=== PATIENT | female | born 1975 | race Caucasian/White ===

== ENCOUNTER 2025-01-06 18:41 | Emergency (ER) | payer BC, SELFPAY ==
--- OUTSIDE RECORDS SUMMARY | 2024-12-13 08:00 | XMS_ITS ---
Author Organization [facility] Address [address] [place] [address] Care Team Providers Care Bolt Threader Name Role Phone Raphael Mann Primary Care Provider [phone] Tushar MORENO, PhD, Heladio Unavailable Ludwig Damian Unavailable [phone] Allergies Allergen (clinical drug ingredient) Drug/Non Drug Allergy documented on EMR Reaction Allergy Type Onset Date Status Opioids (uncoded) rash/hives-can take w/benadryl Allergy Active hydromorphone Dilaudid rash Drug Allergy Act dulce codeine Codeine rash/hives Drug Allergy Active morphine Morphine rash Drug Allergy Active REASON FOR VISIT Neck Pain, Left Upper Extremity Pain, Low Back Pain Medications Medication SIG (Take, Route, Frequency, Duration) Notes Start Date End Date Status hydrOXYzine HCl 25 MG Tablet 1 tablet as needed for itchiness Orally Three times a day; Duration: 4 days Active oxyCODONE HCl 5 MG Tablet 1 tablet as needed Orally once to twice a day; Duration: 30 days Not-Taking/OK N HYDROcodone-Acetaminoph en 5-325 MG Tablet 1 tablet as needed Orally Twice a day; Duration: 5 days For post-op pain 10/05/2024 Active Medrol 4 MG Tablet Therapy Pack as directed on Medrol package Orally 1 pack; Duration: 6 days post-procedu re pain 09/27/2024 Active tiZANidine HCl 4 MG Tablet TAKE ONE TABLET BY MOUTH EVERY 8 HOURS IF NEEDED FOR MUSCLE SPASMS Oral; Duration: 30 Days Active Budesonide-Formoterol Fumarate 80-4.5 MCG/ACT Aerosol INHALE 2 PUFFS BY MOUTH TWICE DAILY AND 1-2 PUFFS EVERY 4 HOURS NEEDED FOR ASTHMA EXACERBATIONS. MAX 12 PUFFS A DAY Inhalation; Duration: 10 Days Active Pantoprazole Sodium 40 MG Tablet Delayed Release TAKE ONE TABLET BY MOUTH EVERY DAY BEFORE A MEAL Oral; Duration: 90 Days Active Eliquis 5 MG Tablet TAKE ONE TABLET BY MOUTH TWICE A DAY Oral; Duration: 30 Days Active Acetaminophen 325 MG Tablet 1 tablet as needed Orally every 6 hrs Active Ondansetron HCl 4 MG Tablet 1 tablet Orally Once a day Active DULoxetine HCl 60 MG Capsule Delayed Release Particles 1 capsule Orally Once a day Active busPIRone HCl 5 MG Tablet 1 tablet Orally Twice a day Active Cyclobenzaprine HCl 10 MG Tablet 1 tablet at bedtime as needed Orally Once a day Active Social History Tobacco Use: Social History Observation Description Date Details (start date - stop date) Never Smoker NA - NA Social History Tobacco Use: Social Info Question Answer Notes Tobacco Control (Standard) Tobacco use: Nonsmoker Encounters Encounter Location Date Provider Diagnosis [address] [facility] [address] [facility] [address] [place] [address] 12/13/2024 Ludwig Dorsey Assessments Encounter Date Diagnosis (ICD Code) Assessment Notes Treatment Notes Treatment Clinical Notes Section Notes 12/13/2024 Other Arpit Stephens , am serving as a scribe to document services personally performed by Ludwig Dorsey CNP, based upon my observations and the provider's statements to me. All documentation has been reviewed by the aforementioned BIOMED TECH as well as Raphael Mann MD, prior to being entered into the official medical record. Raphael Stephens MD attest that the above named individual is acting in scribe capacity, has observed Ludwig Dorsey's performance of the services and has documented them in accordance with her direction. The documentation recorded by the scribe accurately reflects the service Ludwig Dorsey CNP and Raphael Mann MD personally performed and the decisions made by them. Plan Of Treatment Treatment Notes Assessment Notes Other Arpit Stephens, am serving as a scribe to document services personally performed by Ludwig Dorsey CNP, based upon my observations and the provider's statements to me. All documentation has been reviewed by the aforementioned CATHY as well as Raphael Mann MD, prior to being entered into the official medical record. Raphael Stephens MD attest that the above named individual is acting in scribe capacity, has observed Ludwig Dorsey's performance of the services and has documented them in accordance with her direction. The documentation recorded by the scribe accurately reflects the service Ludwig Dorsey CNP and Raphael Mann MD personally performed and the decisions made by them. History and Physical Notes * HPI (History of Present Illness) Category Sub-Category Detail Notes Category Not es Clinic visit Lanie is 49-year-old femalew who is returning for a follow-up evaluation regarding her chronic low back and bilateral lower extremity pain. She is accompanied by her industrial sociologist in clinic today. Interval History: Lanie reports her pain has remained persistent and bothersome. Following a discussion with Dr. Mann in the interim, he has recommended cervical MBB/RFA workup instead of a cervical SCS to address her current symptoms. She returns to the clinic requesting further discussion regarding the aforementioned procedure. Surgical or interventional pain procedures performed to date have included: - 10/18/2024 Left C3-5 RFA - 09/27/2024 Right C3-5 RFA - 06/02/2024 Nevro lumbar SCS implant - 09/2023 Unspecified injection: no relief - 03/06/2020 C7-T1 ADITHYA ([facility]): no relief - 12/19/2019 C7 MARCIN ([facility]): no relief - (Unspecified date) RFA - (Unspecified dates) Unspecified injections at [facility]: no relief Previous Therapy: [facility] was [facility] at [place] [facility] the past Current Pain Medications: Tizanidine PRN, oxycodone 5MG PRN Previous Pain Medications: Alburgh (no relief), Ketamine (helpful), MSIR, Gabapentin (no relief), Lyrica (no relief) ___ returns to clinic today for a follow up evaluation regarding her chronic pain. We discussed her current symptoms and medications. Regarding medications, I have reviewed the [facility] database and did not find any inconsistencies. This treatment plan was reviewed with ___, and she was agreeable. I will continue to monitor her progress and she will follow up in one month or sooner if needed. Plan: 1. Discharge instructions reviewed verbally. Discussed the risks/benefits of prescribed medication. The patient is aware that medication may be discontinued at any time due to poor compliance with visits, and recommended treatment and/or if patient doesn't adhere to the signed pain contract. The patient was instructed to return to the office as scheduled and call with any questions, problems or concerns. PQRS MEASURE 154,155 Fall Risk Have you had t wo or more falls in the past year?: No Have you had any falls with injury in th e past year?: No Plan of Care:: Documented Examination Category Sub-Category Detail Notes Category Not es Cervical Spine/Neck 03/04/2024 CERVICAL MRI ([facility]) IMPRESSION: 1. Multilevel degenerative changes as detailed above. No abnormal enhancement. No cord signal abnormality. Musculoskeletal Constitutional: well groomed, in no ac mel distress Musculoskeletal: Sits comfortablyCerv ical Spine: positive facet loading bilaterally, pain with flexion and extension, lateral rotation; limited AROM Skin: No rashes, scars, or lesions on visible skin Neurological normal coordination upper extremities, normal coordination lower extremities, alert and oriented x3, normal mood and affect Progress Notes * Lanie BARRAZA JDOB:[birth year] (49 yo F)Acc No.[id number]:12/13/2024 Patient: Lanie Cardona Provider: Emelina Dorsey NP :1975 A ge:49 Y S ex:Female Date:12/13/2024 Address:[address] [place], [place] [id number] Pcp:Raphael Mann Subjective: * Chief Complaints: * N yadira PainLeft Upper Extremity PainLow Back Pain * HPI: C linic visit: Lanie is 49-year-old femalew who is returning for a follow-up evaluation regarding her chronic low back and bilateral lower extremity pain. She is accompanied by her industrial sociologist in clinic today. Interval History: Lanie reports her pain has remained persistent and bothersome. Following a discussion with Dr. Mann in the interim, he has recommended cervical MBB/RFA workup instead of a cervical SCS to address her current symptoms. She returns to the clinic requesting further discussion regarding the aforementioned procedure. Surgical or interventional pain procedures performed to date have included: - 10/18/2024 Left C3-5 RFA - 09/27/2024 Right C3-5 RFA - 06/02/2024 Nevro lumbar SCS implant - 09/2023 Unspecified injection: no relief - 03/06/2020 C7-T1 ADITHYA ([facility]): no relief - 12/19/2019 C7 MARCIN ([facility]): no relief - (Unspecified date) RFA - (Unspecified dates) Unspecified injections at [facility]: no relief Previous Therapy: PT was completed at [facility] in the past Current Pain Medications: Tizanidine PRN, oxycodone 5MG PRN Previous Pain Medications: Alburgh (no relief), Ketamine (helpful), MSIR, Gabapentin (no relief), Lyrica (no relief) ___ returns to clinic today for a follow up evaluation regarding her chronic pain. We discussed her current symptoms and medications. Regarding medications, I have reviewed the [facility] database and did not find any inconsistencies. This treatment plan was reviewed with ___, and she was agreeable. I will continue to monitor her progress and she will follow up in one month or sooner if needed. Plan: 1. Discharge instructions reviewed verbally. Discussed the risks/benefits of prescribed medication. The patient is aware that medication may be discontinued at any time due to poor compliance with visits, and recommended treatment and/or if patient doesn't adhere to the signed pain contract. The patient was instructed to return to the office as scheduled and call with any questions, problems or concerns. P QRS MEASURE: 154,[address] you had two or more falls in the past year? N o, H ave you had any falls with injury in the past year? N o, P rhoda of Care: D ocumented. * Medical History: Anxiety Acid reflux Sleep Apnea Pulmonary embolism Hearing Loss Vision Loss Fatty liver Disease - non-alcoholic Factor V Leiden mutation Fibroids GERD Hiatal hernia Pre diabetes Choledocholithiasis Chest pain Elevated C-reactive protein Diverticular disease Acute cholecystitis High cholesterol Intradural mass Medical History Verified * Surgical History: appendectomy section 2013 Cystoscopy gallbladder surgery 2013 tonsillectomy 1979 Lumbar radiofrequency ablation total abdominal hysterectomy cystoscopy Nevro SCS trial 03/23/2024 Nevro SCS implant 05/2024 Surgical History verified. * Hospitalization/Major Diagno stic Procedure: Surgical reasons Hospitalization Verified. * Family History: N o Family History documented.. F amily History Verified.. * Social History: T obacco Use: T obacco Control (Standard) T obacco use: N onsmoker. Social History Verified. * Medications: T akingbusPIRone HCl 5 MG Tablet 1 tablet Orally Twice a day DULoxetine HCl 60 MG Capsule Delayed Release Particles 1 capsule Orally Once a day Cyclobenzaprine HCl 10 MG Tablet 1 tablet at bedtime as needed Orally Once a day Ondansetron HCl 4 MG Tablet 1 tablet Orally Once a day Acetaminophen 325 MG Tablet 1 tablet as needed Orally every 6 hrs Eliquis 5 MG Tablet TAKE ONE TABLET BY MOUTH TWICE A DAY Oral Pantoprazole Sodium 40 MG Tablet Delayed Release TAKE ONE TABLET BY MOUTH EVERY DAY BEFORE A MEAL Oral Budesonide-Formoterol Fumarate 80-4.5 MCG/ACT Aerosol INHALE 2 PUFFS BY MOUTH TWICE DAILY AND 1-2 PUFFS EVERY 4 HOURS NEEDED FOR ASTHMA EXACERBATIONS. MAX 12 PUFFS A DAY Inhalation hydrOXYzine HCl 25 MG Tablet 1 tablet as needed for itchiness Orally Three times a day tiZANidine HCl 4 MG Tablet TAKE ONE TABLET BY MOUTH EVERY 8 HOURS IF NEEDED FOR MUSCLE SPASMS Oral Medrol 4 MG Tablet Therapy Pack as directed on Medrol package Orally 1 pack , Notes to Pharmacist: post-procedure painHYDROcodone-Acetaminophen 5-325 MG Tablet 1 tablet as needed Orally Twice a day , Notes to Pharmacist: For post-op painTaking busPIRone HCl 5 MG Tablet 1 tablet Orally Twice a day Taking DULoxetine HCl 60 MG Capsule Delayed Release Particles 1 capsule Orally Once a day Taking Cyclobenzaprine HCl 10 MG Tablet 1 tablet at bedtime as needed Orally Once a day Taking Ondansetron HCl 4 MG Tablet 1 tablet Orally Once a day Taking Acetaminophen 325 MG Tablet 1 tablet as needed Orally every 6 hrs Taking Eliquis 5 MG Tablet TAKE ONE TABLET BY MOUTH TWICE A DAY Oral Taking Pantoprazole Sodium 40 MG Tablet Delayed Release TAKE ONE TABLET BY MOUTH EVERY DAY BEFORE A MEAL Oral Taking Budesonide-Formoterol Fumarate 80-4.5 MCG/ACT Aerosol INHALE 2 PUFFS BY MOUTH TWICE DAILY AND 1-2 PUFFS EVERY 4 HOURS NEEDED FOR ASTHMA EXACERBATIONS. MAX 12 PUFFS A DAY Inhalation Taking hydrOXYzine HCl 25 MG Tablet 1 tablet as needed for itchiness Orally Three times a day Taking tiZANidine HCl 4 MG Tablet TAKE ONE TABLET BY MOUTH EVERY 8 HOURS IF NEEDED FOR MUSCLE SPASMS Oral Taking Medrol 4 MG Tablet Therapy Pack as directed on Medrol package Orally 1 pack , Notes to Pharmacist: post-procedure painTaking HYDROcodone-Acetaminophen 5-325 MG Tablet 1 tablet as needed Orally Twice a day , Notes to Pharmacist: For post- op painNot-Taking/PRNoxyCODONE HCl 5 MG Tablet 1 tablet as needed Orally once to twice a day Medication List reviewed and reconciled with the patientNot-Taking/PRN oxyCODONE HCl 5 MG Tablet 1 tablet as needed Orally once to twice a day Medication List reviewed and reconciled with the patient * Allergies: M orphine: rashDilaudid: rashCodeine: rash/hivesOpioids: rash/hives-can take w/benadrylyesAllergies Verified. Objective: * Examination: M usculoskeletal: Constitutional: w ell groomed, in no acute distress. Musculoskeletal: S its comfortably Cervical Spine: p ositive facet loading bilaterally, pain with flexion and extension, lateral rotation; limited AROM. Skin: N o rashes, scars, or lesions on visible skin. Neurological n ormal coordination upper extremities, normal coordination lower extremities, alert and oriented x3, normal mood and affect. ? C ervical Spine/Neck: 0 03/04/2024 CERVICAL MRI ([facility]) IMPRESSION: 1. Multilevel degenerative changes as detailed above. No abnormal enhancement. No cord signal abnormality. Plan: * Treatment: Billing Information: * Procedure Codes: * Electronic signature of Jc Dorsey CNP on 01/06/2025 at 06:44 PM ACCOUNT AUDITOR Sign off status: Pending * Provider: Emelina Dorsey NP Date: Generated for Gee gutierres/Brenda/Michael on: 03/08/2024 06:44 PM ACCOUNT AUDITOR
--- OUTSIDE RECORDS SUMMARY | 2024-12-15 08:15 | XMS_ITS ---
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 Name Role Phone Raphael Mann Primary Care Provider Tushar MORENO, PhD, Heladio Unavailable Ludwig aDmian Unavailable [phone] Allergies Allergen (clinical drug ingredient) Drug/Non Drug Allergy documented on EMR Reaction Allergy Type Onset Date Status Opioids (uncoded) rash/hives-can take w/benadryl Allergy Active hydromorphone Dilaudid rash Drug Allergy Act dulce codeine Codeine rash/hives Drug Allergy Active morphine Morphine rash Drug Allergy Active REASON FOR VISIT Neck pain, Left upper extremity pain, Low back pain, Bilateral lower extremity pain Medications Medication SIG (Take, Route, Frequency, Duration) Notes Start Date End Date Status tiZANidine HCl 4 MG Tablet TAKE ONE TABLET BY MOUTH EVERY 8 HOURS IF NEEDED FOR MUSCLE SPASMS Oral; Duration: 30 Days Active hydrOXYzine HCl 25 MG Tablet 1 tablet as needed for itchiness Orally Three times a day; Duration: 4 days Active Budesonide-Formoterol Fumarate 80-4.5 MCG/ACT Aerosol INHALE [...] A DAY Oral; Duration: 30 Days Active Ondansetron HCl 4 MG Tablet 1 tablet Orally Once a day Active Cyclobenzaprine HCl 10 MG Tablet 1 tablet at bedtime as needed Orally Once a day Active DULoxetine HCl 60 MG Capsule Delayed Release Particles 1 capsule Orally Once a day Active busPIRone HCl 5 MG Tablet 1 tablet Orally Twice a day Active Acetaminophen 325 MG Tablet 1 tablet as needed Orally every 6 hrs Active HYDROcodone-Acetaminoph en 5-325 MG Tablet 1 tablet as needed Orally Twice a day; Duration: 5 days For post-op pain 10/05/2024 Active Medrol 4 MG Tablet Therapy Pack as directed on Medrol package Orally 1 pack; Duration: 6 days post-procedu re pain 09/27/2024 Active oxyCODONE HCl 5 MG Tablet 1 tablet as needed Orally once to twice a day; Duration: 30 days Not-Taking/AL N Social History Tobacco Use: Social History Observation Description Date Details (start date - stop date) Never Smoker NA - NA Social History Drug/Alcohol: Social Info Question Answer Notes AUDIT-C (Standard) Did you have a drink containing alcohol in the past year? No Points 0 Interpretation Negative Tobacco Use: Social Info Question Answer Notes Tobacco Control (Standard) Tobacco use: Nonsmoker Vital Signs Blood pressure systolic 140 mm Hg 12/16/19 25 Blood pressure diastolic 82 mm Hg 025 Height 64 in 12/15/2024 Weight 270 lbs 12/15/2024 BMI 46.34 kg/m2 12/15/2024 Procedures Procedure Date Ordered Date Performed Result Body Sit e Intervention: 12/15/2024 N/A Intervention: 2 12/15/2024 N/A Encounters Encounter Location Date Provider Diagnosis [facility] [id number] [id number] 12/15/2024 Ludwig Dorsey Cervicalgia M54.2 ; Low back pain, unspecified M54.50 ; Spondylosis without myelopathy or radiculopathy, cervical region M47.812 ; Radiculopathy, lumbar region M54.16 and Other chronic pain G89.29 Assessments Encounter Date Diagnosis (ICD Code) Assessment Notes Treatment Notes Treatment Clinical Notes Section Notes 12/15/2024 Cervicalgia (ICD-10 - M54.2) 12/15/2024 Low back pain, unspecified (ICD-10 - M54.50) 12/15/2024 Spondylosis without myelopathy or radiculopathy, cervical region (ICD-10 - M47.812) 12/15/2024 Radiculopathy, lumbar region (ICD-10 - M54.16) 12/15/2024 Other chronic pain (ICD-10 - G89.29) Lanie returns to clinic today for a follow up evaluation regarding her chronic pain. We discussed her current symptoms and medications as well as her most recent imaging. Given her extremity symptoms, I do believe she is a good candidate for MARCIN and LESI. Regarding medications, I have reviewed the [facility] database and did not find any inconsistencies. She is advised to adjust her Methocarbamol and Tylenol doses for improved pain coverage. This treatment plan was reviewed with Lanie, and she was agreeable. I will continue to monitor her progress and she will follow up in two months or sooner if needed. Plan: 1. Order C6-7 ADITHYA 2. Order bilateral L4-5 TFE 3. Request Eliquis hold 4. Trial additional Methocarbamol day time dose along with Tylenol 5. Follow up in 2 months Discharge instructions reviewed verbally. Discussed the risks/benefits of prescribed medication. The patient was instructed to return to the office as scheduled and call with any questions, problems or concerns. 12/15/2024 Other I, Arpit Jean-Baptiste , am serving as a scribe to document services personally performed by Ludwig Dorsey CNP, based upon my observations and the provider's statements to me. All documentation has been reviewed by the aforementioned MEDICARE COMPLIANCE AUDITOR as well as Wilfredo Ellis MD, prior to being entered into the official medical record. I, Wilfredo Ellis MD attest that the above named individual is acting in scribe capacity, has observed Ludwig Dorsey's performance of the services and has documented them in accordance with her direction. The documentation recorded by the scribe accurately reflects the service Ludwig Dorsey CNP and Wilfredo Ellis MD personally performed and the decisions made by them. Plan Of Treatment Treatment Notes Assessment Notes Other chronic pain Lanie returns to clinic today for a follow up evaluation regarding her chronic pain. We discussed her current symptoms and medications as well as her most recent imaging. Given her extremity symptoms, I do believe she is a good candidate for MARCIN and LESI. Regarding medications, I have reviewed the [facility] database and did not find any inconsistencies. She is advised to adjust her Methocarbamol and Tylenol doses for improved pain coverage. This treatment plan was reviewed with Lanie, and she was agreeable. I will continue to monitor her progress and she will follow up in two months or sooner if needed. Plan: 1. Order C6-7 ADITHYA 2. Order bilateral L4-5 TFE 3. Request Eliquis hold 4. Trial additional Methocarbamol day time dose along with Tylenol 5. Follow up in 2 months Discharge instructions reviewed verbally. Discussed the risks/benefits of prescribed medication. The patient was instructed to return to the office as scheduled and call with any questions, problems or concerns. Other I, Arpit Jean-Baptiste, am serving as a scribe to document services personally performed by Ludwig Dorsey CNP, based upon my observations and the provider's statements to me. All documentation has been reviewed by the aforementioned CATHY as well as Wilfredo Ellis MD, prior to being entered into the official medical record. I, Wilfredo Ellis MD attest that the above named individual is acting in scribe capacity, has observed Ludwig Dorsey's performance of the services and has documented them in accordance with her direction. The documentation recorded by the scribe accurately reflects the service Ludwig Dorsey CNP and Wilfredo Ellis MD personally performed and the decisions made by them. Pending Test Test Name Order Date Intervention: 12/15/2024 Intervention: 2 12/15/2024 Next Appt Details Follow Up: 2 Months, Reason: History and Physical Notes * HPI (History of Present Illness) Category Sub-Category Detail Notes Category Not es Depression Screening PHQ-9 Little inte rest or pleasure in doing things: Several days Feeling down, depressed, or hopeless: Se veral days Trouble falling or staying asleep, or sl eeping too much: Several days Feeling tired or having little energy: S everal days Poor appetite or overeating: Not at all Feeling bad about yourself o r that you are a failure, or have let yourself or your family down: Not at all Trouble concentrating on thi ngs, such as reading the newspaper or watching television: Not at all Moving or speaking so slowly that other people could have noticed; or the opposite, being so fidgety or restless that you have been moving around a lot more than usual: Several days Thoughts that you would be b mon[place] off or of hurting yourself in some way: Not at all Total Score: 5 Interpretation: Mild Depression Intervention Depression Screening Findings: N egative Name of the standardized too l used for adult depression screening:: Patient Health Questionnaire (PHQ-9) Clinic visit Lanie returns regarding neck and upper extremity pain, particularly with movement and completing ADLs. She also endorses cramping in the lower arms and hands. She also has chronic low back and bilateral lower extremity pain that has been bothersome in the interim, particularly aggravated by her new job in [employer]. She is accompanied by her aerial photograph interpreter in clinic today. She presented to the ER for pain earlier this month. She was given Methocarbamol which she still takes nightly. She has been on Tizanidine in the past. Otherwise, she is only using Tylenol Previous Pain Medications: Tizanidine, Oxycodone, [place] (no relief), Ketamine (helpful), MSIR, Gabapentin (no relief), Lyrica (no relief) On 01/19/2025 she is scheduled to see podiatry Surgical or interventional pain procedures performed to date have included: - 10/18/2024 Left C3-5 RFA: 40-50% ongoing relief - 09/27/2024 Right C3-5 RFA: 40-50% ongoing relief - 06/02/2024 Nevro lumbar SCS implant - 09/2023 Unspecified injection: no relief - 03/06/2020 C7-T1 ADITHYA ([facility]): no relief - 12/19/2019 C7 MARCIN ([facility]): no relief - (Unspecified date) RFA - (Unspecified dates) Unspecified injections at [facility]: no relief Previous Therapy: [facility] the past PQRS MEASURE 154,155 Fall Risk Have you [...] No abnormal enhancement. No cord signal abnormality. Lumbar Spine/Lower back 07/07/2023 MR LUMBAR ([facility]) CONCLUSION: Multilevel spondylosis with mild Scheuerman-like thoracolumbar endplate changes, and these findings: 1. Mild to moderate multilevel disc degeneration, notably L1-2 and L2-3, without neural impingement at these levels. 2. Moderate chronic bilateral L4-5 and right L5-S1 foraminal stenosis with nerve root impingement. 3. 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 This is best seen on postcontrast imaging. Note: No substantial change in spondylosis. L4-5 foraminal stenosis may be slightly worse. Musculoskeletal Constitutional: well groomed, in no acute distress Musculoskeletal: Sits comfortably Skin: No rashes, scars, or lesions on visible skin Neurological normal coordination upper extremities, normal coordination lower extremities, alert and oriented x3, normal mood and affect Progress Notes * DANIKARegina FLORESnifer JDOB:[birth year] (49 yo F)Acc No.[id number]:12/15/2024 Patient: Abel zionReginaLanie Emelina Provider: Emelina Dorsey NP :1975 A ge:49 Y S ex:Female Date:12/15/2024 Address:[address] [place], [place] [id number] Pcp:Raphael Mann Subjective: * Chief Complaints: * N yadira painLeft upper extremity painLow back painBilateral lower extremity pain * HPI: C linic visit: Lanie returns regarding neck and upper extremity pain, particularly with movement and completing ADLs. She also endorses cramping in the lower arms and hands. 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 She is accompanied by her aerial photograph interpreter in clinic today. She presented to the ER for pain earlier this month. She was given Methocarbamol which she still takes nightly. She has been on Tizanidine in the past. Otherwise, she is only using Tylenol Previous Pain Medications: Tizanidine, Oxycodone, N orco (no relief), Ketamine (helpful), MSIR, Gabapentin (no relief), Lyrica (no relief) On 01/19/2025 she is scheduled to see podiatry Surgical or interventional pain procedures performed to date have included: - 0 10/18/2024 Left C3-5 RFA: 40-50% ongoing relief - 09/27/2024 Right C3-5 RFA: 40-50% ongoing relief - 06/02/2024 Nevro lumbar SCS implant - 09/2023 Unspecified injection: no relief - 03/06/2020 C7-T1 ADITHYA ([facility]): no relief - 12/19/2019 C7 MARCIN ([facility]): no relief - (Unspecified date) RFA - (Unspecified dates) Unspecified injections at [facility]: no relief Previous Therapy: PT was completed at [facility] in the past. P QRS MEASURE: 154,[address] you had two or more falls in the past year? N o, H ave you had any falls with injury in the past year? N o, P rhoda of Care: D ocumented. D epression Screening: PHQ-9 L ittle interest or pleasure in doing things S everal days, F eeling down, depressed, or hopeless S everal days, T rouble falling or staying asleep, or sleeping too much S everal days, F eeling tired or having little energy S everal days, P oor appetite or overeating N ot at all, F eeling bad about yourself or that you are a failure, or have let yourself or your family down N ot at all, T rouble concentrating on things, such as reading the newspaper or watching television N ot at all, M oving or speaking so slowly that other people could have noticed; or the opposite, being so fidgety or restless that you have been moving around a lot more than usual S everal days, T houghts that you would be better off or of hurting yourself in some way N ot at all, T otal Score 5, I nterpretation M ild Depression. I ntervention D epression Screening Findings?Negative, N flower of the standardized tool used for adult depression screening: P atient Health Questionnaire (PHQ-9). * ROS: G eneral/Constitutional: Chills/Fevers N o. F atigue N o. W eight gain?Yes. W eight loss N o. E ndocrine: Dizziness N o. E xcessive sweating Y es. W eakness Y es. R espiratory: Chest pain N o. C ough N o. S hortness of breath at rest Y es. G astrointestinal: Abdominal pain N o. B lood in stool N o. C onstipation N o. D iarrhea N o. H ematology: Easy bruising Y es. P rolonged bleeding N o. S wollen glands N o. M usculoskeletal: Painful joints Y es. S wollen joints N o. ? S kin: Skin lesion(s) N o. N eurologic: Balance difficulty N o. H eadache N o. T ingling/Numbness N o. P sychiatric: Alcoholism N o. A nxiety Y es. S ubstance abuse?No. * Medical History: Anxiety Acid reflux Sleep [...] * Hospitalization/Major Diagno stic Procedure: Surgical reasons ER for pain 11/24/2024 Hospitalization Verified. * Family History: N o Family History documented.. F amily History Verified.. * Social History: T obacco Use: T obacco Control (Standard) T obacco use: N onsmoker. D rug/Alcohol: A IBETH-C (Standard) D id you have a drink containing alcohol in the past year? N o,?Points 0 , I nterpretation N egative. Social History Verified. * Medications: T akingbusPIRone [...] rash/hivesOpioids: rash/hives-can take w/benadrylyesAllergies Verified. Objective: * Vitals: H t: 64 in, Wt:270lbs, BMI:46.34Index, BP:140/82mm Hg, VAS-Today:71-10, VAS-Av 1-10, VAS-High: 10 1-10. * Examination: M usculoskeletal: Constitutional: w ell groomed, in no acute distress. Musculoskeletal: S its comfortably. Skin: N o rashes, scars, or lesions on visible skin. Neurological n ormal coordination upper extremities, normal coordination lower extremities, alert and oriented x3, normal mood and affect. ? C ervical Spine/Neck: 0 03/04/2024 CERVICAL MRI ([facility]) IMPRESSION: 1. Multilevel degenerative changes as detailed above. No abnormal enhancement. No cord signal abnormality. L umbar Spine/Lower back: 0 07/07/2023 MR LUMBAR ([facility]) CONCLUSION: Multilevel spondylosis with mild Scheuerman-like thoracolumbar endplate changes, and these findings: 1. Mild to moderate multilevel disc degeneration, notably L1-2 and L2-3, without neural impingement at these levels. 2. Moderate chronic bilateral L4-5 and right L5-S1 foraminal stenosis with nerve root impingement. 3. 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 This is best seen on postcontrast imaging. Note: No substantial change in spondylosis. L4-5 foraminal stenosis may be slightly worse. Assessment: * Assessment: 1. C ervicalgia - M54.2 (Primary) 2 . L ow back pain, unspecified - M54.50? 3. S pondylosis without myelopathy or radiculopathy, cervical region - M47.812? 4. R adiculopathy, lumbar region - M54.16 5 . O ther chronic pain - G89.29 Plan: * Treatment: 2.?Radiculopathy, lumbar region?Procedure: Intervention: 2* Arpit Jean-Baptiste 12/15/2024 03: 01:15 PM CDT > Please order bilateral L4-5 TFE and call patient to schedule. Patient is on Eliquis. 3.?Other chronic pain? Notes: Lanie returns to clinic today for a follow up evaluation regarding her chronic pain. We discussed her current symptoms and medications as well as her most recent imaging. Given her extremity symptoms, I do believe she is a good candidate for MARCIN and LESI.?Regarding medications, I have reviewed the [facility] database and did not find any inconsistencies. She is advised to adjust her Methocarbamol and Tylenol doses for improved pain coverage. This treatment plan was reviewed with Lanie, and she was agreeable. I will continue to monitor her progress and she will follow up in two months or sooner if needed. Plan: 1. Order C6-7 ADITHYA 2. Order bilateral L4-5 TFE 3. Request Eliquis hold 4. Trial additional Methocarbamol day time dose along with Tylenol 5. Follow up in 2 months Discharge instructions reviewed verbally. Discussed the risks/benefits of prescribed medication. The patient was instructed to return to the office as scheduled and call with any questions, problems or concerns.??4.?Others? Notes: I Arpit Estiven, am serving as a scribe to document services personally performed by Ludwig Dorsey CNP, based upon my observations and the provider's statements to me. All documentation has been reviewed by the aforementioned MEDICARE COMPLIANCE AUDITOR as well as Wilfredo Ellis MD, prior to being entered into the official medical record. I, Wilfredo Ellis MD attest that the above named individual is acting in scribe capacity, has observed Ludwig Dorsey's performance of the services and has documented them in accordance with her direction. The documentation recorded by the scribe accurately reflects the Nilda Dorsey CNP and Wilfredo Ellis MD personally performed and the decisions made by them.? * Preventive Medicine: iSpine Inventory Forms: L ow Back Oswestry O swestry Score (0-100) = 2 2,?NATALY Interpretation 2 1-39 (Moderate Disability). Counseling: B AK Care goal follow-up plan: A steffi Normal BMI Follow-up L ifestyle education regarding diet Patient declined. * Follow Up: 2 Months Billing Information: * Visit Code: [id number] Established Patient level 4. 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
--- OUTSIDE RECORDS SUMMARY | 2024-12-29 08:13 | XMS_ITS | Continuity of Care Document ---
Author Organization [facility] Address [address] [address] [place] [address] Phone Care Team Providers Care Calculation Reviewer Name Role Phone Wiley Garcia MD Unavailable Unavailable Allergies, Adverse Reactions, Alerts Substance Reaction Status Criticality morphine Active No Information PRESERVATIVE FREE rash Active No Informa tion HYDROMORPHONE HCL rash Active No Informa tion Medications Medication Instructions Dosage Effective Dates (start - stop) Status Comments pantoprazole 40 mg tablet,delayed release take 1 tablet by oral route 2 times every day 40 MG - Active tanya @[employer] ondansetron [address] 1 tablet by translingual route 1-2 times every day as needed on top of the tongue where they will dissolve, then swallow - Active omeprazole 40 mg capsule,delayed release take 1 by Oral route 2 times every day Take 30 minutes before a meal - Active tanya @[employer] sucralfate 1 gram tablet take 1 tablet by oral route 4 times every day on an empty stomach 1 hour before meals and at bedtime 1 G - Active tanya @[employer] Lovenox 40 mg/0.4 mL subcutaneous syringe inject 0.4 milliliter by subcutaneous route every month 40 MG - Active omeprazole 20 mg capsule,delayed release take 1 capsule by oral route 2 times every day 30 minutes to 1 hour before a meal 20 MG - Active DULOXETINE HCL (unknown strength) take 1 capsule by oral route 2 times every day Not Available - Active Eliquis 5 mg tablet take 1 tablet by oral route 2 times every day 5 MG - Active Procedures Procedure Date Offic/outpt E&m Estab Moderate Routine Serum Collection Offic/outpt E&m Estab Moderate Routine Serum Collection Ugi Endo; Dx W/wo Collec Specm 25 Offic/outpt E&m Estab Moderate 25 Routine Serum Collection Offic/outpt E&m Estab Mod-hi 2 24 Esophageal Motility Study Offic/outpt E&m Estab Mod-hi 2 23 Offic/outpt E&m Estab Mod-hi 2 22 Ugi Endo; W/insrt Guide Wire Ugi Endo; W/bx 1/mx Level Iv-surg Path Gross/micro 22 Colonoscopy Flex; W/remov Les- 21 Colonoscopy Flex; W/bx 1/mx Level Iv-surg Path Gross/micro 21 Offic/outpt E&m Estab Mod-hi 2 18 Ugi Endo; W/bx 1/mx Level Iv-surg Path Gross/micro 18 Offic/outpt E&m Estab Mod-hi 2 18 Offic/outpt E&m Estab Mod-hi 2 18 Offic/outpt E&m Estab Low-mod 6 Colonoscopy Flex; W/remov Les- 16 Level Iv-surg Path Gross/micro 16 Offic/outpt E&m Estab Mod-hi 2 16 Colonoscopy Flex; W/remov Les- 14 Colonoscopy Flex; W/bx 1/mx Level Iv-surg Path Gross/micro 14 Offic/outpt E&m Estab Mod-hi 2 14 Ercp; W/endo Retro Remov Fb/ch 13 Ercp; W/endo Retro Remov Stone 13 Offic/outpt E&m Estab Mod-hi 2 13 Subsqt Hosp-da E&m Minr Compl 3 Init Inpt Cons New/est Mod-hi 3 Ugi Endo; W/endo Ultrasound Ex 13 Ercp; W/sphincterotomy/papillo 13 Ercp; W/endo Retro Insrt Tube/ 13 Ercp; W/endo Retro Remov Stone 13 Init Inpt Cons New/est Mod-hi 3 Ugi Endo; Dx W/wo Collec Specm 09 Offic Cons New/estab Mod-hi 60 09 [id number] Advance Directives Directive Yes / No Effective Date File Name No Information Encounters Encounter Description Practice Location Reason(s) For Visit Diagnoses Date Provider Providers Copied on Encounter [facility], [address] [address], [place], [place], [address], [place] tel:[phone] [facility] No Information 5 Jose Jama. [address] [place] [address], [id number], [place]. tel:[phone] Offic/outpt E&m Estab Moderate [facility], [address] [address], [place], [place], [address], [place] tel:[phone] [facility] GI Symptoms or Concerns (chief complaint) Hiatal hernia with GERD and esophagitisSev ere obesityGastrop aresis 5 Chris Waters. [address] [place] [address], [id number], . tel:[phone] Referring Provider: Referral Self, USE FOR SELF REFERRALS. [facility], [address] [address], [place], [id number], [place] tel:[phone] [facility] Gastroparesis 5 Chris PAC Evelin. [address] [facility], [address], [id number], . tel:[phone] Referring Provider: Referral Self, USE FOR SELF REFERRALS. [facility], [address] [address], [place], [id number], [place] tel:[phone] [facility] Hepatic steatosis Oct- 5 Chris PAC Evelin. [address] [facility], [address], [id number], [place]. tel:[phone] Offic/outpt E&m Estab Moderate [facility], [address] [address], [place], [id number], [place] tel:[phone] [facility] GI Symptoms or Concerns (chief complaint) GastroparesisH iatal hernia with GERD and esophagitisGas tro-esophageal reflux disease with esophagitis, without bleeding 5 Chris PAC Evelin. [address] [facility], [address], [id number], [place]. tel:[phone] Referring Provider: Referral Self, USE FOR SELF REFERRALS. [facility], [address] [address], [place], [id number], [place] tel:[phone] [facility] Diaphragmatic hernia without obstruction or gangreneGastro esophageal reflux disease with esophagitis without hemorrhageGast ro-esophageal reflux disease with esophagitis, without bleedingDiaphr agmatic hernia without obstruction or gangrene 5 Luis Dennisahim. [address] [facility], [address], [id number], [place]. tel:[phone] Referring Provider: Referral Self, USE FOR SELF REFERRALS. Offic/outpt E&m Estab Moderate [facility], [address] [address], [place], [id number], [place] tel:[phone] [facility] GI Symptoms or Concerns (chief complaint) Hiatal herniaGastroes ophageal reflux disease, unspecified whether esophagitis presentHepatic steatosisNause a 5 Chris Mendozaanna. [facility], [facility] [address], [place], [place], [address], [place]. tel:[phone] Referring Provider: Referral Self, USE FOR SELF REFERRALS. [facility], [address] [address], [place], [address], [place] tel:[phone] [facility] No Information 5 Tavares Hill. [address] [facility], [facility] [address], [place], [id number], [place]. tel:[phone] Offic/outpt E&m Estab Mod-hi [address] [facility], [address] [address], [place], [address], [place] tel:[phone] [facility] GI Symptoms or Concerns (chief complaint) HeartburnHiata l herniaEsophagi tis 4 Ida Roman. [address] [place] [address], [facility] [address], [place], [address], [place]. tel:[phone] Referring Provider: Referral Self, USE FOR SELF REFERRALS. [facility], [address] [address], [place], [address], [place] tel:[phone] [facility] No Information 4 Ted Munoz. [address] [place] [address], [facility] [address], [place], [address], [place]. tel:[phone] [facility], [address] [address], [place], [address], [place] tel:[phone] [facility] Gastro-esophag eal reflux disease without esophagitis 3 Ted Munoz. [address] [place] [address], [facility] [address], [place], [address], [place]. tel:[phone] Referring Provider: Alexander Orellana, [address] [place] [address] [address], [place], [address] . tel:[phone] Offic/outpt E&m Estab Mod-hi [address] [facility], [address] [address], [place], [id number], [place] tel:[phone] [facility] GI Symptoms or Concerns (chief complaint) Chronic GERDHiatal hernia 3 Ted Munoz. [address] [place] [address], [address], [id number], [place]. tel:[phone] Referring Provider: Referral Self, USE FOR SELF REFERRALS. Offic/outpt E&m Estab Mod-hi [address] [facility], [address] [address], [place], [id number], [place] tel:[phone] [facility] GI Symptoms or Concerns (chief complaint) Chronic GERDHiatal hernia 2 Mellissa Ibrahim. [address] [place] [address], [id number], [place]. tel:[phone] Referring Provider: Referral Self, USE FOR SELF REFERRALS. [facility], [address] [address], [place], [id number], [place] tel:[phone] [facility] GI Symptoms or Concerns (chief complaint) Hiatal hernia with GERDDysphagia, unspecifiedDia phragmatic hernia without obstruction or gangrene 2 Hiram Dewitt. [address] [place] [address], [address], [id number], [place]. tel:[phone] Referring Provider: Yarelis Gutierrez, [address] [place], [address]. tel:[phone] [facility], [address] [address], [place], [id number], [place] tel:[phone] [facility] No Information 2 Hiram Dewitt. [address] [place] [address], [address], [id number], [place]. tel:[phone] [facility], [address] [address], [place], [address], [place] tel:[phone] [facility] Colorectal polypsDivertic ulosisInternal hemorrhoidsEnc ounter for screening for malignant neoplasm of colonPersonal history of colonic polypsBenign neoplasm of sigmoid colonDvrtclos of lg int w/o perforation or abscess w/o bleedingDvrtcl os of lg int w/o perforation or abscess w/o bleedingBenign neoplasm of sigmoid colonPersonal history of colonic polyps 1 Anibal Grubbs. [address] [facility], [facility] [address], [place], [place], [id number], [place]. tel:[phone] Referring Provider: Marvin Beckett MD, [address] [facility] [address], [place], [address] . tel:[phone] [facility], [address] [address], [place], [address], [place] tel:[phone] [facility] No Information 1 Anibal Grubbs. [address] [facility], [facility] [address], [place], [place], [address], [place]. tel:[phone] Evangelist Abbasi MD, [address] [facility] [address], [place], [address]. tel:[phone] Offic/outpt E&m Estab Mod-hi [address] [facility], [address] [address], [facility], [id number], [place] tel:[phone] [facility] GI Symptoms or Concerns (chief complaint) Right sided abdominal painDietary counseling and surveillanceEl evated blood-pressure reading, w/o diagnosis of htn 8 Anibal Grubbs. [address] [facility], [facility] [address], [place], [place], [address], [place]. tel:[phone] Referring Provider: Yarelis Henderson [place] A, [address] [facility] [place], [address]. tel:[phone] [facility], [address] [address], [facility] [place], [id number], [place] tel:[phone] [facility] Chronic superficial gastritis, presence of bleeding unspecifiedChr onic superficial gastritis without bleeding 8 Renard Copeland. [address] [facility], [address], [id number], [place]. [phone] Referring Provider: Romie Barnett MD, [address] [facility] [address], [place], [address] . tel:[phone] Offic/outpt E&m Estab Mod-hi [address] [facility], [address] [address], [place], [place], [id number], [place] tel:[phone] [facility] GI Symptoms or Concerns (chief complaint) Right sided abdominal painDietary counseling and surveillance 8 Anibal Grubbs. [address] [facility], [address], [id number], [place]. [phone] Referring Provider: Yarelis Gutierrez, [address] [place], [address]. tel:[phone] Offic/outpt E&m Estab Mod-hi [address] [facility], [address] [address], [place], [place], [address], [place] tel:[phone] [facility] GI Symptoms or Concerns (chief complaint) Fatty liver disease, nonalcoholicGa stroesophageal reflux disease, esophagitis presence not specifiedDieta ry counseling and surveillanceEl evated blood-pressure reading, w/o diagnosis of htn 8 No Information Evangelist Abbasi MD. tel:[phone] erring Provider: Referral Self, USE FOR SELF REFERRALS. Offic/outpt E&m Estab Low-mod [facility], [address] [address], [place], [place], [address], [place] tel:[phone] [facility] GI Symptoms or Concerns (chief complaint) RLQ abdominal painDietary counseling and surveillance 6 Sujit Wong. [address] [facility], [facility] [address], [place], [address], [place]. tel:[phone] Evangelist Abbasi MD. tel:[phone] erring Provider: Referral Self, USE FOR SELF REFERRALS. [facility], [address] [address], [facility] [facility] [place], [address], [place] tel:[phone] [facility] Colon polypsInternal hemorrhoidsBen ign neoplasm of sigmoid colonUnspecifi ed abdominal painOther hemorrhoids 6 Sujit Wong. [address] [facility], [address], [id number], [place]. tel:[phone] Referring Provider: Referral Self, USE FOR SELF REFERRALS. Offic/outpt E&m Estab Mod-hi [address] [facility], [address] [address], [place], [address], [place] tel:[phone] [facility] GI Symptoms or Concerns (chief complaint) RLQ abdominal painConstipati on, unspecified constipation typeRectal bleedingDietar y counseling and surveillance 6 Sujit Wong. [address] [facility], [address], [id number], [place]. [phone] Evangelist Abbasi MD. tel:[phone] erring Provider: Referral Self, USE FOR SELF REFERRALS. [facility], [address] [address], [place], [place], [address], [place] tel:[phone] [facility] Colonic polypsFamily history of colon polypsDivertic ulosis of colonHemorrhoi dsColon Cancer ScreeningDiver ticulosis Of ColonFamily Hx/Colonic PolypsBenign Neoplasm Colon 4 Raphael Ryan. [address] [facility], [facility] [address], [place], [address], [place]. [phone] Evangelist Abbasi MD. tel:[phone] erring Provider: Yarelis Gutierrez, [address] [facility] [place], [address]. tel:[phone] Offic/outpt E&m Estab Mod-hi [address] [facility], [address] [address], [place], [place], [address], [place] tel:[phone] [facility] Colon Cancer ScreeningFamil y Hx/Colonic Polyps May- 4 Raphael Ryan. [address] [facility], [place] [address], [place], [place], [address], [place]. tel:[phone] Referring Provider: Referral Self, USE FOR SELF REFERRALS. [facility], [address] [address], [place], [address], [place] tel:[phone] [facility] No Information 3 Ramona Barnhart. [address] [facility], [place] [address], [place], [place], [address], [place]. tel:[phone] Referring Provider: Yarelis Gutierrez, [address] [place], [address]. tel:[phone] Offic/outpt E&m Estab Mod-hi [address] [facility], [address] [address], [facility] [place], [address], [place] tel:[phone] [facility] Abdominal pain (chief complaint) Choledocholith iasis 3 No Information Referring Provider: Yarelis Gutierrez, [address] [place], [address]. tel:[phone] Subsqt Hosp-da E&m Minr Compl [facility], [address] [address], [facility] [facility] [place], [address], [place] tel:[phone] [facility] No Information 3 No Information Referring Provider: Yarelis Gutierrez, [address] [place], [address]. tel:[phone] Init Inpt Cons New/est Mod-hi [facility], [address] [address], [place], [address], [place] tel:[phone] [facility] No Information 3 Sujit Wong. [address] [facility], [facility] [address], [place], [address], [place]. tel:[phone] Referring Provider: Yarelis Gutierrez, [address], [place], [address]. tel:[phone] [facility], [address] [address], [place], [place], [address], [place] tel:[phone] [facility] No Information 3 Ramona Barnhart. [address] [facility], [facility] [address], [place], [place], [address], [place]. tel:[phone] Referring Provider: Yarelis Gutierrez, [address] [place], [address]. tel:[phone] Init Inpt Cons New/est Mod-hi [facility], [address] [address], [place], [place], [address], [place] tel:[phone] [facility] No Information 3 Ele Cantu. [address] [facility] [address], [place], [place], [id number], [place]. tel:[phone] Referring Provider: Yarelis Gutierrez, [address], [place], [address]. tel:[phone] [facility], [address] [address], [place], [place], [address], [place] tel:[phone] [facility] Gastroesophage al RefluxEsophage al SpasmEsophagea l SpasmAbdominal Pain, UnspecifiedChe st Pain Nos No Information Referring Provider: Yarelis Gutierrez, [address], [place], [address]. tel:[phone] Offic Cons New/estab Mod-hi [address] [facility], [address] [address], [facility] [place], [address], [place] tel:[phone] [facility] Chest pain (chief complaint) Abd Pain GeneralizedGas troesophageal Reflux 9 Jose R Araujo. [address] [place] [address] [place], [facility] [address], [place], [place], [address], . tel:[phone] Referring Provider: [place], [address] [place], [address]. tel:[phone] Family History Family Member Type Diagnosis Age At Onset Sister Problem (finding) Alive and well Sister Problem (finding) Colon polyps Mother Problem (finding) Cancer, breast First degree family history Problem (finding) Uncle hx of colon polyps First degree family history Problem (finding) Cancer, breast Father Problem (finding) gallbladder disease Mother Problem (finding) GERD Son Problem (finding) Alive and well Father Problem (finding) Colon polyps Mother Problem (finding) gallbladder disease Immunizations Vaccine Date Status Comments zoster vaccine recombinant administered N ote: [facility] bi-directional interface ; Source: Other Registry Pneumococcal conjugate vacci ne 20-valent (PCV20), polysaccharide [id number] conjugate, adjuvant, preservative free administered Note: [facility] b i-directional interface ; Source: Other Registry zoster vaccine recombinant administered N ote: [facility] bi-directional interface ; Source: Other Registry Afluria Qd administered Note: [facility] bi-directional interface ; Source: Other Registry tetanus toxoid, reduced diphtheria toxoid, and acellular pertussis vaccine, adsorbed administered Note: [facility] b i-directional interface ; Source: Other Registry Afluria Qd administered Note: [facility] bi-directional interface ; Source: Other Registry SARS-COV-2 (COVID-19) vaccin e, mRNA, spike protein, LNP, preservative free, 30 mcg/0.3mL dose administered Note: [facility] bi-direct ional interface ; Source: Other Registry SARS-COV-2 (COVID-19) vaccin e, mRNA, spike protein, LNP, preservative free, 30 mcg/0.3mL dose administered Note: [facility] bi-direct ional interface ; Source: Other Registry SARS-COV-2 (COVID-19) vaccin e, mRNA, spike protein, LNP, preservative free, 30 mcg/0.3mL dose administered Note: [facility] bi-direct ional interface ; Source: Other Registry Afluria Qd administered Note: [facility] bi-directional interface ; Source: Other Registry Afluria Qd administered Note: [facility] bi-directional interface ; Source: Other Registry Influenza, injectable,quadrivalent, preservative free, pediatric administered Note: [facility] bi-directional interface ; Source: Other Registry Influenza, injectable, quadrivalent, preservative free, 3 yrs or older administered Note: Invalid docume nted admin date was . ; Source: Other Provider Afluria Qd administered Note: [facility] bi-directional interface ; Source: Other Registry Influenza, injectable, quadrivalent, preservative free, 3 yrs or older administered Source: Other Provid er Afluria Qd administered Note: [facility] bi-directional interface ; Source: Other Registry Influenza administered Note: [facility] bi-d irectional interface ; Source: Other Registry Afluria Qd administered Note: [facility] bi-directional interface ; Source: Other Registry tetanus toxoid, reduced diphtheria toxoid, and acellular pertussis vaccine, adsorbed administered Note: [facility] b i-directional interface ; Source: Other Registry Payers Payer name Insurance type Covered libertarian ID Authoriza tion(s) No Information Social History Type Description Quantity Date Captured Comments Sex Female Smoking Status No Information Chief Complaint And Reason For Visit No Information Reason For Referral Reason For Referral No Information Plan Of Treatment Date Type Action Status Goal Lifestyle education regardin g diet completed Goal Lifestyle education regardin g diet completed Goal Lifestyle education regardin g diet completed Goal Lifestyle education regardin g diet completed Goal Lifestyle education regardin g diet completed Referral Ordered: Xray Esophagus (Esophagram, Barium Swallow Study) Appointment date/timeframe: 03/03/2022 ordered Referral Ordered: referred to [facility] Appointment date/timeframe: 04/17/2022 ordered Referral Ordered: Esoph Motility Study; Appointment date/timeframe: 03/18/2022 ordered Referral Ordered: referred to Kylie Monteiro MD Surgery diagnostic lap, adhesions? 2 Weeks Appointment date/timeframe: 08/25/2017 ordered Referral Ordered: Colonoscopy Appointment date/timeframe: 09/09/2018 ordered History Of Present Illness Encounter Date Complaint History Of Prese nt Illness GI Symptoms or Concerns Ms. Emma Juarez is a 49 year old female who presents for follow-up on hiatal hernia and gastroparesis. Her past medical history significant for BITA, factor V Leiden, prior PE currently on Eliquis, prediabetes, hepatic steatosis, BMI 47, and use of ASL to communicate. She was last seen in clinic with myself 10/31/24. Please see this note for further details. She states her symptoms have been about the same since she was last seen in clinic. She has been doing the omeprazole twice daily without significant relief of acid reflux symptoms. She was unable to receive the 40mg omeprazole or Carafate. She states she uses Zofran as needed for her nausea. She has complete relief of her nausea with the Zofran. She has gained some weight and still reports that her insurance is unable to cover any visits or medication related to weight loss. She denies change in bowel habits, black or bloody stools, or vomiting. Diagnostics: EGD 10/11/2024: LA grade B esophagitis. Large hiatal hernia.Gastric emptying scan 09/22/2024: Delayed gastric emptyingEGD 2021: LA grade a esophagitis. Esophageal biopsies unremarkable. Esophageal manometry 2022 unremarkable GI Symptoms or Concerns Ms. Emma Juarez is a 49 year old female who presents for follow-up on hiatal hernia and gastroparesis. Her past medical history significant for hiatal hernia, factor V Leiden, prior PE currently on Eliquis, prediabetes, BMI 47, and use of ASL to communicate. She states her symptoms have been about the same since she was last seen in clinic. We discussed in detail the results of her upper endoscopy and gastric emptying scan. She states her insurance is not covering the omeprazole so she just recently bought this [id number] and started this. She does not believe it is making much of a difference right now for her heartburn. She has tried famotidine in the past without relief. She is very frustrated with the fact that she cannot have surgery for her large hiatal hernia due to her weight. She states the health 360 program was not covered by her insurance either. She states she does have nausea that is improved with Zofran. She does not feel significant early satiety with eating but is able to eat 3 meals per day. She denies black or bloody stools or hematemesis.Diagnostics: EGD 10/11/2024: LA grade B esophagitis. Large hiatal hernia.Gastric emptying scan 09/22/2024: Delayed gastric emptyingEGD 2021: LA grade a esophagitis. Esophageal biopsies unremarkable. Esophageal manometry 2022 unremarkable GI Symptoms or Concerns Ms. Emma Juarez is a 49 year old female who presents for follow-up on esophagitis/heartburn. Her past medical history significant for hiatal hernia, factor V Leiden, prior PE currently on Eliquis, prediabetes, BMI 47, and use of ASL to communicate. She is present today with rn utilization management um. She states her insurance would not cover weight loss drugs and she is unable to preform weight loss/hiatal hernia surgery due to her current weight. She states she still feels acid reflux and is unsure if pantoprazole or famotidine are giving her any relief. She coughs up acid at night. She has early satiety, nausea, and dull/sharp chest pain. She is unsure if her chest pain is related to acid relux or her history of blood clot. She states she still has difficulty swallowing some days". We discussed the Health 360 program at [facility] and she states she does have a history of hepatic steatosis. Her bowel movements are normal and regular. She denies vomiting or black or bloody stools. Diagnostics: EGD 2021: LA grade a esophagitis. Esophageal biopsies unremarkable. Esophageal manometry 2022 unremarkable GI Symptoms or Concerns This is a 47-year-old female with a past medical history of a 5 centimeter hiatal hernia, factor 5 Leiden, prior PE currently on warfarin, BMI of 45, use Sudanese sign language to communicate who presents here for follow up of heartburn symptoms. Patient was previously seen by Dr. Jean for identical symptoms. Upper endoscopy showed LA grade a esophagitis with esophageal biopsies that were unremarkable this was done in late 2021. Patient had essentially a normal esophageal manometry but no evidence of any achalasia. Patient was put on famotidine 20 milligrams Once daily. Patient was referred to surgery for hiatal hernia. Due to BMI patient was then referred to Bariatric surgery which at this point they are considering David-en-Y gastric bypass. But she is waiting for insurance approval as well as psychological evaluation. In the meantime she describes some ongoing heartburn as well as mild nausea and vomiting that can occur occasionally with eating. This is identical symptoms she had when she saw Dr. Jean. Otherwise she has 1 or 2 formed bowel movements a day. Patient does not smoke, use recreational drugs, or drink significant amounts of alcohol. GI Symptoms or Concerns Lanie Juarez is seen today in followup. It is noted that she was seen with a electronic design engineer. A 25 minutes spent reviewing records, performing history, physical examination, and dictation.By history, the patient is a 46-year-old woman previously seen in the office because of chronic abdominal pain. She is seen today, however, because of reflux symptoms. She describes symptoms of heartburn occurring on a regular basis. This occurs daily and the symptoms are worse at night with volume regurgitation.The patient has been placed on proton pump inhibitors in the past. She had been given omeprazole and pantoprazole. Unfortunately, however, she developed reaction to this and severe headaches and both of these medications have been stopped. At the present time, she is taking only famotidine. She continues to have heartburn and discomfort. The regurgitation as noted is worse at night. It can be associated with symptoms of dysphagia as well.With her symptoms, s GI Symptoms or Concerns Ms. Emma Juarez is a very pleasant 46-year-old female who is being seen today in followup of gastroesophageal reflux. She is seen with the assistance of an marketing database analyst. The patient reports that she was asked to follow up following a recent upper endoscopy for gastroesophageal reflux that was not responding to treatment. The endoscopy revealed evidence of a 5 cm hiatal hernia with evidence of some erosions in the hiatal hernia. Biopsies were also taken from the mid and distal esophagus and an empiric dilatation of the esophagus with a 54-Yi Savary was performed. Biopsies were normal from the stomach and esophagus and she was not positive for H. pylori.The patient reports that she was advised to start taking omeprazole 40 mg beginning nightly dose and increased to twice daily, which she has done without any significant improvement in her symptoms. She reports that she took Gas-X which helped her a little bit, and she cannot take Pepto-Bismol GI Symptoms or Concerns GI Symptoms or Concerns I had th e pleasure of seeing Ms. Lanie Juarez in clinic today for followup of right-sided abdominal pain. She is seen with the assistance for thread cutter.Lanie has been seen in our clinic several times with this complaint. She describes a right-sided abdominal pain in the mid abdomen, and sweeps her hand around that area going back to her right flank. Initially, she had said that her symptoms began after hysterectomy in November 2016, but today she clarifies that she had this pain even prior to the hysterectomy. The hysterectomy itself was performed for bleeding and for more diffuse abdominal pain.She says this pain can be made worse by eating, but can also occur outside of the context of eating. Importantly, she says that certain positions will elicit this right-sided abdominal and back pain as well as walking or being active can also bring about the pain.Her evaluation to date has included a CT scan of the abdomen and pelvis, which s GI Symptoms or Concerns I had th e pleasure of meeting Ms. Lanie Juarez, 42-year-old woman seen in followup for right-sided abdominal pain. She is seen with the assistance of an Spring Layer.Lanie has been seen in our clinic several times for this complaint, the last time in February 2017. Her right-sided abdominal pain dates back to when she had a hysterectomy in November 2016. She said prior to the hysterectomy, she did not have this pain, though she does admit that she had hysterectomy for bleeding and also for more diffuse abdominal pain.She sweeps her hand around her mid right abdomen as the location of the pain and says that it radiates around to her back. The pain occurs daily, but it is intermittent. It can be made worse by eating certain foods, but can also occur outside the context of eating. It is also positional at times and can get worse with walking or being in certain positions, and it can be relieved by resting.Her evaluation to date has included GI Symptoms or Concerns Lanie Juarez presents for followup of right sided abdominal pain and to discuss fatty liver. She is seen with the assistance of an marketing database analyst.The patient was last seen in our office in January 2016 with similar complaints of right-sided abdominal pain. She describes this is an aching discomfort that tends to come and go. It does not seem to be related to bowel movements in anyway. She thinks that sometimes the pain is worse with eating certain foods like hamburger and pasta. Sometimes the pain is exacerbated by certain movements, especially bending or twisting to the right side. She complains of heartburn after eating on a fairly regular basis. It seems to be worse after eating pizza or tomato sauce. Also feels nauseated, but denies any vomiting. Denies dysphagia or odynophagia. Takes Tums approximately three to four times a week with only minimal improvement in her symptoms.She was evaluated in the emergency department on March 06, 2017 GI Symptoms or Concerns She pres ents today for followup of her right-sided abdominal pain. She states this is unchanged since our last visit. It is located in the right lower quadrant, as well as the right flank and right back, although it is not present in the middle of her back. It is a constant pain. The only thing that makes it worse is movement. She states that it can be exacerbated by any movement or activity, including bending, twisting, or walking. It does not change with eating a meal or having a bowel movement.She did start on MiraLax as recommended. She states this has improved her constipation. She is currently having one soft bowel movement per day. She states she is no longer having hard stools or straining. However, she states that her pain has not improved with her constipation.Since our last visit, I was able to obtain the records of her previous CT scan, which was done on October 16. This was done with contrast and was unremarkable. On November 29, she underwent a colonoscopy Sep-26-2016 GI Symptoms or Concerns Lanie presents today for evaluation of abdominal pain. She has had right lower quadrant pain since July. She states this is a constant pain, but does seem worse with movement, and better with rest. She denies any change with eating a meal or having a bowel movement. She notes that she has a bowel movement every day to every other day. Two to three times per week, she will have hard stools requiring straining to pass, and these are often associated with having blood on the outside of the stool. She denies any diarrhea. She states her appetite is normal; however, she does have some episodes of nausea associated with the pain. She denies any vomiting, and denies any weight loss. She denies any heartburn, acid reflux, or dysphagia.She states that she had a CT scan and an ultrasound done at [facility] for these symptoms. Unfortunately, I do not have the results of these studies. She was in the emergency room at [place] in September. At that time, she had a no Functional Status Date Functional Assessmen t No Information Instructions Date Instruction Additional Infor luke It was great seeing you today!We discussed the following:- We will try sending your prescriptions through [facility] online/mail pharmacy.- I will send in a prescription to [facility] tomorrow for pantoprazole 40mg twice daily. You can use this instead of your omeprazole. - I have also sent in a prescription of sucralfate tomorrow to [facility]. Take this 4 times daily for 4-6 weeks. - I would like you to follow-up with Dr. Ramon to discuss treatment options next. HOW TO REACH ME:-You can reach me by messaging through the patient portal or calling my patient coordinator Deepthi at [phone] Ext. [phone]. Related to Hiatal hernia with GERD and esophagitis It was great seeing you today!We discussed the following:- We will be doing blood work today to evaluate for different micronutrients levels due to gastroparesis I will send your Zofran prescription to the [facility] pharmacy. I would like you to make an account with [facility] at the link: [email or web address] I recommend you use the same email for your [facility] account as you do at [facility] so that we can accurately send you the prescriptions. The prescriptions will be sent to your home from [facility]. I will also talk with the provider of the [employer] program to see if he has any recommendations. I will try to send in a prior authorization for you to get into this program as well. Follow-up with me in 2 months or sooner if needed. HOW TO REACH ME:-You can reach me by messaging through the patient portal or calling my patient coordinator Deepthi at [phone] Ext. [phone]. Related to Gastroparesis Gastroesophageal Reflux Disease Related to Gastroesophageal reflux disease with esophagitis without hemorrhage It was great seeing you today!We discussed the following:-We will be doing blood work today to check your electrolytes, thyroid function, liver function, and pancreatic functioning.- I have ordered an upper endoscopy and gastric emptying scan. [facility] will call to help you schedule these. I have written you a prescription for Zofran to use as needed for your nausea. Let me know if you decide you would like to continue the pantoprazole/famotidine. I would like you to follow-up with Dr. Valverde in our [employer] program. HOW TO REACH ME:-You can reach me by messaging through the patient portal or calling my patient coordinator Deepthi at [phone] Ext. [phone]. Related to Hiatal hernia -- As we discussed i n the clinic you are already undergoing evaluation for weight loss surgery that will be the best treatment for any reflux that is contributing to your symptoms-- in the meantime for the burning in the chest increasing the famotidine from 20 milligrams once a day to 40 milligrams once a day would be the best option (1 year prescription given to you)-- we can also go to 40 milligrams twice a day if you would like if you are not getting good relief with once a day, please just let us know, otherwise do not hesitate to make an appointment to discuss symptoms further-- we will leave follow as needed for now Related to Heartburn -Continue Omeprazole 40 mg twice daily.-Add Famotidine 40 mg at bedtime. -If Famotidine not helping in 2 weeks, add Gaviscon liquid after dinner.-Return to meet with our esophageal specialists in ~6-8 weeks to discuss need for additional testing. Related to Chronic GERD Hiatal Hernia Related to Hiata l hernia with GERD Diverticulosis/Diverticulitis Re lated to Colorectal polyps Colon Polyps Related to Color ectal polyps Hemorrhoids Related to Color ectal polyps Colon Cancer Prevention Related to Colorectal polyps high fiber diet Related to Color ectal polyps 1. I reviewed prior studies and data with Lanie today.2. Referral to General Surgery to consider diagnostic laparoscopy for the intent to lyse adhesions.Thank you so much for involving me in the care of Ms. Juarez. Related to Right sided abdominal pain Lifestyle education regarding di et Related to Dietary counseling and surveillance Gastritis Related to Chron ic superficial gastritis, presence of bleeding unspecified 1. Endoscopy for lynn n per her request.2. If normal, then trial of nortriptyline.3. If this does not help, then consider referral either to [facility] Management Clinic or perhaps to general surgeon to discuss diagnostic laparoscopy for lysis of adhesions.Thank you so much for involving me in the care of Ms. Juarez. Related to Right sided abdominal pain Lifestyle education regarding di et Related to Dietary counseling and surveillance 1. Omeprazole 20 mg every day for 8 weeks2. If heartburn and nausea recur after 8 weeks, you shoudl call our office to schedule an upper endoscopy exam Related to Gastroesophageal reflux disease, esophagitis presence not specified Fatty Liver 1. Limit carbs to less than 30 - 45 gm/meal and limit simple sugars in your diet 2. Avoid eating just carbs for any meal or snack 3. Weight loss of 10-15% of your total body weight can decrease the fat stores in your liver 4. Recommend aerobic exercise at least 45 minutes per dayCall our office if you decide you would like to see a resume specialist to discuss lifestyle/diet changes further. Related to Fatty liver disease, nonalcoholic Lifestyle education regarding di et Related to Dietary counseling and surveillance Lifestyle education regarding di et Related to Dietary counseling and surveillance Colon Cancer Prevention Related to Colon polyps Colon Polyps Related to Colon polyps Hemorrhoids Related to Colon polyps Colonoscopy Lifestyle education regarding di et Related to Dietary counseling and surveillance Colon Cancer Prevention Related to Colonic polyps Colon Polyps Related to Colon ic polyps Diverticulosis/Diverticulitis Re lated to Colonic polyps High Fiber Diet Related to Colon ic polyps Hemorrhoids Related to Colon ic polyps NSAIDS List Related to Colon ic polyps Colonoscopy Assessments Type Assessment Date No Information Patient Care Teams Name Effective Dates (start - stop) Status Members No Information
--- OUTSIDE RECORDS SUMMARY | 2024-12-29 08:13 | XMS_ITS | Continuity of Care Document ---
Author Organization [facility] Address [address] [address] [place] [address] Phone Care Team Providers Care [employer]ocker Name Role Phone Wiley Garcia MD Unavailable [...] every day 40 MG - Active tanya [email or web address] ondansetron [address] 1 tablet by translingual route 1-2 times every day as needed on top of the tongue where they will dissolve, then swallow - Active omeprazole 40 mg capsule,delayed release take 1 by Oral route 2 times every day Take 30 minutes before a meal - Active tanya @[employer] sucralfate 1 gram tablet take 1 tablet by oral route 4 times every day on an empty stomach 1 hour before meals and at bedtime 1 G - Active tanya [email or web address] Lovenox 40 mg/0.4 mL subcutaneous syringe inject [...] Encounter [facility], [address] [address], [place], [place], [address], [place] tel:[phone] [facility] No Information 5 Jose Jama. [address] [place] [address], [id number], [place]. tel:[phone] Offic/outpt E&m Estab Moderate [facility], [address] [address], [place], [place], [id number], [place] tel:[phone] [facility] GI Symptoms or Concerns (chief complaint) Hiatal hernia with GERD and esophagitisSev ere obesityGastrop aresis 5 Chris Waters. [address] [place] [address], [id number], . tel:[phone] Referring Provider: Referral Self, USE FOR SELF REFERRALS. [facility], [address] [address], [place], [id number], [place] tel:[phone] [facility] Gastroparesis 5 Chris PAC Evelin. [address] [facility], [address], [id number], . tel:[phone] Referring Provider: Referral Self, USE FOR SELF REFERRALS. [facility] [place], [address] [address], [place], [id number], [place] tel:[phone] [facility] Hepatic steatosis Oct- 5 Chris PAC Evelin. [address] [facility], [address], [id number], [place]. tel:[phone] Offic/outpt E&m Estab Moderate [facility] [place], [address] [address], [place], [id number], [place] tel:[phone] [facility] GI Symptoms or Concerns (chief complaint) GastroparesisH iatal hernia with GERD and esophagitisGas tro-esophageal reflux disease with esophagitis, without bleeding 5 Chris PAC Evelin. [address] [facility], [address], [id number], [place]. tel:[phone] Referring Provider: Referral Self, USE FOR SELF REFERRALS. [facility] [place], [address] [address], [place], [id number], [place] tel:[phone] [facility] Diaphragmatic hernia without obstruction or gangreneGastro esophageal reflux disease with esophagitis without hemorrhageGast ro-esophageal reflux disease with esophagitis, without bleedingDiaphr agmatic hernia without obstruction or gangrene 5 Luis Dennisahim. [address] [facility], [address], [id number], [place]. tel:[phone] Referring Provider: Referral Self, USE FOR SELF REFERRALS. Offic/outpt E&m Estab Moderate [facility], [address] [address], [place], [id number], [place] tel:[phone] [facility] GI Symptoms or Concerns (chief complaint) Hiatal herniaGastroes ophageal reflux disease, unspecified whether esophagitis presentHepatic steatosisNause a 5 Chris Mendozaanna. [facility], [facility] [address], [place], [place], [id number], [place]. tel:[phone] Referring Provider: Referral Self, USE FOR SELF REFERRALS. [facility], [address] [address], [place], [id number], [place] tel:[phone] [facility] No Information 5 Tavares Hill. [address] [facility], [facility] [address], [place], [address], [place]. tel:[phone] Offic/outpt E&m Estab Mod-hi 2 [facility], [address] [address], [place], [id number], [place] tel:[phone] [facility] GI Symptoms or Concerns (chief complaint) HeartburnHiata l herniaEsophagi tis 4 Ida Roman. [address] [place] [address], [facility] [address], [place], [address], [place]. tel:[phone] Referring Provider: Referral Self, USE FOR SELF REFERRALS. [facility], [address] [address], [place], [id number], [place] tel:[phone] [facility] No Information 4 Ted Munoz. [address] [place] [address], [facility] [address], [place], [id number], [place]. tel:[phone] [facility], [address] [address], [place], [id number], [place] tel:[phone] [facility] Gastro-esophag eal reflux disease without esophagitis 3 Ted Munoz. [address] [place] [address], [facility] [address], [place], [id number], [place]. tel:[phone] Referring Provider: Alexander Orellana, [address] [place] [address] [address], [place], [address] . tel:[phone] Offic/outpt E&m Estab Mod-hi 2 [facility], [address] [address], [place], [id number], [place] tel:[phone] [facility] GI Symptoms or Concerns (chief complaint) Chronic GERDHiatal hernia 3 Ted Munoz. [address] [place] [address], [address], [id number], [place]. tel:[phone] Referring Provider: Referral Self, USE FOR SELF REFERRALS. Offic/outpt E&m Estab Mod-hi 2 [facility], [address] [address], [place], [id number], [place] tel:[phone] [facility] GI Symptoms or Concerns (chief complaint) Chronic GERDHiatal hernia 2 Mellissa Ibrahim. [address] [place] [address], [id number], [place]. tel:[phone] Referring Provider: Referral Self, USE FOR SELF REFERRALS. [facility], [address] [address], [place], [id number], [place] tel:[phone] [facility] GI Symptoms or Concerns (chief complaint) Hiatal hernia with GERDDysphagia, unspecifiedDia phragmatic hernia without obstruction or gangrene 2 Hiram Dewitt. [address] [place] [address], [address], [id number], [place]. tel:[phone] Referring Provider: Yarelis Gutierrez, [address] [place], [address]. tel:[phone] [facility], [address] [address], [place], [id number], [place] tel:[phone] [facility] No Information 2 Hiram Dewitt. [address] [place] [address], [address], [id number], [place]. tel:[phone] [facility], [address] [address], [place], [address], [place] tel:[phone] [facility] Colorectal polypsDivertic ulosisInternal hemorrhoidsEnc ounter for screening for malignant neoplasm of colonPersonal history of colonic polypsBenign neoplasm of sigmoid colonDvrtclos of lg int w/o perforation or abscess w/o bleedingDvrtcl os of lg int w/o perforation or abscess w/o bleedingBenign neoplasm of sigmoid colonPersonal history of colonic polyps 1 Anibal Grubbs. [address] [facility], [facility] [address], [place], [place], [id number], [place]. tel:[phone] Referring Provider: Marvin Beckett MD, [address] [facility] [address], [place], [address] . tel:[phone] [facility], [address] [address], [place], [id number], [place] tel:[phone] [facility] No Information 1 Anibal Grubbs. [address] [facility], [facility] [address], [place], [place], [id number], [place]. tel:[phone] Evangelist Abbasi MD, [address] [facility] [address], [place], [address]. tel:[phone] Offic/outpt E&m Estab Mod-hi 2 [facility], [address] [address], [facility] [place], [id number], [place] tel:[phone] [facility] GI Symptoms or Concerns (chief complaint) Right sided abdominal painDietary counseling and surveillanceEl evated blood-pressure reading, w/o diagnosis of htn 8 Anibal Grubbs. [address] [facility], [facility] [address], [place], [place], [id number], [place]. tel:[phone] Referring Provider: [place] A, [address] [facility] [place], [address]. tel:[phone] [facility], [address] [address], [facility] [place], [id number], [place] tel:[phone] [facility] Chronic superficial gastritis, presence of bleeding unspecifiedChr onic superficial gastritis without bleeding 8 Renard Copeland. [address] [facility], [address], [id number], [place]. [phone] Referring Provider: Romie Barnett MD, [address] [facility] [address], [place], [address] . tel:[phone] Offic/outpt E&m Estab Mod-hi 2 [facility], [address] [address], [place], [place], [id number], [place] tel:[phone] [facility] GI Symptoms or Concerns (chief complaint) Right sided abdominal painDietary counseling and surveillance 8 Anibal Grubbs. [address] [facility], [address], [id number], [place]. [phone] Referring Provider: Yarelis Gutierrez, [address] [place], [address]. tel:[phone] Offic/outpt E&m Estab Mod-hi 2 [facility] Digestive [facility], [address] [address], [place], [place], [id number], [place] tel:[phone] [facility] GI Symptoms or Concerns (chief complaint) Fatty liver disease, nonalcoholicGa stroesophageal reflux disease, esophagitis presence not specifiedDieta ry counseling and surveillanceEl evated blood-pressure reading, w/o diagnosis of htn 8 No Information Evangelist Abbasi MD. tel:[phone] erring Provider: Referral Self, USE FOR SELF REFERRALS. Offic/outpt E&m Estab Low-mod [facility] Digestive [facility], [address] [address], [place], [place], [address], [place] tel:[phone] [facility] GI Symptoms or Concerns (chief complaint) RLQ abdominal painDietary counseling and surveillance 6 Sujit Wong. [address] [facility], [facility] [address], [place], [address], [place]. tel:[phone] Evangelist Abbasi MD. tel:[phone] erring Provider: Referral Self, USE FOR SELF REFERRALS. [facility], [address] [address], [facility] [place], [address], [place] tel:[phone] [facility] Colon polypsInternal hemorrhoidsBen ign neoplasm of sigmoid colonUnspecifi ed abdominal painOther hemorrhoids 6 Sujit Wong. [address] [facility], [address], [id number], [place]. tel:[phone] Referring Provider: Referral Self, USE FOR SELF REFERRALS. Offic/outpt E&m Estab Mod-hi 2 [facility], [address] [address], [place], [place], [address], [place] tel:[phone] [facility] GI Symptoms or Concerns (chief complaint) RLQ abdominal painConstipati on, unspecified constipation typeRectal bleedingDietar y counseling and surveillance 6 Sujit Wong. [address] [facility], [address], [id number], [place]. [phone] Evangelist Abbasi MD. tel:[phone] erring Provider: Referral Self, USE FOR SELF REFERRALS. [facility] [place], [address] [address], [place], [place], [address], [place] tel:[phone] [facility] Colonic polypsFamily history of colon polypsDivertic ulosis of colonHemorrhoi dsColon Cancer ScreeningDiver ticulosis Of ColonFamily Hx/Colonic PolypsBenign Neoplasm Colon 4 Raphael Ryan. [address] [facility], [facility] [address], [place], [address], [place]. [phone] Evangelist Abbasi MD. tel:[phone] erring Provider: Yarelis Gutierrez, [address] [facility] [place], [address]. tel:[phone] Offic/outpt E&m Estab Mod-hi 2 [facility] [place], [address] [address], [place], [place], [address], [place] tel:[phone] [facility] Colon Cancer ScreeningFamil y Hx/Colonic Polyps May- 4 Raphael Ryan. [address] [facility], [place] [address], [place], [place], [address], [place]. tel:[phone] Referring Provider: Referral Self, USE FOR SELF REFERRALS. [facility], [address] [address], [place], [id number], [place] tel:[phone] [facility] No Information 3 Ramona Barnhart. [address] [facility], [place] [address], [place], [place], [address], [place]. tel:[phone] Referring Provider: Yarelis Gutierrez, [address] [place], [address]. tel:[phone] Offic/outpt E&m Estab Mod-hi 2 [facility], [address] [address], [facility] [place], [address], [place] tel:[phone] [facility] Abdominal pain (chief complaint) Choledocholith iasis 3 No Information Referring Provider: Yarelis Gutierrez, [address] [place], [address]. tel:[phone] [facility]sq[facility] Hosp-da E&m Minr Compl [facility], [address] [address], [facility] [place], [address], [place] tel:[phone] [facility] No Information 3 No Information Referring Provider: Yarelis Gutierrez, [address] [place], [address]. tel:[phone] Init Inpt Cons New/est Mod-hi [facility] [place], [address] [address], [place], [id number], [place] tel:[phone] [facility] No Information 3 Sujit Wong. [address] [facility], [facility] [address], [place], [address], [place]. tel:[phone] Referring Provider: Yarelis Gutierrez, [address], [place], [address]. tel:[phone] [facility] PA, [address] [address], [place], [place], [address], [place] tel:[phone] [facility] No Information 3 Ramona Barnhart. [address] [facility], [facility] [address], [place], [place], [address], [place]. tel:[phone] Referring Provider: Yarelis Gutierrez, [address] [place], [address]. tel:[phone] Init Inpt Cons New/est Mod-hi [facility], [address] [address], [place], [place], [address], [place] tel:[phone] [facility] No Information 3 Ele Cantu. [address] [facility] [address], [place], [place], [address], [place]. tel:[phone] Referring Provider: Yarelis Gutierrez, [address], [place], [address]. tel:[phone] [facility], [address] [address], [place], [place], [address], [place] tel:[phone] [facility] Gastroesophage al RefluxEsophage al SpasmEsophagea l SpasmAbdominal Pain, UnspecifiedChe st Pain Nos No Information Referring Provider: Yarelis Gutierrez, [address], [place], [address]. tel:[phone] Offic Cons New/estab Mod-hi 60 [facility], [address] [address], [facility], [address], [place] tel:[phone] [facility] Chest pain (chief complaint) Abd Pain GeneralizedGas troesophageal Reflux 9 Jose R Araujo. [address] [place] [address] [place], [facility] [address], [place], [place], [address], . tel:[phone] Referring Provider: [place], [address] [place], [address]. tel:[phone] Family History Family Member Type Diagnosis Age [...] Pneumococcal conjugate vacci ne 20-valent (PCV20), polysaccharide [id number] conjugate, adjuvant, preservative free administered Note: MIIC [...] Registry Payers Payer name Insurance type Covered constitution party ID Authoriza tion(s) No Information Social History [...] omeprazole so she just recently bought this [id number] and started this. She does not believe [...] to communicate. She is present today with retail office manager. She states her insurance would not cover [...] We discussed the Health 360 program at [facility] and she states she does have a [...] noted that she was seen with a director design. A 25 minutes spent reviewing records, performing [...] is seen with the assistance of an machine tool builder. The patient reports that she was asked to follow up following a recent upper endoscopy for gastroesophageal reflux that was not responding to treatment. The endoscopy revealed evidence of a 5 cm hiatal hernia with evidence of some erosions in the hiatal hernia. Biopsies were also taken from the mid and distal esophagus and an empiric dilatation of the esophagus with a 54-German Savary was performed. Biopsies were normal from [...] She is seen with the assistance for commission for the blind director.Lanie has been seen in our clinic several [...] is seen with the assistance of an Historical Society Director.Lanie has been seen in our clinic several [...] is seen with the assistance of an machine tool builder.The patient was last seen in our office [...] CT scan and an ultrasound done at [facility] for these symptoms. Unfortunately, I do not have the results of these studies. She was in the emergency room at [place] in September. At that time, she had a no Functional Status Date Functional Assessmen t No Information Instructions Date Instruction Additional Infor luke It was great seeing you today!We discussed the following:- We will try sending your prescriptions through [facility] online/mail pharmacy.- I will send in a prescription to [facility] tomorrow for pantoprazole 40mg twice daily. You can use this instead of your omeprazole. - I have also sent in a prescription of sucralfate tomorrow to [facility]. Take this 4 times daily for 4-6 weeks. - I would like you to follow-up with Dr. Ramon to discuss treatment options next. HOW TO REACH ME:-You can reach me by messaging through the patient portal or calling my patient coordinator Deepthi at [phone] Ext. [phone]. Related to Hiatal hernia with GERD and esophagitis It was great seeing you today!We discussed the following:- We will be doing blood work today to evaluate for different micronutrients levels due to gastroparesis I will send your Zofran prescription to the [facility]. I would like you to make an account with [facility] pharmacy at the link: [email or web address] I recommend you use the same email for your [facility] account as you do at [facility] so that we can accurately send you the prescriptions. The prescriptions will be sent to your home from [facility]. I will also talk with the provider of the [employer] program to see if he has any recommendations. I will try to send in a prior authorization for you to get into this program as well. Follow-up with me in 2 months or sooner if needed. HOW TO REACH ME:-You can reach me by messaging through the patient portal or calling my patient coordinator Deepthi at [phone] Ext. [phone]. Related to Gastroparesis Gastroesophageal Reflux Disease Related to Gastroesophageal reflux disease with esophagitis without hemorrhage It was great seeing you today!We discussed the following:-We will be doing blood work today to check your electrolytes, thyroid function, liver function, and pancreatic functioning.- I have ordered an upper endoscopy and gastric emptying scan. [facility] will call to help you schedule these. I have written you a prescription for Zofran to use as needed for your nausea. Let me know if you decide you would like to continue the pantoprazole/famotidine. I would like you to follow-up with Dr. Valverde in our [employer] program. HOW TO REACH ME:-You can reach me by messaging through the patient portal or calling my patient coordinator Deepthi at [phone] Ext. [phone]. Related to Hiatal hernia -- As we [...] decide you would like to see a staff electrical engineer to discuss lifestyle/diet changes further. Related to [...]
--- OUTSIDE RECORDS SUMMARY | 2025-01-06 18:43 | XMS_ITS | Encounter Summary ---
Author Organization [place] Address [facility] [place] [address] Care Team Providers Care Radiotelegraph Operator Servicer Name Role Phone Yarelis Henderson MD Primary Care Provider Leo Lopez PA-C Unavailable [phone] Talisha Roth MD Unavailable [phone] Lonnie Cadet MD Unavailable + Palak Lazcano MD Unavailable [phone] Phoebe Mchugh MD Unavailable [phone] Anna Pritchett MD Unavailable [phone] Phoebe Mchugh MD Unavailable [phone] Anna Pritchett MD Unavailable [phone] Encounter Details Date Type Department Care Team (Late st Contact Info) Description 08/06/2022 MyC Medical Advice [facility] [address] [place] [address] [address] [place] [address] [place], [place] Social History Tobacco Use Types Packs/Day Years Used Date Smoking Tobacco: Former Cigarettes Q uit: 01/19/2008 Smokeless Tobacco: Never Alcohol Use Standard Drinks/Week Comments No 0 (1 standard drink = 0.6 oz pur e alcohol) PHQ-2 Answer Date Recorded PHQ-2 Score 4 08/07/2022 Comments No Sex and Gender Information Value Date Recorded Sex Assigned at Not on file Legal Sex Female 4:44 AM BRIDGE SAW OPERATOR Gender Identity Not on file Sexual Orientation Not on file COVID-19 Exposure Response Date Recorded In the last 10 days, have yo u been in contact with someone who was confirmed or suspected to have Coronavirus/COVID-19? No / Unsure 08/07/2022 9:45 AM CDT documented as of this encounter Plan of Treatment Upcoming Encounters Date Type Department Care Team (Late st Contact Info) Description 02/28/2025 1:00 PM BRIDGE SAW OPERATOR Office Visit [facility] [address] 3[address] [place] [address] Anna Pritchett MD [address] [place] [address] [id number] [place], [place] [address] documented as of this encounter Visit Diagnoses Not on filedocumented in this encounter Additional Health Concerns Infection Onset Date Last Indicated Resolved Time Rule Out COVID-19 03/06/2023 03/06/2023 03/06/2023 10:41 PM BRIDGE SAW OPERATOR Rule Out COVID-19 10/01/2024 10/01/2024 10/02/2024 12:19 AM CDT documented as of this encounter Care Teams Radiotelegraph Operator Servicer Relationship Specialty [place] [address] [place], [place] [id number] PCP - General 07/24/10 Leo Lopez PA-C [address] [facility] [address] [place], [place] [address] Assigned Neuroscience Provider 05/19/21 09/05/22 Talisha Roth MD [address] [facility] [address] [place] [address] Assigned Surgical Provider 09/21/21 05/08/23 [place] [address] [place] [address] Assigned Pain Medication Provider 02/24/22 08/15/22 [place] [address] [place] [address] Pain Medicine 06/25/22 Phoebe Mchugh MD [address] [place] [address] Physical Medicine and Rehabilitation 09/10/22 Anna Pritchett MD [address] [place] [address] Assigned Neuroscience Provider 09/06/22 10/17/22 Phoebe Mchugh MD [address] [place] [address] Assigned Neuroscience Provider 10/18/22 03/11/23 Anna Pritchett MD [address] [place] [address] Assigned Neuroscience Provider 03/12/23 09/06/24 documented as of this encounter
--- OUTSIDE RECORDS SUMMARY | 2025-01-06 18:43 | XMS_ITS | Encounter Summary ---
Author Organization [place] Address [facility] [place] [address] Care Team Providers Care Lead Teller Name Role Phone Yarelis Henderson MD Primary Care Provider Leo Lopez PA-C Unavailable [phone] Talisha Roth MD Unavailable [phone] Lonnie Cadet MD Unavailable + Palak Lazcano MD Unavailable [phone] Phoebe Mchugh MD Unavailable [phone] Anna Pritchett MD Unavailable [phone] Phoebe Mchugh MD Unavailable [phone] Anna Pritchett MD Unavailable [phone] Encounter Details Date Type Department Care Team (Late st Contact Info) Description 08/12/2022 [facility] Medical Advice [facility] Pain Management [address] [address] Radha Chance RN Social History Tobacco Use Types Packs/Day Years Used Date Smoking Tobacco: Former Cigarettes Q uit: 01/19/2008 Smokeless Tobacco: Never Alcohol Use Standard Drinks/Week Comments No 0 (1 standard drink = 0.6 oz pur e alcohol) PHQ-2 Answer Date Recorded PHQ-2 Score 4 08/07/2022 Comments No Sex and Gender Information Value Date Recorded Sex Assigned at Not on file Legal Sex Female 4:44 AM CARPENTER MATE Gender Identity Not on file Sexual Orientation Not on file COVID-19 Exposure Response Date Recorded In the last 10 days, have yo u been in contact with someone who was confirmed or suspected to have Coronavirus/COVID-19? Unable to assess 08/12/2022 7:27 AM CDT documented as of this encounter Plan of Treatment Upcoming Encounters Date Type Department Care Team (Late st Contact Info) Description 02/28/2025 1:00 PM CARPENTER MATE Office Visit [facility] [address] 3rd [place] [address] Anna Pritchett MD [address] [place] [address] [id number] [place], [place] [address] documented as of this encounter Visit Diagnoses Not on filedocumented in this encounter Additional Health Concerns Infection Onset Date Last Indicated Resolved Time Rule Out COVID-19 03/06/2023 03/06/2023 03/06/2023 10:41 PM CARPENTER MATE Rule Out COVID-19 10/01/2024 10/01/2024 10/02/2024 12:19 AM CDT Assessment Noted Time PHQ-9 Depression Total Score: 17 023 10:15 AM CDT documented as of this encounter Care Teams Lead Teller Relationship Specialty [place] [address] [place] [address] PCP - General 07/24/10 Leo Lopez PA-C [address] [facility] [address] [place] [address] Assigned Neuroscience Provider 05/19/21 09/05/22 Talisha Roth MD [address] [facility] [address] [place] [address] Assigned Surgical Provider 09/21/21 05/08/23 [place] [address] [place] [address] Assigned Pain Medication Provider 02/24/22 08/15/22 [place] [address] [place] [address] Pain Medicine 06/25/22 Phoebe Mchugh MD [address] [address] Physical Medicine and Rehabilitation 09/10/22 Anna Pritchett MD [address] [place] [address] Assigned Neuroscience Provider 09/06/22 10/17/22 Phoebe Mchugh MD [address] [address] Assigned Neuroscience Provider 10/18/22 03/11/23 Anna Pritchett MD [address] [address] Assigned Neuroscience Provider 03/12/23 09/06/24 documented as of this encounter
--- OUTSIDE RECORDS SUMMARY | 2025-01-06 18:43 | XMS_ITS | Encounter Summary ---
Author Organization [place] Address [facility] [place] [address] Care Team Providers Care Education Spec Name Role Phone Yarelis Henderson MD Primary Care Provider [phone] Leo Lopez PA-C Unavailable [phone] Talisha Roth MD Unavailable [phone] Palak Lazcano MD Unavailable [phone] Phoebe Mchugh MD Unavailable [phone] Anna Pritchett MD Unavailable [phone] Phoebe Mchugh MD Unavailable [phone] Anna Pritchett MD Unavailable [phone] Reason for Visit * Reason Onset Date Comments Call Back 08/25/2022 Pt referred for Intradural mass (H) w/ Dr Mchugh Encounter Details Date Type Department Care Team (Late st Contact Info) Description 08/25/2022 Telephone [facility] Rehabilitation [facility] Mobile [address] [facility] 3rd [place] [address] Phoebe Mchugh MD [address] [facility] [address] [place] [address] Call Back (Pt referred for Intradural mass (H) w/ Dr Mchugh) Social History Tobacco Use Types Packs/Day Years Used Date Smoking Tobacco: Former Cigarettes Q uit: 01/19/2008 Smokeless Tobacco: Never Alcohol Use Standard Drinks/Week Comments No 0 (1 standard drink = 0.6 oz pur e alcohol) PHQ-2 Answer Date Recorded PHQ-2 Score 4 08/07/2022 Comments No Sex and Gender Information Value Date Recorded Sex Assigned at Not on file Legal Sex Female 4:44 AM ASSISTANT ATHLETIC TRAINER Gender Identity Not on file Sexual Orientation Not on file COVID-19 Exposure Response Date Recorded In the last 10 days, have yo u been in contact with someone who was confirmed or suspected to have Coronavirus/COVID-19? No / Unsure 08/25/2022 4:00 PM CDT documented as of this encounter Plan of Treatment Upcoming Encounters Date Type Department Care Team (Late st Contact Info) Description 02/28/2025 1:00 PM ASSISTANT ATHLETIC TRAINER Office Visit [facility] [address] 3rd [place] [address] Anna Pritchett MD [address] [place] [address] [id number] [place] [address] documented as of this encounter Visit Diagnoses Not on filedocumented in this encounter Additional Health Concerns Infection Onset Date Last Indicated Resolved Time Rule Out COVID-19 03/06/2023 03/06/2023 03/06/2023 10:41 PM ASSISTANT ATHLETIC TRAINER Rule Out COVID-19 10/01/2024 10/01/2024 10/02/2024 12:19 AM CDT Assessment Noted Time PHQ-9 Depression Total Score: 17 023 10:15 AM CDT documented as of this encounter Care Teams Education Spec Relationship Specialty [place] [address] [place] [address] PCP - General 07/24/10 Leo Lopez PA-C [address] [place] [address] Assigned Neuroscience Provider 05/19/21 09/05/22 Talisha Roth MD [address] [facility] [address] [place] [address] Assigned Surgical Provider 09/21/21 05/08/23 [place] [address] [place] [address] Pain Medicine 06/25/22 Phoebe Mchugh MD [address] [address] Physical Medicine and Rehabilitation 09/10/22 Anna Pritchett MD [address] [place] [address] Assigned Neuroscience Provider 09/06/22 10/17/22 Phoebe Mchugh MD [address] [address] Assigned Neuroscience Provider 10/18/22 03/11/23 Anna Pritchett MD [address] [place] [address] Assigned Neuroscience Provider 03/12/23 09/06/24 documented as of this encounter
--- OUTSIDE RECORDS SUMMARY | 2025-01-06 18:43 | XMS_ITS | Encounter Summary ---
Author Organization [place] Address [facility] [place] [address] Care Team Providers Care Stone Product Fabricator Name Role Phone Yarelis Henderson MD Primary Care Provider [phone] Talisha Roth MD Unavailable [phone] Palak Lazcano MD Unavailable [phone] Phoebe Mchugh MD Unavailable [phone] Phoebe Mchugh MD Unavailable [phone] Anna Pritchett MD Unavailable [phone] Reason for Visit * Reason Onset Date Comments Clinic Care Coordination - Follow-up 11/19/2022 Encounter Details Date Type Department Care Team (Latest Contact Info) Description 11/19/[address] [facility] Medical Advice [facility] [address] [place] [address] [facility] Care Coordination - Follow-up Social History Tobacco Use Types Packs/Day Years Used Date Smoking Tobacco: Former Cigarettes Q uit: 01/19/2008 Smokeless Tobacco: Never Alcohol Use Standard Drinks/Week Comments No 0 (1 standard drink = 0.6 oz pur e alcohol) PHQ-2 Answer Date Recorded PHQ-2 Score 4 08/07/2022 Adolescent Education Answer Date Record ed Getting School Help Needed Not on file 11/08 Comments No Sex and Gender Information Value Date Recorded Sex Assigned at Not on file Legal Sex Female 4:44 AM DRY CLEANER APPRENTICE Gender Identity Not on file Sexual Orientation Not on file documented as of this encounter Miscellaneous Notes * Telephone Encounter - Jodi Justice RN - 11/25/2022 10:22 AM CDT Called and spoke with patient. She would like to proceed with getting the injection with Dr. Mchugh at the [facility] at the [facility]. She states she has already been told that she needs to hold her Warfarin for 5 days prior to the injection. She would like to see if she can get moderate sedation with the injection due to how difficult accessing the area for her injections and the level of pain she has had with these injections in the past, or if it will be oral sedation, as she also is highly anxious about getting the injection based on previous experiences. Previous order was: C7-T1 interlaminar epidural steroid injection Scheduling Instructions: Schedule w/ [facility] INR ordered for day-of procedure. Required INR <1.2. Routing to Dr. Mchugh to place case request order for injection and to answer if able to get moderate sedation with her procedure. JOCELYN GrahamN RN RN [facility] [address] [address] Office: [phone] * Telephone Encounter - Jayda Elias - 11/24/2022 4:38 PM CDT [facility] Phone Message May a detailed message be left on voicemail: yes Reason for Call: Other: Patient is returning phone call, please call back at [phone]. Action Taken: Message routed to: [facility] Travel Screening: Not Applicable * Telephone Encounter - Jodi Justice RN - 11/24/2022 3:[address] Mchugh: Seems that she was scheduled with the pain clinic but they are unable to complete it. We can reschedule at [facility]. Does she want to go there? Also, we had set her up in the pain clinic, can we see why she missed or cancelled this appointment with the pain [facility]? She needs to establish with them for ongoing chronic pain since she had mentioned wanting to remain in the [facility] system, otherwise, she can see the pain clinic through her PCP as had been suggested by Dr Lazcano. Thanks Attempted to call patient back at her requested phone # [phone], no answer. The [employer] phone messaging clinical physician assistant left patient a VM that this RN was returning her phone call. Inquired if patient would be okay with Dr. Mchugh placing an order for her to [facility] the [facility], as he can place the order for the injection to be completed there. Advised a message will also be sent back to her via My Chart as well. JOCELYN GrahamN RN RN [facility] for Physical Medicine and Rehabilitation [facility] - [address] [address] Office: [phone] documented in this encounter Plan of Treatment Upcoming Encounters Date Type Department Care Team (Late st Contact Info) Description 02/28/2025 1:00 PM DRY CLEANER APPRENTICE Office Visit [facility] [address] [place] [id number] Anna Pritchett MD [address] [place] [address] [id number] [place] [address] documented as of this encounter Visit Diagnoses Not on filedocumented in this encounter Additional Health Concerns Infection Onset Date Last Indicated Resolved Time Rule Out COVID-19 03/06/2023 03/06/2023 03/06/2023 10:41 PM DRY CLEANER APPRENTICE Rule Out COVID-19 10/01/2024 10/01/2024 10/02/2024 12:19 AM CDT Assessment Noted Time PHQ-9 Depression Total Score: 17 023 10:15 AM CDT documented as of this encounter Care Teams Stone Product Fabricator Relationship Specialty [place] [address] [place] [address] PCP - General 07/24/10 Talisha Roth MD [address] [place] [address] Assigned Surgical Provider 09/21/21 05/08/23 [place] [address] [address] Pain Medicine 06/25/22 Phoebe Mchugh MD [address] [facility] [address] [place] [address] Physical Medicine and Rehabilitation 09/10/22 Phoebe Mchugh MD [address] [facility] [address] [place] [address] Assigned Neuroscience Provider 10/18/22 03/11/23 Anna Pritchett MD [address]09 [id number] [place] [address] Assigned Neuroscience Provider 03/12/23 09/06/24 documented as of this encounter
--- OUTSIDE RECORDS SUMMARY | 2025-01-06 18:44 | XMS_ITS | Clinical Summary ---
Author Organization [facility] Address [address] [place] [address] Care Team Providers Care Netbackup Engineer Name Role Phone Yarelis Henderson MD Primary Care Provider Palak Lazcano MD Unavailable [phone] Phoebe Mchugh MD Unavailable [phone] Allergies Active Allergy Reactions Criticality Noted Date Comments Diphenhydramine Itching 08/27/2019 Codeine Rash,Hives Low 11/28/2008 Hydromorphone Rash Low 07/19/2012 Morphine Hives,Rash,Unknown Low 11/28/2008 Medications sertraline (ZOLOFT) 50 MG tablet Take 75 mg by mouth daily 0 Active multivitamin w/minerals (THERA-VIT-M) tablet Take 1 tablet by mouth daily Active apixaban ANTICOAGULANT (ELIQUIS) 5 MG tablet Take 5 mg by mouth 2 times daily Active sucralfate (CARAFATE) 1 GM/10ML suspension Take 10 mLs (1 g) by mouth 4 times daily as needed (Epigastric pain). 420 mL 5 Active Active Problems Problem Noted Date Diagnosed Date Cervical radicular pain 11/25/2022 Cervical spondylosis 11/25/2022 Lumbago 02/18/2021 Neck pain 02/18/2021 Morbid obesity 08/25/2017 Chronic superficial gastritis 06/19/2017 Fatty liver disease, nonalcoholic 03/16/2017 Post-op pain 12/12/2016 Factor V Leiden 10/03/2015 GBS (group B streptococcus) infection 06/01/2014 Overview (06/01/2014): Final urine culture on 06/01/14 shows the presence of bacteria(s): 10,000 to 50,000 colonies/mL Beta hemolytic Streptococcus group B Pulmonary embolism 04/20/2014 Overview (06/05/2021): 2007 treated with coumadin for one year Diverticular disease of colon 09/09/2013 Choledocholithiasis 07/20/2012 Epigastric pain 07/19/2012 Post-operative state 02/18/2012 False labor before 37 completed weeks of gestati on 02/10/2012 Abdominal cramping 02/01/2012 Swelling of extremity 11/10/2011 , ectopic, cornual or cervical 10/31/19 11 Overview (10/30/2010): Patient received Methotrexate on 10/28/2010. Following [facility] [place] Gastroesophageal reflux disease without esophagi tis 07/07/2008 Resolved Problems Problem Noted Date Diagnosed Date Resolved Date Chronic low back pain without sciatica 05/09/2021 02/04/2022 Round ligament pain 01/06/2012 02/16/20 12 Abdominal pain, unspecified abdominal location 01/06/2012 02/16/2012 Overview (11/17/2014): Problem list name updated by automated process. Provider to review state, incidental 01/06/2012 1 Pain in joint, lower leg 12/13/200802/2009 Encounters Date Type Department Care Team Description 12/20/2024 Telephone [facility] [address] 3rd [place] [address] Anna Pritchett MD from Last 3 Months Immunizations Immunization Administration Dates Next Due Influenza (IIV3) PF 11/17/2011 TDAP Vaccine (Adacel) 02/20/2012 Family History Medical History Relation Comments Hypertension Father Prostate Cancer Maternal Grandfather Hyperlipidemia Maternal Grandmother Breast Cancer Mother Hyperlipidemia Mother Cerebrovascular Disease Paternal Grandmother Ovarian Cancer No family hx of Relation Status Comments Father Maternal Grandfather Maternal Grandmother Mother Paternal Grandmother Social History Tobacco Use Types Packs/Day Years Used Date Smoking Tobacco: Former Cigarettes Q uit: 01/19/2008 Smokeless Tobacco: Never Tobacco Cessation:Counseling Given: Not Answered Alcohol Use Standard Drinks/Week Comments No 0 (1 standard drink = 0.6 oz pur e alcohol) PHQ-2 Answer Date Recorded PHQ-2 Score 0 03/03/2023 Adolescent Education Answer Date Record ed Getting School Help Needed Not on file 11/08 Comments No Sex and Gender Information Value Date Recorded Sex Assigned at Not on file Legal Sex Female 4:44 AM COOK LARDER Gender Identity Not on file Sexual Orientation Not on file Last Filed Vital Signs Vital Sign Reading Time Taken Comments Blood Pressure 158/81 10/02/2024 1:11 AM CDT Pulse 82 10/02/2024 1:11 AM CDT Temperature 36.5 C (97.7 F) 10/01/2024 9:42 PM CDT Respiratory Rate 18 10/02/2024 1:11 AM CDT Oxygen Saturation 97% 10/02/2024 1:11 AM CDT Inhaled Oxygen Concentration - - Weight 127.7 kg (281 lb 8.4 oz) 10/01/2024 9:42 PM CDT Height 162.6 cm (5' 4) 12/13/2023 11:3 2 PM CDT Body Mass Index 48.32 12/13/2023 11:32 PM CDT Plan of Treatment Upcoming Encounters Date Type Department Care Team (Late st Contact Info) Description 02/28/2025 1:00 PM COOK LARDER Office Visit [facility] [address]rd [place] [address] Anna Pritchett MD [address] [place] [address] [id number] [place] [address] Health Maintenance Due Date Last Done Comments ADVANCE CARE PLANNING 1973 ANNUAL REVIEW OF HM ORDERS 1973 CT COLONOGRAPHY 1973 FIT 1973 FLEX SIG 1973 sDNA (Cologuard) 1973 HEPATITIS C SCREENING 06/08/1991 HEPATITIS B VACCINE (1 of 3 - 19+ 3-dose series) 1992 PAP 1994 LIPID 2013 PHQ-2 (once per calendar year) 2024 03/03/2023, 08/07/2022, 08/07/2022 COVID-19 VACCINE ( season) 2024 01/31/2021, 05/05/2020, 04/14/2020 INFLUENZA VACCINE (#1) 2024 , 11/14/2022, 11/08/2021, Additional history exists YEARLY PREVENTIVE VISIT 04/27/2025 04/27/2024 MAMMO SCREENING 01/03/2026 01/04/2024, 07/17, 08/08/2021, Additional history exists DIABETES SCREENING 10/02/2027 10/01/2024, 1 , 12/04/2023, Additional history exists COLONOSCOPY 01/14/2031 01/14/2021 COLORECTAL CANCER SCREENING 01/14/2031 DTAP/TDAP/TD VACCINE (3 - Td or Tdap) 04/16/2032 04/16/2022, 02/20/2012 HIV SCREENING Completed 04/27/2024, 08/07/2011 PNEUMOCOCCAL VACCINE 50+ YEARS Completed 04/27/2024 ZOSTER VACCINE Completed 07/04/2024, 04/27/2024 HPV VACCINE (No Doses Required) Completed MENINGITIS VACCINE Aged Out No longer eligible based on patient's age to complete this topic Medical Devices Explanted Type Area Rope Twisting Machine Operator Device Identifier Shelf Expiration Date Model / Serial / Lot Stent Cotton Caal ([place]) Biliary [id number] Implanted:Qty: 1 on 07/20/2012 by Hetal Greene MD at [facility] Explanted:Qty: 1 on 08/27/2012 by Hetal Greene MD at [facility] N/A: Bile Duct 03/12/2015 [id number] / / [id number] Procedures Procedure Name Priority Date/Time Associated Diagnosis Comments BASIC METABOLIC PANEL (LIMITED OCCURRENCES) STAT 10/01/2024 10:16 PM CDT MA SCREENING DIGITAL BILATERAL Routine 07/28/2022 9:27 AM CDT Encounter for screening mammogram for malignant neoplasm of breast HIV 1 AND 2 ANTIBODY (QUEST) Routine 08/07/2011 from Last 3 Months or Most Recently Relevant to Health Maintenance Results * (ABNORMAL) Basic Metabolic Panel (Limited Occurrences) (10/01/2024 10:16 PM CDT) Sodium 143 135 - 145 mmol/L 10/01/2024 10:45 PM CDT [facility] Potassium 4.3 3.4 - 5.3 mmol/L 10/01/2024 10:45 PM CDT [facility] Chloride 106 98 - 107 mmol/L 10/01/2024 10:45 PM CDT [facility] Carbon Dioxide (CO2) 26 22 - 29 mmol/L 10/01/2024 10:45 PM CDT [facility] Anion Gap 11 7 - 15 mmol/L 10/01/2024 10:45 PM CDT [facility] Urea Nitrogen 18.0 6.0 - 20.0 mg/dL 10/01/2024 10:45 PM CDT [facility] Creatinine 0.86 0.51 - 0.95 mg/dL 10/01/2024 10:45 PM CDT [facility] GFR Estimate 81 >60 mL/min/1.7 3m2 10/01/2024 10:45 PM CDT [facility] Comment:eGFR calculated 2020 CKD-EPI equation. Calcium 9.5 8.8 - 10.4 mg/dL 10/01/2024 10:45 PM CDT [facility] Glucose 117(H) 70 - 99 mg/dL 10/01/2024 10:45 PM CDT [facility] Blood STRUCTURE OF LEFT UPPER LIMB / Unknown Venipuncture / Unknown 10/01/2024 10:16 PM CDT 10/01/2024 10:24 PM CDT Ernesto Pérez MD LAB - BLOOD ORDERABLES Final Res ult [facility] [address] [facility] Lab (1st floor, no room number) [place] [address], [facility] * MA Screening Digital Bilateral (07/28/2022 9:27 AM CDT) Anatomical Region Laterality Modality Breast Bilateral Mammography Impressions 07/28/2022 9:52 AM CDT IMPRESSION: ACR BI-RADS Category 1: Negative RECOMMENDED FOLLOW-UP: Annual routine screening mammogram The results and recommendations of this examination will be communicated to the patient. Andrew Kitchen MD Narrative 07/28/2022 9:52 AM CDT BILATERAL FULL FIELD DIGITAL SCREENING MAMMOGRAM Performed on: 07/28/22 Compared to: 08/08/2021 and 01/05/2019 Technique: This study was evaluated with the assistance of Computer-Aided Detection. Findings: The breasts are heterogeneously dense, which may obscure small masses. There is no radiographic evidence of malignancy. us Yarelis Henderson MD IMG MAMMOGRAPHY ORDERABLES Final Result * HIV 1 and 2 Antibody (08/07/2011) HIV-1 & HIV-2 Antibody [facility] HIV 1&2 Antibody Negative [facility] Blood specimen (specimen) us Patient Reported LAB - BLOOD ORDERABLES Final Re sult [facility] from Last 3 Months or Most Recently Relevant to Health Maintenance Insurance BCBS OUT OF STATE BCBS OUT OF STATE Advance Directives For more information, please contact: [phone] Documents on File Type Date Recorded Patient Obiee Report Developer Expl anation Advance Directives and Living Will 12/16/2016 11:05 AM Health Care Directiv e 11/02/14 * Full Code (Latest Code Status on File) Date Activated Date Inactivated Comments 12/12/2016 4:44 PM 12/13/2016 2:15 PM * Full Code Date Activated Date Inactivated Comments 07/24/2012 10:06 AM 12/12/2016 4:44 PM * Full Code Date Activated Date Inactivated Comments 07/22/2012 4:17 PM 07/24/2012 10:06 AM * Full Code Date Activated Date Inactivated Comments 07/19/2012 12:41 PM 07/21/2012 7:10 PM * Full Code Date Activated Date Inactivated Comments 10/31/2010 11:35 AM 11/10/2010 2:56 PM Care Teams Netbackup Engineer Relationship Specialty [place] [address] [place] [address] PCP - General 07/24/10 [place] [address] [place] [address] Pain Medicine 06/25/22 Phoebe Mchugh MD 420 [facility] 297 [place], [place] [address] Physical Medicine and Rehabilitation 09/10/22
--- OUTSIDE RECORDS SUMMARY | 2025-01-06 18:44 | XMS_ITS | Encounter Summary ---
Author Organization [place] Address [address] [facility] [place] [address] Care Team Providers Care Camera Prototyping Engineer Name Role Phone Yarelis Henderson MD Primary Care Provider Talisha Roth MD Unavailable [phone] Palak Lazcano MD Unavailable [phone] Phoebe Mchugh MD Unavailable [phone] Phoebe Mchugh MD Unavailable [phone] Anna Pritchett MD Unavailable [phone] Encounter Details Date Type Department Care Team (Late st Contact Info) Description 12/30/2022 MyC Medical Advice [address] [place] [address] Phoebe Mchugh MD 420 [facility] 297 [place] [address] Social History Tobacco Use Types Packs/Day Years [...] on file Legal Sex Female 4:44 AM PERSONNEL TRAINING OFFICER Gender Identity Not on file Sexual Orientation Not on file documented as of this encounter Plan of Treatment Upcoming Encounters Date Type Department Care Team (Late st Contact Info) Description 02/28/2025 1:00 PM PERSONNEL TRAINING OFFICER Office Visit [facility] [address] 3rd [place] [phone] Anna Pritchett MD [address] [place] [address] [id number] [place], [place] [address] documented as of this encounter Visit Diagnoses Not on filedocumented in this encounter Additional Health Concerns Infection Onset Date Last Indicated Resolved Time Rule Out COVID-19 03/06/2023 03/06/2023 03/06/2023 10:41 PM PERSONNEL TRAINING OFFICER Rule Out COVID-19 10/01/2024 10/01/2024 10/02/2024 12:19 AM CDT Assessment Noted Time PHQ-9 Depression Total Score: 17 023 10:15 AM CDT documented as of this encounter Care Teams Camera Prototyping Engineer Relationship Specialty [place] [address] [place] [address] PCP - General 07/24/10 Talisha Roth MD [address] [facility] [address] [place], [place] [address] Assigned Surgical Provider 09/21/21 05/08/23 [place] [address] [place] [address] Pain Medicine 06/25/22 Phoebe Mchugh MD [address] [place] [address] 297 [place] [address] Physical Medicine and Rehabilitation 09/10/22 Phoebe Mchugh MD [address] [place] [address] 297 [place] [address] Assigned Neuroscience Provider 10/18/22 03/11/23 Anna Pritchett MD [address] [place], [place] [id number] [place] [address] Assigned Neuroscience Provider 03/12/23 09/06/24 documented as of this encounter
--- OUTSIDE RECORDS SUMMARY | 2025-01-06 18:44 | XMS_ITS | Encounter Summary ---
Author Organization [place] Address [address] [place] [address]. [place] [address] Care Team Providers Care Director Special Education Name Role Phone Yarelis Henderson MD Primary Care Provider [phone] Talisha Roth MD Unavailable [phone] Palak Lazcano MD Unavailable [phone] Phoebe Mchugh MD Unavailable [phone] Phoebe Mchugh MD Unavailable [phone] Anna Pritchett MD Unavailable [phone] Encounter Details Date Type Department Care Team (Late st Contact Info) Description 12/22/2022 MyC Medical Advice [address] [place] [address] Sara Carter, RN Social History Tobacco Use Types Packs/Day [...] on file Legal Sex Female 4:44 AM CUSTOMS OPENER VERIFIER PACKER Gender Identity Not on file Sexual Orientation Not on file documented as of this encounter Plan of Treatment Upcoming Encounters Date Type Department Care Team (Late st Contact Info) Description 02/28/2025 1:00 PM CUSTOMS OPENER VERIFIER PACKER Office Visit [facility] [address] 3rd [place] [phone] Anna Pritchett MD [address] [place] [address] [id number] [place] [address] documented as of this encounter Visit Diagnoses Not on filedocumented in this encounter Additional Health Concerns Infection Onset Date Last Indicated Resolved Time Rule Out COVID-19 03/06/2023 03/06/2023 03/06/2023 10:41 PM CUSTOMS OPENER VERIFIER PACKER Rule Out COVID-19 10/01/2024 10/01/2024 10/02/2024 12:19 AM CDT Assessment Noted Time PHQ-9 Depression Total Score: 17 023 10:15 AM CDT documented as of this encounter Care Teams Director Special Education Relationship Specialty [place] [address] [place] [address] PCP - General 07/24/10 Talisha Roth MD [address] [facility] [address] [place] [address] Assigned Surgical Provider 09/21/21 05/08/23 [place] [address] [place] [address] Pain Medicine 06/25/22 Phoebe Mchugh MD 420 [facility] 297 [place] [address] Physical Medicine and Rehabilitation 09/10/22 Phoebe Mchugh MD 420 [facility] [address] [place], [place] [address] Assigned Neuroscience Provider 10/18/22 03/11/23 Anna Pritchett MD [address] [facility] [id number] [place] [address] Assigned Neuroscience Provider 03/12/23 09/06/24 documented as of this encounter
--- OUTSIDE RECORDS SUMMARY | 2025-01-06 18:44 | XMS_ITS | Encounter Summary ---
Author Organization [place] Address [facility] [place] [address] Care Team Providers Care Endocrinology Physician Name Role Phone Yarelis Henderson MD Primary Care Provider [phone] Talisha Roth MD Unavailable [phone] Palak Lazcano MD Unavailable [phone] Phoebe Mchugh MD Unavailable [phone] Phoebe Mchugh MD Unavailable [phone] Anna Pritchett MD Unavailable [phone] Encounter Details Date Type Department Care Team (Late st Contact Info) Description 02/12/2023 [facility] Medical Advice [facility] [address] [place] [address] Anna Pritchett MD [address] [place] [address] [id number] [place] [address] Social History Tobacco Use Types [...] on file Legal Sex Female 4:44 AM CARBONATING STONE CLEANER Gender Identity Not on file Sexual Orientation Not on file documented as of this encounter Miscellaneous Notes * Telephone Encounter - Lani Leiva LPN - 02/13/2023 10:02 AM CSTSummary: Dr. Pritchett Attn; Jann Aaron, RNCC for Dr. Pritchett *Patient requesting medication for imaging. Nelly Leiva LPN Neurosurgery ONATING STONE CLEANER documented in this encounter Plan of Treatment Upcoming Encounters Date Type Department Care Team (Late st Contact Info) Description 02/28/2025 1:00 PM CARBONATING STONE CLEANER Office Visit [facility] [address] 3rd [place] [phone] Anna Pritchett MD [address] [place] [address] [id number] [place] [address] documented as of this encounter Visit Diagnoses Not on filedocumented in this encounter Additional Health Concerns Infection Onset Date Last Indicated Resolved Time Rule Out COVID-19 03/06/2023 03/06/2023 03/06/2023 10:41 PM CARBONATING STONE CLEANER Rule Out COVID-19 10/01/2024 10/01/2024 10/02/2024 12:19 AM CDT Assessment Noted Time PHQ-9 Depression Total Score: 17 023 10:15 AM CDT documented as of this encounter Care Teams Endocrinology Physician Relationship Specialty [place] [address] [place] [address] PCP - General 07/24/10 Talisha Roth MD [address] [facility] [address] [place], [place] [address] Assigned Surgical Provider 09/21/21 05/08/23 [place] [address] [place] [address] Pain Medicine 06/25/22 Phoebe Mchugh MD [address] [address] Physical Medicine and Rehabilitation 09/10/22 Phoebe Mchugh MD [address] [address] Assigned Neuroscience Provider 10/18/22 03/11/23 Anna Pritchett MD [address] [id number] [place] [address] Assigned Neuroscience Provider 03/12/23 09/06/24 documented as of this encounter
--- OUTSIDE RECORDS SUMMARY | 2025-01-06 18:44 | XMS_ITS | Encounter Summary ---
Author Organization [facility] Address [address] [place] [address]. [place] [address] Care Team Providers Care Optic Fibre Drawer Name Role Phone Yarelis Henderson MD Primary Care Provider [phone] Palak Lazcano MD Unavailable [phone] Phoebe Mchugh MD Unavailable [phone] Encounter Details Date Type Department Care Team (Late st Contact Info) Description 12/20/2024 Telephone [facility] [address] [place] [address] Anna Pritchett MD [address] [place] [address] [id number] [place], [place] [address] Social History Tobacco Use Types Packs/Day Years [...] on file Legal Sex Female 4:44 AM GYPSUM ROOFER Gender Identity Not on file Sexual Orientation Not on file documented as of this encounter Miscellaneous Notes * Telephone Encounter - Francisco Javier Henning - 12/20/2024 12:05 PM CST LVM- Please help pt schedule MRI prior to seeing Dr Pritchett in February 2025. UM ROOFER documented in this encounter Plan of Treatment Upcoming Encounters Date Type Department Care Team (Late st Contact Info) Description 02/28/2025 1:00 PM GYPSUM ROOFER Office Visit [facility] [address] [place] [address] Anna Pritchett MD [address] [place] [id number] [place], [place] [address] documented as of this encounter Visit Diagnoses Not on filedocumented in this encounter Additional Health Concerns Assessment Noted Time PHQ-9 Depression Total Score: 17 023 10:15 AM CDT documented as of this encounter Care Teams Optic Fibre Drawer Relationship Specialty [place] [address] [address] [place], [place] [id number] PCP - General 07/24/10 [place] [address] [place] [address] Pain Medicine 06/25/22 Phoebe Mchugh MD 420 [facility] 297 [place], [place] [address] Physical Medicine and Rehabilitation 09/10/22 documented as of this encounter
--- OUTSIDE RECORDS SUMMARY | 2025-01-06 18:44 | XMS_ITS | Encounter Summary ---
Author Organization [place] Address [facility]0 [facility] [place] [address] Care Team Providers Care Hospice Music Therapy Name Role Phone Yarelis Henderson MD Primary Care Provider [phone] Talisha Roth MD Unavailable [phone] Palak Lazcano MD Unavailable [phone] Phoebe Mchugh MD Unavailable [phone] Phoebe Mchugh MD Unavailable [phone] Anna Pritchett MD Unavailable [phone] Encounter Details Date Type Department Care Team (Late st Contact Info) Description 11/27/2022 [facility] Medical Advice [facility] Physical Medicine and Rehabilitation Clinic [place] [id number] [facility] 3rd [place] [address] Phoebe Mchugh MD 420 [facility] 297 [place] [address] Social History Tobacco Use Types [...] on file Legal Sex Female 4:44 AM OR SCRUB TECH Gender Identity Not on file Sexual Orientation Not on file documented as of this encounter Plan of Treatment Upcoming Encounters Date Type Department Care Team (Late st Contact Info) Description 02/28/2025 1:00 PM OR SCRUB TECH Office Visit [facility] [address]rd [place] [address] Anna Pritchett MD [address] [place] [address] [id number] [place], [place] [address] documented as of this encounter Visit Diagnoses Not on filedocumented in this encounter Additional Health Concerns Infection Onset Date Last Indicated Resolved Time Rule Out COVID-19 03/06/2023 03/06/2023 03/06/2023 10:41 PM OR SCRUB TECH Rule Out COVID-19 10/01/2024 10/01/2024 10/02/2024 12:19 AM CDT Assessment Noted Time PHQ-9 Depression Total Score: 17 023 10:15 AM CDT documented as of this encounter Care Teams Hospice Music Therapy Relationship Specialty Start [place] [address] [place] [address] PCP - General 07/24/10 Talisha Roth MD [address] [facility] [address] [place], [place] [address] Assigned Surgical Provider 09/21/21 05/08/23 [place] [address] [place] [address] Pain Medicine 06/25/22 Phoebe Mchugh MD 420 [facility] 297 [place] [address] Physical Medicine and Rehabilitation 09/10/22 Phoebe Mchugh MD [address] [place] [address] Assigned Neuroscience Provider 10/18/22 03/11/23 Anna Pritchett MD [address] [place], [place] [id number] [address] Assigned Neuroscience Provider 03/12/23 09/06/24 documented as of this encounter
--- OUTSIDE RECORDS SUMMARY | 2025-01-06 18:45 | XMS_ITS | Encounter Summary ---
Author Organization [facility] Address [address] [place] [address] Care Team Providers Care Core Maker Name Role Phone Yarelis Henderson MD Primary Care Provider Leo Lopez PA-C Unavailable [phone] Talisha Roth MD Unavailable [phone] Lonnie Cadet MD Unavailable + Palak Lazcano MD Unavailable [phone] Phoebe Mchugh MD Unavailable [phone] Anna Pritchett MD Unavailable [phone] Phoebe Mchugh MD Unavailable [phone] Anna Pritchett MD Unavailable [phone] Encounter Details Date Type Department Care Team (Late st Contact Info) Description 07/29/2011 Office Visit-P INTERFACE P DEPT Corie Fisher APRN CAT TENDER [facility] [address] [place] [address] [place] [address] Social History Tobacco Use Types Packs/Day Years Used Date Smoking Tobacco: Former Alcohol Use Standard Drinks/Week Comments No 0 (1 standard drink = 0.6 oz pur e alcohol) Comments No Sex and Gender Information Value Date Recorded Sex Assigned at Not on file Legal Sex Female 4:44 AM ELECTRIC FORK OPERATOR Gender Identity Not on file Sexual Orientation Not on file documented as of this encounter Progress Notes * Corie Fisher NP - 07/29/2011 2:30 PM CDT Print Line Supervisor: Phillip Corie Status: Final - Signature Encounter: 2011-07-29 14:30:00.000 Type: [facility] Visit Procedure: Confirmation of Transvaginal Ultrasound The patient is currently and gestational age is calculated to be: 8 weeks 0 days Gestational age dating is established by the date of : TVOR 06/17/2011 Estimated date of confinement (by gestational age dating) 03/09/2012 Procedure Description: The patient was placed in the dorsolithotomy position for routine transvaginal ultrasound. The transvaginal probe with sterile sheath was inserted into the vagina and the pelvis imaged. Ultrasound findings include: Gestational Sac (Mean Sac Diameter): 1. Length 45.9 mm Width 28.1 mm Height 50.4 mm MSD 41.5 mm GA 9W 4D Yolk Sac: 1. Length 3.7 mm Width 3.7 mm Height 4.0 mm Mean Yolk Sac Diameter 3.8 mm Pole [Arco Rump Length (CRL)]: 1. Length 17.8 mm Gest. Age 8 weeks 2 days Heart Rate 179 BPM Comments: Patient reports symptoms of fatigue. She also reports intermittent bilateral calf pain with walking. She denies redness, bruising or injury. She continues on Lovenox daily. She isadvised to monitor and follow up with OB if she notices any signs of blood clot- redness, hot at site, increased pain. Impression: Ongoing browne IUP with appropriate growth from last ultrasound and good FHR. Plan: 1. Patient instructed to continue Progesterone through today, July 28. 2. Patient instructed to continue vitamins. 3. Patient will enroll in care- she has appointment on August 06. Electronically signed by:Corie Fisher N.P. Jul 29 2011 3:02PM ELECTRIC FORK OPERATOR documented in this encounter Plan of Treatment Upcoming Encounters Date Type Department Care Team (Late st Contact Info) Description 02/28/2025 1:00 PM ELECTRIC FORK OPERATOR Office Visit [facility] [place] [address] [place] [address] 3rd [place] [phone] Anna Pritchett MD [address] [facility] [id number] [address] documented as of this encounter Visit Diagnoses Not on filedocumented in this encounter Additional Health Concerns Infection Onset Date Last Indicated Resolved Time Rule Out COVID-19 03/09/2022 03/09/2022 03/09/2022 5:29 PM ELECTRIC FORK OPERATOR Rule Out COVID-19 07/01/2022 07/01/2022 07/01/2022 7:40 PM CDT Rule Out COVID-19 03/06/2023 03/06/2023 03/06/2023 10:41 PM ELECTRIC FORK OPERATOR Rule Out COVID-19 10/01/2024 10/01/2024 10/02/2024 12:19 AM CDT documented as of this encounter Care Teams Core Maker Relationship Specialty [place] [address] [place] [address] PCP - General 07/24/10 Leo Lopez PA-C [address] [facility] [address] [place] [address] Assigned Neuroscience Provider 05/19/21 09/05/22 Talisha Roth MD [address] [facility] [address] [place], [place] [address] Assigned Surgical Provider 09/21/21 05/08/23 [place] [address] [place] [address] Assigned Pain Medication Provider 02/24/22 08/15/22 [place] [address] [address] Pain Medicine 06/25/22 Phoebe Mchugh MD [address] [place] [address] Physical Medicine and Rehabilitation 09/10/22 Anna Pritchett MD [address] [place] [address] Assigned Neuroscience Provider 09/06/22 10/17/22 Phoebe Mchugh MD [address] [place] [address] Assigned Neuroscience Provider 10/18/22 03/11/23 Anna Pritchett MD [address] [place] [address] Assigned Neuroscience Provider 03/12/23 09/06/24 documented as of this encounter
--- OUTSIDE RECORDS SUMMARY | 2025-01-06 18:45 | XMS_ITS | Encounter Summary ---
Author Organization [facility] Address [address] [facility] [place] [address] Care Team Providers Care Data Warehousing Engineer Name Role Phone Yarelis Henderson MD Primary Care Provider Leo Lopez PA-C Unavailable [phone] Talisha Roth MD Unavailable [phone] Lonnie Cadet MD Unavailable + Palak Lazcano MD Unavailable [phone] Phoebe Mchugh MD Unavailable [phone] Anna Pritchett MD Unavailable [phone] Phoebe Mchugh MD Unavailable [phone] Anna Pritchett MD Unavailable [phone] Encounter Details Date Type Department Care Team (Late st Contact Info) Description 07/01/2011 [facility] Aster Acevedo NP XXX NO INFO FOUND XXX [address] [place] [address] Social History Tobacco Use Types Packs/Day Years Used Date Smoking Tobacco: Former Alcohol Use Standard Drinks/Week Comments No 0 (1 standard drink = 0.6 oz pur e alcohol) Comments No Sex and Gender Information Value Date Recorded Sex Assigned at Not on file Legal Sex Female 4:44 AM SKILLED TRADES TEACHER Gender Identity Not on file Sexual Orientation Not on file documented as of this encounter Progress Notes * Aster Acevedo NP - 07/01/2011 11:16 AM CDT Financial Institution Treasurer: Aster Acevedo Status: Final - Signature Encounter: 2011-07-01 11:16:00.000 [place]: [facility] [place] Recorded as Task Date: 07/01/2011 09:44 AM, Created By: Shell Uribe Task Name: Call Back Assigned To: Aster Acevedo Regarding Patient: LANIE BARRAZA, Status: Active Comment: Shell Uribe - 01 Jul 2011 9:44 AM TASK CREATED Caller: LOU, Mother; Other LOU IS CALLING TO DISCUSS SOME QUESTIONS SHE HAS. PLEASE CALL HER AT [phone] Aster Acevedo - 01 Jul 2011 1:49 PM TASK EDITED Telecon with Lou. Questions prviously answered by Erika. Reviewed plan for Endometrin with Lou. Electronically signed by:Aster Acevedo N.P. Jul 01 2011 1:49PM SKILLED TRADES TEACHER documented in this encounter Plan of Treatment Upcoming Encounters Date Type Department Care Team (Late st Contact Info) Description 02/28/2025 1:00 PM SKILLED TRADES TEACHER Office Visit [facility] [address] 3rd [place] [address] Anna Pritchett MD [address] [place] [address] [id number] [place], [place] [id number] documented as of this encounter Visit Diagnoses Not on filedocumented in this encounter Additional Health Concerns Infection Onset Date Last Indicated Resolved Time Rule Out COVID-19 03/09/2022 03/09/2022 03/09/2022 5:29 PM SKILLED TRADES TEACHER Rule Out COVID-19 07/01/2022 07/01/2022 07/01/2022 7:40 PM CDT Rule Out COVID-19 03/06/2023 03/06/2023 03/06/2023 10:41 PM SKILLED TRADES TEACHER Rule Out COVID-19 10/01/2024 10/01/2024 10/02/2024 12:19 AM CDT documented as of this encounter Care Teams Data Warehousing Engineer Relationship Specialty [place] [address] [place] [address] PCP - General 07/24/10 Leo Lopez PA-C [address] [facility] [address] [place] [address] Assigned Neuroscience Provider 05/19/21 09/05/22 Talisha Roth MD [address] [facility] [address] [place], [place] [address] Assigned Surgical Provider 09/21/21 05/08/23 [place] [address] [place] [address] Assigned Pain Medication Provider 02/24/22 08/15/22 [place] [address] [place] [address] Pain Medicine 06/25/22 Phoebe Mchugh MD [address] [facility] [address] [place], [place] [address] Physical Medicine and Rehabilitation 09/10/22 Anna Pritchett MD [address] [facility], [place] [address] Assigned Neuroscience Provider 09/06/22 10/17/22 Phoebe Mchugh MD [address] [facility] [address] [place] [address] Assigned Neuroscience Provider 10/18/22 03/11/23 Anna Pritchett MD [address] [place], [place] [address] [place] [address] Assigned Neuroscience Provider 03/12/23 09/06/24 documented as of this encounter
--- OUTSIDE RECORDS SUMMARY | 2025-01-06 18:45 | XMS_ITS | Encounter Summary ---
Author Organization [facility] Address [address] [place] [address] Care Team Providers Care Balancing Machine Set Up Worker Name Role Phone Yarelis Henderson MD Primary Care Provider [phone] Leo Lopez PA-C Unavailable [phone] Talisha Roth MD Unavailable [phone] Lonnie Cadet MD Unavailable + Palak Lazcano MD Unavailable [phone] Phoebe Mchugh MD Unavailable [phone] Anna Pritchett MD Unavailable [phone] Phoebe Mchugh MD Unavailable [phone] Anna Pritchett MD Unavailable [phone] Encounter Details Date Type Department Care Team (Late st Contact Info) Description 06/17/2011 Office Visit-[facility] INTERFACE P DEPT Ayanna Leonard RN Social History Tobacco Use Types Packs/Day Years Used Date Smoking Tobacco: Former Alcohol Use Standard Drinks/Week Comments No 0 (1 standard drink = 0.6 oz pur e alcohol) Comments No Sex and Gender Information Value Date Recorded Sex Assigned at Not on file Legal Sex Female 4:44 AM EDI SPECIALIST Gender Identity Not on file Sexual Orientation Not on file documented as of this encounter Progress Notes * Ayanna Leonard RN - 06/17/2011 10:00 AM CDT Merchandiser Seasonal: Ayanna Leonard Status: Final Encounter: 2011-06-17 10:00:00.000 [place] [facility] [place] Reason For Visit LANIE BARRAZA is a 36 year old female presents today for TVOR with Dr. Murray. reviewed d/c instructions with pt and . Drum Plater present. Pt verbalized understanding of POC. Pain Eval Current history of pain associated with this visit is denied. Active Problems Factor V Leiden Mutation. Personal Hx Behavioral history: No tobacco use. Home environment: No secondhand tobacco smoke in home. Vital Signs Recorded by Ayanna Leonard on 10 Jun 2011 08:31 AM BP:117/81, RUE, Sitting, HR: 87 b/min, R Radial, Normal, Resp: 14 r/min, Normal, Height: 64.5 in, Weight: 238 lb, BMI: 40.2 kg/m2. Allergies Dilaudid TABS. Current Meds Vitamins TABS;; RPT Lovenox 40 MG/0.4ML Solution;INJECT 40 MG DAILY subcutaneously; RPT AAA-MED RECONCILE;Per pt; RPT Medrol 16 MG Tablet;1 tablet daily for 4 days.; RPT Doxycycline Hyclate 100 MG Tablet;TAKE 1 TABLET DAILY UNTIL FINISHED.; RPT Endometrin 100 MG Insert;INSERT 1 SUPP 3 TIMES DAILY; RPT. Signature Signed By: Ayanna Leonard RN; 06/17/2011 10:46 AM EDI SPECIALIST. documented in this encounter Plan of Treatment Upcoming Encounters Date Type Department Care Team (Late st Contact Info) Description 02/28/2025 1:00 PM EDI SPECIALIST Office Visit [facility] [address] [place] [address] Anna Pritchett MD [address] [place] [address] [id number] [place], [place] [address] documented as of this encounter Visit Diagnoses Not on filedocumented in this encounter Additional Health Concerns Infection Onset Date Last Indicated Resolved Time Rule Out COVID-19 03/09/2022 03/09/2022 03/09/2022 5:29 PM EDI SPECIALIST Rule Out COVID-19 07/01/2022 07/01/2022 07/01/2022 7:40 PM CDT Rule Out COVID-19 03/06/2023 03/06/2023 03/06/2023 10:41 PM EDI SPECIALIST Rule Out COVID-19 10/01/2024 10/01/2024 10/02/2024 12:19 AM CDT documented as of this encounter Care Teams Balancing Machine Set Up Worker Relationship Specialty [place] [address] [place] [address] PCP - General 07/24/10 Leo Lopez PA-C [address] [facility] [address] [place] [address] Assigned Neuroscience Provider 05/19/21 09/05/22 Talisha Roth MD [address] [facility] [address] [place], [place] [address] Assigned Surgical Provider 09/21/21 05/08/23 [place] [address] [address] [address]85[address] Assigned Pain Medication Provider 02/24/22 08/15/22 [place] [address] [place] [address] Pain Medicine 06/25/22 Phoebe Mchugh MD [address] [address] Physical Medicine and Rehabilitation 09/10/22 Anna Pritchett MD [address] [place] [address] Assigned Neuroscience Provider 09/06/22 10/17/22 Phoebe Mchugh MD [address] [place] [address] Assigned Neuroscience Provider 10/18/22 03/11/23 Anna Pritchett MD [address] [place] [address] Assigned Neuroscience Provider 03/12/23 09/06/24 documented as of this encounter
--- OUTSIDE RECORDS SUMMARY | 2025-01-06 18:45 | XMS_ITS | Encounter Summary ---
Author Organization [place] Address [address] [place] [address] Care Team Providers Care Crystallographer Name Role Phone Yarelis Henderson MD Primary Care Provider [phone] Leo Lopez PA-C Unavailable [phone] Talisha Roth MD Unavailable [phone] Lonnie Cadet MD Unavailable + Palak Lazcano MD Unavailable [phone] Phoebe Mchugh MD Unavailable [phone] Anna Pritchett MD Unavailable [phone] Phoebe Mchugh MD Unavailable [phone] Anna Pritchett MD Unavailable [phone] Encounter Details Date Type Department Care Team (Late st Contact Info) Description 07/29/2011 Office Visit-P INTERFACE [facility]MP DEPT Unknown, Provider Social History Tobacco Use Types Packs/Day Years Used Date Smoking Tobacco: Former Alcohol Use Standard Drinks/Week Comments No 0 (1 standard drink = 0.6 oz pur e alcohol) Comments No Sex and Gender Information Value Date Recorded Sex Assigned at Not on file Legal Sex Female 4:44 AM TAX INTERN Gender Identity Not on file Sexual Orientation Not on file documented as of this encounter Progress Notes * Unknown, Provider - 07/29/2011 2:30 PM CDT Glass Scullion: Jorge Luis Patton Status: Final Encounter: 2011-07-29 14:30:00.000 Type: [facility] Nurse Visit Reason For Visit LANIE BARRAZA is a 36 year old female presents today accompanied by her court interpreter for a STAFF MINE WARFARE OFFICER ultrasound with Corie Fisher NP. Active Problems Factor V Leiden Mutation. Vital Signs Recorded by Corie Fisher on 10 Jul 2011 09:49 AM BP:113/76, HR: 97 b/min. Allergies Dilaudid TABS. Current Meds Vitamins TABS;; RPT Lovenox 40 MG/0.4ML Solution;INJECT 40 MG DAILY subcutaneously; RPT Endometrin 100 MG Insert;INSERT 1 SUPP 4 TIMES DAILY; Rx AAA-MED RECONCILE;Per pt; RPT Dulcolax CAPS;TAKE 1 CAPSULE DAILY.; RPT. Pain Eval Current history of pain associated with this visit is denied. Signature Signed By: Jorge Luis Patton LPN; 07/29/2011 3:30 PM TAX INTERN. documented in this encounter Plan of Treatment Upcoming Encounters Date Type Department Care Team (Late st Contact Info) Description 02/28/2025 1:00 PM TAX INTERN Office Visit [facility] Clinic [address] [place] [address] Anna Pritchett MD [address] [place] [address] [id number] [place] [address] documented as of this encounter Visit Diagnoses Not on filedocumented in this encounter Additional Health Concerns Infection Onset Date Last Indicated Resolved Time Rule Out COVID-19 03/09/2022 03/09/2022 03/09/2022 5:29 PM TAX INTERN Rule Out COVID-19 07/01/2022 07/01/2022 07/01/2022 7:40 PM CDT Rule Out COVID-19 03/06/2023 03/06/2023 03/06/2023 10:41 PM TAX INTERN Rule Out COVID-19 10/01/2024 10/01/2024 10/02/2024 12:19 AM CDT documented as of this encounter Care Teams Crystallographer Relationship Specialty [place] [address] [place] [address] PCP - General 07/24/10 Leo Lopez PA-C [address] [place] [address] Assigned Neuroscience Provider 05/19/21 09/05/22 Talisha Roth MD [address] [facility] [address] [place] [address] Assigned Surgical Provider 09/21/21 05/08/23 [place] [address] [place] [address] Assigned Pain Medication Provider 02/24/22 08/15/22 [place] [address] [place] [address] Pain Medicine 06/25/22 Phoebe Mchugh MD [address] [facility] [address] [place], [place] [address] Physical Medicine and Rehabilitation 09/10/22 Anna Pritchett MD [address] [facility] [id number] [place] [address] Assigned Neuroscience Provider 09/06/22 10/17/22 Phoebe Mchugh MD [address] [facility] [address] [place] [address] Assigned Neuroscience Provider 10/18/22 03/11/23 Anna Pritchett MD [address] [facility] [place] [address] Assigned Neuroscience Provider 03/12/23 09/06/24 documented as of this encounter
--- OUTSIDE RECORDS SUMMARY | 2025-01-06 18:45 | XMS_ITS | Patient Health Record ---
Author Organization [facility] Address [address] [place] [address] [address] [place] [address] Care Team Providers Care Conveyor Attendant Name Role Phone Raphael Mann Primary Care Provider Tushar MORENO, PhD, Heladio Unavailable Dario Holt Unavailable [phone] Chandler Guy Unavailable [phone] Patito Luz Unavailable [phone] Ludwig Dorsey Unavailable [phone] Allergies Allergen (clinical drug ingredient) Drug/Non Drug Allergy documented on EMR Reaction Allergy Type Onset Date Status Opioids (uncoded) rash/hives-can take w/benadryl Allergy Active hydromorphone Dilaudid rash Drug Allergy Act dulce codeine Codeine rash/hives Drug Allergy Active morphine Morphine rash Drug Allergy Active Results Component Value Reference Range Notes MRI : Thoracic Spine Reviewed date:07/18/2024 01:17:31 PM Interpretation: Performing Lab: Notes/Report: Original Report EXAM: MR THORACIC SPINE WITHOUT CONTRAST Open 1.2T CLINICAL INFORMATION: Neck, back and bilateral leg pain. Lumbar radiculopathy. No injury. TECHNICAL INFORMATION: T1, T2 FSE and STIR sagittal thin sections through the thoracic spine with T2 GRE and FSE axial sections at selected levels. COMPARISON IMAGES: MRI of the cervical spine dated 07/27/2020 and MRI of the lumbar spine dated 07/07/2023. INTERPRETATION: Cord: Normal signal intensity within the thoracic cord and conus medullaris. No intrinsic cord lesion and no cord edema or myelomalacia. No intradural mass. Segmentation and Alignment: 12 rib-bearing thoracic vertebrae with moderate mid and lower thoracic Scheuermann's-like changes and normal thoracic kyphosis. L1-2: Moderate disc degeneration again seen with dorsal bulging/retrolisthesis, normal facet joints and no stenosis or impingement. T12-L1 through T5-6: Moderate to advanced disc degeneration with dorsal disc margins unremarkable each level, normal facet joints and no stenosis or impingement. T4-5 through T1-2: Mild to moderate disc degeneration with mild posterolateral bulging at each level and no significant narrowing of the central canal. Posterior ligamentous hypertrophy at T1-2 with mild narrowing of the central canal and mild dorsal cord flattening. Normal facet joints and patent neural foramina. Lower cervical spine: Moderate C6-7 disc degeneration is again seen with moderate narrowing of the central canal, mild ventral cord compression and moderate to severe foraminal stenosis. Osseous structures and paraspinous soft tissues: Normal signal intensity within the vertebral marrow spaces. No fracture or avulsion. No osteolytic or destructive bone lesion. CONCLUSION: 1. Moderate to advanced diffuse thoracic disc degeneration. 2. Mild central canal stenosis at T1-2 with posterior ligamentous hypertrophy and mild dorsal cord flattening. 3. Normal facet joints and patent neural foramina at each level. 4. Degenerative changes again noted at C6-7 with moderate central canal stenosis and moderate to severe bilateral foraminal stenosis. 5. No cord abnormality, and no neoplasm, fracture or infection. Read by: Tj Lopez M.D. Reviewed and Electronically Signed by: Tj Lopez M.D. Reason For Referral Reason Please evaluate and treat the patient with a behavioral health evaluation prior to a Spinal Cord Stimulator. Patient requires sign language interpretation and prefers Dyan. Please call [phone] to schedule. Diagnosis 1 Radiculopathy, lumba r region (M54.16) Referral Organization [facility] Referring Provider First Name Dario Referring Provider Last Name Corey Referring Provider Speciality Physician Employee Development Specialist Referred Provider Dyan and Ritesh Soto Referred Provider Specialty Psychology General Notes Latosha Carbajal 024 05:09:14 PM >Please call the patient to schedule and fax back all notes to [phone]. If you need additional records for this referral, please call [phone]. Thanks! Referral Priority Routine Reason [facility] Lumbar SCS Tri al Diagnosis 1 Radiculopathy, lumba r region (M54.16) Referral Organization [facility] Referring Provider First Name Raphael Referring Provider Last Name Mackenzie Referring Provider Speciality Pain Medic ine Referred Organization [facility] Referred Provider Raphael Mann Referred Address [address] [place] [address] [address],[place], [place],[address],[place] Referred Provider Specialty Pain Medicin e Referral Priority Routine Reason [facility] lumbar SCS Imp lant Diagnosis 1 Radiculopathy, lumbo sacral region (M54.17) Referral Organization [facility] Referring Provider First Name Raphael Referring Provider Last Name Mackenzie Referring Provider Speciality Pain Medic ine Referred Organization [address] [facility] Referred Provider Raphael Mann Referred Address [address], [place],[address],[place] Referred Provider Specialty Pain Medicin e Referral Priority Routine Reason Right C3-C5 Radiofre quency Ablation, Left C3-C5 Radiofrequency Ablation Diagnosis 1 Spondylosis without myelopathy or radiculopathy, cervical region (M47.812) Referral Organization [facility] Referring Provider First Name Raphael Referring Provider Last Name Mackenzie Referring Provider Speciality Pain Medic ine Referred Organization [facility] Referred Provider Raphael Mann Referred Address [address] [place] [address] [address],[place], [place],[address],[place] Referred Provider Specialty Pain Medicin e Referral Priority Routine Medications Medication SIG (Take, Route, Frequency, Duration) Notes Start Date End Date Status HYDROcodone-Acetaminoph en 5-325 MG Tablet 1 tablet [...] times a day; Duration: 4 days Active Journavx 50 MG Tablet as directed Orally every 12 hours; Duration: 15 days 2 tabs for first dose, 1 tab every 12 hours after 12/23/2024 Active oxyCODONE HCl 5 MG Tablet 1 tablet as needed Orally once to twice a day; Duration: 30 days Not-Taking/MO N Ondansetron HCl 4 MG Tablet 1 tablet Orally Once a day Active Cyclobenzaprine HCl 10 MG Tablet 1 tablet at bedtime as needed Orally Once a day Active DULoxetine HCl 60 MG Capsule Delayed Release Particles 1 capsule Orally Once a day Active busPIRone HCl 5 MG Tablet 1 tablet Orally Twice a day Active Budesonide-Formoterol Fumarate 80-4.5 MCG/ACT Aerosol INHALE [...] as needed Orally every 6 hrs Active Social History Tobacco Use: Social History Observation Description Date Details (start date - stop date) Never Smoker NA - NA Social History Drug/Alcohol: Social Info Question Answer Notes AUDIT-C (Standard) Did you have a drink containing alcohol in the past year? No Points 0 Interpretation Negative Tobacco Use: Social Info Question Answer Notes Tobacco Control (Standard) Tobacco use: Nonsmoker Problems Problem Type SNOMED Code ICD Code Onset Dates Problem Status W/U Status Risk Notes Problem Chronic pain (60579715) Other chronic pain (G89.29) Active confirmed Problem Cervical spondylosis without myelopathy (372389276) Spondylosis without myelopathy or radiculopathy, cervical region (M47.812) Active confirmed Problem Lumbar radiculopathy (005995139) Radiculopathy, lumbar region (M54.16) Active confirmed Problem Lumbosacral radiculopathy (9276749) Radiculopathy, lumbosacral region (M54.17) Active confirmed Problem Cervicalgia (60217417) Cervicalgia (M54.2) Active confirmed Problem Low back pain (006614039) Low back pain, unspecified (M54.50) Active confirmed Vital Signs Blood pressure diastolic 82 mm Hg 12/15/2024 Height 64 in 12/15/2024 Blood pressure systolic 140 mm Hg 12/15/2024 Weight 270 lbs 12/15/2024 BMI 46.34 kg/m2 12/15/2024 Procedures Procedure Date Ordered Date Performed Result Body Sit e Intervention: 01/18/2024 03/09/2024 sched 5 Intervention: 03/29/2024 05/12/2024 sched 06/02 Intervention: 07/20/2024 07/22/2024 sched 07/26 Intervention: 07/27/2024 07/28/2024 sched 08/09 Intervention: 08/10/2024 09/23/2024 sched 09/27 and 10/18 Intervention: 12/15/2024 N/A Intervention: 2 12/15/2024 N/A Encounters Encounter Location Date Provider Diagnosis [address] [facility] [address] [facility] [address] [place] [address] 12/15/2024 Ludwig Dorsey [facility] [address] [place] [address] 01/12/2024 Raphael Mann [facility] [address] [place] [address] [address] [place] [address] 01/20/2024 Raphael Mann [facility] [address] [place] [address] 01/21/2024 Raphael Mann [facility] [address] [place] [address] 02/03/2024 Raphael Mann [facility] [address] [place] [address] 02/04/2024 Raphael Mann [facility] [address] [place] [address] 02/08/2024 Raphael Mann [facility] [address] [place] [address] 02/08/2024 Raphael Mann [facility] [address] [place] [address] 02/23/2024 Raphael Mann [facility] [address] [place] [address] 03/09/2024 Raphael Mann [facility] [address] [place] [address] 03/09/2024 [facility] [address] [place] [address] 03/09/2024 Raphael Mann [address] [facility] [address] [place] [address] 03/10/2024 Raphael Mann [facility] [address] [place] [address] 03/21/2024 Raphael Mann [facility] [address] [place] [address] 03/23/2024 Raphael Mann [facility] [address] [place] [address] 03/25/2024 Raphael Mann [facility] [address] [place] [address] 04/19/2024 Raphael Mann [facility] [address] [place] [address] 04/22/2024 Raphael Mann [facility] [address] [place] [address] 04/25/2024 Raphael Mann [facility] [address] [place] [address] 04/25/2024 Raphael Mann [facility] [address] [place] [address] 04/29/2024 Raphael Mann [facility] [address] [place] [address] 05/05/2024 Dario Corey Other chronic pain G89.29 MG 160 [facility] [address] [place] [address] 05/09/2024 Raphael Mann [facility] [address] [place] [address] 05/12/2024 Raphael Mann [facility] [address] [place] [address] 05/12/2024 Raphael Mann [facility] [address] [place] [address] 05/16/2024 Raphael Mann [facility] [address] [place] [address] 05/27/2024 Raphael Mann [facility] [address] [place] [address] 06/03/2024 Raphael Mann [facility] [address] [place] [address] 06/03/2024 Raphael Mann [facility] [address] [place] [address] 2024 Dario Nicole [facility] [address] [place] [address] 06/13/2024 Raphael Mann [facility] [address] [place] [address] 06/13/2024 Raphael Mann [facility] [address] [place] [address] 07/08/2024 Raphael Mann [facility] [address] [place] [address] 07/13/2024 Raphael Mann [facility] [address] [place] [address] 07/15/2024 Raphael Mann [facility] [address] [place] [address] 07/20/2024 Ludwig Dorsey [facility] [address] [place] [address] 07/25/2024 Raphael Mann [facility] [address] [place] [address] 07/26/2024 Raphael Mann [facility] [address] [place] [address] 07/28/2024 Raphael Mann [facility] [address] [place] [address] 07/28/2024 Raphael Mann [facility] [address] [place] [address] 08/04/2024 Raphael Mann [facility] [address] [place] [address] 09/23/2024 Raphael Mann [facility] [address] [place] [address] 09/23/2024 Raphael Mann [facility] [address] [place] [address] 09/23/2024 Raphael Mann [facility] [address] [place] [address] 09/26/2024 Raphael Mnan [facility] [address] [place] [address] 09/28/2024 [facility] [address] [place] [address] 10/10/2024 Raphael Mann [facility] [address] [place] [address] 10/13/2024 Raphael Mann [facility] [address] [place] [address] 10/26/2024 Raphael Mann [facility] [address] [place] [address] 11/17/2024 Raphael Mann [facility] [address] [place] [address] 11/24/2024 Raphael Mann [address] [facility] [address] [place] [address] 12/15/2024 [facility] [address] [place] [address] 12/26/2024 Raphael Mann [facility] [address] [place] [address] 01/04/2025 Raphael Mann [facility] [address] [place] [address] 02/26/2024 Raphael Mann [facility] [address] [place] [address] 03/30/2024 Raphael Mann [facility] [address] [place] [address] 03/30/2024 Dario Nicole Other chronic pain G89.29 [facility] [address] [place] [address] 03/31/2024 Raphael Mann [facility] [address] [place] [address] 04/06/2024 Raphael Mann [facility] [address] [place] [address] 12/22/2024 Raphael Mann [facility] [address] [place] [address] 12/23/2024 [facility] [place] [address] [place] [address] 06/02/2024 Raphael Mann [facility] [address] [facility] [address] [place] [address] 03/23/2024 Raphael Mann [address] [facility] [address] [place] [address] 07/26/2024 Raphael Reserve Spondylosis without myelopathy or radiculopathy, cervical region M47.812 [address] [facility] [address] [place] [address] 08/09/2024 Raphael Reserve Spondylosis without myelopathy or radiculopathy, cervical region M47.812 [address] [facility] [address] [place] [address] 09/27/2024 Raphael Reserve Spondylosis without myelopathy or radiculopathy, cervical region M47.812 [address] [facility] [address] [place] [address] 10/18/2024 Raphael Mann Spondylosis without myelopathy or radiculopathy, cervical region M47.812 [address] [facility] [address] [place] [address] 03/29/2024 Dario Bolick Radiculopathy, lumbosacral region M54.17 ; Low back pain, unspecified M54.50 and Other chronic pain G89.29 [facility] [address] [facility] [address] [place] [address] 03/22/2024 Raphael Mann [facility] [place] [address] [place] [address] [address] [place] [address] 05/27/2024 Raphael Mann [address] [facility] [address] [place] [address] 05/24/2024 Dario Bolick Other chronic pain G89.29 and Radiculopathy, lumbosacral region M54.17 [facility] [address] [facility] [address] [place] [address] 06/13/2024 Patito Luz Other chronic pain G89.29 and Radiculopathy, lumbar region M54.16 [address] [facility] [address] [place] [address] 07/13/2024 Ludwig Willian Radiculopathy, lumbar region M54.16 ; Cervicalgia M54.2 ; Low back pain, unspecified M54.50 and Other chronic pain G89.29 [address] [facility] [address] [place] [address] 07/20/2024 Ludwig Willian Radiculopathy, lumbar region M54.16 ; Spondylosis without myelopathy or radiculopathy, cervical region M47.812 and Other chronic pain G89.29 [address] [facility] [address] [place] [address] 01/18/2024 Dario Bolick Radiculopathy, lumbar region M54.16 ; Low back pain, unspecified M54.50 and Other chronic pain G89.29 [address] [facility] [address] [place] [address] 02/22/2024 Dario Nicole Low back pain, unspecified M54.50 ; Radiculopathy, lumbosacral region M54.17 and Other chronic pain G89.29 [address] [facility] [address] [place] [address] 12/15/2024 Ludwig Dorsey Cervicalgia M54.2 ; Low back pain, unspecified M54.50 ; Spondylosis without myelopathy or radiculopathy, cervical region M47.812 ; Radiculopathy, lumbar region M54.16 and Other chronic pain G89.29 Assessments Encounter Date Diagnosis (ICD Code) Assessment Notes Treatment Notes Treatment Clinical Notes Section Notes 07/26/2024 Spondylosis without myelopathy or radiculopathy, cervical region (ICD-10 - M47.812) 06/13/2024 Other chronic pain (ICD-10 - G89.29) Lanie returns to clinic today for a follow-up evaluation regarding her chronic low back and bilateral lower extremity pain. I have reviewed the [facility] database and did not find any inconsistencies. We discussed her current symptoms and medications. A [facility] medical collections representative was present today. I have successfully removed her kizzy today and examined her incision sites and found to be healing well without visible signs of infection. She denies fever or chills and will continue abx as prescribed. I have advised the patient of signs of infection including swelling, redness, exudate, fever, chills. I have also advised them to continue with their post-operative restrictions. Dr. Mann stepped in with the patient as well today to examine her incision sites. I will continue with a treatment plan consisting of conservative care at this time. This treatment plan was reviewed with Lanie, and she was agreeable. I will continue to monitor her progress and she will follow up in one month or sooner if needed. Plan: 1. [facility] medical collections representative present 2. Staple removal, incision check 3. Continue abx and post-op restrictions 4. Follow up in 4 weeks with reprogramming Discharge instructions reviewed verbally. The patient was instructed to return to the office as scheduled and call with any questions, problems or concerns. 06/13/2024 Radiculopathy, lumbar region (ICD-10 - M54.16) 05/05/2024 Other chronic pain (ICD-10 - G89.29) 02/22/2024 Radiculopathy, lumbosacral region (ICD-10 - M54.17) 02/22/2024 Low back pain, unspecified (ICD-10 - M54.50) 03/29/2024 Radiculopathy, lumbosacral region (ICD-10 - M54.17) 03/29/2024 Low back pain, unspecified (ICD-10 - M54.50) 12/15/2024 Cervicalgia (ICD-10 - M54.2) 12/15/2024 Low back pain, unspecified (ICD-10 - M54.50) 10/18/2024 Spondylosis without myelopathy or radiculopathy, cervical region (ICD-10 - M47.812) 09/27/2024 Spondylosis without myelopathy or radiculopathy, cervical region (ICD-10 - M47.812) 08/09/2024 Spondylosis without myelopathy or radiculopathy, cervical region (ICD-10 - M47.812) 07/20/2024 Spondylosis without myelopathy or radiculopathy, cervical region (ICD-10 - M47.812) 07/20/2024 Radiculopathy, lumbar region (ICD-10 - M54.16) 07/13/2024 Radiculopathy, lumbar region (ICD-10 - M54.16) 07/13/2024 Cervicalgia (ICD-10 - M54.2) 05/24/2024 Other chronic pain (ICD-10 - G89.29) Lanie returns to clinic today for a follow up evaluation regarding her chronic pain. We discussed her current symptoms and medications. I advised her to proceed with her [facility] lumbar SCS implant on 06/02/2024 as able. Regarding medications, I have reviewed the [facility] database and did not find any inconsistencies. Therefore, I will refill her oxycodone 5MG as it continues to provide her moderate relief without side effects. This treatment plan was reviewed with Lanie, and she was agreeable. I will continue to monitor her progress and she will follow up as needed after her SCS implant. Plan: 1. Proceed with [facility] lumbar SCS implant as able 2. Refill oxycodone 5MG 3. Follow up in as needed Discharge instructions reviewed verbally. Discussed the risks/benefits of prescribed medication. The patient was instructed to return to the office as scheduled and call with any questions, problems or concerns. 03/30/2024 Other chronic pain (ICD-10 - G89.29) 01/18/2024 Radiculopathy, lumbar region (ICD-10 - M54.16) 01/18/2024 Low back pain, unspecified (ICD-10 - M54.50) 01/18/2024 Other chronic pain (ICD-10 - G89.29) Lanie returns to clinic today for a follow up evaluation regarding her chronic pain. We discussed her current symptoms and medications. Lanie is on anticoagulants and therefore is not a candidate for surgical intervention. Her managing physician, Dr. Chu, is unwilling to hold anticoagulation for injections. Dr. Chu is willing to allow Lanie to hold her Eliquis to undergo a spinal cord stimulator trial and potentially permanent implant. At this time, I believe she is a good candidate for a lumbar SCS trial. I discussed the SCS trial process, including the expectations for a successful trial and the potential risks. I explained that temporary leads and an IPG would be secured with tape and remain in place for one week before being removed in clinic. I will order a BHE and thoracic MRI accordingly. Regarding medications, I have reviewed the [facility] database and did not find any inconsistencies. I will start her on Belbuca for improved relief. This treatment plan was reviewed with Lanie, and she was agreeable. I will continue to monitor her progress and she will follow up as needed. Plan: 1. Order [facility] lumbar SCS trial (+ BHE and thoracic MRI) 2. Start Belbuca 3. Follow up as needed Discharge instructions reviewed verbally. Discussed the risks/benefits of prescribed medication. The patient was instructed to return to the office as scheduled and call with any questions, problems or concerns. 05/24/2024 Radiculopathy, lumbosacral region (ICD-10 - M54.17) 07/13/2024 Low back pain, unspecified (ICD-10 - M54.50) 12/15/2024 Spondylosis without myelopathy or radiculopathy, cervical region (ICD-10 - M47.812) 07/20/2024 Other chronic pain (ICD-10 - G89.29) Lanie returns to clinic today for a follow-up evaluation regarding her chronic pain. Following my discussion with Dr. Mann, we recommend a cervical MBB/RFA workup to better address her painful symptoms, rather than a cervical SCS (due to limited space within the cervical spine for lead placement). Therefore, I have placed an order for a bilateral C3-5 MBB/RFA workup. Details of this procedure with Lanie, and she was interested with proceeding. This treatment plan was reviewed with Lanie, and she was agreeable. I will continue to monitor her progress and she will follow up as needed. Plan: 1. Order bilateral C3-5 MBBs 2. Follow up as needed Discharge instructions reviewed verbally. Discussed the risks/benefits of prescribed medication. The patient was instructed to return to the office as scheduled and call with any questions, problems or concerns. 02/22/2024 Other chronic pain (ICD-10 - G89.29) Lanie returns to clinic today for a follow-up evaluation regarding her chronic pain. We discussed her current symptoms and medications. Lanie is on anticoagulants and therefore is not a candidate for surgical intervention. Her managing physician, Dr. Chu, is unwilling to hold anticoagulation for injections. Dr. Chu is willing to allow Lanie to hold her Eliquis to undergo a spinal cord stimulator trial and potentially permanent implant. At this time, I believe she is a good candidate for a lumbar SCS trial. I discussed the SCS trial process, including the expectations for a successful trial and the potential risks. I explained that temporary leads and an IPG would be secured with tape and remain in place for one week before being removed in clinic. She will [facility], pending insurance approval. As well as when I have recieve the letter to hold her blood thinner. Regarding medications, I have reviewed the [facility] database and did not find any inconsistencies. I will have stopped her Belbuca as she notes no relief. I have started her on 45 tablets of oxycodone 5mg as she reported moderate relief during her visit at the ER. This treatment plan was reviewed with Lanie, and she was agreeable. I will continue to monitor her progress and she will follow up as needed. Plan: 1. Proceed with [facility]ro lumbar SCS trial; pending insurance approval 2. Stop Belbuca 3. Start oxycodone 5mg 1-2 tab as needed: 45 tablets 4. Follow up as needed Discharge instructions reviewed verbally. Discussed the risks/benefits of prescribed medication. The patient was instructed to return to the office as scheduled and call with any questions, problems or concerns. 03/29/2024 Other chronic pain (ICD-10 - G89.29) I successfully removed two intact leads without complication from the SCS trial. I examined the lead insertion site. I instructed Lanie to continue taking her antibiotics as directed. I have advised the patient of signs of infection including swelling, redness, exudate, fever, chills. I strongly advised her to avoid submerging the incision site in water and to stay out of hot tubs, lakes, and pools for at least 3-4 days. We discussed the relief and functional improvement from the SCS trial and proceeding with the SCS implant. She expressed interest and agreement; therefore, I have ordered a Nevro lumbar SCS implant. Plan: 1. Order Nevro Lumbar SCS implant 2. Follow up as needed Discharge instructions reviewed verbally. Discussed the risks/benefits of prescribed medication.The patient was instructed to return to the office as scheduled and call with any questions, problems or concerns. 12/15/2024 Radiculopathy, lumbar region (ICD-10 - M54.16) 07/13/2024 Other chronic pain (ICD-10 - G89.29) Lanie returns to clinic today for a follow up evaluation regarding her chronic pain. A [facility] medical collections representative was present for follow up today. Based on a review of her cervical MRI, there will be consideration for cervical SCS upon discussion with Dr. Mann. We discussed her current symptoms and medications. Regarding medications, I have reviewed the [facility] database and did not find any inconsistencies. This treatment plan was reviewed with Lanie, and she was agreeable. I will continue to monitor her progress and she will follow up as needed. Plan: 1. [facility]ro present for follow up 2. Reviewed cervical MRI 3. Consider cervical SCS - discuss with Dr. Mann 4. Follow up as needed Discharge instructions reviewed verbally. Discussed the risks/benefits of prescribed medication. The patient was instructed to return to the office as scheduled and call with any questions, problems or concerns. 12/15/2024 Other chronic pain (ICD-10 - G89.29) Lanie returns to clinic today for a follow up evaluation regarding her chronic pain. We discussed her current symptoms and medications as well as her most recent imaging. Given her extremity symptoms, I do believe she is a good candidate for MARCIN and LESI. Regarding medications, I have reviewed the [facility] database and did not find any inconsistencies. [...] documentation has been reviewed by the aforementioned OUTSOLE TACKER as well as Wilfredo Ellis MD, prior to being entered into the official medical record. IWilfredo MD attest that the above named individual is acting in scribe capacity, has observed Ludwig Dorsey's performance of the services and has documented them in accordance with her direction. The documentation recorded by the scribe accurately reflects the service Ludwig Dorsey CNP and Wilfredo Ellis MD personally performed and the decisions made by them. 03/29/2024 Other Kat, Jean Miller, am serving as a scribe to document services personally performed by Dario Nicole PA-C, based upon my observations and the provider's statements to me. All documentation has been reviewed by the aforementioned LIDIA as well as Raphael Mann MD, prior to being entered into the official medical record. Raphael Stephens MD attest that the above named individual is acting in scribe capacity, has observed Dario Nicole's performance of the services and has documented them in accordance with her direction. The documentation recorded by the scribe accurately reflects the service Dario Nicole PA-C and Raphael Mann MD personally performed and the decisions made by them. 06/13/2024 Other IJudi ll, am serving as a scribe to document services personally performed by Patito Luz PA-C, based upon my observations and the provider's statements to me. All documentation has been reviewed by the aforementioned LIDIA as well as Nikhil Neville DO, prior to being entered into the official medical record. I, Nikhil Neville DO, attest that the above named individual is acting in scribe capacity, has observed Patito Luz' performance of the services and has documented them in accordance with her direction. The documentation recorded by the scribe accurately reflects the service Patito Luz PA-C, personally performed and the decisions made by her. 02/22/2024 Other I, Sathish Marcum in, am serving as a scribe to document services personally performed by Dario Nicole PA-C, based upon my observations and the provider's statements to me. All documentation has been reviewed by the aforementioned PAVirgen prior to being entered into the official medical record. I, Dario Nicole PA-C, attest that the above named individual is acting in scribe capacity, has observed my performance of the services and has documented them in accordance with my direction. The documentation recorded by the scribe accurately reflects the service I personally performed and the decisions made during the clinic visit. 01/18/2024 Other Arpit Stephens , am serving as a scribe to document services personally performed by Dario Nicole PA-C, based upon my observations and the provider's statements to me. All documentation has been reviewed by the aforementioned PAVirgen. Kat, Dario Nicole PA-C, attest that the above named individual is acting in scribe capacity, has observed my performance of the services and has documented them in accordance with my direction. The documentation recorded by the scribe accurately reflects the service I personally performed and the decisions made during the clinic visit. 05/24/2024 Other I, Tori chavarria, am serving as a scribe to document services personally performed by Dario Nicole PA-C, based upon my observations and the provider's statements to me. All documentation has been reviewed by the aforementioned LIDIA as well as Raphael Mann MD, prior to being entered into the official medical record. I, Raphael Mann MD attest that the above named individual is acting in scribe capacity, has observed Dario Nicole's performance of the services and has documented them in accordance with her direction. The documentation recorded by the scribe accurately reflects the service Dario Nicole PA-C and Raphael Mann MD personally performed and the decisions made by them. 07/13/2024 Other I, Jean Miller, am serving as a scribe to document services personally performed by Ludwig Dorsey CNP, based upon my observations and the provider's statements to me. All documentation has been reviewed by the aforementioned OUTSOLE TACKER as well as Wilfredo Ellis MD, prior to being entered into the official medical record. I, Wilfredo Ellis MD attest that the above named individual is acting in scribe capacity, has observed Ludwig Dorsey's performance of the services and has documented them in accordance with his direction. The documentation recorded by the scribe accurately reflects the service Ludwig Dorsey NP, and Wilfredo Ellis MD, personally performed and the decisions made by them. 07/20/2024 Other I, Sathish whitley, am serving as a scribe to document services personally performed by Ludwig Dorsey NP, based upon my observations and the provider's statements to me. All documentation has been reviewed by the aforementioned L D RN prior to being entered into the official medical record. I, Ludwig Dorsey NP, attest that the above named individual is acting in scribe capacity, has observed my performance of the services and has documented them in accordance with my direction. The documentation recorded by the scribe accurately reflects the service I personally performed and the decisions made during the clinic visit. Plan Of Treatment Pending Test Test Name Order Date Intervention: 12/15/2024 Intervention: 2 12/15/2024 Insurance Providers Payer Name Payer Address Payer Phone Subscriber Number Group Number Insured Name Patient Relationship to Insured Coverage Start Date Coverage End Date [employer]BS Out of State [address] [address] [place] [address] [id number] Lanie Juarez Self - patient is the insured Medical (General) History Medical History History ICD Code Anxiety Acid reflux Sleep Apnea Pulmonary embolism Hearing Loss Vision Loss Fatty liver Disease - non-alcoholic Factor V Leiden mutation Fibroids GERD Hiatal hernia Pre diabetes Choledocholithiasis Chest pain Elevated C-reactive protein Diverticular disease acute cholecystitis high cholesterol intradural mass Surgical History Surgery Date(Month/Year) appendectomy section 2013 Cystoscopy gallbladder surgery 2013 tonsillectomy 1979 Lumbar radiofrequency ablation total abdominal hysterectomy cystoscopy Nevro SCS trial 03/23/2024 Nevro SCS implant 05/2024 Hospitalization History Reason Date(Month/Year) ER for pain 11/24/2024 Surgical reasons
--- OUTSIDE RECORDS SUMMARY | 2025-01-06 18:45 | XMS_ITS | Encounter Summary ---
Author Organization [place] Address [address] [place] [address] Care Team Providers Care Public Bath Attendant Name Role Phone Yarelis Henderson MD Primary Care Provider [phone] Leo Lopez PA-C Unavailable [phone] Talisha Roth MD Unavailable [phone] Lonnie Cadet MD Unavailable + Palak Lazcano MD Unavailable [phone] Phoebe Mchugh MD Unavailable [phone] Anna Pritchett MD Unavailable [phone] Phoebe Mchugh MD Unavailable [phone] Anna Pritchett MD Unavailable [phone] Encounter Details Date Type Department Care Team (Late st Contact Info) Description 06/10/2011 Office Visit-[facility] INTERFACE P DEPT Ayanna Leonard RN Social History Tobacco Use Types Packs/Day Years Used Date Smoking Tobacco: Former Alcohol Use Standard Drinks/Week Comments No 0 (1 standard drink = 0.6 oz pur e alcohol) Comments No Sex and Gender Information Value Date Recorded Sex Assigned at Not on file Legal Sex Female 4:44 AM CLOAK ROOM ATTENDANT Gender Identity Not on file Sexual Orientation Not on file documented as of this encounter Progress Notes * Ayanna Leonard RN - 06/10/2011 8:30 AM CDT Supervisor Firearms: Ayanna Leonard Status: Final Encounter: 2011-06-10 08:30:00.000 Type: [facility] Rooming Note Reason For Visit LANIE BARRAZA is a 36 year old female presents today for H&P with Corie Fisher NP for IVF. Pain Eval Current history of pain associated with this visit is denied. Active Problems Factor V Leiden Mutation. Personal Hx Behavioral history: No tobacco use. Home environment: No secondhand tobacco smoke in home. Vital Signs Recorded by [email or web address] on 10 Jun 2011 08:31 AM BP:117/81, RUE, Sitting, HR: 87 b/min, R Radial, Normal, Resp: 14 r/min, Normal, Height: 64.5 in, Weight: 238 lb, BMI: 40.2 kg/m2. Allergies Dilaudid TABS. Current Meds MetFORMIN HCl 500 MG Tablet;TAKE 1 TABLET 3 TIMES DAILY WITH MEALS.; Rx Vitamins TABS;; RPT AAA-MED RECONCILE;Per pt; RPT Follistim AQ 600 UNT/0.72ML Solution;INJECT 225 UNIT DAILY; RPT Menopur 75 UNIT Solution Reconstituted;inject 225 daily, sq; RPT Lovenox 40 MG/0.4ML Solution;INJECT 40 MG DAILY subcutaneously; RPT Lupron SOLN;INJECT 0.2 ML TWICE DAILY; RPT. Signature Signed By: Ayanna Leonard RN; 06/10/2011 8:32 AM CLOAK ROOM ATTENDANT. documented in this encounter Plan of Treatment Upcoming Encounters Date Type Department Care Team (Late st Contact Info) Description 02/28/2025 1:00 PM CLOAK ROOM ATTENDANT Office Visit [facility] [address] [place] [address] Anna Pritchett MD [address] [place] [address] [id number] [place], [place] [address] documented as of this encounter Visit Diagnoses Not on filedocumented in this encounter Additional Health Concerns Infection Onset Date Last Indicated Resolved Time Rule Out COVID-19 03/09/2022 03/09/2022 03/09/2022 5:29 PM CLOAK ROOM ATTENDANT Rule Out COVID-19 07/01/2022 07/01/2022 07/01/2022 7:40 PM CDT Rule Out COVID-19 03/06/2023 03/06/2023 03/06/2023 10:41 PM CLOAK ROOM ATTENDANT Rule Out COVID-19 10/01/2024 10/01/2024 10/02/2024 12:19 AM CDT documented as of this encounter Care Teams Public Bath Attendant Relationship Specialty [place] [address] [place] [address] PCP - General 07/24/10 Leo Lopez PA-C [address] [facility] [address] [place] [address] Assigned Neuroscience Provider 05/19/21 09/05/22 Talisha Roth MD [address] [facility] [address] [place], [place] [address] Assigned Surgical Provider 09/21/21 05/08/23 [place] [address] [address] Assigned Pain Medication Provider 02/24/22 08/15/22 [place] [address] [place] [address] Pain Medicine 06/25/22 Phoebe Mchugh MD [address] [address] Physical Medicine and Rehabilitation 09/10/22 Anna Pritchett MD [address] [place] [address] Assigned Neuroscience Provider 09/06/22 10/17/22 Phoebe Mchugh MD [address] [place] [address] Assigned Neuroscience Provider 10/18/22 03/11/23 Anna Pritchett MD [address] [place] [address] Assigned Neuroscience Provider 03/12/23 09/06/24 documented as of this encounter
--- OUTSIDE RECORDS SUMMARY | 2025-01-06 18:45 | XMS_ITS | Encounter Summary ---
Author Organization [place] Address [address] [place] [address] Care Team Providers Care Agricultural Aircraft Pilot Name Role Phone Yarelis Henderson MD Primary Care Provider Leo Lopez PA-C Unavailable [phone] Talisha Roth MD Unavailable [phone] Lonnie Cadet MD Unavailable + Palak Lazcano MD Unavailable [phone] Phoebe Mchugh MD Unavailable [phone] Anna Pritchett MD Unavailable [phone] Phoebe Mchugh MD Unavailable [phone] Anna Pritchett MD Unavailable [phone] Encounter Details Date Type Department Care Team (Late st Contact Info) Description 06/15/2011 Office Visit-P INTERFACE P DEPT Corie Fisher APRN [facility] [address] [place] [address] [place] [address] Social History Tobacco Use Types Packs/Day Years Used Date Smoking Tobacco: Former Alcohol Use Standard Drinks/Week Comments No 0 (1 standard drink = 0.6 oz pur e alcohol) Comments No Sex and Gender Information Value Date Recorded Sex Assigned at Not on file Legal Sex Female 4:44 AM REEFER TRUCK DRIVER Gender Identity Not on file Sexual Orientation Not on file documented as of this encounter Progress Notes * Corie Fisher NP - 06/15/2011 11:20 AM CDT Transportation Maintenance Specialist: Corie Fisher Status: Final Encounter: 2011-06-15 11:20:00.000 Type: [facility] Nurse Visit Reason For Visit LANIE BARRAZA is a 36 year old female presents today for ultrasound CD 12 of IVF stimulation- see flow sheet. Plan HCG tonight with TVOR 06/16 pending lab results. DX 622.4. Active Problems Factor V Leiden Mutation. Allergies Dilaudid TABS. Current Meds Vitamins TABS;; RPT Follistim AQ 600 UNT/0.72ML Solution;INJECT 225 UNIT DAILY; RPT Menopur 75 UNIT Solution Reconstituted;inject 225 daily, sq; RPT Lovenox 40 MG/0.4ML Solution;INJECT 40 MG DAILY subcutaneously; RPT Lupron SOLN;INJECT 0.2 ML TWICE DAILY; RPT AAA-MED RECONCILE;Per pt; RPT. Signature Signed By: Corie Fisher N.P.; 06/15/2011 11:48 AM REEFER TRUCK DRIVER. documented in this encounter Plan of Treatment Upcoming Encounters Date Type Department Care Team (Late st Contact Info) Description 02/28/2025 1:00 PM REEFER TRUCK DRIVER Office Visit [facility] [address] [place] [address] Anna Pritchett MD [address] [place] [address] [id number] [place], [place] [id number] documented as of this encounter Visit Diagnoses Not on filedocumented in this encounter Additional Health Concerns Infection Onset Date Last Indicated Resolved Time Rule Out COVID-19 03/09/2022 03/09/2022 03/09/2022 5:29 PM REEFER TRUCK DRIVER Rule Out COVID-19 07/01/2022 07/01/2022 07/01/2022 7:40 PM CDT Rule Out COVID-19 03/06/2023 03/06/2023 03/06/2023 10:41 PM REEFER TRUCK DRIVER Rule Out COVID-19 10/01/2024 10/01/2024 10/02/2024 12:19 AM CDT documented as of this encounter Care Teams Agricultural Aircraft Pilot Relationship Specialty [place] [address] [place] [address] PCP - General 07/24/10 Leo Lopez PA-C [address] [facility] [address] [place] [address] Assigned Neuroscience Provider 05/19/21 09/05/22 Talisha Roth MD [address] [facility] [address] [place], [place] [address] Assigned Surgical Provider 09/21/21 05/08/23 [place] [address] [place] [address] Assigned Pain Medication Provider 02/24/22 08/15/22 [place] [address] [place] [id number] Pain Medicine 06/25/22 Phoebe Mchugh MD [address] [facility] [address] [place], [place] [address] Physical Medicine and Rehabilitation 09/10/22 Anna Pritchett MD [address] [facility] [address] Assigned Neuroscience Provider 09/06/22 10/17/22 Phoebe Mchugh MD [address] [facility] [address] [place] [address] Assigned Neuroscience Provider 10/18/22 03/11/23 Anna Pritchett MD [address] [place], [place] [id number] [address] Assigned Neuroscience Provider 03/12/23 09/06/24 documented as of this encounter
--- OUTSIDE RECORDS SUMMARY | 2025-01-06 18:45 | XMS_ITS | Encounter Summary ---
Author Organization [place] Address [facility] [facility] [place] [address] Care Team Providers Care Leather Sorter Name Role Phone Yarelis Henderson MD Primary Care Provider [phone] Leo Lopez PA-C Unavailable [phone] Talisha Roth MD Unavailable [phone] Lonnie Cadet MD Unavailable + Palak Lazcano MD Unavailable [phone] Phoebe Mchugh MD Unavailable [phone] Anna Pritchett MD Unavailable [phone] Phoebe Mchugh MD Unavailable [phone] Anna Pritchett MD Unavailable [phone] Encounter Details Date Type Department Care Team (Late st Contact Info) Description 08/22/2020 [facility] Radha Young [facility] [address] [place] [address] [address] [place] [address] Aleida De La Torre Social History Tobacco Use Types Packs/Day Years Used Date Smoking Tobacco: Former Cigarettes Q uit: 01/19/2008 Smokeless Tobacco: Never Alcohol Use Standard Drinks/Week Comments No 0 (1 standard drink = 0.6 oz pur e alcohol) Comments No Sex and Gender Information Value Date Recorded Sex Assigned at Not on file Legal Sex Female 4:44 AM NET WPF DEVELOPER Gender Identity Not on file Sexual Orientation Not on file COVID-19 Exposure Response Date Recorded In the last month, have you been in contact with someone who was confirmed or suspected to have Coronavirus / COVID-19? No / Unsure 08/21/2020 8:54 AM CDT documented as of this encounter Plan of Treatment Upcoming Encounters Date Type Department Care Team (Late st Contact Info) Description 02/28/2025 1:00 PM NET WPF DEVELOPER Office Visit [facility] [address] [place] [address] Anna Pritchett MD [address] [place] [address] [id number] [place], [place] [address] documented as of this encounter Visit Diagnoses Not on filedocumented in this encounter Additional Health Concerns Infection Onset Date Last Indicated Resolved Time Rule Out COVID-19 03/09/2022 03/09/2022 03/09/2022 5:29 PM NET WPF DEVELOPER Rule Out COVID-19 07/01/2022 07/01/2022 07/01/2022 7:40 PM CDT Rule Out COVID-19 03/06/2023 03/06/2023 03/06/2023 10:41 PM NET WPF DEVELOPER Rule Out COVID-19 10/01/2024 10/01/2024 10/02/2024 12:19 AM CDT documented as of this encounter Care Teams Leather Sorter Relationship Specialty [place] [address] [place] [address] PCP - General 07/24/10 Leo Lopez PA-C [address] [place] [address] Assigned Neuroscience Provider 05/19/21 09/05/22 Talisha Roth MD [address] [facility] [address] [place] [address] Assigned Surgical Provider 09/21/21 05/08/23 [place] [address] [place] [address] Assigned Pain Medication Provider 02/24/22 08/15/22 [place] [address] [place] [address] Pain Medicine 06/25/22 Phoebe Mchugh MD [address] [place] [address] Physical Medicine and Rehabilitation 09/10/22 Anna Pritchett MD [address] [place] [address] Assigned Neuroscience Provider 09/06/22 10/17/22 Phoebe Mchugh MD [address] [place] [address] Assigned Neuroscience Provider 10/18/22 03/11/23 Anna Pritchett MD [address] [place] [address] Assigned Neuroscience Provider 03/12/23 09/06/24 documented as of this encounter
--- OUTSIDE RECORDS SUMMARY | 2025-01-06 18:45 | XMS_ITS | Encounter Summary ---
Author Organization [place] Address [facility] [place] [address] Care Team Providers Care Measurement Technician Name Role Phone Yarelis Henderson MD Primary Care Provider Leo Lopez PA-C Unavailable [phone] Talisha Roth MD Unavailable [phone] Lonnie Cadet MD Unavailable + Palak Lazcano MD Unavailable [phone] Phoebe Mchugh MD Unavailable [phone] Anna Pritchett MD Unavailable [phone] Phoebe Mchugh MD Unavailable [phone] Anna Pritchett MD Unavailable [phone] Encounter Details Date Type Department Care Team (Late st Contact Info) Description 03/21/2021 [facility] [place] [facility] Pain Management [address] [address] Radha Chance RN Social History Tobacco Use Types Packs/Day Years Used Date Smoking Tobacco: Former Cigarettes Q uit: 01/19/2008 Smokeless Tobacco: Never Alcohol Use Standard Drinks/Week Comments No 0 (1 standard drink = 0.6 oz pur e alcohol) Comments No Sex and Gender Information Value Date Recorded Sex Assigned at Not on file Legal Sex Female 4:44 AM WOODS BOSS Gender Identity Not on file Sexual Orientation Not on file COVID-19 Exposure Response Date Recorded In the last month, have you been in contact with someone who was confirmed or suspected to have Coronavirus / COVID-19? No / Unsure 03/20/2021 8:16 AM WOODS BOSS documented as of this encounter Plan of Treatment Upcoming Encounters Date Type Department Care Team (Late st Contact Info) Description 02/28/2025 1:00 PM WOODS BOSS Office Visit [facility] Neurosurgery Clinic [address] 3rd [place] [address] Anna Pritchett MD [address] [place] [address] [id number] [place], [place] [address] documented as of this encounter Visit Diagnoses Not on filedocumented in this encounter Additional Health Concerns Infection Onset Date Last Indicated Resolved Time Rule Out COVID-19 03/09/2022 03/09/2022 03/09/2022 5:29 PM WOODS BOSS Rule Out COVID-19 07/01/2022 07/01/2022 07/01/2022 7:40 PM CDT Rule Out COVID-19 03/06/2023 03/06/2023 03/06/2023 10:41 PM WOODS BOSS Rule Out COVID-19 10/01/2024 10/01/2024 10/02/2024 12:19 AM CDT documented as of this encounter Care Teams Measurement Technician Relationship Specialty [place] [address] [place] [address] PCP - General 07/24/10 Leo Lopez PA-C [address] [place] [address] Assigned Neuroscience Provider 05/19/21 09/05/22 Talisha Roth MD [address] [facility] [address] [place] [address] Assigned Surgical Provider 09/21/21 05/08/23 [place] [address] [place] [address] Assigned Pain Medication Provider 02/24/22 08/15/22 [place] [address] [place] [address] Pain Medicine 06/25/22 Phoebe Mchugh MD [address] [place] [address] Physical Medicine and Rehabilitation 09/10/22 Anna Pritchett MD [address] [place] [address] Assigned Neuroscience Provider 09/06/22 10/17/22 Phoebe Mchugh MD [address] [place] [address] Assigned Neuroscience Provider 10/18/22 03/11/23 Anna Pritchett MD [address] [place] [address] Assigned Neuroscience Provider 03/12/23 09/06/24 documented as of this encounter
--- OUTSIDE RECORDS SUMMARY | 2025-01-06 18:45 | XMS_ITS | Encounter Summary ---
Author Organization [place] Address [facility] [place] [address] Care Team Providers Care Broadcast Chief Engineer Name Role Phone Yarelis Henderson MD Primary Care Provider Leo Lopez PA-C Unavailable [phone] Talisha Roth MD Unavailable [phone] Lonnie Cadet MD Unavailable + Palak Lazcano MD Unavailable [phone] Phoebe Mchugh MD Unavailable [phone] Anna Pritchett MD Unavailable [phone] Phoebe Mchugh MD Unavailable [phone] Anna Pritchett MD Unavailable [phone] Encounter Details Date Type Department Care Team (Late st Contact Info) Description 01/18/2021 [facility] [place] [facility] Pain Management [address] [address] Radha Chance RN Social History Tobacco Use Types Packs/Day Years Used Date Smoking Tobacco: Former Cigarettes Q uit: 01/19/2008 Smokeless Tobacco: Never Alcohol Use Standard Drinks/Week Comments No 0 (1 standard drink = 0.6 oz pur e alcohol) Comments No Sex and Gender Information Value Date Recorded Sex Assigned at Not on file Legal Sex Female 4:44 AM SEED SPECIALIST Gender Identity Not on file Sexual Orientation Not on file documented as of this encounter Plan of Treatment Upcoming Encounters Date Type Department Care Team (Late st Contact Info) Description 02/28/2025 1:00 PM SEED SPECIALIST Office Visit [address] 3rd [place] [address] Anna Pritchett MD [address] [place] [address] [id number] [place], [place] [address] documented as of this encounter Visit Diagnoses Not on filedocumented in this encounter Additional Health Concerns Infection Onset Date Last Indicated Resolved Time Rule Out COVID-19 03/09/2022 03/09/2022 03/09/2022 5:29 PM SEED SPECIALIST Rule Out COVID-19 07/01/2022 07/01/2022 07/01/2022 7:40 PM CDT Rule Out COVID-19 03/06/2023 03/06/2023 03/06/2023 10:41 PM SEED SPECIALIST Rule Out COVID-19 10/01/2024 10/01/2024 10/02/2024 12:19 AM CDT documented as of this encounter Care Teams Broadcast Chief Engineer Relationship Specialty [place] [address] [place], [place] [id number] PCP - General 07/24/10 Leo Lopez PA-C [address] [place] [address] Assigned Neuroscience Provider 05/19/21 09/05/22 Talisha Roth MD [address] [facility] [address] [place], [place] [address] Assigned Surgical Provider 09/21/21 05/08/23 [place] [address] [place] [address] Assigned Pain Medication Provider 02/24/22 08/15/22 [place] [address] [place] [address] Pain Medicine 06/25/22 Phoebe Mchugh MD [address] [place] [address] Physical Medicine and Rehabilitation 09/10/22 Anna Pritchett MD [address] [place] [address] Assigned Neuroscience Provider 09/06/22 10/17/22 Phoebe Mchugh MD [address] [place] [address] Assigned Neuroscience Provider 10/18/22 03/11/23 Anna Pritchett MD [address] [place] [address] Assigned Neuroscience Provider 03/12/23 09/06/24 documented as of this encounter
--- OUTSIDE RECORDS SUMMARY | 2025-01-06 18:45 | XMS_ITS | Encounter Summary ---
Author Organization [place] Address [address] [place] [address] Care Team Providers Care Planner/Scheduler Name Role Phone Yarelis Henderson MD Primary Care Provider [phone] Leo Lopez PA-C Unavailable [phone] Talisha Roth MD Unavailable [phone] Lonnie Cadet MD Unavailable + Palak Lazcano MD Unavailable [phone] Phoebe Mchugh MD Unavailable [phone] Anna Pritchett MD Unavailable [phone] Phoebe Mchugh MD Unavailable [phone] Anna Pritchett MD Unavailable [phone] Encounter Details Date Type Department Care Team (Late st Contact Info) Description 06/10/2011 Office Visit-P INTERFACE [facility]MP DEPT Unknown, Provider Social History Tobacco Use Types Packs/Day Years Used Date Smoking Tobacco: Former Alcohol Use Standard Drinks/Week Comments No 0 (1 standard drink = 0.6 oz pur e alcohol) Comments No Sex and Gender Information Value Date Recorded Sex Assigned at Not on file Legal Sex Female 4:44 AM BOILERMAKER HELPER Gender Identity Not on file Sexual Orientation Not on file documented as of this encounter Progress Notes * Unknown, Provider - 06/10/2011 8:00 AM CDT Splitter Machine: Masha Sams Status: Final Encounter: 2011-06-10 08:00:00.000 Type: [facility] [place] Visit Reason For Visit LANIE BARRAZA is a 36 year old female presents today for IVF CD 7. See ovulation flow sheet for treatment and plan. Pt to stay on the same meds and RTC 06/12, reviewed with pt and house fellow. Dx 622.4. Active Problems Factor V Leiden Mutation. Allergies Dilaudid TABS. Current Meds MetFORMIN HCl 500 MG Tablet;TAKE 1 TABLET 3 TIMES DAILY WITH MEALS.; Rx AAA-MED RECONCILE;Per pt; RPT Vitamins TABS;; RPT. Pain Eval Current history of pain associated with this visit is denied. Signature Signed By: Masha Sams RN; 06/10/2011 8:18 AM BOILERMAKER HELPER. documented in this encounter Plan of Treatment Upcoming Encounters Date Type Department Care Team (Late st Contact Info) Description 02/28/2025 1:00 PM BOILERMAKER HELPER Office Visit [facility] Neurosurgery Clinic [address] [place] [address] Anna Pritchett MD [address] [place] [address] [id number] [place], [place] [address] documented as of this encounter Visit Diagnoses Not on filedocumented in this encounter Additional Health Concerns Infection Onset Date Last Indicated Resolved Time Rule Out COVID-19 03/09/2022 03/09/2022 03/09/2022 5:29 PM BOILERMAKER HELPER Rule Out COVID-19 07/01/2022 07/01/2022 07/01/2022 7:40 PM CDT Rule Out COVID-19 03/06/2023 03/06/2023 03/06/2023 10:41 PM BOILERMAKER HELPER Rule Out COVID-19 10/01/2024 10/01/2024 10/02/2024 12:19 AM CDT documented as of this encounter Care Teams Planner/Scheduler Relationship Specialty [place] [address] [place], [place] [id number] PCP - General 07/24/10 Leo Lopez PA-C [address] [place], [place] [address] Assigned Neuroscience Provider 05/19/21 09/05/22 Talisha Roth MD [address] [facility] [address] [place] [address] Assigned Surgical Provider 09/21/21 05/08/23 [place] [address] [address] Assigned Pain Medication Provider 02/24/22 08/15/22 [place] [address] [place] [address] Pain Medicine 06/25/22 Phoebe Mchugh MD [address] [place] [address] 828975 Physical Medicine and Rehabilitation 09/10/22 Anna Pritchett MD [address] [id number] [place] [address] Assigned Neuroscience Provider 09/06/22 10/17/22 Phoebe Mchugh MD [address] [place] [address] Assigned Neuroscience Provider 10/18/22 03/11/23 Anna Pritchett MD [address] [facility] [id number] [place] [address] Assigned Neuroscience Provider 03/12/23 09/06/24 documented as of this encounter
--- OUTSIDE RECORDS SUMMARY | 2025-01-06 18:45 | XMS_ITS | Encounter Summary ---
Author Organization [place] Address [facility] [place] [address] Care Team Providers Care Weblogic Administrator Name Role Phone Yarelis Henderson MD Primary Care Provider [phone] Leo Lopez PA-C Unavailable [phone] Talisha Roth MD Unavailable [phone] Lonnie Cadet MD Unavailable + Palak Lazcano MD Unavailable [phone] Phoebe Mchugh MD Unavailable [phone] Anna Pritchett MD Unavailable [phone] Phoebe Mchugh MD Unavailable [phone] Anna Pritchett MD Unavailable [phone] Encounter Details Date Type Department Care Team (Late st Contact Info) Description 12/07/2020 [facility] [place] Medical Advice [facility] Pain Management [address] [address] Radha Chance RN Social History Tobacco Use Types Packs/Day Years Used Date Smoking Tobacco: Former Cigarettes Q uit: 01/19/2008 Smokeless Tobacco: Never Alcohol Use Standard Drinks/Week Comments No 0 (1 standard drink = 0.6 oz pur e alcohol) Comments No Sex and Gender Information Value Date Recorded Sex Assigned at Not on file Legal Sex Female 4:44 AM HOTEL SUPERINTENDENT Gender Identity Not on file Sexual Orientation Not on file COVID-19 Exposure Response Date Recorded In the last month, have you been in contact with someone who was confirmed or suspected to have Coronavirus / COVID-19? No / Unsure 11/29/2020 8:42 AM CDT documented as of this encounter Plan of Treatment Upcoming Encounters Date Type Department Care Team (Late st Contact Info) Description 02/28/2025 1:00 PM HOTEL SUPERINTENDENT Office Visit [facility] Neurosurgery Clinic [address]rd [place] [address] Anna Pritchett MD [address] [place] [address] [id number] [place], [place] [address] documented as of this encounter Visit Diagnoses Not on filedocumented in this encounter Additional Health Concerns Infection Onset Date Last Indicated Resolved Time Rule Out COVID-19 03/09/2022 03/09/2022 03/09/2022 5:29 PM HOTEL SUPERINTENDENT Rule Out COVID-19 07/01/2022 07/01/2022 07/01/2022 7:40 PM CDT Rule Out COVID-19 03/06/2023 03/06/2023 03/06/2023 10:41 PM HOTEL SUPERINTENDENT Rule Out COVID-19 10/01/2024 10/01/2024 10/02/2024 12:19 AM CDT documented as of this encounter Care Teams Weblogic Administrator Relationship Specialty [place] [address] [place] [address] PCP - General 07/24/10 Leo Lopez PA-C [address] [place] [address] Assigned Neuroscience Provider 05/19/21 09/05/22 Talisha Roth MD [address] [facility] [address] [place] [address] Assigned Surgical Provider 09/21/21 05/08/23 [place] [address] [place] [address] Assigned Pain Medication Provider 02/24/22 08/15/22 [place] [address] [place] [address] Pain Medicine 06/25/22 Phoebe Mchugh MD [address] [place] [address] Physical Medicine and Rehabilitation 09/10/22 Anna Pritchett MD [address] [place] [address] Assigned Neuroscience Provider 09/06/22 10/17/22 Phoebe Mchugh MD [address] [place] [address] Assigned Neuroscience Provider 10/18/22 03/11/23 Anna Pritchett MD [address] [place] [address] Assigned Neuroscience Provider 03/12/23 09/06/24 documented as of this encounter
--- OUTSIDE RECORDS SUMMARY | 2025-01-06 18:45 | XMS_ITS | Encounter Summary ---
Author Organization [place] Address [address] [place] [address] Care Team Providers Care Medical Care Evaluation Specialist Name Role Phone Yarelis Henderson MD Primary Care Provider Leo Lopez PA-C Unavailable [phone] Talisha Roth MD Unavailable [phone] Lonnie Cadet MD Unavailable + Palak Lazcano MD Unavailable [phone] Phoebe Mchugh MD Unavailable [phone] Anna Pritchett MD Unavailable [phone] Phoebe Mchugh MD Unavailable [phone] Anna Pritchett MD Unavailable [phone] Encounter Details Date Type Department Care Team (Late st Contact Info) Description 07/10/2011 Office Visit-P INTERFACE P DEPT Corie Fisher APRN SATELLITE COMMUNICATIONS OPERATOR [facility] [address] [facility] [address] [place] [address] Social History Tobacco Use Types Packs/Day Years Used Date Smoking Tobacco: Former Alcohol Use Standard Drinks/Week Comments No 0 (1 standard drink = 0.6 oz pur e alcohol) Comments No Sex and Gender Information Value Date Recorded Sex Assigned at Not on file Legal Sex Female 4:44 AM RISK INTERN Gender Identity Not on file Sexual Orientation Not on file documented as of this encounter Progress Notes * Corie Fisher NP - 07/10/2011 9:30 AM CDT Jewelry Casting Model Maker: Corie Fisher Status: Final Encounter: 2011-07-10 09:30:00.000 Type: [facility] Nurse Visit Reason For Visit LANIE BARRAZA is a 36 year old female presents today for evaluation for pain. She reports that pain started this morning and has continued. She is early after IVF cycle. She is here for evaluation with Dr. Mckeon. Active Problems Factor V Leiden Mutation. Vital Signs Recorded by ally on 10 Jul 2011 09:49 AM BP:113/76, HR: 97 b/min. Allergies Dilaudid TABS. Current Meds Vitamins TABS;; RPT Lovenox 40 MG/0.4ML Solution;INJECT 40 MG DAILY subcutaneously; RPT Medrol 16 MG Tablet;1 tablet daily for 4 days.; RPT Doxycycline Hyclate 100 MG Tablet;TAKE 1 TABLET DAILY UNTIL FINISHED.; RPT Endometrin 100 MG Insert;INSERT 1 SUPP 3 TIMES DAILY; RPT Endometrin 100 MG Insert;INSERT 1 TABLET 4 TIMES DAILY; Rx Endometrin 100 MG Insert;INSERT 1 SUPP 4 TIMES DAILY; Rx AAA-MED RECONCILE;Per pt; RPT Dulcolax CAPS;TAKE 1 CAPSULE DAILY.; RPT. Pain Eval Current history of pain associated with this visit is as follows: Location: lower abdomen Quality: constant sharp pain Severity: 10 (Pain scale 1-10, with 10 being the worst) Duration: constant Timing: Severe pain started this morning Context: She reports that she has been constipated all week and taking stool softener since Thursday without relief. Modifying factors: none Associated signs/symptoms: She reports nausea with no vomiting and eating only small amounts. She has noted daily nausea. Signature Signed By: Corie Fisher N.P.; 07/10/2011 9:49 AM RISK INTERN. documented in this encounter Plan of Treatment Upcoming Encounters Date Type Department Care Team (Late st Contact Info) Description 02/28/2025 1:00 PM RISK INTERN Office Visit [facility] Neurosurgery [facility] [place] [address] [facility] 3rd [place] [phone] Anna Pritchett MD [address] [facility] [id number] [place] [address] documented as of this encounter Visit Diagnoses Not on filedocumented in this encounter Additional Health Concerns Infection Onset Date Last Indicated Resolved Time Rule Out COVID-19 03/09/2022 03/09/2022 03/09/2022 5:29 PM RISK INTERN Rule Out COVID-19 07/01/2022 07/01/2022 07/01/2022 7:40 PM CDT Rule Out COVID-19 03/06/2023 03/06/2023 03/06/2023 10:41 PM RISK INTERN Rule Out COVID-19 10/01/2024 10/01/2024 10/02/2024 12:19 AM CDT documented as of this encounter Care Teams Medical Care Evaluation Specialist Relationship Specialty [place] [address] [place], [place] [phone] PCP - General 07/24/10 Leo Lopez PA-C [address] [facility] [address] [place], [place] [address] Assigned Neuroscience Provider 05/19/21 09/05/22 Talisha Roth MD [address] [facility] [address] [place], [place] [address] Assigned Surgical Provider 09/21/21 05/08/23 [place] [address] [place] [address] Assigned Pain Medication Provider 02/24/22 08/15/22 [place] [address] [place] [address] Pain Medicine 06/25/22 Phoebe Mchugh MD [address] [place] [address] Physical Medicine and Rehabilitation 09/10/22 Anna Pritchett MD [address] [place] [address] Assigned Neuroscience Provider 09/06/22 10/17/22 Phoebe Mchugh MD [address] [place] [address] Assigned Neuroscience Provider 10/18/22 03/11/23 Anna Pritchett MD [address] [place] [address] Assigned Neuroscience Provider 03/12/23 09/06/24 documented as of this encounter
--- OUTSIDE RECORDS SUMMARY | 2025-01-06 18:45 | XMS_ITS | Encounter Summary ---
Author Organization [place] Address [address] [place] [address] Care Team Providers Care Board Design Engineer Name Role Phone Yarelis Henderson MD Primary Care Provider Leo Lopez PA-C Unavailable [phone] Talisha Roth MD Unavailable [phone] Lonnie Cadet MD Unavailable + Palak Lazcano MD Unavailable Phoebe Mchugh MD Unavailable [phone] Anna Pritchett MD Unavailable [phone] Phoebe Mchugh MD Unavailable [phone] Anna Pritchett MD Unavailable [phone] Encounter Details Date Type Department Care Team (Late st Contact Info) Description 06/14/2011 Office Visit-P INTERFACE P DEPT Corie Fisher APRN RECREATION DIRECTOR [facility] [address] [facility] [address] [place] [address] [place] [address] Social History Tobacco Use Types Packs/Day Years Used Date Smoking Tobacco: Former Alcohol Use Standard Drinks/Week Comments No 0 (1 standard drink = 0.6 oz pur e alcohol) Comments No Sex and Gender Information Value Date Recorded Sex Assigned at Not on file Legal Sex Female 4:44 AM INSURANCE ADMINISTRATOR Gender Identity Not on file Sexual Orientation Not on file documented as of this encounter Progress Notes * Corie Fisher NP - 06/14/2011 1:20 PM CDT Lokie Engineer: Corie Fisher Status: Final Encounter: 2011-06-14 13:20:00.000 Type: [facility] Nurse Visit Reason For Visit LANIE BARRAZA is a 36 year old female presents today for ultrasound CD 11 of IVF stimulation- see flow sheet. Plan continue medications for one more day with ultrasound 06/14 pending lab results. DX 622.4. Active Problems Factor V Leiden Mutation. Allergies Dilaudid TABS. Current Meds Vitamins TABS;; RPT Follistim AQ 600 UNT/0.72ML Solution;INJECT 225 UNIT DAILY; RPT Menopur 75 UNIT Solution Reconstituted;inject 225 daily, sq; RPT Lovenox 40 MG/0.4ML Solution;INJECT 40 MG DAILY subcutaneously; RPT Lupron SOLN;INJECT 0.2 ML TWICE DAILY; RPT AAA-MED RECONCILE;Per pt; RPT. Signature Signed By: Corie Fisher N.P.; 06/14/2011 2:14 PM INSURANCE ADMINISTRATOR. documented in this encounter Plan of Treatment Upcoming Encounters Date Type Department Care Team (Late st Contact Info) Description 02/28/2025 1:00 PM INSURANCE ADMINISTRATOR Office Visit [facility] Neurosurgery Clinic [address] [place] [address] Anna Pritchett MD [address] [place] [address] [id number] [place], [place] [address] documented as of this encounter Visit Diagnoses Not on filedocumented in this encounter Additional Health Concerns Infection Onset Date Last Indicated Resolved Time Rule Out COVID-19 03/09/2022 03/09/2022 03/09/2022 5:29 PM INSURANCE ADMINISTRATOR Rule Out COVID-19 07/01/2022 07/01/2022 07/01/2022 7:40 PM CDT Rule Out COVID-19 03/06/2023 03/06/2023 03/06/2023 10:41 PM INSURANCE ADMINISTRATOR Rule Out COVID-19 10/01/2024 10/01/2024 10/02/2024 12:19 AM CDT documented as of this encounter Care Teams Board Design Engineer Relationship Specialty Start [place] [address] [place] [address] PCP - General 07/24/10 Leo Lopez PA-C [address] [facility] [address] [place] [address] Assigned Neuroscience Provider 05/19/21 09/05/22 Talisha Roth MD [address] [facility] [address] [place], [place] [address] Assigned Surgical Provider 09/21/21 05/08/23 [place] [address] [place] [address] Assigned Pain Medication Provider 02/24/22 08/15/22 [place] [address] [place] [address] Pain Medicine 06/25/22 Phoebe Mchugh MD [address] [facility] 297 [place], [place] [address] Physical Medicine and Rehabilitation 09/10/22 Anna Pritchett MD [address] [id number] [place] [address] Assigned Neuroscience Provider 09/06/22 10/17/22 Phoebe Mchugh MD [address] [facility] 297 [place] [address] Assigned Neuroscience Provider 10/18/22 03/11/23 Anna Pritchett MD [address] [place], [place] [address] [address] Assigned Neuroscience Provider 03/12/23 09/06/24 documented as of this encounter
--- OUTSIDE RECORDS SUMMARY | 2025-01-06 18:45 | XMS_ITS | Encounter Summary ---
Author Organization [facility] Address [address] [place] [address] Care Team Providers Care Structural Metal Worker Name Role Phone Yarelis Henderson MD Primary Care Provider [phone] Leo Lopez PA-C Unavailable [phone] Talisha Roth MD Unavailable [phone] Lonnie Cadet MD Unavailable + Palak Lazcano MD Unavailable [phone] Phoebe Mchugh MD Unavailable [phone] Anna Pritchett MD Unavailable [phone] Phoebe Mchugh MD Unavailable [phone] Anna Pritchett MD Unavailable [phone] Encounter Details Date Type Department Care Team (Late st Contact Info) Description 06/10/2011 Office Visit-P INTERFACE P DEPT Corie Fisher APRN MACHINING AND ASSEMBLY SUPERVISOR [facility] [address] [facility] [facility] [address] [place] [address] [place] [address] Social History Tobacco Use Types Packs/Day Years Used Date Smoking Tobacco: Former Alcohol Use Standard Drinks/Week Comments No 0 (1 standard drink = 0.6 oz pur e alcohol) Comments No Sex and Gender Information Value Date Recorded Sex Assigned at Not on file Legal Sex Female 4:44 AM GEOSPATIAL ENGINEER Gender Identity Not on file Sexual Orientation Not on file documented as of this encounter Progress Notes * Corie Fisher, SUPERVISING APPRAISER - 06/10/2011 8:30 AM CDT Aircraft Systems Repairer: Corie Fisher Status: Final Encounter: 2011-06-10 08:30:00.000 Type: [facility] PreOp H and P History Age: [age] year old Sex: F Marital Status: Date of Procedure: 06/2011. Chief Complaint IVF TVOR HPI Patient has 4 year history of infertility complicated by history of pulmonary embolism in 2007. Shehas completed multiple cycles of IUI and 2 cycles of IVF. The first IVF cycle resulted in cervical treated with both Methotrexate and surgery. She is now being stimulated for third IVF cycle. PMH Childhood: UCD, profound hearing loss Adult: PE- 2007, cervical - 2010 Operative: hysteroscopic myomectomy- 2009, hysteroscopic polypectomy- 2009, TVOR- 09/2010, appendectomy- 10/2010, cervical embolization- 10/2010, hysteroscopy/cervical dilatation- 02/2011, TVOR-03/2011 Injuries: none Past Admissions: surgery, post operative infection- 2009, cervical - 2010. Personal Hx Behavioral history: A previous history of smoking quit 2007. Alcohol: Not using alcohol. Drug use: Not using drugs. 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 Marital: Currently . Family Hx Mother- breast cancer father- HTN PGM- blood clots, heart disease MGM- Alzheimer's. ROS Constitutional: no fevers, occasional night sweats, recent weight change- 20 pound weight gain since February 2011 Eyes: no vision change, diplopia or red eyes Ears, Nose, Mouth, Throat: profound hearing loss, no epistaxis or nasal discharge, no oral lesions,throat clear Cardiovascular: no chest pain, palpitations, or pain with walking, no orthopnea or PND Respiratory: no dyspnea, cough, shortness of breath or wheezing GI: no nausea, vomiting or constipation, intermittent diarrhea- no evaluation, no abdominal pain : no change in urine, no dysuria or hematuria, no sexual dysfunction Last Pap: 11/2010- WNL Musculoskeletal: no joint or muscle pain or swelling Integumentary: no concerning lesions or moles Neuro: no loss of strength or sensation, no numbness or tingling, no tremor, no dizziness, no headache Endo: no polyuria or polydipsia, no temperature intolerance Heme/Lymph: no concerning bumps, no bleeding problems Allergy: no environmental allergies Psych: no depression or anxiety, no sleep problems. Allergies Dilaudid TABS. Current Meds Vitamins TABS;; RPT Follistim AQ 600 UNT/0.72ML Solution;INJECT 225 UNIT DAILY; RPT Menopur 75 UNIT Solution Reconstituted;inject 225 daily, sq; RPT Lovenox 40 MG/0.4ML Solution;INJECT 40 MG DAILY subcutaneously; RPT Lupron SOLN;INJECT 0.2 ML TWICE DAILY; RPT AAA-MED RECONCILE;Per pt; RPT. Physical Exam CONSTITUTIONAL: no distress, comfortable, pleasant EYES: anicteric, normal extra-ocular movements EARS, NOSE and THROAT: nose clear and free of lesions, throat clear, neck supple with full range ofmotion, no thyromegaly. CARDIOVASCULAR: regular rate and rhythm RESPIRATORY: clear to auscultation, no wheezes or crackles, normal breath sounds GASTROINTESTINAL: nontender, no hepatosplenomegaly, no masses MUSCULOSKELETAL: full range of motion, no edema SKIN: no concerning lesions, no jaundice NEUROLOGICAL: normal strength and sensation, normal gait, no tremor PSYCHOLOGICAL: appropriate mood LYMPHATIC: no cervical lymphadenopathy. Vital Signs Recorded by Ayanna Leonard on 10 Jun 2011 08:31 AM BP:117/81, RUE, Sitting, HR: 87 b/min, R Radial, Normal, Resp: 14 r/min, Normal, Height: 64.5 in, Weight: 238 lb, BMI: 40.2 kg/m2. Diagnostic 622.4. Impression Healthy hearing impaired patient with recent weight gain (BMI now 40). Plan OK for TVOR. Signature Signed By: Corie Fisher N.P.; 06/10/2011 8:49 AM GEOSPATIAL ENGINEER. documented in this encounter Plan of Treatment Upcoming Encounters Date Type Department Care Team (Late st Contact Info) Description 02/28/2025 1:00 PM GEOSPATIAL ENGINEER Office Visit [address] [place] [phone] Anna Pritchett MD [address] [place] [address] [id number] [place] [address] documented as of this encounter Visit Diagnoses Not on filedocumented in this encounter Additional Health Concerns Infection Onset Date Last Indicated Resolved Time Rule Out COVID-19 03/09/2022 03/09/2022 03/09/2022 5:29 PM GEOSPATIAL ENGINEER Rule Out COVID-19 07/01/2022 07/01/2022 07/01/2022 7:40 PM CDT Rule Out COVID-19 03/06/2023 03/06/2023 03/06/2023 10:41 PM GEOSPATIAL ENGINEER Rule Out COVID-19 10/01/2024 10/01/2024 10/02/2024 12:19 AM CDT documented as of this encounter Care Teams Structural Metal Worker Relationship Specialty [place] [address] [facility] [place] [address] PCP - General 07/24/10 eLo Lopez PA-C [address] [facility] [address] [place] [address] Assigned Neuroscience Provider 05/19/21 09/05/22 Talisha Roth MD [address] [facility] [address] [place] [address] Assigned Surgical Provider 09/21/21 05/08/23 [place] [address] [place] [address] Assigned Pain Medication Provider 02/24/22 08/15/22 [place] [address] [place] [address] Pain Medicine 06/25/22 Phoebe Mchugh MD [address] [address] Physical Medicine and Rehabilitation 09/10/22 Anna Pritchett MD [address] [place] [address] Assigned Neuroscience Provider 09/06/22 10/17/22 Phoebe Mchugh MD [address] [address] Assigned Neuroscience Provider 10/18/22 03/11/23 Anna Pritchett MD [address] [place] [address] Assigned Neuroscience Provider 03/12/23 09/06/24 documented as of this encounter
--- OUTSIDE RECORDS SUMMARY | 2025-01-06 18:45 | XMS_ITS | Encounter Summary ---
Author Organization [facility] Address [address] [place] [address]. [place] [address] Care Team Providers Care Labor Employment Associate Name Role Phone Yarelis Henderson MD Primary Care Provider Leo Lopez PA-C Unavailable [phone] Talisha Roth MD Unavailable [phone] Lonnie Cadet MD Unavailable + Palak Lazcano MD Unavailable [phone] Phoebe Mchugh MD Unavailable [phone] Anna Pritchett MD Unavailable [phone] Phoebe Mchugh MD Unavailable [phone] Anna Pritchett MD Unavailable [phone] Encounter Details Date Type Department Care Team (Late st Contact Info) Description 06/23/2022 [facility] Medical Advice [facility] [address] [place] [address] [place] [address] [place] [address] Social History Tobacco Use Types Packs/Day Years Used Date Smoking Tobacco: Former Cigarettes Q uit: 01/19/2008 Smokeless Tobacco: Never Alcohol Use Standard Drinks/Week Comments No 0 (1 standard drink = 0.6 oz pur e alcohol) Comments No Sex and Gender Information Value Date Recorded Sex Assigned at Not on file Legal Sex Female 4:44 AM SPINDLE CARVER Gender Identity Not on file Sexual Orientation Not on file COVID-19 Exposure Response Date Recorded In the last 10 days, have yo u been in contact with someone who was confirmed or suspected to have Coronavirus/COVID-19? Unable to assess 06/25/2022 1:47 PM CDT documented as of this encounter Miscellaneous Notes * Telephone Encounter - Amaya Patel RN - 06/23/2022 1:44 PM CDT Will leave encounter open for patient response/chart review by nursing. Lionel Dela Cruz, I would recommend making a follow up to discuss next steps in your plan as it has been quite some time since you were seen. At that time, if recommended, Dr Lazcano could order any imaging. [phone]. She is quite booked out so I would also recommend asking about being placed on the cancellation list. Thanks Amaya ELI, RN Special Education Itinerant Teacher [facility] * Telephone Encounter - Amaya Patel RN - 06/23/2022 1:05 PM CDT Will leave encounter open for patient response/chart review by nursing. Mychart Below from pt Hey lower back still painful for long time but it warm outside. It should be not be arthritis but my muscle spasm out of pills I remember one of doctor said I need go back for mri with dye to see whyspot in let me know. Thanks Lanie juarez Mychart below response to pt Lionel Dela Cruz, I do not see anything noted from your last appointment with Dr Lazcano about additional imaging. Youwere last seen in November so I would recommend making a follow up to discuss next steps in your plan as it has been quite some time since you were seen. At that time, if recommended, Dr Lazcano could order any imaging. Amaya ELI, RN Special Education Itinerant Teacher [facility] documented in this encounter Plan of Treatment Upcoming Encounters Date Type Department Care Team (Late st Contact Info) Description 02/28/2025 1:00 PM SPINDLE CARVER Office Visit [facility] [address] 3rd [place] [phone] Anna Pritchett MD [address] [place] [address] [id number] [place], [place] [id number] documented as of this encounter Visit Diagnoses Not on filedocumented in this encounter Additional Health Concerns Infection Onset Date Last Indicated Resolved Time Rule Out COVID-19 07/01/2022 07/01/2022 07/01/2022 7:40 PM CDT Rule Out COVID-19 03/06/2023 03/06/2023 03/06/2023 10:41 PM SPINDLE CARVER Rule Out COVID-19 10/01/2024 10/01/2024 10/02/2024 12:19 AM CDT documented as of this encounter Care Teams Labor Employment Associate Relationship Specialty [place] [address] [place] [address] PCP - General 07/24/10 Leo Lopez PA-C [address] [facility] [address] [place] [address] Assigned Neuroscience Provider 05/19/21 09/05/22 Talisha Roth MD [address] [facility] [address] [place] [address] Assigned Surgical Provider 09/21/21 05/08/23 [place] [address] [place] [address] Assigned Pain Medication Provider 02/24/22 08/15/22 [place] [address] [place] [address] Pain Medicine 06/25/22 Phoebe Mchugh MD [address] [address] Physical Medicine and Rehabilitation 09/10/22 Anna Pritchett MD [address] [place] [address] Assigned Neuroscience Provider 09/06/22 10/17/22 Phoebe Mchugh MD [address] [address] Assigned Neuroscience Provider 10/18/22 03/11/23 Anna Pritchett MD [address] [address] Assigned Neuroscience Provider 03/12/23 09/06/24 documented as of this encounter
--- OUTSIDE RECORDS SUMMARY | 2025-01-06 18:45 | XMS_ITS | Encounter Summary ---
Author Organization [facility] Address [facility] [facility] [place] [address] Care Team Providers Care Dice Dealer Name Role Phone Yarelis Henderson MD Primary Care Provider Leo Lopez PA-C Unavailable [phone] Talisha Roth MD Unavailable [phone] Lonnie Cadet MD Unavailable + Palak Lazcano MD Unavailable [phone] Phoebe Mchugh MD Unavailable [phone] Anna Pritchett MD Unavailable [phone] Phoebe Mchugh MD Unavailable [phone] Anna Pritchett MD Unavailable [phone] Encounter Details Date Type Department Care Team (Late st Contact Info) Description 05/31/2021 [facility] Medical Advice [facility] [address] [place] [address] Miriam Mendosa, JENNIFER Social History Tobacco Use Types Packs/Day Years Used Date Smoking Tobacco: Former Cigarettes Q uit: 01/19/2008 Smokeless Tobacco: Never Alcohol Use Standard Drinks/Week Comments No 0 (1 standard drink = 0.6 oz pur e alcohol) Comments No Sex and Gender Information Value Date Recorded Sex Assigned at Not on file Legal Sex Female 4:44 AM INTERIOR DESIGN TEACHER Gender Identity Not on file Sexual Orientation Not on file COVID-19 Exposure Response Date Recorded In the last 10 days, have yo u been in contact with someone who was confirmed or suspected to have Coronavirus/COVID-19? No / Unsure 05/30/2021 3:10 PM CDT documented as of this encounter Plan of Treatment Upcoming Encounters Date Type Department Care Team (Late st Contact Info) Description 02/28/2025 1:00 PM INTERIOR DESIGN TEACHER Office Visit [facility] [address]rd [place] [address] Anna Pritchett MD [address] [place] [address] [id number] [place], [place] [address] documented as of this encounter Visit Diagnoses Not on filedocumented in this encounter Additional Health Concerns Infection Onset Date Last Indicated Resolved Time Rule Out COVID-19 03/09/2022 03/09/2022 03/09/2022 5:29 PM INTERIOR DESIGN TEACHER Rule Out COVID-19 07/01/2022 07/01/2022 07/01/2022 7:40 PM CDT Rule Out COVID-19 03/06/2023 03/06/2023 03/06/2023 10:41 PM INTERIOR DESIGN TEACHER Rule Out COVID-19 10/01/2024 10/01/2024 10/02/2024 12:19 AM CDT documented as of this encounter Care Teams Dice Dealer Relationship Specialty [place] [address] [address] [address] PCP - General 07/24/10 Leo Lopez PA-C [address] [place] [address] [place] [address] Assigned Neuroscience Provider 05/19/21 09/05/22 Talisha Roth MD [address] [facility] [address] [place] [address] Assigned Surgical Provider 09/21/21 05/08/23 [place] [address] [place] [address] Assigned Pain Medication Provider 02/24/22 08/15/22 [place] [address] [place] [address] Pain Medicine 06/25/22 Phoebe Mchugh MD [address] [place] [address] Physical Medicine and Rehabilitation 09/10/22 Anna Pritchett MD [address] [place] [address] Assigned Neuroscience Provider 09/06/22 10/17/22 Phoebe Mchugh MD [address] [place] [address] Assigned Neuroscience Provider 10/18/22 03/11/23 Anna Pritchett MD [address] [place] [address] Assigned Neuroscience Provider 03/12/23 09/06/24 documented as of this encounter
--- OUTSIDE RECORDS SUMMARY | 2025-01-06 18:45 | XMS_ITS | Encounter Summary ---
Author Organization [facility] Address [address] [place] [address] Care Team Providers Care Needle Bar Molder Name Role Phone Yarelis Henderson MD Primary Care Provider Leo Lopez PA-C Unavailable [phone] Talisha Roth MD Unavailable [phone] Lonnie Cadet MD Unavailable + Palak Lazcano MD Unavailable [phone] Phoebe Mchugh MD Unavailable [phone] Anna Pritchett MD Unavailable [phone] Phoebe Mchugh MD Unavailable [phone] Anna Pritchett MD Unavailable [phone] Encounter Details Date Type Department Care Team (Late st Contact Info) Description 07/17/2011 Office Visit-P INTERFACE P DEPT Corie Fisher APRN LEAD SHAREPOINT DEVELOPER [facility] [address] [facility] [address] [place] [address] [place] [address] Social History Tobacco Use Types Packs/Day Years Used Date Smoking Tobacco: Former Alcohol Use Standard Drinks/Week Comments No 0 (1 standard drink = 0.6 oz pur e alcohol) Comments No Sex and Gender Information Value Date Recorded Sex Assigned at Not on file Legal Sex Female 4:44 AM SR. UNIX SYSTEM ADMINISTRATOR Gender Identity Not on file Sexual Orientation Not on file documented as of this encounter Progress Notes * Corie Fisher NP - 07/17/2011 3:00 PM CDT Paratransit Driver: Phillip Corie Status: Final - Signature Encounter: 2011-07-17 15:00:00.000 Type: [facility] Visit Procedure: Confirmation of Transvaginal Ultrasound The patient is currently and gestational age is calculated to be: 6 weeks 2 days Gestational age dating is established by the date of : TVOR 06/17/2011 Estimated date of confinement (by gestational age dating) 03/09/2012 Procedure Description: The patient was placed in the dorsolithotomy position for routine transvaginal ultrasound. The transvaginal probe with sterile sheath was inserted into the vagina and the pelvis imaged. Ultrasound findings include: Gestational Sac (Mean Sac Diameter): 1. Length 31.8 mm Width 12.1 mm Height 22.6 mm MSD 22.2 mm GA 6W 5D Yolk Sac: 1. Length 2.9 mm Width 3.1 mm Height 3.4 mm Mean Yolk Sac Diameter 3.1 mm Pole [Tom Bean Rump Length (CRL)]: 1. Length 5.8 mm Gest. Age 6 weeks 3 days Heart Rate 115 BPM Comments: Patient reports that she is still experiencing intermittent constipation but it is betterthan before. She continues to have some cramping associated with constipation. She denies spotting,bleeding and pain. Impression: Ongoing browne IUP appropriate for dates with (+) FHR. Plan: 1. Patient instructed to continue Progesterone through July 29, 2011. 2. Patient instructed to continue vitamins. 3. Patient will enroll in care and will schedule follow up ultrasound in 1-2 weeks. Electronically signed by:Corie Fisher N.P. Jul 17 2011 3:22PM SR. UNIX SYSTEM ADMINISTRATOR documented in this encounter Plan of Treatment Upcoming Encounters Date Type Department Care Team (Late st Contact Info) Description 02/28/2025 1:00 PM SR. UNIX SYSTEM ADMINISTRATOR Office Visit [facility] [address]rd [place] [phone] Anna Pritchett MD [address] [place] [address] [id number] [place] [address] documented as of this encounter Visit Diagnoses Not on filedocumented in this encounter Additional Health Concerns Infection Onset Date Last Indicated Resolved Time Rule Out COVID-19 03/09/2022 03/09/2022 03/09/2022 5:29 PM SR. UNIX SYSTEM ADMINISTRATOR Rule Out COVID-19 07/01/2022 07/01/2022 07/01/2022 7:40 PM CDT Rule Out COVID-19 03/06/2023 03/06/2023 03/06/2023 10:41 PM SR. UNIX SYSTEM ADMINISTRATOR Rule Out COVID-19 10/01/2024 10/01/2024 10/02/2024 12:19 AM CDT documented as of this encounter Care Teams Needle Bar Molder Relationship Specialty [place] [address] [place] [address] PCP - General 07/24/10 Leo Lopez PA-C [address] [facility] [address] [place] [address] Assigned Neuroscience Provider 05/19/21 09/05/22 Talisha Roth MD [address] [facility] [address] [place] [address] Assigned Surgical Provider 09/21/21 05/08/23 [place] [address] [place] [address] Assigned Pain Medication Provider 02/24/22 08/15/22 [place] [address] [place] [address] Pain Medicine 06/25/22 Phoebe Mchugh MD [address] [place] [address] Physical Medicine and Rehabilitation 09/10/22 Anna Pritchett MD [address] [place] [address] Assigned Neuroscience Provider 09/06/22 10/17/22 Phoebe Mchugh MD [address] [place] [address] Assigned Neuroscience Provider 10/18/22 03/11/23 Anna Pritchett MD [address] [place] [address] Assigned Neuroscience Provider 03/12/23 09/06/24 documented as of this encounter
--- OUTSIDE RECORDS SUMMARY | 2025-01-06 18:45 | XMS_ITS | Encounter Summary ---
Author Organization [facility] Address [address] [place] [id number] Care Team Providers Care Supervisor [employer] Name Role Phone Yarelis Henderson MD Primary Care Provider Leo Lopez PA-C Unavailable [phone] Talisha Roth MD Unavailable [phone] Lonnie Cadet MD Unavailable + Palak Lazcano MD Unavailable [phone] Phoebe Mchugh MD Unavailable Anna Pritchett MD Unavailable [phone] Phoebe Mchugh MD Unavailable [phone] Anna Pritchett MD Unavailable [phone] Encounter Details Date Type Department Care Team (Late st Contact Info) Description 06/12/2011 Office Visit-P INTERFACE P DEPT Corie Fisher APRN REFINERY OPERATOR [facility] [address] [place] [address] [place] [id number] Social History Tobacco Use Types Packs/Day Years Used Date Smoking Tobacco: Former Alcohol Use Standard Drinks/Week Comments No 0 (1 standard drink = 0.6 oz pur e alcohol) Comments No Sex and Gender Information Value Date Recorded Sex Assigned at Not on file Legal Sex Female 4:44 AM MEDICAL CENTER MANAGER Gender Identity Not on file Sexual Orientation Not on file documented as of this encounter Progress Notes * Corie Fisher NP - 06/12/2011 7:40 AM CDT Food Demonstrator: Corie Fisher Status: Final Encounter: 2011-06-12 07:40:00.000 Type: [facility] Nurse Visit Reason For Visit LANIE BARRAZA is a 36 year old female presents today for ultrasound CD 9 of IVF stimulation- seeflow sheet. Patient advised to continue all medications and dosing with no changes and RTC 06/13 forultrasound. DX 622.4. Active Problems Factor V Leiden Mutation. Allergies Dilaudid TABS. Current Meds Vitamins TABS;; RPT Follistim AQ 600 UNT/0.72ML Solution;INJECT 225 UNIT DAILY; RPT Menopur 75 UNIT Solution Reconstituted;inject 225 daily, sq; RPT Lovenox 40 MG/0.4ML Solution;INJECT 40 MG DAILY subcutaneously; RPT Lupron SOLN;INJECT 0.2 ML TWICE DAILY; RPT [facility];Per pt; RPT. Signature Signed By: Corie Fisher N.P.; 06/12/2011 8:20 AM MEDICAL CENTER MANAGER. documented in this encounter Plan of Treatment Upcoming Encounters Date Type Department Care Team (Late st Contact Info) Description 02/28/2025 1:00 PM MEDICAL CENTER MANAGER Office Visit [facility] [address] [place] [address] Anna Pritchett MD [address] [place] [address] [id number] [place] [address] documented as of this encounter Visit Diagnoses Not on filedocumented in this encounter Additional Health Concerns Infection Onset Date Last Indicated Resolved Time Rule Out COVID-19 03/09/2022 03/09/2022 03/09/2022 5:29 PM MEDICAL CENTER MANAGER Rule Out COVID-19 07/01/2022 07/01/2022 07/01/2022 7:40 PM CDT Rule Out COVID-19 03/06/2023 03/06/2023 03/06/2023 10:41 PM MEDICAL CENTER MANAGER Rule Out COVID-19 10/01/2024 10/01/2024 10/02/2024 12:19 AM CDT documented as of this encounter Care Teams Supervisor [employer] Relationship Specialty [place] [address] [place] [address] PCP - General 07/24/10 Leo Lopez PA-C [address] [facility] [address] [place] [address] Assigned Neuroscience Provider 05/19/21 09/05/22 Talisha Roth MD [address] [facility] [address] [place], [place] [id number] Assigned Surgical Provider 09/21/21 05/08/23 [place] [address] [place] [id number] Assigned Pain Medication Provider 02/24/22 08/15/22 [place] [address] [place] [address] Pain Medicine 06/25/22 Phoebe Mchugh MD [address] [facility] [address] [place], [place] [address] Physical Medicine and Rehabilitation 09/10/22 Anna Pritchett MD [address] [place], [place] [id number] [place] [address] Assigned Neuroscience Provider 09/06/22 10/17/22 Phoebe Mchugh MD [address] [facility] [address] [place] [address] Assigned Neuroscience Provider 10/18/22 03/11/23 Anna Pritchett MD [address] [facility] [place] [address] Assigned Neuroscience Provider 03/12/23 09/06/24 documented as of this encounter
--- OUTSIDE RECORDS SUMMARY | 2025-01-06 18:45 | XMS_ITS | Clinical Summary ---
Author Organization [employer] [facility] Address [address] [place] [address] Care Team Providers Care Aerospace Medicine Physician Name Role Phone Yarelis Henderson MD Primary Care Provider [phone] Bere Loco MD Unavailable Unavailable Golden Saavedra Unavailable [phone] Markell Myrick MD Unavailable [phone] Ewa Brito RN Unavailable [phone] Unavailable [phone] Ayanna Rebolledo CAREER DEVELOPMENT COORDINATOR Unavailable [phone] Allergies Active Allergy Reactions Criticality Noted Date Comments Codeine Rash,Hives Low 11/28/2008 Hydromorphone Rash Medium 07/06/2008 Morphine Hives,Rash,*Unknown - Follow up needed Medium 11/28/2008 Opioids - Morphine Analogues Rash,Hives,Itching,* Unknown Low 11/28/2008 Can take with benadryl Medications acetaminophen (TYLENOL EXTRA STRGTH) 500 mg tablet Take 500 mg by mouth every 6 hours if needed. 1-2 tabs every 6hrs as needed 02/22/19 13 Active multivitamin (MVI) tablet Take 1 Tablet by mouth once daily. Active apixaban (ELIQUIS) 5 mg tablet Take 5 mg by mouth two times daily. Active busPIRone (BUSPAR) 5 mg tabletIndications: Anxiety Take 1 Tablet (5 mg) by mouth 3 times daily if needed for Anxiety. 90 Tablet 1 12/15/19 24 Active rx ondansetron (ZOFRAN ODT) 4 mg orally disintegrating tablet (ED DC MED)Indications:Na usea Place 1 Tablet (4 mg) on the tongue every 8 hours if needed (nausea/vomiting ). 5 Tablet 04/14/19 25 Active CPAPIndications:Se mary alice obstructive sleep apnea,Non-restorat isabel sleep,Snoring CPAP (E0601) machine for home use at pressure: 5-16 , Choice of mask (A7030 or A7034) w/full face cushion (A7031) x1/mo, nasal cushion (A7032) x2/mo, or nasal pillows (A7033) x 2/mo; Length of Need: 99 months; Frequency of use: Daily 1 Each 11 06/24/19 25 Active DULoxetine (CYMBALTA) 60 mg Delayed-release capsuleIndications :Chronic bilateral back pain, unspecified back location TAKE ONE CAPSULE BY MOUTH AT BEDTIME 90 Capsule 1 10/05/19 25 Active meclizine (ANTIVERT) 25 mg tabletIndications: BPPV (benign paroxysmal positional vertigo), right Take 1 Tablet (25 mg) by mouth 3 times daily if needed for Vertigo. 20 Tablet 10/08/19 25 Active methocarbamoL 500 mg tabletIndications: Myalgia Take 1 Tablet (500 mg) by mouth three times daily. 12 Tablet 11/19/19 25 Active methylPREDNISolone (MEDROL DOSEPAK) 4 mg tabletIndications: Muscle spasm Take by mouth as instructed per packaging. 21 Tablet 11/25/19 25 Active tiZANidine (ZANAFLEX) 4 mg tabletIndications: Foot pain, right,Bone spur of right foot,Primary osteoarthritis of right foot Take 1 Tablet (4 mg) by mouth every 8 hours if needed for Muscle Spasm. 30 Tablet 12/10/19 25 Active metoprolol succinate (Toprol XL) 25 mg Sustained-Release tabletIndications: HTN (hypertension) Take 1 Tablet (25 mg) by mouth once daily. 90 Tablet 3 12/20/19 25 Active tirzepatide (weight loss) (Zepbound) 2.5 mg/0.5 mL penIndications:Mor bid exogenous obesity (HC) Inject 2.5 mg subcutaneous once weekly. 2 mL 1 12/20/19 25 Active methylPREDNISolone (Medrol (Berry)) 4 mg tabletIndications: Foot pain, right,Bone spur of right foot,Primary osteoarthritis of right foot,Stress fracture of foot, unspecified laterality, sequela Take by mouth as instructed per packaging. 21 Tablet 12/30/19 25 Active methocarbamol 1,000 mg tabletIndications: Muscle spasm Take 1 Tablet (1,000 mg) by mouth three times daily. 90 Tablet 11/25/19 25 025 predniSONE (DELTASONE) 10 mg tabletIndications: Foot pain, right,Bone spur of right foot,Primary osteoarthritis of right foot Take 3 Tablets (30 mg) by mouth once daily with a meal for 2 days, THEN 2 Tablets (20 mg) once daily with a meal for 3 days, THEN 1 Tablet (10 mg) once daily with a meal for 3 days. 15 Tablet 12/10/19 25 025 Active Problems Patient Care Coordination No te Formatting of this note is d ifferent from the original. Weight Management - Adult Surgical Program Patient Received Binder: Yes Part of [facility] Program: no RDC or GS Patient: No Home Hospital Plan: Undecided Initial Consult / Established Care 04/30/[address] Markell Brito RN Intake: Wt Readings from Last 1 Encounters: 04/30/23 117.5 kg (259 lb) lbs, Ht Readings from Last 1 Encounters: 04/30/23 1.626 m (5' 4) BMI: 44.46 Planned Operation David-en-Y Gastric Bypass w. Hiatal hernia repair Payor: [employer] / Plan: [employer] OF NON-NH-ITS / Product Type: *No Product type* / Insurance requirements:None Est. Pgm Completion: ~ September, Procedure Location: [facility] Co-morbidities: GERD Orders: Labs Yes Imaging / Procedures None Pre-Surgery Program Consults: - Registered Dietitian 3 - has been seen in [facility] program - Psychological Evaluation: yes Referrals: Yes - PT: -Tobacco Cessation: reports that she quit smoking about 16 years ago. Her smoking use included cigarettes. She started smoking about 31 years ago. She has a 15 pack-year smoking history. She has never used smokeless tobacco. Problem Noted Date Diagnosed Date Mixed dyslipidemia 08/15/2023 Prediabetes 08/15/2023 Cervical radiculopathy 05/27/2023 Chronic bilateral low back pain with bilateral s ciatica 05/01/2023 Lumbosacral spondylosis without myelopathy 04/30 Lumbosacral radiculopathy 05/01/2023 H/O radiofrequency ablation (RFA) of nerve of hoda mbar spine 05/01/2023 Controlled substance agreement signed 12/19/2022 Overview (12/19/2022): [facility] Rebecca RasconstaceyCYNDI 2:27 PM 12/19/22 Cervical spondylosis 11/25/2022 Fatty liver 06/24/2022 Hiatal hernia 04/17/2022 Chronic GERD 04/17/2022 Factor 5 Leiden mutation, heterozygous 5 Pulmonary embolus 04/20/2014 Overview (04/20/2014): 2008 treated with coumadin for one year H/O section 04/20/2014 Fibroids 04/20/2014 Diverticular disease of colon 09/09/2013 Resolved Problems Problem Noted Date Diagnosed Date Resolved Date Acute right-sided low back p ain with bilateral sciatica 06/02/2024 12/19/2024 Intradural mass 02/29/2024 10/28/2024 Chronic neck pain 05/27/2023 06/02/2024 Neck pain 05/01/2023 06/02/2024 Chronic bilateral low back pain 05/01/2023 06/02/2024 Cervical radicular pain 11/25/2022 04/08/2024 Anticoagulation monitoring, INR range 2-3 04/06/2020 02/23/2023 Pulmonary embolism, unspecif ied chronicity, unspecified pulmonary embolism type, unspecified whether acute cor pulmonale present 04/06/2020 06/02/2024 Fatty liver disease, nonalcoholic 03/16/2017 06/02/2024 Factor V Leiden 10/03/2015 06/02/2024 Elevated C-reactive protein (CRP) 06/26/2014 06/02/2024 Tobacco quit date established 04/20/2014 06/02/2024 Chest pain 04/20/2014 06/02/2024 Pulmonary embolism 04/20/2014 Overview (07/21/2023): 2007 treated with coumadin for one year 2007 treated with coumadin for one year 2007 treated with coumadin for one year Choledocholithiasis 07/20/2012 10/29/19 25 Acute cholecystitis 06/27/2012 06/03/19 25 Acute cholecystitis 06/27/2012 12/20/19 25 Gastroesophageal reflux dise ase without esophagitis 07/07/2008 06/02/2024 Encounters Date Type Department Care Team Description 12/29/2024 3:45 PM HUMAN PERFORMANCE PROFESSOR Office Visit [facility] [address] [place] [phone] João Portillo DPM Foot Problem (Rt foot pain) 12/29/2024 Travel 12/26/2024 Telephone [facility] [address] [place] [phone] Aleida Dwyer Appointment 12/23/2024 10:49 PM HUMAN PERFORMANCE PROFESSOR - 12/23/2024 11:26 PM HUMAN PERFORMANCE PROFESSOR Emergency [address] [address] Rita Starks PA Right foot pain (Primary Dx) Discharge Disposition: Home Self Care 12/23/2024 Travel 12/23/2024 Nurse Triage [facility] [address] [place] [phone] Yarelis Henderson MD Questions 12/23/2024 Nurse Triage [facility] [address] [place] [phone] Yarelis Henderson MD Foot Pain/problem 12/19/2024 9:00 AM HUMAN PERFORMANCE PROFESSOR Office Visit [facility] [id number] [place] [phone] Yarelis Henderson MD ER Follow up (DOD 11/24/24, right foot pain, [place]); Blood Pressure (F/U per doctors at ER) 12/19/2024 Travel 12/12/2024 Telephone [facility] [address] [place] [phone] Aleida Dwyer Appointment 12/09/2024 6:50 PM CDT Ancillary Procedure [address] [phone] 12/09/2024 6:05 PM CDT Office Visit [facility] [address] [phone] Damian Morales PA Foot Pain/problem 12/09/2024 Travel 11/24/2024 9:07 PM CDT - 11/24/2024 11:32 PM CDT Emergency [facility] [address] [place] [address] Maikol Benedict PA Muscle spasm (Primary Dx) Discharge Disposition: Home Self Care 11/24/2024 Travel 11/24/2024 Nurse Triage [address] [phone] Yarelis Henderson MD Pain 11/24/2024 Nurse Triage [address] [phone] Yarelis Henderson MD Pain 11/23/2024 6:45 PM CDT Nurse/Clinic Staff Only [facility] [address] [place] [address] Immunization/Inject ion 11/23/2024 Travel 11/18/2024 8:00 PM CDT - 11/18/2024 10:59 PM CDT Emergency [address] [address] Aleida Brantley NP Myalgia (Primary Dx) Discharge Disposition: Home Self Care 11/18/2024 Travel 11/02/2024 8:55 PM CDT - 11/03/2024 12:47 AM CDT Emergency [address] [address] Sal Aguayo MD Jurvis, Amanda Margaret, Pleuritic chest pain (Primary Dx); Acute cough; Sinus congestion Discharge Disposition: Home Self Care 11/02/2024 6:45 PM CDT Ancillary Procedure [address] [phone] 11/02/2024 5:20 PM CDT Office Visit [address] [phone] Arin Bautista PA Cough; Sinus Problem; Headache; Throat Problem 11/02/2024 Travel 10/27/2024 2:20 PM CDT Office Visit [address] [phone] Yarelis Henderson MD Concerns (Bump near anus (noticed about a week ago)//Cyst near vagina) 10/26/2024 Travel 10/08/2024 3:38 AM CDT - 10/08/2024 8:21 AM CDT Emergency [facility] [address] [place] [address] Renato Blank MD Beeman, William Whitney, MD Chest pain, unspecified type (Primary Dx) Discharge Disposition: Home Self Care 10/07/2024 7:46 PM CDT - 10/07/2024 8:35 PM CDT Emergency [address] [address] Haylie Houston PA BPPV (benign paroxysmal positional vertigo), right (Primary Dx); Musculoskeletal neck pain; Episodic lightheadedness; Palpitations Discharge Disposition: Home Self Care 10/07/2024 Travel from Last 3 Months Immunizations Immunization Administration Dates Next Due COVID-19 vaccine (Brandma[employer]co-Bio NTech 30mcg/0.3mL) PF, MDV 01/31/2021,05/05/2020,04/14/2020 INFLUENZA, IIV3 PF (AGE >= 6 MO) 11/23/2024,11/16 Influenza RIV4 (Age 18+ Year s) PRESERV FREE 11/08/2021,12/15/2019,11/02/2018,2017,10/29/2016,10/11/2015,12/14/2012 Influenza Virus, Unspecified 11/08/2021, 12/15/2019,11/02/2018,2017,10/29/2016,10/11/2015,12/14/2012 Influenza, IIV3 (Age >=3 years) 11/25/2011 Influenza, IIV4 11/14/2022,,12/15/2019,2018,10/29/2016,10/11/2015,12/14/2012 Influenza, IIV4 (=>6mos) MDV 11/27/2014 Influenza, IIV4 (Age 6-35 Mos) 11/13/2017 Pneumococcal Conj 20-valent (Prevnar 20) 04/27/2024 Tdap 04/16/2022,02/20/2012 Zoster (Shingrix-RZV, recombinant) 07/04/2024, Family History Medical History Relation Name Comments Hyperlipidemia Father kay montanez Hypertension Father kay christin Cancer-prostate Maternal Grandfather belen alejo Heart failure Maternal Grandfather belen alejo Alzheimer's disease Maternal Grandmother Cancer-breast Mother lou montanez Mother did gen etic testing, neg brca genes Factor V Leiden deficiency Mother lou albrightnn Hyperlipidemia Mother lou christin Hypertension Mother lou albrightnn Dementia Paternal Grandfather Heart attack Paternal Grandmother abdoulaye christin Stroke Paternal Grandmother abdoulaye christin Appendicitis Sister 1 Relation Name Status Comments Brother Alive Father kay montanez Alive Maternal Grandfather belen dhillon (Age 87) Maternal Grandmother (Age 79) Mother lou montanez Alive Paternal Grandfather (Age 84) Paternal Grandmother abdoulaye montanez (Age 69) c omplications from stroke and [place] Sister 1 Alive Sister 2 Alive Social History Tobacco Use Types Packs/Day Years Used Date Smoking Tobacco: Former Cigarettes 1 15 0 02/17/1992 - 2007 Smokeless Tobacco: Never Tobacco Cessation:Counseling Given: Not Answered Alcohol Use Standard Drinks/Week Comments Not Currently 0 (1 standard drink = 0.6 oz pur e alcohol) PHQ-2 Answer Date Recorded PHQ-2 TOTAL SCORE 2 03/30/2024 Social Connections Answer Date Recorded Do you often feel lonely or isolated from those around you? 0 06/03/2024 Alcohol Use Answer Date Recorded How often do you have a drink containing alcohol ? 0 12/19/2024 Average Number of Drinks Not on file 025 Frequency of Binge Drinking Not on file 04/2024 Financial Resource Strain Answer Date R ecorded Difficulty of Paying Living Expenses 3 06/03/2024 Difficulty of Paying Living Expenses Not on file 06/03/2024 Food Insecurity Answer Date Recorded Do you worry your food will run out before you are able to buy more? 1 06/03/2024 Transportation Needs Answer Date Record ed Does lack of transportation keep you from medica l appointments? 1 06/03/2024 Does lack of transportation keep you from work, meetings or getting things that you need? 1 06/03/2024 Housing Stability Answer Date Recorded What is your housing situation today? 1 06/03/2024 Interpersonal Safety Answer Date Record ed Are you being hit, kicked, p ushed or yelled at (see row info)? No 12/23/2024 Interpersonal Safety Abuse 12 - 18 Not on file 12/23/2024 Interpersonal Safety Ambulatory Vulnerability No t on file 12/23/2024 Utilities Answer Date Recorded Do you have trouble paying f or utilities (for example, heat, electricity, water, phone)? 1 06/03/2024 Comments No Sex and Gender Information Value Date Recorded Sex Assigned at Not on file Legal Sex Female 7:34 AM HUMAN PERFORMANCE PROFESSOR Gender Identity Not on file Sexual Orientation Not on file Obstetrics History Para Term AB IAB SAB Ectopic Multiple Livin g Live Births 2 1 1 1 1 1 1 Date Outcome GA Total Labor Labor/2nd/3rd Weight Sex Type Anes PTL Claire A1 A5 Name Clin 10/2010 Ectopic 013 Term 37w 2d 0h 02m 3.6 kg (7 lb 14.8 oz) M Livin g 8 9 OELBER G,B1 JENNIF ER Delivery Location:[facility] Last Filed Vital Signs Vital Sign Reading Time Taken Comments Blood Pressure 141/92 12/23/2024 10:41 PM HUMAN PERFORMANCE PROFESSOR Pulse 92 12/23/2024 10:41 PM HUMAN PERFORMANCE PROFESSOR Temperature 36.3 C (97.3 F) 12/23/2024 10:41 PM HUMAN PERFORMANCE PROFESSOR Respiratory Rate 20 12/23/2024 10:41 PM HUMAN PERFORMANCE PROFESSOR Oxygen Saturation 92% 12/23/2024 10:41 PM HUMAN PERFORMANCE PROFESSOR Inhaled Oxygen Concentration - - Weight 125.6 kg (277 lb) 12/23/2024 10:41 PM HUMAN PERFORMANCE PROFESSOR Height 162.6 cm (5' 4) 12/23/2024 10:41 PM HUMAN PERFORMANCE PROFESSOR Body Mass Index 47.55 12/23/2024 10:41 PM HUMAN PERFORMANCE PROFESSOR Plan of Treatment Upcoming Encounters Date Type Department Care Team (Late st Contact Info) Description 01/09/2025 3:00 PM HUMAN PERFORMANCE PROFESSOR Ancillary Procedure [facility] [address] [place] [phone] 01/10/2025 3:00 PM HUMAN PERFORMANCE PROFESSOR Ancillary Procedure [address] [address] Health Maintenance Due Date Last Done Comments Hepatitis B series for 19+ ( 1 of 3 - 19+ 3-dose series) 1992 RSV vaccine for adults or (1 - Risk 50-74 years 1-dose series) 06/08/2023 Mammogram for age 45-75 01/03/2025 01/04/20 24, 07/28/2022, 07/28/2022 (Verified in Care Everywhere or Patient Record), Additional history exists Depression screening for age 12+ 03/30/2025 03/30/19 25 BMI (ht and wt on same day) for age 18+ 06/30/2025 06/30/2024, 05/30/2024, 05/26/2024, Additional history exists Colonoscopy through age 75 01/14/2026 01/14/2021 Lipids for age 45-75 04/27/2029 04/27/2024, 08/13/2023, 11/19/2021 Tetanus booster 04/16/2032 04/16/2022, 02/20/2012 Hepatitis C screening for ag e 18-79 Completed 01/18/2013 (Completed outsid e of [employer]) Pap test for age 21-65 Discontinued 6 (Verified in Care Everywhere or Patient Record) HIV for age 15-65 Completed 04/27/2024 Pneumococcal series for age 50+ Completed Zoster (shingles) series for age 50+ Completed 07/04/2024, 04/27/2024 Influenza Vaccine Completed 11/23/2024, , 11/14/2022, Additional history exists Procedures Procedure Name Priority Date/Time Associated Diagnosis Comments HEMOGLOBIN A1C MONITORING (POCT) Routine 12/19/2024 9:40 AM HUMAN PERFORMANCE PROFESSOR Prediabetes XR FOOT 3 VIEWS RIGHT STAT 12/09/2024 6:51 PM CDT Foot pain, right EXTRA TUBE BLUE Today 11/24/2024 10:07 PM CDT MAGNESIUM STAT 11/24/2024 10:07 PM CDT BASIC METABOLIC PANEL STAT 11/24/2024 10:07 PM CDT CBC W PLT NO DIFF STAT 11/24/2024 10: 07 PM CDT CBC WITH AUTO DIFFERENTIAL STAT 11/18/2024 9:27 PM CDT CK TOTAL STAT 11/18/2024 9:27 PM CDT BASIC METABOLIC PANEL STAT 11/18/2024 9:27 PM CDT CBC WITH AUTO DIFFERENTIAL STAT 11/18/2024 9:27 PM CDT TROPONIN T (HS) ONE TIME STAT 11/02/2024 11:[address] CHEST PE STUDY STAT 11/02/2024 10: 30 PM CDT CBC WITH AUTO DIFFERENTIAL AISLINN 11/02/2024 9:39 PM CDT TROPONIN T (HS) ACUTE W/2HR REFLEX STAT 11/02/2024 9:39 PM CDT CBC WITH AUTO DIFFERENTIAL AISLINN 11/02/2024 9:39 PM CDT BASIC METABOLIC PANEL AISLINN 11/02/2024 9:39 PM CDT INFLUENZA A/B PCR STAT 11/02/2024 9:3 0 PM CDT COVID-19 MOLECULAR Today 11/02/2024 9: 30 PM CDT EKG 12 LEAD AISLINN 11/02/2024 9:04 PM CDT XR CHEST 2 VIEWS PA AND LATERAL STAT 11/02/2024 6:50 PM CDT Cough, unspecified type COVID/FLU/RSV PANEL Routine 11/02/2024 6 :38 PM CDT Cough, unspecified type SCAN-OPERATIVE/PROCE DURE REPORT 10/11/2024 9:30 AM CDT TROPONIN T (HS) ONE TIME Timed 10/08/2024 6:[address] CHEST PE STUDY STAT 10/08/2024 5:2 1 AM CDT TROPONIN T (HS) ACUTE W/2HR REFLEX STAT 10/08/2024 4:23 AM CDT PRO-BNP STAT 10/08/2024 4:23 AM CDT PROTIME-INR STAT 10/08/2024 4:23 AM CDT BASIC METABOLIC PANEL STAT 10/08/2024 4:23 AM CDT CBC W PLT NO DIFF STAT 10/08/2024 4:2 3 AM CDT EKG 12 LEAD STAT 10/08/2024 3:53 AM CDT EKG 12 LEAD STAT 10/07/2024 8:18 PM CDT ANTI HIV 1/2 Routine 04/27/2024 1:06 PM CDT Screening for HIV (human immunodeficiency virus) LIPID PANEL W REFLEX MEASURED LDL Routine 04/27/2024 1:06 PM CDT Routine general medical examination at a [facility] XR MAMMO BILAT SCREENING Routine 01/04/2024 11:10 AM HUMAN PERFORMANCE PROFESSOR Visit for screening mammogram SCAN-COLONOSCOPY 01/14/2021 9:00 AM HUMAN PERFORMANCE PROFESSOR from Last 3 Months or Most Recently Relevant to Health Maintenance Results * (ABNORMAL) HEMOGLOBIN A1C MONITORING (POCT) (12/19/2024 9:40 AM HUMAN PERFORMANCE PROFESSOR) POC HEMOGLOBIN A1C 6.2(H) <6.0 % OF TOTAL HGB 12/19/2024 10:26 AM HUMAN PERFORMANCE PROFESSOR [facility] Comment: Any point of care results exhibiting inconsistency with the patient's clinical status should be repeated using a different testing method. Blood BLOOD SPECIMEN / Unknown [facility] / Unknown 12/19/2024 9:40 AM HUMAN PERFORMANCE PROFESSOR 12/19/2024 9:40 AM HUMAN PERFORMANCE PROFESSOR us Yarelis Henderson MD CHEMISTRY Final Resu lt [facility] [address] [place] [address], [facility] [address] [facility] [place] [address], [place] * XR FOOT 3 VIEWS RIGHT (12/09/2024 6:51 PM CDT) Anatomical Region Laterality Modality FEET, FOOT R Computed Radiogr aphy 12/09/2024 6:51 PM CDT Impressions 12/09/2024 7:02 PM CDT Mild hallux valgus. Mild scattered midfoot arthrosis. No evidence of an acute displaced fracture. Distal Achilles tendon enthesopathy. Calcaneal heel spur. Narrative 12/09/2024 7:02 PM CDT For Patients: As a result of the Cures Act, medical imaging exams and procedure reports are released immediately into your electronic medical record. You may view this report before your referring provider. If you have questions, please contact your health care provider. EXAM: XR FOOT 3 VIEWS RIGHT LOCATION: [facility] DATE: 12/09/2024 INDICATION: Foot Pain, Right COMPARISON: 07/01/2023. Procedure Note Truman Malagon MD - 12/09/2024 For Patients: As a result of the Cures Act, medical imagingexams and procedure reports are released immediately into your electronicmedical record. You may view this report before your referring provider.If you have questions, please contact your health care provider. EXAM: XR FOOT 3 VIEWS RIGHT LOCATION: [facility] DATE: 12/09/2024 INDICATION: Foot Pain, Right COMPARISON: 07/01/2023. IMPRESSION: Mild hallux valgus. Mild scattered midfoot arthrosis. No evidence of anacute displaced fracture. Distal Achilles tendon enthesopathy. Calcanealheel spur. us Damian Chavez [facility] Final Result * EXTRA TUBE BLUE (11/24/2024 10:07 PM CDT) Blood BLOOD SPECIMEN / Unknown Extra Tube / Unknown 11/24/2024 10:07 PM CDT 11/24/2024 10:25 PM CDT us Doctor Unknown LABORATORY Final Result [facility] [place] [id number] [place] [id number] * CBC W PLT NO DIFF (11/24/2024 10:07 PM CDT) Only the most recent of2 resultswithin the time period is included. WHITE BLOOD COUNT 6.7 4.5 - 11.0 thou/cu mm 11/24/2024 10:29 PM CDT [facility] RED BLOOD COUNT 5.12 4.00 - 5.20 mil/cu mm 11/24/2024 10:29 PM CDT [facility] HEMOGLOBIN 14.1 12.0 - 16.0 g/dL 11/24/2024 10:29 PM CDT [facility] HEMATOCRIT 42.2 33.0 - 51.0 % 11/24/2024 10:29 PM CDT [facility] MCV 82 80 - 100 fL 11/24/2024 10:29 PM CDT [facility] MCH 27.5 26.0 - 34.0 pg 11/24/2024 10:29 PM CDT [facility] MCHC 33.4 32.0 - 36.0 g/dL 11/24/2024 10:29 PM CDT [facility] RDW 13.7 11.5 - 15.5 % 11/24/2024 10:29 PM CDT [facility] PLATELET COUNT 293 140 - 440 thou/cu mm 11/24/2024 10:29 PM CDT [facility] MPV 8.8 6.5 - 11.0 fL 11/24/2024 10:29 PM CDT [facility] NRBC 0.0 % 11/24/2024 10:29 PM CDT [facility] ABS NRBC 0.0 thou /cu mm 11/24/2024 10:29 PM CDT [facility] Blood BLOOD SPECIMEN / Unknown Non-Lab Venipuncture / Unknown 11/24/2024 10:07 PM CDT 11/24/2024 10:24 PM CDT Maikol WHITLOCK HEMATOLOGY Final Result [facility] [place] [address] [id number] [address] [place] [address] * MAGNESIUM (11/24/2024 10:07 PM CDT) Pathologist [facility] MAGNESIUM 2.2 1.6 - 2.6 mg/dL 11/24/2024 10:49 PM CDT [facility] Blood BLOOD SPECIMEN / Unknown Non-Lab Venipuncture / Unknown 11/24/2024 10:07 PM CDT 11/24/2024 10:24 PM CDT Maikol WHITLOCK CHEMISTRY Final Result [facility] [place] [address] [id number] [address] [place] [address] * (ABNORMAL) BASIC METABOLIC PANEL (11/24/2024 10:07 PM CDT) Only the most recent of4 resultswithin the time period is included. Pathologist [facility] SODIUM 140 136 - 145 mmol/L 11/24/2024 10:49 PM CDT [facility] POTASSIUM 3.7 3.5 - 5.1 mmol/L 11/24/2024 10:49 PM T [facility] CHLORIDE 103 98 - 107 mmol/L 11/24/2024 10:49 PM T [facility] CO2,TOTAL 27 22 - 29 mmol/L 11/24/2024 10:49 PM T [facility] ANION GAP 10 5 - 18 11/24/2024 10:49 PM T [facility] GLUCOSE 113(H) 70 - 99 mg/dL 11/24/2024 10:49 PM T [facility] CALCIUM 9.6 8.8 - 10.4 mg/dL 11/24/2024 10:49 PM T [facility] Comment: Reference ranges for this test were updated on 12/22/2023 to reflect our healthy population more accurately. Reference range changes are not retroactively applied to results, but previous results using the same methodology can be interpreted in the context of the new reference range. BUN 12 6 - 20 mg/dL 11/24/2024 10:49 PM T [facility] CREATININE 0.78 0.50 - 0.90 mg/dL 11/24/2024 10:49 PM CDT [facility] BUN/CREAT RATIO 15 10 - 20 10:49 PM CDT [facility] eGFR >90 >90 mL/min/1. 73m2 11/24/2024 10:49 PM CDT [facility] Comment:As of 2021, eG FR is calculated by the CKD-EPI creatinine equation without race adjustment. eGFR can be influenced by muscle mass, exercise, and diet. The reported eGFR is an estimation only and is only applicable if the renal function is stable. Blood BLOOD SPECIMEN / Unknown Non-Lab Venipuncture / Unknown 11/24/2024 10:07 PM CDT 11/24/2024 10:24 PM CDT Maikol WHITLOCK CHEMISTRY Final Result [facility] [id number] [place] [address] * CBC WITH AUTO DIFFERENTIAL (11/18/2024 9:27 PM CDT) Only the most recent of2 resultswithin the time period is included. WHITE BLOOD COUNT 7.9 4.5 - 11.0 thou/cu mm 11/18/2024 9:35 PM CDT [facility] RED BLOOD COUNT 4.90 4.00 - 5.20 mil/cu mm 11/18/2024 9:35 PM CDT [facility] HEMOGLOBIN 13.5 12.0 - 16.0 g/dL 11/18/2024 9:35 PM CDT [facility] HEMATOCRIT 40.4 33.0 - 51.0 % 11/18/2024 9:35 PM CDT [facility] MCV 82 80 - 100 fL 11/18/2024 9:35 PM CDT [facility] MCH 27.6 26.0 - 34.0 pg 11/18/2024 9:35 PM CDT [facility] MCHC 33.4 32.0 - 36.0 g/dL 11/18/2024 9:35 PM CDT [facility] RDW 13.9 11.5 - 15.5 % 11/18/2024 9:35 PM CDT [facility] PLATELET COUNT 293 140 - 440 thou/cu mm 11/18/2024 9:35 PM CDT [facility] MPV 8.9 6.5 - 11.0 fL 11/18/2024 9:35 PM CDT [facility] NRBC 0.0 % 11/18/2024 9:35 PM CDT [facility] ABS NRBC 0.0 thou /cu mm 11/18/2024 9:35 PM CDT [facility] % NEUT 56.8 % 11/18/2024 9:35 PM CDT [facility] % LYMPH 29.5 % 11/18/2024 9:35 PM CDT [facility] % MONO 9.0 % 11/18/2024 9:35 PM CDT [facility] % EOS 3.4 % 11/18/2024 9:35 PM CDT [facility] % BASO 0.9 % 11/18/2024 9:35 PM CDT [facility] % IMMATURE GRAN (METAS,MYELOS,ND OS) 0.4 % 11/18/2024 9:35 PM CDT [facility] ABSOLUTE NEUTROPHILS 4.5 1.7 - 7.0 thou/cu mm 11/18/2024 9:35 PM CDT [facility] ABSOLUTE LYMPHOCYTES 2.3 0.9 - 2.9 thou/cu mm 11/18/2024 9:35 PM CDT [facility] ABSOLUTE MONOCYTES 0.7 <0.9 thou/cu mm 11/18/2024 9:35 PM CDT [facility] ABSOLUTE EOSINOPHILS 0.3 <0.5 thou/cu mm 11/18/2024 9:35 PM CDT [facility] ABSOLUTE BASOPHILS 0.1 <0.3 thou/cu mm 11/18/2024 9:35 PM CDT [facility] ABSOLUTE IMMATURE GRANULOCYTES(MET ,MYELOS,PROS) 0.0 <0.3 thou/cu mm 11/18/2024 9:35 PM CDT [facility] Blood BLOOD SPECIMEN / Unknown Butterfly / Unknown 11/18/2024 9:27 PM CDT 11/18/2024 9:31 PM CDT Aleida Brantley NP HEMATOLOGY Final Resu lt [facility] [address] [place] [address], [place] [phone] * CK TOTAL (11/18/2024 9:27 PM CDT) CK,TOTAL 85 26 - 192 IU/L 11/18/2024 9:52 PM CDT [facility] Blood BLOOD SPECIMEN / Unknown Butterfly / Unknown 11/18/2024 9:27 PM CDT 11/18/2024 9:31 PM CDT Aleida Brantley NP CHEMISTRY Final Resu lt [facility] [address] [place] [address], [place] [phone] * TROPONIN T (HS) ONE TIME (11/02/2024 11:45 PM CDT) Only the most recent of2 resultswithin the time period is included. TROPONIN T HS 9 6-10 ng/L ng/L 11/03/2024 12:10 AM CDT [facility] Blood BLOOD SPECIMEN / Unknown Line/Port / Unknown 11/02/2024 11:45 PM CDT 11/02/2024 11:49 PM CDT Narrative [facility] - 11/03/2024 12:10 AM CDT hs-cTnT (Elecsys Troponin T Gen 5) concentration (s) above the sex-specific 99th percentile (16 ng/L or greater for males or 11 ng/L or greater for females) are indicative of myocardial injury. If initial hs-cTnT <=100 ng/L at presentation, a 0h/2h ABSOLUTE (ng/L) delta change (rising or falling) of >=10 ng/L suggests a significant change, whereas a 0h/2h delta change <=3 ng/L suggests no significant change. If initial hs-cTnT >100 ng/L at presentation, a 0h/2h/ RELATIVE (percent, %) delta change of 20% is suggested to distinguish patients with acute vs. chronic myocardial injury. There are multiple etiologies that can cause hs-cTnT increases above the 99th percentile (myocardial injury) other than acute myocardial infarction. Clinical context and careful clinical evaluation are critical for diagnosis and risk-stratification. The diagnosis of acute myocardial infarction requires a rising and/or falling pattern in hs-cTnT concentrations with at least one value above the sex-specific 99th percentile PLUS at least one of the following clinical criteria: ischemic symptoms, new or presumed new significant ST-T wave changes or new LBBB, development of pathological Q waves, imaging evidence of new loss of viable myocardium or new regional wall motion abnormality, or identification of intracoronary atherothrombosis or an acute angiographic culprit on coronary angiography. In appropriate low-risk patients with a non-ischemic electrocardiogram without active chest pain with a symptom onset >3-hours without recurrence, a single initial hs-cTnT<6 ng/L identifies patient with a very low risk in emergency department patient population. Miriam Cruz DO CHEMISTRY Final Result [facility] [address] [place] [address], * CT CHEST PE STUDY (11/02/2024 10:30 PM CDT) Only the most recent of2 resultswithin the time period is included. Anatomical Region Laterality Modality CHEST, THORAX, HEART Computed To mography 11/02/2024 10:3 0 PM CDT Impressions 11/02/2024 10:55 PM CDT 1. No evidence of pulmonary embolism or other acute findings in the chest. 2. Small hiatal hernia. 3. Diffuse fatty infiltration of the liver. Narrative 11/02/2024 10:55 PM CDT For Patients: As a result of the Cures Act, medical imaging exams and procedure reports are released immediately into your electronic medical record. You may view this report before your referring provider. If you have questions, please contact your health care provider. EXAM: CT CHEST PE STUDY LOCATION: [facility] DATE: 11/02/2024 INDICATION: Chest pain COMPARISON: None. TECHNIQUE: CT chest pulmonary angiogram during arterial phase injection of IV contrast. Multiplanar reformats and MIP reconstructions were performed. Dose reduction techniques were used. CONTRAST: Omnipaque 350 75 ml FINDINGS: ANGIOGRAM CHEST: Pulmonary arteries are normal caliber and negative for pulmonary emboli. Thoracic aorta is negative for dissection. No CT evidence of right heart strain. LUNGS AND PLEURA dependent atelectasis in the posterior lung bases. No actionable pulmonary nodules. Otherwise,: Lungs are clear. No pleural effusion. MEDIASTINUM/AXILLAE: No lymphadenopathy. Small hiatal hernia. Small localized pericardial fluid adjacent to the aortic arch. No significant pericardial effusion. No thoracic aortic aneurysm. CORONARY ARTERY CALCIFICATION: None. UPPER ABDOMEN: Diffuse fatty infiltration the liver. Postcholecystectomy changes. Upper abdomen otherwise unremarkable. MUSCULOSKELETAL: No evidence of acute or aggressive osseous abnormality. Mild stable spondylosis.. Spinal stimulator leads terminating at the mid to lower thoracic spine. Procedure Note Trung Cuellar MD - 11/02/2024 For Patients: As a result of the Century Cures Act, medical imagingexams and procedure reports are released immediately into your electronicmedical record. You may view this report before your referring provider.If you have questions, please contact your health care provider. EXAM: CT CHEST PE STUDY LOCATION: [facility] DATE: 11/02/2024 INDICATION: Chest pain COMPARISON: None. TECHNIQUE: CT chest pulmonary angiogram during arterial phase injection ofIV contrast. Multiplanar reformats and MIP reconstructions were performed.Dose reduction techniques were used. CONTRAST: Omnipaque 350 75 ml FINDINGS: ANGIOGRAM CHEST: Pulmonary arteries are normal caliber and negative forpulmonary emboli. Thoracic aorta is negative for dissection. No CTevidence of right heart strain. LUNGS AND PLEURA dependent atelectasis in the posterior lung bases. Noactionable pulmonary nodules. Otherwise,: Lungs are clear. No pleuraleffusion. MEDIASTINUM/AXILLAE: No lymphadenopathy. Small hiatal hernia. Smalllocalized pericardial fluid adjacent to the aortic arch. No significantpericardial effusion. No thoracic aortic aneurysm. CORONARY ARTERY CALCIFICATION: None. UPPER ABDOMEN: Diffuse fatty infiltration the liver. Postcholecystectomychanges. Upper abdomen otherwise unremarkable. MUSCULOSKELETAL: No evidence of acute or aggressive osseous abnormality.Mild stable spondylosis.. Spinal stimulator leads terminating at the midto lower thoracic spine. IMPRESSION: 1. No evidence of pulmonary embolism or other acute findings in thechest. 2. Small hiatal hernia. 3. Diffuse fatty infiltration of the liver. Sal Aguayo MD CT Final Res ult * TROPONIN T (HS) ACUTE W/2HR REFLEX (11/02/2024 9:39 PM CDT) Only the most recent of2 resultswithin the time period is included. TROPONIN T HS 7 6-10 ng/L ng/L 11/02/2024 10:02 PM CDT [facility] Blood BLOOD SPECIMEN / Unknown IV Start / Unknown 11/02/2024 9:39 PM CDT 11/02/2024 9:42 PM CDT Narrative [facility] - 11/02/2024 10:02 PM CDT hs-cTnT (Elecsys Troponin T Gen 5) concentration (s) above the sex-specific 99th percentile (16 ng/L or greater for males or 11 ng/L or greater for females) are indicative of myocardial injury. If initial hs-cTnT <=100 ng/L at presentation, a 0h/2h ABSOLUTE (ng/L) delta change (rising or falling) of >=10 ng/L suggests a significant change, whereas a 0h/2h delta change <=3 ng/L suggests no significant change. If initial hs-cTnT >100 ng/L at presentation, a 0h/2h/ RELATIVE (percent, %) delta change of 20% is suggested to distinguish patients with acute vs. chronic myocardial injury. There are multiple etiologies that can cause hs-cTnT increases above the 99th percentile (myocardial injury) other than acute myocardial infarction. Clinical context and careful clinical evaluation are critical for diagnosis and risk-stratification. The diagnosis of acute myocardial infarction requires a rising and/or falling pattern in hs-cTnT concentrations with at least one value above the sex-specific 99th percentile PLUS at least one of the following clinical criteria: ischemic symptoms, new or presumed new significant ST-T wave changes or new LBBB, development of pathological Q waves, imaging evidence of new loss of viable myocardium or new regional wall motion abnormality, or identification of intracoronary atherothrombosis or an acute angiographic culprit on coronary angiography. In appropriate low-risk patients with a non-ischemic electrocardiogram without active chest pain with a symptom onset >3-hours without recurrence, a single initial hs-cTnT<6 ng/L identifies patient with a very low risk in emergency department patient population. us Sal Aguayo MD CHEMISTRY Final Res ult [facility] [address] [place] [address], * COVID-19 MOLECULAR (11/02/2024 9:30 PM CDT) COVID 19 [facility] MOLECULAR Not detected Not detected 11/02/2024 9:55 PM CDT [facility] 11/02/2024 9:55 PM CDT [facility] Comment:Specimen submitted t o [facility] for testing. Other SPECIMEN FROM NASOPHARYNGEAL STRUCTURE / Unknown Non-Blood / Unknown 11/02/2024 9:30 PM CDT 11/02/2024 9:34 PM CDT Sal Aguayo MD MICROBIOLOGY Final Res ult Performing Organization Address [facility] Co de Phone Number [facility] [address] [place] [address], * INFLUENZA A/B PCR (11/02/2024 9:30 PM CDT) Pathologist [facility] INFLUENZA A PCR NOT Detected 11/02/2024 9:55 PM CDT [facility] INFLUENZA B PCR NOT Detected 11/02/2024 9:55 PM CDT [facility] Other SPECIMEN FROM NASOPHARYNGEAL STRUCTURE / Unknown Non-Blood / Unknown 11/02/2024 9:30 PM CDT 11/02/2024 9:34 PM CDT Sal Aguayo MD MICROBIOLOGY Final Res ult Performing Organization Address [facility] Co de Phone Number [facility] [address] [place] [address], [place] [phone] * EKG 12 LEAD (11/02/2024 9:04 PM CDT) Only the most recent of3 resultswithin the time period is included. Pathologist [facility] Interpretation Sinus tachycardia Possible Left atrial enlargement Borderline ECG When compared with ECG of 08-Oct-2024 03:53, No significant change was found [facility] NOW Ventricular Rate 105 BPM BEYOND NOW Atrial Rate 105 BPM BEYOND NOW P-R Interval 144 ms BEYOND NOW QRS Duration 76 ms BEYOND NOW QT 334 ms BEYOND NOW QTc 441 ms BEYOND NOW P [place] 51 degrees BEYOND NOW R [place] 46 degrees BEYOND NOW T [place] 41 degrees BEYOND NOW 11/02/2024 9:04 PM CDT 11/02/2024 11:07 PM CDT Narrative [facility] - 11/02/2024 11:07 PM CDT Test Indication: HEART PROBLEM us Sal Aguayo MD EKG ORD Final Res ult [facility] [place], [place] * XR CHEST 2 VIEWS PA AND LATERAL (11/02/2024 6:50 PM CDT) Anatomical Region Laterality Modality CHEST, THORAX, Lung, HEART Compu theodore Radiography 11/02/2024 6:50 PM CDT Impressions 11/02/2024 7:06 PM CDT Heart is normal in size. Lungs are clear. Neurostimulator leads are noted overlying the spine. Narrative 11/02/2024 7:06 PM CDT For Patients: As a result of the Cures Act, medical imaging exams and procedure reports are released immediately into your electronic medical record. You may view this report before your referring provider. If you have questions, please contact your health care provider. EXAM: XR CHEST 2 VIEWS PA AND LATERAL LOCATION: [facility] DATE: 11/02/2024 INDICATION: Cough, Unspecified Type COMPARISON: 05/13/2024 Procedure Note Gonsalo Bullock MD - 11/02/2024 For Patients: As a result of the Cures Act, medical imagingexams and procedure reports are released immediately into your electronicmedical record. You may view this report before your referring provider.If you have questions, please contact your health care provider. EXAM: XR CHEST 2 VIEWS PA AND LATERAL [facility] DATE: 11/02/2024 INDICATION: Cough, Unspecified Type COMPARISON: 05/13/2024 IMPRESSION: Heart is normal in size. Lungs are clear. Neurostimulator leads are notedoverlying the spine. us Arin WHITLOCK GENERAL IMAGING Final Resu lt * COVID/FLU/RSV PANEL (NASAL) [[id number]] (11/02/2024 6:38 PM CDT) COVID 19 [facility] Negative Negative 11/02/2024 11:15 PM CDT [facility] Comment:All PCR tests are jasso bject to false negative result due to variability in viral load and collection technique. A negative result does not rule out a SARS-CoV-2 infection. Clinical correlation required. INFLUENZA A PCR Negative 11:15 PM CDT [facility] INFLUENZA B PCR Negative 11:15 PM CDT [facility] Respiratory Syncytial Virus Negative 11/02/2024 11:15 PM CDT [facility] Swab SPECIMEN FROM NASOPHARYNGEAL STRUCTURE / Unknown Non-Blood / Unknown 11/02/2024 6:38 PM CDT 11/02/2024 7:05 PM CDT us Arin WHITLOCK MICROBIOLOGY Final Resu lt [facility] [address] [place] [address], * SCAN-OPERATIVE/PROCEDURE REPORT (10/11/2024 9:30 AM CDT) Narrative Procedure Note Rodolfo Smith MD - 10/11/2024 8:29 AM CDT [facility] [address], [address] [place] [address] Patient Name: Lanie Barraza (Jenny) Gender: Female Exam Date: 10/11/2024 Visit Number: [id number] Age: 49 Years 4 Months : 1975 Attending MD: Rodolfo Smith MD Procedure: Upper GI Endoscopy Indications: Heartburn Provider: Rodolfo Smith MD Referring MD: Referral Self Primary MD: Yarelis Henderson MD Medications: Admitting Medication: 0.9% Normal Saline at TKO Ondansetron Hydrochloride (Zofran) given 4mg by IV Intra Procedure Medications: Patient received monitored anesthesia care. Complications: No immediate complications Procedure: An examination of the heart and lungs was performed within acceptablelimits. The patient was therefore deemed a reasonable candidate forendoscopy and monitored anesthesia care. The risks, benefits and plan were discussed to the patient and/or patientrepresentative and all questions answered. After obtaining informedconsent, the patient received monitored anesthesia care and I passed thescope. Throughout the procedure the patient's blood pressure, pulse and oxygensaturations were monitored. The scope was introduced through the mouthand advanced to the second portion of duodenum. Findings: Esophagus: The z-line is 35 centimeters from the incisors. Top of the gastricfolds is 35 centimeters from the incisors. Esophagitis. Location - distal esophagus. Description - Reflux. LAClassification - Grade B. Stomach: Normal stomach. The diaphragm hiatus is at 39 centimeters from the incisors. Large Hiatal Hernia. Normal mucosa. Duodenum: Normal duodenum. Impression: Hiatal hernia Gastroesophageal reflux disease with esophagitis without hemorrhage Plan: Antiplatelets/Anticoagulants: Apixaban (Eliquis). Last dose: 4 days ago. Bridging Antiplatelets/Anticoagulants: Enoxaparin (Lovenox) SQ. Last dose:2 days ago. Restart. Date: 10/11/2024 Recommendation Comments: Omeprazole 20 mg twice daily x 8 weeks. Escripted. Electronically Signed Rodolof Smith MD 10/11/2024 9:30 AM Medications: Medication Dose Sig Description PRN Status PRN Reason Comments duloxetine HCl UNKNOWN take 1 capsule by oral route 2 times every day Ntaking as directed Eliquis 5 mg tablet 5 mg take 1 tablet by oral route 2 times every day Ntaking as directed Lovenox 40 mg/0.4 mL subcutaneous syringe 40 mg/0.4 mL inject 0.4milliliter by subcutaneous route every month N taking as directed omeprazole 20 mg capsule,delayed release 20 mg take 1 capsule by oralroute 2 times every day 30 minutes to 1 hour before a meal N ondansetron 4 mg disintegrating tablet [address] 1 tablet by translingualroute every day on top of the tongue where they will dissolve, thenswallow N taking as directed Allergies: Medication Name Ingredient Reaction Comment MORPHINE PRESERVATIVE FREE rash DILAUDID HYDROMORPHONE HCL rash DILAUDID Vital Signs: Date Time Systolic Diastolic Height Weight BMI 10/11/2024 904 AM 135 81 64 in 279.99 48.10 Smoking Status: Use Status Type Smoking Status Usage Per Day Years Used Total Pack Years yes Former smoker yes Former smoker yes Former smoker yes Former smoker no/never Never smoker no/never Never smoker Race: White Ethnicity: Not or Preferred Language: ASL cc: Yarelis Henderson MD [facility] [phone] Rodolfo Smith MD OTHER Final Result * Protime - INR (10/08/2024 4:23 AM CDT) INR 1.0 <1.3 10/08/2024 4:39 AM T [facility] PROTIME 11.0 10.6 - 12.4 sec 10/08/2024 4:39 AM T [facility] Blood BLOOD SPECIMEN / Unknown Non-Lab Venipuncture / Unknown 10/08/2024 4:23 AM CDT 10/08/2024 4:29 AM CDT Narrative [facility] - 10/08/2024 4:39 AM CDT Therapeutic Range 2.0-3.0 for most anticoagulated patients 2.5-3.5 or 4.0 for high risk patients The INR is only used for patients on stable oral anticoagulant therapy. It makes no significant contribution to the diagnosis or treatment of patients whose Protime is prolonged for other reasons. INR results are increased when heparin levels exceed 1.0 U/mL, which corresponds to an aPTT >125 seconds if the patient is on UFH. Renato Blank MD HEMATOLOGY Final Res ult [facility] [address] [id number] [address] [place] [address] * PRO-BNP (10/08/2024 4:23 AM CDT) PRO-BNP <36 <125 pg/mL 10/08/2024 5:01 AM CDT [facility] Blood BLOOD SPECIMEN / Unknown Non-Lab Venipuncture / Unknown 10/08/2024 4:23 AM CDT 10/08/2024 4:29 AM CDT [facility] - 10/08/2024 5:01 AM CDT The following cut-points have been suggested for the use of proBNP for the diagnostic evaluation of heart failure (HF) in patient with acute dyspnea. Patients with eGFR >= 60 Diagnosis (rule in CHF) <50 Years Old 450 pg/mL 50 - 75 Years Old 900 pg/mL >75 Years Old 1800 pg/mL Exclusion (rule out CHF) Age Independent 300 pg/mL A cutoff of 1200 pg/mL for patients with an eGFR <60 yields a diagnostic sensitivity of 89% and specificity of 72% for acute congestive heart failure. Renato Blank MD SEND OUTS Final Res ult [facility] [address] [address] [address] [place] [address] * (ABNORMAL) LIPID PANEL W REFLEX MEASURED LDL (04/27/2024 1:06 PM CDT) CHOLESTEROL, TOTAL 203(H) <200 mg/dL [facility] HDL CHOLESTEROL 54 > OR = 50 mg/dL [facility] [employer] [facility] TRIGLYCERIDES 114 <150 mg/dL [facility] LDL-CHOLESTEROL 127(H) mg/dL (calc) [facility] Comment: Reference range: <100 Desirable range <100 mg/dL for primary prevention; <70 mg/dL for patients with CHD or diabetic patients with > or = 2 CHD risk factors. LDL-C is now calculated using the Marco Antonio calculation, which is a validated novel method providing better accuracy than the Friedewald equation in the estimation of LDL-C. Aftab SS et al. YOSSI. 2013;310(19): 6412-1353 (http://education.[employer]/faq/GXJ884) CHOL/HDLC RATIO 3.8 <5.0 (calc) [facility] NON HDL CHOLESTEROL 149(H) <130 mg/dL (calc) [facility] Comment: For patients with diabetes plus 1 major ASCVD risk factor, treating to a non-HDL-C goal of <100 mg/dL (LDL-C of <70 mg/dL) is considered a therapeutic option. Blood BLOOD SPECIMEN / Unknown 04/27/2024 1:06 PM CDT 04/27/2024 1:07 PM CDT Yarelis Henderson MD CHEMISTRY Final Resu lt [employer] [facility] [address] [place] [address], [place] [phone] [facility] [address] [place] [address] * ANTI HIV 1/2 [[id number]] (04/27/2024 1:06 PM CDT) HIV AG/AB, 4TH GEN NON-REACT ISABEL NON-REACT ISABEL [employer] [facility] Comment: HIV-1 antigen and HIV-1/HIV-2 antibodies were not detected. There is no laboratory evidence of HIV infection. PLEASE NOTE: This information has been disclosed to you from records whose confidentiality may be protected by state law. If your state requires such protection, then the state law prohibits you from making any further disclosure of the information without the specific written consent of the person to whom it pertains, or as otherwise permitted by law. A general authorization for the release of medical or other information is NOT sufficient for this purpose. For additional information please refer to http://education.[employer]/faq/GEJ469 (This link is being provided for informational/ educational purposes only.) The performance of this assay has not been clinically validated in patients less than 2 years old. Blood BLOOD SPECIMEN / Unknown 04/27/2024 1:06 PM CDT 04/27/2024 1:07 PM CDT Yarelis Henderson MD SEND OUTS Final Resu lt [employer] [facility] [address] [place] [address], [facility] [address] [place] [address] * XR MAMMO BILAT SCREENING (01/04/2024 11:10 AM HUMAN PERFORMANCE PROFESSOR) Anatomical Region Laterality Modality BREASTS, Breast Left, Breast Right Bilateral Mammography Impressions 01/05/2024 9:52 AM HUMAN PERFORMANCE PROFESSOR There is no radiographic evidence for malignancy. Recommend annual mammograms. MAMMOGRAM ASSESSMENT: ACR 1 Negative PATIENTS: You will also receive a letter with your examination results in an easy to read format. If you have questions about your results, please contact your referring provider. Narrative 01/05/2024 9:52 AM HUMAN PERFORMANCE PROFESSOR For Patients: As a result of the 21st Century Cures Act, medical imaging exams and procedure reports are released immediately into your electronic medical record. You may view this report before your referring provider. If you have questions, please contact your health care provider. XR MAMMO BILAT SCREENING [[id number]] CLINICAL HISTORY: This is an asymptomatic 48 y.o. patient. INDICATION FOR EXAM: Mammogram Screening. TECHNIQUE: CC & MLO views were obtained. This study was evaluated with the assistance of Computer-Aided Detection. COMPARISON FILM: Yes 07/28/22 [facility] 08/08/21 [facility] FINDINGS: There are scattered areas of fibroglandular density. There are no dominant masses, suspicious micro calcifications or areas of architectural distortion. us Yarelis Henderson MD MAMMO Final Resu lt * SCAN-COLONOSCOPY (01/14/2021 9:00 AM HUMAN PERFORMANCE PROFESSOR) Narrative Procedure Note Romie Barnett MD - 01/14/2021 8:15 AM CST [facility] [address] [place] [address], [address], [place] [address] Patient Name: Lanie Barraza Gender: Female Exam Date: 01/14/2021 Visit Number: [id number] Age: 45 Years Date of : 1975 Attending MD: Romie Barnett MD Medical Record#: [id number] Procedure: Colonoscopy Indications: Previous adenomatous polyp(s) Referring MD: Marvin Beckett MD Primary MD: Yarelis Henderson MD Medications: Admitting Medications: 0.9% Normal Saline at [facility] Intra Procedure Medications: Patient received monitored anesthesia care. Complications: No immediate complications Procedure: An examination of the heart and lungs was performed and found to be withinacceptable limits. . The patient was therefore deemed a reasonablecandidate for endoscopy and sedation. The risks and benefits of the procedure were explained to the patient.After obtaining informed consent, the patient received monitoredanesthesia care and I passed the scope without difficulty via the rectum to the cecum. The appendiceal orificeand ic valve were identified. The scope was retroflexed during theexamination The quality of the prep was good (Miralax/Gatorade/2 tabletsBisacodyl/Magnesium Citrate). This was a complete examination throughout the entire colon. Findings: Polyp location: transverse colon. Quantity: 1. Size: 2 mm. Polyp shape:sessile. Maneuver: polypectomy was performed with a cold biopsy forceps. Removal: complete. Retrieval: complete. Bleeding: none. Polyp location: sigmoid. Quantity: 1. Size: 4 mm. Polyp shape: flatlesion. Maneuver: polypectomy was performed with a cold snare . Removal: complete. Retrieval: complete. Bleeding: none. Polyps were > 1 cm apart from each other Diverticulosis. Location: - descending colon - sigmoid. Quantity:few. Anal canal: small internal hemorrhoid(s) Impression: Colorectal polyps Diverticulosis Internal hemorrhoids Preliminary Plan: The patient and their physician will receive a copy of the pathologyreport as well as pathology-based recommendations for future screening orsurveillance. for polyp surveillance Antiplatelets/Anticoagulants: Warfarin (Jantoven or Coumadin). Last dose:5 days ago. Restart. Date: 01/15/2021 Pathology Results: A: COLON, TRANSVERSE, POLYP: 1. Normal colonic mucosa; a lymphoid aggregate is present 2. Negative for serrated change, dysplasia, and malignancy B: COLON, SIGMOID, POLYP: 1. Sessile serrated adenoma 2. Negative for overt dysplasia 3. Per the colonoscopy report: a. Polyp size: 4 mm b. Resection: Complete c. Retrieval: Complete MICROSCOPIC A: Performed B: Performed Electronically signed by: Logan [place] [address] Orders Instruction(s)/Education: Instruction/Education Timeframe Assessment Colon Cancer Prevention K63.5 Colon Polyps K63.5 Diverticulosis/Diverticulitis K63.5 Hemorrhoids K63.5 high fiber diet K63.5 Final Plan: Repeat colonoscopy in 5 years for Polyp surveillance. We will attempt to contact you at appropriate intervals via U.S. mail. Wemay not be able to find you or contact you at that time, therefore youshould know that the responsibility for following our recommendation restswith you. If you don't hear from us at the time your procedure is due,please contact our office to schedule an appointment. If your contactinformation should change, please contact our office so that we can updateyour record. _Electronically signed by: Romie Barnett MD 01/14/2021 cc: Yarelis Henderson MD cc: Marvin Beckett MD Romie Barnett MD OTHER Cynthia l Result from Last 3 Months or Most Recently Relevant to Health Maintenance Insurance R BLUE CROSS OF [facility] Advance Directives * Full Code (Latest Code Status on File) Date Activated Date Inactivated Comments 06/03/2024 1:41 AM 06/04/2024 4:46 PM Question Answer Comments Code Status Discussion: Reviewed Preferences Care Teams Aerospace Medicine Physician Relationship Specialty Start Date End Date Yarelis Henderson MD PCP - General 03/13/08 Bere Loco MD Consulting Physician Cardiovascular Disease 05/04/14 Golden Saavedra PA Consulting Physician Physician Software Quality Assurance Analyst 06/24/22 Markell Myrick MD [address] [id number] Consulting Physician Surgery - General 04/30/23 Ewa Brito RN [address] [id number] Production Supervisor Trainee Registered Nurse 04/30/[address] [place], [place] [address] Registered Dietitian 03/08/24 Ayanna Rebolledo, CAREER DEVELOPMENT COORDINATOR [address] [address] Sleep Medicine 03/09/24
[2025-01-06 18:59] VITALS: BP 127/84; PULSE 83; RESP 18; TEMP 36.8; O2SAT 95
--- NOTE | 2025-01-06 19:35 | ED.CHESTPAIN ---
HPI - Chest Pain General Time Seen by Provider: 19:47 Date Seen: 01/06/25 Chief Complaint: Chest Pain Stated Complaint: Left chest and arm painful Time Seen by Provider: 01/06/25 19:34 Source: patient Limitations: language barrier (ASL, director stars used) History of Present Illness HPI narrative: 49-year-old female who presents today with left chest and arm pain. This is been constant since yesterday, started little bit the day before. Pain is worse with movement goes into the upper arm on the left. No known injury, nausea when the pain gets bad but no vomiting. Pain is worse with movement if she takes big breath but no shortness of breath. Chronic neck pain which is unchanged. Taking Tylenol for this improvement. Has taken gabapentin for nerve pain in the past which does not seem to help for her. Related Data Home Medications ?Medication ?Instructions ?Recorded ?Confirmed apixaban 5 mg tablet (Eliquis) 5 mg PO BID 01/06/25 01/06/25 buprenorphine HCl 75 mcg buccal 75 mcg buccal Q12H 01/06/25 01/06/25 film (Belbuca) duloxetine 60 mg capsule,delayed 60 mg PO QPM 01/06/25 01/06/25 release enoxaparin 40 mg/0.4 mL mg DAILY 01/06/25 subcutaneous syringe meclizine 25 mg tablet 25 mg PO 3XD PRN vertigo 01/06/25 01/06/25 methocarbamol 500 mg tablet 1,000 mg PO 3XD 01/06/25 01/06/25 metoprolol succinate 25 mg 25 mg PO DAILY 01/06/25 01/06/25 tablet,extended release 24 hr omeprazole 20 mg capsule,delayed 20 mg PO BID 01/06/25 01/06/25 release suzetrigine 50 mg tablet (Journavx) mg PO 01/06/25 Allergies Allergy/AdvReac Type Severity Reaction Status Date / Time hydromorphone (From Dilaudid) Allergy Severe Verified 01/06/25 19:08 morphine Allergy Severe Verified 01/06/25 19:08 Exam Narrative Exam Narrative: General: Well-developed and well-nourished, no acute distress Head: Atraumatic and normocephalic Eyes: Pupils are equal reactive, extraocular motions intact, conjunctiva clear ENT: External nose and ears are normal, posterior pharynx without erythema or exudate Neck: No midline cervical tenderness, full spontaneous range of motion the neck, trachea midline, no adenopathy Heart: Regular rate and rhythm no murmurs or thrills. Marked tenderness of left anterior chest wall, left lateral chest wall, and left trapezius with no tenderness of left upper arm Lungs: Clear to auscultation bilaterally without wheezes or crackles Abdomen: Soft, nontender, nondistended with active bowel sounds Musculoskeletal: No tenderness, deformity, or edema Neurologic: Awake, alert, and oriented x3, no gross focal neurologic deficits, cranial nerves intact as tested Psych: Mood and affect are appropriate Skin: No rashes Const Vital Signs, click to edit/add: Vital Signs - 24 hr 01/06/25 18:59 Temperature 98.3 F Pulse Rate [Right Pulse Oximeter] 83 Respiratory Rate 18 Blood Pressure [Right Upper Arm] 127/84 Pulse Oximetry 95 Oxygen Delivery Method Room Air Course Course ED Course: Additional records reviewed: Prior emergency department visit November 02 which was for pleuritic chest pain and cough along with sinus congestion, at that time negative CT PE study, no D-dimer was done Additional history from: Care impacted by: Testing considered but not performed: See ED course Patient with history of chronic neck and back pain who comes in today with chest pain. This is been constant and is described as burning, going on for 2 days, worse with movement and breathing. On exam vital is stable, tenderness of the left chest and left axilla area reproduces patient's complaint, also tenderness of the left cervical paraspinous musculature which patient says is not unusual for her. Strength and sensation of the left arm intact, Heart lungs are regular. Symptoms are most consistent with musculoskeletal pain, there could be neuropathic component as well. Given allergy listed patient on chronic anticoagulation, cannot have Dilaudid, morphine, or Toradol. Foot low, Flexeril or ordered. Labs are ordered to evaluate for ACS or other cause of patient's symptoms. If this is negative, anticipate discharge. Did consider CT PE study but no pleuritic pain, no tachycardia hypoxia, cannot PERC patient out as she is high risk but she also is chronically anticoagulated and has not missed any doses of her medications. Reevaluation(s) Time of Reevaluation #1: 20:19 Reevaluation #1: EKG independently interpreted by me performed at 8:12 p.m. demonstrates normal sinus rhythm rate 76, AK 162, QRS 90, acute ischemic changes intervals, normal axis, no prior comparison. Time of Reevaluation #2: 20:53 Reevaluation #2: Labs independently interpreted by me as normal CBC, normal basic panel, normal magnesium. Troponin is pending, anticipate discharge. Time of Reevaluation #3: 20:58 Reevaluation #3: Labs independently interpreted by me with troponin 0, given the symptoms have been constant for 2 days, no repeat troponin ordered. Patient is stable for discharge. She still having pain, additional final ordered and patient discharged with oxycodone Flexeril, and be given a dose of Decadron prior to discharge. Also will discharge with Zofran. Vital Signs Vital signs: Initial Vital Signs Temperature 98.3 F 01/06/25 18:59 Temperature Source Temporal Artery Scan 01/06/25 18:59 Pulse Rate 83 01/06/25 18:59 Pulse Rhythm Regular 01/06/25 18:59 Pulse Strength 3+ Normal 01/06/25 18:59 Respiratory Rate 18 01/06/25 18:59 Blood Pressure 127/84 01/06/25 18:59 Blood Pressure Mean 98 01/06/25 18:59 Blood Pressure Position Sitting 01/06/25 18:59 Pulse Oximetry 95 01/06/25 18:59 Oxygen Delivery Method Room Air 01/06/25 18:59 Vital Signs Temperature 98.3 F 01/06/25 18:59 Pulse Rate 83 01/06/25 18:59 Respiratory Rate 18 01/06/25 18:59 Blood Pressure 127/84 01/06/25 18:59 Pulse Oximetry 95 01/06/25 18:59 Oxygen Delivery Method Room Air 01/06/25 18:59 Temperature 98.3 F 01/06/25 18:59 Pulse Rate 83 01/06/25 18:59 Respiratory Rate 18 01/06/25 18:59 Blood Pressure 127/84 01/06/25 18:59 Pulse Oximetry 95 01/06/25 18:59 Oxygen Delivery Method Room Air 01/06/25 18:59 Medications Administered Medications: Generic Name Dose Route Start Last Admin Trade Name Freq PRN Reason Stop Dose Admin Cyclobenzaprine HCl 10 mg 01/06/25 19:44 01/06/25 20:12 Cyclobenzaprine Hcl 10 Mg Tablet PO 01/06/25 19:45 10 mg ONCE ONE Administration Fentanyl 50 mcg 01/06/25 19:47 01/06/25 20:17 Fentanyl 100 Mcg/2 Ml Inj IVP 01/06/25 19:48 50 mcg ONCE ONE Administration Ondansetron HCl 4 mg 01/06/25 20:40 01/06/25 20:49 Ondansetron 2 Mg/Ml Inj IVP 01/06/25 20:41 4 mg ONCE ONE Administration Discontinued Medications Generic Name Dose Route Start Last Admin Trade Name Winter PRN Reason Stop Dose Admin Ketorolac Tromethamine 15 mg 01/06/25 19:44 01/06/25 20:13 Ketorolac 15 Mg/Ml Inj IVP 01/06/25 19:45 15 mg ONCE ONE Administration MDM - Chest Pain Lab Data Labs: Lab Results 01/06/25 Range/Units 20:09 WBC 8.51 (4.50-11.00) K/uL RBC 4.87 (4.00-5.20) m/uL Hgb 13.3 (12.0-16.0) gm/dL Hct 41.6 (33.0-51.0) % MCV 85 (80-100) fL MCH 27 (26-34) pg MCHC 32 (32-36) gm/dL RDW Coeff of Sam 13.3 (11.5-15.5) % Plt Count 287 (140-440) K/uL Neut % (Auto) 49.6 (42.0-72.0) % Lymph % (Auto) 38.7 (20-44) % [place] % (Auto) 8.9 (0.0-11.0) % Eos % (Auto) 2.0 (0.0-7.0) % Baso % (Auto) 0.6 (0.0-3.0) % Neut # (Auto) 4.22 (1.7-7.0) K/uL Lymph # (Auto) 3.29 H (0.90-2.90) K/uL [place] # (Auto) 0.80 (0.00-0.90) K/UL Eos # (Auto) 0.17 (0.00-0.50) K/uL Baso # (Auto) 0.05 (0.00-0.30) K/uL Abs Immat Gran (auto) 0.02 (0.00-0.30) K/uL Imm/Tot Granulo (auto) 0.2 % Sodium 139 (135-149) mmol/L Potassium 3.6 (3.6-5.1) mmol/L Chloride 101 (96-114) mmol/L Carbon Dioxide 29 (20-32) mmol/L Anion Gap 9 (7-15) mEq/L BUN 17 (7-30) mg/dL Creatinine 0.9 (0.5-1.5) mg/dL Estimated GFR 77 ml/min Glucose 141 H (60-115) mg/dL Calcium 9.0 (8.4-10.6) mg/dL Magnesium 2.2 (1.5-2.6) mg/dL Discharge Plan Discharge Clinical Impression: Chest wall pain, Arm pain, left Patient Disposition: Home, Self-Care Condition: Stable Instructions: Noncardiac Chest Pain (ED), Chest Wall Pain (ED) Additional Instructions: Continue Tylenol for pain Take oxycodone as needed for more severe pain and Flexeril for spasm Activity Level: No Restrictions Discharge Diet: Regular Prescriptions: No Action methocarbamol 500 mg tablet 1,000 mg PO 3XD meclizine 25 mg tablet 25 mg PO 3XD PRN (Reason: vertigo) omeprazole 20 mg capsule,delayed release(DR/EC) 20 mg PO BID metoprolol succinate 25 mg tablet extended release 24 hr 25 mg PO DAILY enoxaparin 40 mg/0.4 mL syringe DAILY duloxetine 60 mg capsule,delayed release(DR/EC) 60 mg PO QPM Eliquis 5 mg tablet 5 mg PO BID buprenorphine HCl [Belbuca] 75 mcg film 75 mcg buccal Q12H Journavx 50 mg tablet PO Patient Comments: TAKE 2 TABLETS BY MOUTH FOR 1ST DOSE, THEN 1 TABLET EVERY 12 HOURS AFTER Stand Alone Forms: [facility] Info Instructions
[2025-01-06] MEDS: CYCLOBENZAPRINE HCL 10 MG TABLET PO (20:12)
[2025-01-06 20:15] LABS: Hematocrit* 41.6 % (33.0-51.0); Hemoglobin* 13.3 gm/dL (12.0-16.0); Immature Granulocytes Abs Auto 0.02 K/uL (0.00-0.30); Immature Granulocytes Pct Auto 0.2 %; Lymphocytes Absolute Auto 3.29 K/uL (0.90-2.90); Mean Corpuscular HGB Conc 32 gm/dL (32-36); Mean Corpuscular Hemoglobin 27 pg (26-34); Mean Corpuscular Volume 85 fL (80-100); RDW Coefficient of Variation % 13.3 % (11.5-15.5); Red Blood Count* 4.87 m/uL (4.00-5.20); White Blood Count* 8.51 K/uL (4.50-11.00)
[2025-01-06 20:21] LABS: Slide Review Reflex No
[2025-01-06 20:27] LABS: Chloride* 101 mmol/L (96-114)
[2025-01-06 20:28] LABS: Potassium* 3.6 mmol/L (3.6-5.1); Sodium* 139 mmol/L (135-149)
[2025-01-06 20:31] LABS: Anion Gap 9 mEq/L (7-15); Blood Urea Nitrogen* 17 mg/dL (7-30); Calcium* 9.0 mg/dL (8.4-10.6); Carbon Dioxide* 29 mmol/L (20-32); Creatinine* 0.9 mg/dL (0.5-1.5); Estimated Glomerular Filt Rate 77 ml/min; Glucose* 141 mg/dL (60-115)
[2025-01-06] MEDS: ONDANSETRON 2 MG/ML inj 4 MG IVP (20:49)
[2025-01-06] MEDS: DEXAMETHASONE 10 MG/ML PF IVP (21:25)
== END 2025-01-06 21:47 | disposition home or self-care (01) ==
LOC: ED 20:03
PROVIDERS: Emergency Provider Family Medicine
DX: R07.89 Other chest pain (principal); M79.602 Pain in left arm; Z79.01 Long term (current) use of anticoagulants
CPT/HCPCS: 36415; 80048; 83735; 84484; 85025; 93005; 96374; 96375; 99284; A9270; J1100; J1885; J2405; J3010

== ENCOUNTER 2025-01-17 17:22 | Emergency (ER) | payer BC, SELFPAY ==
--- OUTSIDE RECORDS SUMMARY | 2025-01-17 17:25 | XMS_ITS | Encounter Summary ---
Author Organization [place] Address [facility] [place] [address] Care Team Providers Care Printed Circuit Photographer Name Role Phone Yarelis Henderson MD Primary Care Provider [phone] Leo Lopez PA-C Unavailable [phone] Talisha Roth MD Unavailable [phone] Palak Lazcano MD Unavailable [phone] Phoebe Mchugh MD Unavailable [phone] Anna Pritchett MD Unavailable [phone] Phoebe Mchugh MD Unavailable [phone] Anna Pritchett MD Unavailable [phone] Reason for Visit * Reason Onset Date Comments Call Back 08/25/2022 Pt referred for Intradural mass (H) w/ Dr Mchugh Encounter Details Date Type Department Care Team (Late st Contact Info) Description 08/25/2022 Telephone [facility] Physical Medicine and Rehabilitation Clinic [place] [address] [facility] 3rd [place] [address] Phoebe Mchugh MD [address] [facility] [address] [place] [address] Call Back (Pt referred for [...] on file Legal Sex Female 4:44 AM INSTRUMENT TECHNICIAN APPRENTICE Gender Identity Not on file Sexual [...] st Contact Info) Description 02/28/2025 1:00 PM INSTRUMENT TECHNICIAN APPRENTICE Office Visit [facility] Neurosurgery Clinic [address] 3rd [place] [address] Anna Pritchett MD [address] [place] [address] [id number] [place] [address] documented as of this encounter Visit Diagnoses Not on filedocumented in this encounter Additional Health Concerns Infection Onset Date Last Indicated Resolved Time Rule Out COVID-19 03/06/2023 03/06/2023 03/06/2023 10:41 PM INSTRUMENT TECHNICIAN APPRENTICE Rule Out COVID-19 10/01/2024 10/01/2024 10/02/2024 12:19 AM CDT Assessment Noted Time PHQ-9 Depression Total Score: 17 023 10:15 AM CDT documented as of this encounter Care Teams Printed Circuit Photographer Relationship Specialty [place] [address] [place] [address] PCP - General 07/24/10 Leo Lopez PA-C [address] [place] [address] Assigned Neuroscience Provider 05/19/21 09/05/22 Talisha Roth MD [address] [place] [address] Assigned Surgical Provider 09/21/21 05/08/23 [place] [address] [place] [address] Pain Medicine 06/25/22 Phoebe Mchugh MD [address] [address] Physical Medicine and Rehabilitation 09/10/22 Anna Pritchett MD [address] [place] [address] Assigned Neuroscience Provider 09/06/22 10/17/22 Phoebe Mchugh MD [address] [address] Assigned Neuroscience Provider 10/18/22 03/11/23 Anna Pritchett MD [address] [place] [address] Assigned Neuroscience Provider 03/12/23 09/06/24 documented as of this encounter
--- OUTSIDE RECORDS SUMMARY | 2025-01-17 17:25 | XMS_ITS | Clinical Summary ---
Author Organization [place] Address [address] [place] [address] Care Team Providers Care Development Chemist Name Role Phone Yarelis Henderson MD Primary Care Provider [phone] Palak Lazcano MD Unavailable [phone] Phoebe Mchugh MD Unavailable [phone] Allergies Active Allergy Reactions Criticality Noted [...] (10/30/2010): Patient received Methotrexate on 10/28/2010. Following [facility] Gastroesophageal reflux disease without esophagi tis 07/07/2008 [...] Type Department Care Team Description 12/20/2024 Telephone [facility] Neurosurgery Clinic [address] [place] [address] Anna Pritchett MD from Last [...] on file Legal Sex Female 4:44 AM ROBOTIC WELDER Gender Identity Not on file Sexual Orientation [...] st Contact Info) Description 02/28/2025 1:00 PM ROBOTIC WELDER Office Visit [facility] Neurosurgery Clinic [address] [place] [address] Anna Pritchett MD [address] [place] [address] [id number] [place] [address] Health Maintenance Due Date Last Done Comments [...] this topic Medical Devices Explanted Type Area Commissioner Of Internal Revenue Device Identifier Shelf Expiration Date Model / Serial / Lot Stent Cotton Caal ([employer]) Biliary [id number] Implanted:Qty: 1 on 07/20/2012 by Hetal Greene MD at [facility] Explanted:Qty: 1 on 08/27/2012 by Hetal Greene MD at [facility] N/A: Bile Duct 03/12/2015 [id number] / / [id number] Procedures Procedure Name Priority Date/Time Associated Diagnosis [...] LAB - BLOOD ORDERABLES Final Res [facility] Lab [address] [facility] Lab (1st floor, no room number) [place] [address], RUST * MA Screening Digital Bilateral (07/28/2022 9:27 [...] Advance Directives For more information, please contact: [phone] Documents on File Type Date Recorded Patient Assembly Adjuster Expl anation Advance Directives and Living Will [...] 11:35 AM 11/10/2010 2:56 PM Care Teams Development Chemist Relationship Specialty Start [place] [address] [place] [address] PCP - General 07/24/10 [place] [address] [place] [id number] Pain Medicine 06/25/22 Phoebe Mchugh MD 420 [facility] [address] [place], [place] [address] Physical Medicine and Rehabilitation 09/10/22
--- OUTSIDE RECORDS SUMMARY | 2025-01-17 17:25 | XMS_ITS | Encounter Summary ---
Author Organization [place] Address [facility] [place] [address] Care Team Providers Care Backrest Assembler Name Role Phone Yarelis Henderson MD Primary Care Provider eLo Lopez PA-C Unavailable [phone] Talisha Roth MD Unavailable [phone] Lonnie Cadet MD Unavailable + Palak Lazcano MD Unavailable [phone] Phoebe Mchugh MD Unavailable [phone] Anna Pritchett MD Unavailable [phone] Phoebe Mchugh MD Unavailable [phone] Anna Pritchett MD Unavailable [phone] Encounter Details Date Type Department Care Team (Late st Contact Info) Description 08/12/2022 [facility] Medical Advice [facility] Pain Management [address] [address] Radha Chance RN Social History [...] on file Legal Sex Female 4:44 AM INCLUSION MANAGER Gender Identity Not on file Sexual [...] st Contact Info) Description 02/28/2025 1:00 PM INCLUSION MANAGER Office Visit [facility] Neurosurgery Clinic [address] [place] [address] Anna Pritchett MD [address] [place] [address] [id number] [place], [place] [address] documented as of this encounter Visit Diagnoses Not on filedocumented in this encounter Additional Health Concerns Infection Onset Date Last Indicated Resolved Time Rule Out COVID-19 03/06/2023 03/06/2023 03/06/2023 10:41 PM INCLUSION MANAGER Rule Out COVID-19 10/01/2024 10/01/2024 10/02/2024 12:19 AM CDT Assessment Noted Time PHQ-9 Depression Total Score: 17 023 10:15 AM CDT documented as of this encounter Care Teams Backrest Assembler Relationship Specialty [place] [address] [place] [address] PCP - General 07/24/10 Leo Lopez PA-C [address] [facility] [address] [place] [address] Assigned Neuroscience Provider 05/19/21 09/05/22 Talisha Roth MD [address] [facility] [address] [place] [address] Assigned Surgical Provider 09/21/21 05/08/23 [place] [address] [place] [address] Assigned Pain Medication Provider 02/24/22 08/15/22 [place] [address] [place] [address] Pain Medicine 06/25/22 Phoebe Mchugh MD [address] [address] Physical Medicine and Rehabilitation 09/10/22 Anna Pritchett MD [address] [place] [address] Assigned Neuroscience Provider 09/06/22 10/17/22 Phoebe Mchugh MD [address] [address] Assigned Neuroscience Provider 10/18/22 03/11/23 Anna Pritchett MD [address] [address] Assigned Neuroscience Provider 03/12/23 09/06/24 documented as of this encounter
--- OUTSIDE RECORDS SUMMARY | 2025-01-17 17:25 | XMS_ITS | Encounter Summary ---
Author Organization [place] Address [address] [place] [address]. [place] [address] Care Team Providers Care Media Manager Name Role Phone Yarelis Henderson MD Primary Care Provider [phone] Palak Lazcano MD Unavailable [phone] Phoebe Mchugh MD Unavailable [phone] Encounter Details Date Type Department Care Team (Late st Contact Info) Description 12/20/2024 Telephone [facility] [address] 3rd [place] [address] Anna Pritcehtt MD [address] [place] [address] [id number] [place], [place] [address] Social History Tobacco Use Types Packs/Day Years [...] on file Legal Sex Female 4:44 AM DIRECTOR SOCIAL SERVICE Gender Identity Not on file Sexual Orientation Not on file documented as of this encounter Miscellaneous Notes * Telephone Encounter - Francisco Javier Henning - 12/20/2024 12:05 PM CST LVM- Please help pt schedule MRI prior to seeing Dr Pritchett in February 2025. CTOR SOCIAL SERVICE documented in this encounter Plan of Treatment Upcoming Encounters Date Type Department Care Team (Late st Contact Info) Description 02/28/2025 1:00 PM DIRECTOR SOCIAL SERVICE Office Visit [facility] [address] 3rd [place] [address] Anna Pritchett MD [address] [place], [place] [address]J [place], [place] [address] documented as of this encounter Visit Diagnoses Not on filedocumented in this encounter Additional Health Concerns Assessment Noted Time PHQ-9 Depression Total Score: 17 023 10:15 AM CDT documented as of this encounter Care Teams Media Manager Relationship Specialty [place] [address] [address] [place], [place] [address] PCP - General 07/24/10 [place] [address] [place] [address] Pain Medicine 06/25/22 Phoebe Mchugh MD 420 [facility] 297 [place], [place] [address] Physical Medicine and Rehabilitation 09/10/22 documented as of this encounter
--- OUTSIDE RECORDS SUMMARY | 2025-01-17 17:25 | XMS_ITS | Encounter Summary ---
Author Organization [place] Address [facility]0 [facility] [place] [address] Care Team Providers Care Fisher Gill Net Name Role Phone Yarelis Henderson MD Primary Care Provider [phone] Talisha Roth MD Unavailable [phone] Palak Lazcano MD Unavailable [phone] Phoebe Mchugh MD Unavailable [phone] Phoebe Mchugh MD Unavailable [phone] Anna Pritchett MD Unavailable [phone] Encounter Details Date Type Department Care Team (Late st Contact Info) Description 11/27/2022 MyC Medical Advice [facility] Medicine and Rehabilitation Clinic [place] [address] [facility] 3rd [place] [address] Phoebe Mchugh MD 420 [facility] 297 [place] [address] Social History Tobacco Use Types [...] on file Legal Sex Female 4:44 AM TOLL BRIDGE ATTENDANT Gender Identity Not on file Sexual Orientation Not on file documented as of this encounter Plan of Treatment Upcoming Encounters Date Type Department Care Team (Late st Contact Info) Description 02/28/2025 1:00 PM TOLL BRIDGE ATTENDANT Office Visit [facility] [address] 3rd [place] [address] Anna Pritchett MD [address] [place] [address] [id number] [place], [place] [address] documented as of this encounter Visit Diagnoses Not on filedocumented in this encounter Additional Health Concerns Infection Onset Date Last Indicated Resolved Time Rule Out COVID-19 03/06/2023 03/06/2023 03/06/2023 10:41 PM TOLL BRIDGE ATTENDANT Rule Out COVID-19 10/01/2024 10/01/2024 10/02/2024 12:19 AM CDT Assessment Noted Time PHQ-9 Depression Total Score: 17 023 10:15 AM CDT documented as of this encounter Care Teams Fisher Gill Net Relationship Specialty [place] [address] [place] [address] PCP - General 07/24/10 Talisha Roth MD [address] [facility] [address] [place], [place] [address] Assigned Surgical Provider 09/21/21 05/08/23 [place] [address] [place] [address] Pain Medicine 06/25/22 Phoebe Mchugh MD 420 [facility] 297 [place] [address] Physical Medicine and Rehabilitation 09/10/22 Phoebe Mchugh MD [address] [place] [address] Assigned Neuroscience Provider 10/18/22 03/11/23 Anna Pritchett MD [address] [place], [place] [address] [address] Assigned Neuroscience Provider 03/12/23 09/06/24 documented as of this encounter
--- OUTSIDE RECORDS SUMMARY | 2025-01-17 17:25 | XMS_ITS | Encounter Summary ---
Author Organization [place] Address [facility]0 [facility] [place] [address] Care Team Providers Care Nuclear Medicine Technologist Name Role Phone Yarelis Henderson MD Primary Care Provider [phone] Talisha Roth MD Unavailable [phone] Palak Lazcano MD Unavailable [phone] Phobee Mchugh MD Unavailable [phone] Phoebe Mchugh MD Unavailable [phone] Anna Pritchett MD Unavailable [phone] Encounter Details Date Type Department Care Team (Late st Contact Info) Description 02/12/2023 MyC Medical Advice [facility] Neuro[facility] Clinic [address] [place] [address] Anna Pritchett MD [address] [place] [address] [id number] [place] [address] Social History Tobacco Use Types [...] on file Legal Sex Female 4:44 AM PROMOTIONAL DEMONSTRATOR Gender Identity Not on file Sexual Orientation Not on file documented as of this encounter Miscellaneous Notes * Telephone Encounter - Lani Leiva LPN - 02/13/2023 10:02 AM CSTSummary: Dr. Pritchett Attn; Jann Aaron, RNCC for Dr. Pritchett *Patient requesting medication for imaging. eNlly Leiva LPN Neurosurgery OTIONAL DEMONSTRATOR documented in this encounter Plan of Treatment Upcoming Encounters Date Type Department Care Team (Late st Contact Info) Description 02/28/2025 1:00 PM PROMOTIONAL DEMONSTRATOR Office Visit [facility] Neuro[facility] Clinic [address] 3rd [place] [phone] Anna Pritchett MD [address] [place] [address] [id number] [place] [address] documented as of this encounter Visit Diagnoses Not on filedocumented in this encounter Additional Health Concerns Infection Onset Date Last Indicated Resolved Time Rule Out COVID-19 03/06/2023 03/06/2023 03/06/2023 10:41 PM PROMOTIONAL DEMONSTRATOR Rule Out COVID-19 10/01/2024 10/01/2024 10/02/2024 12:19 AM CDT Assessment Noted Time PHQ-9 Depression Total Score: 17 023 10:15 AM CDT documented as of this encounter Care Teams Nuclear Medicine Technologist Relationship Specialty [place] [address] [place] [place] [address] PCP - General 07/24/10 Talisha Roth MD [address] [facility] [address] [place], [place] [address] Assigned Surgical Provider 09/21/21 05/08/23 [place] [address] [place] [address] Pain Medicine 06/25/22 Phoebe Mchugh MD [address] [address] Physical Medicine and Rehabilitation 09/10/22 Phoebe Mchugh MD [address] [address] Assigned Neuroscience Provider 10/18/22 03/11/23 Anna Pritchett MD 909 [facility]2121CJ [place] [address] Assigned Neuroscience Provider 03/12/23 09/06/24 documented as of this encounter
--- OUTSIDE RECORDS SUMMARY | 2025-01-17 17:25 | XMS_ITS | Encounter Summary ---
Author Organization [place] Address [facility]0 [facility] [address] Care Team Providers Care Warehouse Inventory Clerk Name Role Phone Yarelis Henderson MD Primary Care Provider Leo Lopez PA-C Unavailable [phone] Talisha Roth MD Unavailable [phone] Lonnie Cadet MD Unavailable + Palak Lazcano MD Unavailable [phone] Phoebe Mchugh MD Unavailable [phone] Anna Pritchett MD Unavailable [phone] Phoebe Mchugh MD Unavailable [phone] Anna Pritchett MD Unavailable [phone] Encounter Details Date Type Department Care Team (Late st Contact Info) Description 08/06/2022 MyC Medical Advice [facility] [address] [place] [address] 600 [place] [address] [place], [place] Social History Tobacco Use Types [...] on file 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 Gender Identity Not on file [...] st Contact Info) Description 02/28/2025 1:00 PM TRANSPORT TRUCK DRIVER Office Visit [facility] Neuro[facility] [address] 3rd [place] [address] Anna Pritchett MD [address] [place] [address] [id number] [place], [place] [address] documented as of this encounter Visit Diagnoses Not on filedocumented in this encounter Additional Health Concerns Infection Onset Date Last Indicated Resolved Time Rule Out COVID-19 03/06/2023 03/06/2023 03/06/2023 10:41 PM TRANSPORT TRUCK DRIVER Rule Out COVID-19 10/01/2024 10/01/2024 10/02/2024 12:19 AM CDT documented as of this encounter Care Teams Warehouse Inventory Clerk Relationship Specialty [place] [address] [place], [place] [address] PCP - General 07/24/10 Leo Lopez PA-C [address] [facility] [address] [place], [place] [address] Assigned Neuroscience Provider 05/19/21 09/05/22 Talisha Roth MD [address] [facility] [address] [place] [address] Assigned Surgical Provider 09/21/21 05/08/23 [place] [address] [place] [address] Assigned Pain Medication Provider 02/24/22 08/15/22 [place] [address] [place] [address] Pain Medicine 06/25/22 Phoebe Mchugh MD [address] [place] [address] Physical Medicine and Rehabilitation 09/10/22 Anna Pritchett MD [address] [place] [address] Assigned Neuroscience Provider 09/06/22 10/17/22 Phoebe Mchugh MD [address] [place] [address] Assigned Neuroscience Provider 10/18/22 03/11/23 Anna Pritchett MD [address] [place] [address] Assigned Neuroscience Provider 03/12/23 09/06/24 documented as of this encounter
--- OUTSIDE RECORDS SUMMARY | 2025-01-17 17:25 | XMS_ITS | Encounter Summary ---
Author Organization [place] Address [address] [place] [address]. [place] [address] Care Team Providers Care Milling Machinist Name Role Phone Yarelis Henderson MD Primary Care Provider [phone] Talisha Roth MD Unavailable [phone] Palak Lazcano MD Unavailable [phone] Phoebe Mchugh MD Unavailable [phone] Phoebe Mchugh MD Unavailable [phone] Anna Pritchett MD Unavailable [phone] Reason for Visit * Reason Onset Date Comments Clinic Care Coordination - Follow-up 11/19/2022 Encounter Details Date Type Department Care Team (Latest Contact Info) Description 11/19/2022 [facility] Medical Advice [facility] Physical Medicine and Rehabilitation Clinic [address] 3rd [place] [address] [facility] Care Coordination [...] on file Legal Sex Female 4:44 AM SEARCH ENGINE OPTIMIZATION ANALYST Gender Identity Not on file Sexual Orientation Not on file documented as of this encounter Miscellaneous Notes * Telephone Encounter - Jodi Justice RN - 11/25/2022 10:22 AM CDT Called and spoke with patient. She would like to proceed with getting the injection with Dr. Mchugh at the [facility] at the [facility]. She states she has [...] with her procedure. JOCELYN GrahamN RN RN Power Tool Repair Technician for Physical Medicine and Rehabilitation [facility] [address] [address] Office: [phone] * Telephone Encounter - Jayda Elias - 11/24/2022 4:38 PM CDT [facility] Phone Message May a detailed message be left on voicemail: yes Reason for Call: Other: Patient is returning phone call, please call back at [phone]. Action Taken: Message routed to: [facility] ([facility]): [facility] Phys Med & Rehab Travel Screening: Not Applicable * Telephone Encounter - Jodi Justice RN - 11/24/2022 3:[address] Mchugh: Seems that she was scheduled with the pain clinic but they are unable to complete it. We can reschedule at [facility]. Does she want to go [...] patient back at her requested phone # [phone], no answer. The [email or web address] phone messaging mobile unit assistant left patient a VM that this [...] Chart as well. JOCELYN GrahamN RN RN Power Tool Repair Technician for Physical Medicine and Rehabilitation [facility] - [address] [address] Office: [phone] documented in this encounter Plan of Treatment Upcoming Encounters Date Type Department Care Team (Late st Contact Info) Description 02/28/2025 1:00 PM SEARCH ENGINE OPTIMIZATION ANALYST Office Visit [facility] Neurosurgery Clinic [address] 3rd [place] [address] Anna Pritchett MD [address] [place] [address] [id number] [place] [address] documented as of this encounter Visit Diagnoses Not on filedocumented in this encounter Additional Health Concerns Infection Onset Date Last Indicated Resolved Time Rule Out COVID-19 03/06/2023 03/06/2023 03/06/2023 10:41 PM SEARCH ENGINE OPTIMIZATION ANALYST Rule Out COVID-19 10/01/2024 10/01/2024 10/02/2024 12:19 AM CDT Assessment Noted Time PHQ-9 Depression Total Score: 17 023 10:15 AM CDT documented as of this encounter Care Teams Milling Machinist Relationship Specialty [place] [address] [place] [address] PCP - General 07/24/10 Talisha Roth MD [address] [place] [address] Assigned Surgical Provider 09/21/21 05/08/23 [place] [address] [place] [address] Pain Medicine 06/25/22 Phoebe Mchugh MD 420 [facility] 297 [place] [address] Physical Medicine and Rehabilitation 09/10/22 Phoebe Mchugh MD 420 [facility] 297 [place] [address] Assigned Neuroscience Provider 10/18/22 03/11/23 Anna Pritchett MD 909 [facility]121[address] [place] [address] Assigned Neuroscience Provider 03/12/23 09/06/24 documented as of this encounter
--- OUTSIDE RECORDS SUMMARY | 2025-01-17 17:25 | XMS_ITS | Encounter Summary ---
Author Organization [place] Address [address] [place] [address] Care Team Providers Care Budget Consultant Name Role Phone Yarelis Henderson MD Primary Care Provider Talisha Roth MD Unavailable [phone] Palak Lazcano MD Unavailable [phone] Phoebe Mchugh MD Unavailable [phone] Phoebe Mchugh MD Unavailable [phone] Anna Pritchett MD Unavailable [phone] Encounter Details Date Type Department Care Team (Late st Contact Info) Description 12/30/2022 MyC Medical Advice [address] 450 [place] [address] Phoebe Mchugh MD 420 [facility] 297 [place] [address] Social History Tobacco Use Types [...] on file Legal Sex Female 4:44 AM PHLEBOTOMIST MEDICAL LAB ASSISTANT Gender Identity Not on file Sexual Orientation Not on file documented as of this encounter Plan of Treatment Upcoming Encounters Date Type Department Care Team (Late st Contact Info) Description 02/28/2025 1:00 PM PHLEBOTOMIST MEDICAL LAB ASSISTANT Office Visit [facility] Neurosurgery Clinic [address] 3rd [place] [phone] Anna Pritchett MD [address] [place] [address] [id number] [place], [place] [address] documented as of this encounter Visit Diagnoses Not on filedocumented in this encounter Additional Health Concerns Infection Onset Date Last Indicated Resolved Time Rule Out COVID-19 03/06/2023 03/06/2023 03/06/2023 10:41 PM PHLEBOTOMIST MEDICAL LAB ASSISTANT Rule Out COVID-19 10/01/2024 10/01/2024 10/02/2024 12:19 AM CDT Assessment Noted Time PHQ-9 Depression Total Score: 17 023 10:15 AM CDT documented as of this encounter Care Teams Budget Consultant Relationship Specialty [place] [address] [place] [address] PCP - General 07/24/10 Talisha Roth MD [address] [facility] [address] [place], [place] [address] Assigned Surgical Provider 09/21/21 05/08/23 [place] [address] [place] [address] Pain Medicine 06/25/22 Phoebe Mchugh MD [address] [place] [address] 297 [place] [address] Physical Medicine and Rehabilitation 09/10/22 Phoebe Mchugh MD [address] [place] [address] 297 [place] [address] Assigned Neuroscience Provider 10/18/22 03/11/23 Anna Pritchett MD [address] [place], [place] [address] [address] Assigned Neuroscience Provider 03/12/23 09/06/24 documented as of this encounter
--- OUTSIDE RECORDS SUMMARY | 2025-01-17 17:25 | XMS_ITS | Encounter Summary ---
Author Organization [place] Address [address] [place] [address]. [place] [address] Care Team Providers Care Web Merchant Name Role Phone Yarelis Henderson MD Primary Care Provider [phone] Talisha Roth MD Unavailable [phone] Palak Lazcano MD Unavailable [phone] Phoebe Mchugh MD Unavailable [phone] Phoebe Mchugh MD Unavailable [phone] Anna Pritchett MD Unavailable [phone] Encounter Details Date Type Department Care Team (Late st Contact Info) Description 12/22/2022 MyC Medical Advice [address] [place] [address] Sara Carter, RN Social History [...] on file Legal Sex Female 4:44 AM EVENTS ASSISTANT Gender Identity Not on file Sexual Orientation Not on file documented as of this encounter Plan of Treatment Upcoming Encounters Date Type Department Care Team (Late st Contact Info) Description 02/28/2025 1:00 PM EVENTS ASSISTANT Office Visit [facility] Neurosurgery Clinic [address] 3rd [place] [address] Anna Pritchett MD [address] [place] [address] [id number] [place] [address] documented as of this encounter Visit Diagnoses Not on filedocumented in this encounter Additional Health Concerns Infection Onset Date Last Indicated Resolved Time Rule Out COVID-19 03/06/2023 03/06/2023 03/06/2023 10:41 PM EVENTS ASSISTANT Rule Out COVID-19 10/01/2024 10/01/2024 10/02/2024 12:19 AM CDT Assessment Noted Time PHQ-9 Depression Total Score: 17 023 10:15 AM CDT documented as of this encounter Care Teams Web Merchant Relationship Specialty Start [place] [address] [place] [address] PCP - General 07/24/10 Talisha Roth MD [address] [facility] [address] [place] [address] Assigned Surgical Provider 09/21/21 05/08/23 [place] [address] [place] [address] Pain Medicine 06/25/22 Phoebe Mchugh MD 420 [facility] 297 [place] [address] Physical Medicine and Rehabilitation 09/10/22 Phoebe Mchugh MD 420 [facility] 297 [place], [place] [address] Assigned Neuroscience Provider 10/18/22 03/11/23 Anna Pritchett MD 909 [facility] [id number] [place] [address] Assigned Neuroscience Provider 03/12/23 09/06/24 documented as of this encounter
--- OUTSIDE RECORDS SUMMARY | 2025-01-17 17:26 | XMS_ITS | Encounter Summary ---
Author Organization [place] Address [address] [place] [address] Care Team Providers Care Fiberglass Container Winding Operator Name Role Phone Yarelis Henderson MD Primary Care Provider [phone] Leo Lopez PA-C Unavailable [phone] Talisha Roth MD Unavailable [phone] Lonnie Cadet MD Unavailable + Palak Lazcano MD Unavailable [phone] Phoebe Mchugh MD Unavailable [phone] Anna Pritchett MD Unavailable [phone] Phoebe Mchugh MD Unavailable [phone] Anna Pritchett MD Unavailable [phone] Encounter Details Date Type Department Care Team (Late st Contact Info) Description 06/17/2011 Office Visit-[facility] INTERFACE P DEPT Ayanna Leonard RN Social History Tobacco Use Types Packs/Day Years Used Date Smoking Tobacco: Former Alcohol Use Standard Drinks/Week Comments No 0 (1 standard drink = 0.6 oz pur e alcohol) Comments No Sex and Gender Information Value Date Recorded Sex Assigned at Not on file Legal Sex Female 4:44 AM DRUM SANDER SETTER Gender Identity Not on file Sexual Orientation Not on file documented as of this encounter Progress Notes * Ayanna Leonard RN - 06/17/2011 10:00 AM CDT Salt Cutter: Ayanna Leonard Status: Final Encounter: 2011-06-17 10:00:00.000 Type: [facility] Rooming Note Reason For Visit LANIE BARRAZA is a 36 year old female presents today for TVOR with Dr. [place]. reviewed d/c instructions with pt and . Auto Clutch Rebuilder present. Pt verbalized understanding of POC. Pain [...] By: Ayanna Leonard RN; 06/17/2011 10:46 AM DRUM SANDER SETTER. documented in this encounter Plan of Treatment Upcoming Encounters Date Type Department Care Team (Late st Contact Info) Description 02/28/2025 1:00 PM DRUM SANDER SETTER Office Visit [facility] Neurosurgery Clinic [address] [place] [address] Anna Pritchett MD [address] [place] [address] [id number] [place], [place] [address] documented as of this encounter Visit Diagnoses Not on filedocumented in this encounter Additional Health Concerns Infection Onset Date Last Indicated Resolved Time Rule Out COVID-19 03/09/2022 03/09/2022 03/09/2022 5:29 PM DRUM SANDER SETTER Rule Out COVID-19 07/01/2022 07/01/2022 07/01/2022 7:40 PM CDT Rule Out COVID-19 03/06/2023 03/06/2023 03/06/2023 10:41 PM DRUM SANDER SETTER Rule Out COVID-19 10/01/2024 10/01/2024 10/02/2024 12:19 AM CDT documented as of this encounter Care Teams Fiberglass Container Winding Operator Relationship Specialty [place] [address] [place] [address] PCP - General 07/24/10 Leo Lopez PA-C [address] [facility] [address] [place] [address] Assigned Neuroscience Provider 05/19/21 09/05/22 Talisha Roth MD [address] [facility] [address] [place], [place] [address] Assigned Surgical Provider 09/21/21 05/08/23 [place] [address] [address] [address]28277 Assigned Pain Medication Provider 02/24/22 08/15/22 [place] [address] [place] [address] Pain Medicine 06/25/22 Phoebe Mchugh MD [address] [address] Physical Medicine and Rehabilitation 09/10/22 Anna Pritchett MD [address] [place] [address] Assigned Neuroscience Provider 09/06/22 10/17/22 Phoebe Mchugh MD [address] [place] [address] Assigned Neuroscience Provider 10/18/22 03/11/23 Anna Pritchett MD [address] [place] [address] Assigned Neuroscience Provider 03/12/23 09/06/24 documented as of this encounter
--- OUTSIDE RECORDS SUMMARY | 2025-01-17 17:26 | XMS_ITS | Clinical Summary ---
Author Organization [facility] Address [address] [place] [address] Care Team Providers Care Mechanical Field Engineer Name Role Phone Yarelis Henderson MD Primary Care Provider [phone] Bere Loco MD Unavailable Unavailable Golden Saavedra Unavailable [phone] Markell Myrick MD Unavailable [phone] Ewa Brito RN Unavailable [phone] Unavailable [phone] Ayanna Rebolledo MEDICAL LAB SPECIALIST Unavailable [phone] Allergies Active Allergy Reactions Criticality Noted Date [...] times daily. 90 Tablet 11/25/19 25 025 Active Problems Patient Care Coordination [...] Gastric Bypass w. Hiatal hernia repair Payor: [employer] / Plan: [place] / Product Type: *No Product type* / Insurance requirements:None Est. Pgm Completion: ~ September, Procedure Location: [facility] Co-morbidities: GERD Orders: Labs Yes [...] Controlled substance agreement signed 12/19/2022 Overview (12/19/2022): [facility] pain center Rebecca Krishna CMA 2:27 PM 12/19/22 Cervical spondylosis 11/25/2022 Fatty liver 06/24/2022 Hiatal hernia 04/17/2022 Chronic GERD 04/17/2022 Factor 5 Leiden mutation, heterozygous 5 Pulmonary embolus 04/20/2014 Overview (04/20/2014): 2007 treated with coumadin for one year H/O section 04/20/2014 Fibroids 04/20/2014 Diverticular disease of colon 09/09/2013 Resolved Problems Problem Noted Date Diagnosed Date Resolved Date Acute right-sided low back p ain with bilateral sciatica 06/02/2024 12/19/2024 Intradural mass 02/29/2024 10/28/2024 Chronic neck pain 05/27/2023 06/02/2024 Neck pain 05/01/2023 06/02/2024 Chronic bilateral low back pain 05/01/2023 06/02/2024 Cervical radicular pain 11/25/202205/17 Anticoagulation monitoring, INR range 2-3 04/06/2020 02/23/2023 [...] Encounters Date Type Department Care Team Description 01/10/2025 3:00 PM HOOF AND SHOE INSPECTOR Ancillary Procedure [facility] [id number] [place] [phone] 01/10/2025 Telephone [place] [id number] [facility] [address] [place] [address] João Portillo, WESLEY Results (PATIENT HAD MRI OF FOOT TODAY, WOULD LIKE CALL ABOUT RESULTS.) 01/09/2025 3:00 PM HOOF AND SHOE INSPECTOR Ancillary Procedure [address] [phone] 01/09/2025 Travel 12/29/2024 3:45 PM HOOF AND SHOE INSPECTOR Office Visit [address] [phone] João Portillo, DPM Foot Problem (Rt foot pain) 12/29/2024 Travel 12/26/2024 Telephone [facility] Orthopedics [facility] [address] [address] [place] [phone] Aleida Dwyer Appointment 12/23/2024 10:49 PM HOOF AND SHOE INSPECTOR - 12/23/2024 11:26 PM HOOF AND SHOE INSPECTOR Emergency [facility] [address] [place] [address] Rita Starks PA Right foot pain (Primary Dx) Discharge Disposition: Home Self Care 12/23/2024 Travel 12/23/2024 Nurse Triage [address] [phone] Yarelis Henderson MD Questions 12/23/2024 Nurse Triage [facility] [id number] [place] [phone] Yarelis Henderson MD Foot Pain/problem 12/19/2024 9:00 AM HOOF AND SHOE INSPECTOR Office Visit [facility] [id number] [place] [phone] Yarelis Henderson MD ER Follow up (DOD 11/24/24, right foot pain, [place]); Blood Pressure (F/U per doctors at ER) 12/19/2024 Travel 12/12/2024 Telephone [facility] Orthopedics [facility] [address] [phone] Aleida Dwyer Appointment 12/09/2024 6:50 PM CDT Ancillary Procedure [address] [phone] 12/09/2024 6:05 PM CDT Office Visit [facility] [address] [phone] Damian Morales PA Foot Pain/problem 12/09/2024 Travel 11/24/2024 9:07 PM CDT - 11/24/2024 11:32 PM CDT Emergency [facility] [address] [place] [address] Maikol Benedict PA Muscle spasm (Primary Dx) Discharge Disposition: Home Self Care 11/24/2024 Travel 11/24/2024 Nurse Triage [facility] [id number] [place] [phone] Yarelis Henderson MD Pain 11/24/2024 Nurse Triage [facility] [address] [place] [phone] Yarelis Henderson MD Pain 11/23/2024 6:45 PM CDT Nurse/Clinic Staff Only [facility] [address] [place] [address] Immunization/Inject ion 11/23/2024 Travel 11/18/2024 8:00 PM CDT - 11/18/2024 10:59 PM CDT Emergency [address] [address] Aleida Brantley NP Myalgia (Primary Dx) Discharge Disposition: Home Self Care 11/18/2024 Travel 11/02/2024 8:55 PM CDT - 11/03/2024 12:47 AM CDT Emergency [address] [address] Sal Aguayo MD Jurvis, Amanda Margaret, Pleuritic chest pain (Primary Dx); Acute cough; Sinus congestion Discharge Disposition: Home Self Care 11/02/2024 6:45 PM CDT Ancillary Procedure [address] [phone] 11/02/2024 5:20 PM CDT Office Visit [address] [phone] Arin Bautista PA Cough; Sinus Problem; Headache; Throat Problem 11/02/2024 Travel 10/27/2024 2:20 PM CDT Office Visit [address] [phone] Yarelis Henderson MD Concerns (Bump near anus (noticed about a week ago)//Cyst near vagina) 10/26/2024 Travel from Last 3 Months Immunizations Immunization Administration Dates Next Due COVID-19 vaccine ([employer] NTBlink (air taxi) 30mcg/0.3mL) LUIS EDUARDO BAILEY 01/31/2021,05/05/2020,04/14/2020 INFLUENZA, IIV3 PF (AGE >= 6 [...] Hyperlipidemia Father kay montanez Hypertension Father kay montanez Cancer-prostate Maternal Grandfather belen dhillon Heart failure Maternal Grandfather belen dhillon Alzheimer's disease Maternal Grandmother Cancer-breast Mother lou montanez Mother did gen etic testing, neg brca genes Factor V Leiden deficiency Mother lou montanez Hyperlipidemia Mother luo montanez Hypertension Mother lou montanez Dementia Paternal Grandfather Heart attack Paternal Grandmother abdoulaye montanez Stroke Paternal Grandmother abdoulaye montanez Appendicitis Sister 1 Relation Name Status Comments Brother Alive Father kay montanez Alive Maternal Grandfather belen dhillon (Age 87) Maternal Grandmother (Age 79) Mother lou montanez Alive Paternal Grandfather (Age 84) Paternal Grandmother abdoulaye montanez (Age 69) c omplications from stroke and SD Sister 1 Alive Sister 2 Alive Social [...] on file Legal Sex Female 7:34 AM HOOF AND SHOE INSPECTOR Gender Identity Not on file Sexual Orientation [...] 8 9 OELBER G,B1 JENNIF ER Delivery Location:[facility] Last Filed Vital Signs Vital Sign Reading Time Taken Comments Blood Pressure 141/92 12/23/2024 10:41 PM HOOF AND SHOE INSPECTOR Pulse 92 12/23/2024 10:41 PM HOOF AND SHOE INSPECTOR Temperature 36.3 C (97.3 F) 12/23/2024 10:41 PM HOOF AND SHOE INSPECTOR Respiratory Rate 20 12/23/2024 10:41 PM HOOF AND SHOE INSPECTOR Oxygen Saturation 92% 12/23/2024 10:41 PM HOOF AND SHOE INSPECTOR Inhaled Oxygen Concentration - - Weight 125.6 kg (277 lb) 12/23/2024 10:41 PM HOOF AND SHOE INSPECTOR Height 162.6 cm (5' 4) 12/23/2024 10:41 PM HOOF AND SHOE INSPECTOR Body Mass Index 47.55 12/23/2024 10:41 PM HOOF AND SHOE INSPECTOR Plan of Treatment Upcoming Encounters Date Type Department Care Team (Late st Contact Info) Description 02/23/2025 9:15 AM HOOF AND SHOE INSPECTOR Office Visit [facility] [address] [place] [phone] João Portillo, DPM [address] [place], [place] [phone] Health Maintenance Due Date Last Done Comments Hepatitis B series for 19+ ( 1 of 3 - 19+ 3-dose series) 1992 RSV vaccine for adults or (1 - Risk 50-74 years 1-dose series) 06/08/2023 COVID-19 vaccine series (2024- season) 2024 01/31/2021, 05/05/2020, 04/14/2020 Mammogram for age 45-75 01/03/2025 01/04/20 24, [...] 18-79 Completed 01/18/2013 (Completed outsid e of Willie) Pap test for age 21-65 Discontinued 6 (Verified in Care Everywhere or Patient Record) HIV for age 15-65 Completed 04/27/2024 Pneumococcal series for age 50+ Completed 5 Zoster (shingles) series for age 50+ Completed 07/04/2024, 04/27/2024 Influenza Vaccine Completed 11/23/2024, , 11/14/2022, Additional history exists Procedures Procedure Name Priority Date/Time Associated Diagnosis Comments MR FOOT RIGHT WO Routine 01/10/2025 3:56 PM HOOF AND SHOE INSPECTOR Foot pain, right Bone spur of right foot Primary osteoarthritis of right foot Stress fracture of foot, unspecified laterality, sequela MR ANKLE RIGHT WO Routine 01/09/2025 3:3 7 PM HOOF AND SHOE INSPECTOR Foot pain, right Bone spur of right foot Primary osteoarthritis of right foot Stress fracture of foot, unspecified laterality, sequela HEMOGLOBIN A1C MONITORING (POCT) Routine 12/19/2024 9:40 AM HOOF AND SHOE INSPECTOR Prediabetes XR FOOT 3 VIEWS RIGHT STAT [...] 6 :38 PM CDT Cough, unspecified type ANTI HIV 1/2 Routine 04/27/2024 1:06 PM CDT Screening for HIV (human immunodeficiency virus) LIPID PANEL W REFLEX MEASURED LDL Routine 04/27/2024 1:06 PM CDT Routine general medical examination at a [facility] XR MAMMO BILAT SCREENING Routine 01/04/2024 11:10 AM HOOF AND SHOE INSPECTOR Visit for screening mammogram SCAN-COLONOSCOPY 01/14/2021 9:00 AM HOOF AND SHOE INSPECTOR from Last 3 Months or Most Recently Relevant to Health Maintenance Results * MR FOOT RIGHT WO (01/10/2025 3:56 PM HOOF AND SHOE INSPECTOR) Anatomical Region Laterality Modality FOOT R Magnetic Resonan ce 01/10/2025 3:56 PM HOOF AND SHOE INSPECTOR Impressions 01/11/2025 9:59 AM HOOF AND SHOE INSPECTOR 1. No fracture or edema to suggest contusion or stress reaction. 2. Mild first metatarsophalangeal joint osteoarthritis with a small joint effusion. 3. Midfoot osteoarthritis greatest and mild of the naviculocuneiform joints. 4. Intact tendons and ligaments. Narrative 01/11/2025 9:59 AM HOOF AND SHOE INSPECTOR For Patients: As a result of the Cures Act, medical imaging exams and procedure reports are released immediately into your electronic medical record. You may view this report before your referring provider. If you have questions, please contact your health care provider. EXAM: MR FOOT RIGHT WO LOCATION: [facility] DATE: 01/10/2025 INDICATION: Foot Pain, Right Bone Spur Of Right Foot Primary Osteoarthritis Of Right Foot Stress Fracture Of Foot, Unspecified Laterality, Sequela COMPARISON: Right foot radiograph 12/09/2024 TECHNIQUE: Unenhanced. FINDINGS: JOINTS AND BONES: -No fracture. No edema to suggest contusion or stress reaction. -Mild first metatarsophalangeal joint osteoarthritis. Small joint effusion. -Scattered midfoot osteoarthritis greatest and mild of the naviculocuneiform joints. There is trace subchondral edema. -No aggressive marrow replacing lesion. TENDONS: -No tendon tear, tendinopathy, or tenosynovitis. LIGAMENTS: -Lisfranc ligament: Intact. No subluxation. MUSCLES AND SOFT TISSUES: -No muscle atrophy or edema. No soft tissue mass or fluid collection. Procedure Note Kunal Lora MD - 01/11/2025 For Patients: As a result of the Cures Act, medical imagingexams and procedure reports are released immediately into your electronicmedical record. You may view this report before your referring provider.If you have questions, please contact your health care provider. EXAM: MR FOOT RIGHT WO LOCATION: [facility] DATE: 01/10/2025 INDICATION: Foot Pain, Right Bone Spur Of Right Foot PrimaryOsteoarthritis Of Right Foot Stress Fracture Of Foot, UnspecifiedLaterality, Sequela COMPARISON: Right foot radiograph 12/09/2024 TECHNIQUE: Unenhanced. FINDINGS: JOINTS AND BONES: -No fracture. No edema to suggest contusion or stress reaction. -Mild first metatarsophalangeal joint osteoarthritis. Small jointeffusion. -Scattered midfoot osteoarthritis greatest and mild of thenaviculocuneiform joints. There is trace subchondral edema. -No aggressive marrow replacing lesion. TENDONS: -No tendon tear, tendinopathy, or tenosynovitis. LIGAMENTS: -Lisfranc ligament: Intact. No subluxation. MUSCLES AND SOFT TISSUES: -No muscle atrophy or edema. No soft tissue mass or fluid collection. IMPRESSION: 1. No fracture or edema to suggest contusion or stress reaction. 2. Mild first metatarsophalangeal joint osteoarthritis with a small jointeffusion. 3. Midfoot osteoarthritis greatest and mild of the naviculocuneiformjoints. 4. Intact tendons and ligaments. us João Portillo DPM MR Final Resu lt * MR ANKLE RIGHT WO CONTRAST (01/09/2025 3:37 PM HOOF AND SHOE INSPECTOR) Anatomical Region Laterality Modality ANKLE R Magnetic Resonan ce 01/09/2025 3:37 PM HOOF AND SHOE INSPECTOR Impressions 01/10/2025 12:02 PM HOOF AND SHOE INSPECTOR 1. Mild posterior tibialis tendinopathy. 2. No acute right ankle ligament injury or occult fracture. 3. Mild medial tibiotalar chondromalacia. Mild subtalar arthrosis. Polyarticular midfoot arthrosis. 4. Chronic thickening of the medial bundle plantar fascia without acute inflammation or discrete tear. Narrative 01/10/2025 12:02 PM HOOF AND SHOE INSPECTOR For Patients: As a result of the 21st Century Cures Act, medical imaging exams and procedure reports are released immediately into your electronic medical record. You may view this report before your referring provider. If you have questions, please contact your health care provider. EXAM: MR ANKLE RIGHT WO LOCATION: [facility] DATE: 01/09/2025 INDICATION: Foot pain, right. Bone spur of right foot. Primary osteoarthritis of right foot. Stress fracture of foot, unspecified laterality, sequela. COMPARISON: Right foot radiographic exam 12/09/2024. TECHNIQUE: Unenhanced. FINDINGS: TENDONS: -Peroneal: Peroneus longus and brevis tendons are intact. No substantial tendinopathy. Trace common peroneal tendon sheath fluid or inflammation. No subluxation. -Medial: Posterior tibialis tendon is intact. Mild tendinopathy. Trace distal posterior tibialis tendon sheath fluid or inflammation. Flexor digitorum longus and flexor hallucis longus tendons are normal. No tenosynovitis. -Anterior: Anterior tibialis, extensor hallucis longus, and extensor digitorum longus tendons are normal. No tenosynovitis. -Achilles: No tendinopathy or paratenonitis. LIGAMENTS: -Anterior talofibular ligament: Intact. -Calcaneofibular ligament: Intact. -Posterior talofibular ligament: Intact. -Syndesmotic inferior tibiofibular ligaments: Intact. -Deltoid ligament complex: Intact. -Spring ligament complex: Intact. JOINTS AND BONES: -No acute ankle or hindfoot fracture. No calcaneus stress fracture. Tarsal bones and metatarsal bases intact. -Mild medial tibiotalar chondromalacia with a faint amount of subchondral marrow edema medial talar dome. Mild subtalar arthrosis along the anteromedial margin of the posterior subtalar joint with subchondral marrow edema. No significant talonavicular or calcaneocuboid arthrosis. Polyarticular midfoot chondromalacia. No sizable ankle or hindfoot joint effusion. SOFT TISSUES: -Plantar fascia: Plantar fascia intact with thickening across the medial bundle plantar fascia. No discrete tear or pronounced acute inflammation. -Sinus tarsi and tarsal tunnel: Preserved sinus tarsi fat signal. No space- occupying mass is seen along the course of the tarsal tunnel. -Muscles: Intrinsic muscle bulk normal. No acute muscle edema. Mild lateral malleolus ankle soft tissue swelling. No drainable fluid collection. Procedure Note Lewis Mae MD - 01/10/2025 For Patients: As a result of the Cures Act, medical imagingexams and procedure reports are released immediately into your electronicmedical record. You may view this report before your referring provider.If you have questions, please contact your health care provider. EXAM: MR ANKLE RIGHT WO LOCATION: [facility] DATE: 01/09/2025 INDICATION: Foot pain, right. Bone spur of right foot. Primaryosteoarthritis of right foot. Stress fracture of foot, unspecifiedlaterality, sequela. COMPARISON: Right foot radiographic exam 12/09/2024. TECHNIQUE: Unenhanced. FINDINGS: TENDONS: -Peroneal: Peroneus longus and brevis tendons are intact. No substantialtendinopathy. Trace common peroneal tendon sheath fluid or inflammation.No subluxation. -Medial: Posterior tibialis tendon is intact. Mild tendinopathy. Tracedistal posterior tibialis tendon sheath fluid or inflammation. Flexordigitorum longus and flexor hallucis longus tendons are normal. Notenosynovitis. -Anterior: Anterior tibialis, extensor hallucis longus, and extensordigitorum longus tendons are normal. No tenosynovitis. -Achilles: No tendinopathy or paratenonitis. LIGAMENTS: -Anterior talofibular ligament: Intact. -Calcaneofibular ligament: Intact. -Posterior talofibular ligament: Intact. -Syndesmotic inferior tibiofibular ligaments: Intact. -Deltoid ligament complex: Intact. -Spring ligament complex: Intact. JOINTS AND BONES: -No acute ankle or hindfoot fracture. No calcaneus stress fracture. Tarsalbones and metatarsal bases intact. -Mild medial tibiotalar chondromalacia with a faint amount of subchondralmarrow edema medial talar dome. Mild subtalar arthrosis along theanteromedial margin of the posterior subtalar joint with subchondralmarrow edema. No significant talonavicular or calcaneocuboid arthrosis.Polyarticular midfoot chondromalacia. No sizable ankle or hindfoot jointeffusion. SOFT TISSUES: -Plantar fascia: Plantar fascia intact with thickening across the medialbundle plantar fascia. No discrete tear or pronounced acuteinflammation. -Sinus tarsi and tarsal tunnel: Preserved sinus tarsi fat signal. Nospace- occupying mass is seen along the course of the tarsal tunnel. -Muscles: Intrinsic muscle bulk normal. No acute muscle edema. Mild lateral malleolus ankle soft tissue swelling. No drainable fluidcollection. IMPRESSION: 1. Mild posterior tibialis tendinopathy. 2. No acute right ankle ligament injury or occult fracture. 3. Mild medial tibiotalar chondromalacia. Mild subtalar arthrosis.Polyarticular midfoot arthrosis. 4. Chronic thickening of the medial bundle plantar fascia without acuteinflammation or discrete tear. João Portillo DPM MR Final Resu lt * (ABNORMAL) HEMOGLOBIN A1C MONITORING (POCT) (12/19/2024 9:40 AM HOOF AND SHOE INSPECTOR) POC HEMOGLOBIN A1C 6.2(H) <6.0 % OF TOTAL HGB 12/19/2024 10:26 AM HOOF AND SHOE INSPECTOR [facility] Comment: Any point of care results exhibiting inconsistency with the patient's clinical status should be repeated using a different testing method. Blood BLOOD SPECIMEN / Unknown [facility] / Unknown 12/19/2024 9:40 AM HOOF AND SHOE INSPECTOR 12/19/2024 9:40 AM HOOF AND SHOE INSPECTOR Yarelis Henderson MD CHEMISTRY Final Resu lt [facility] [address] [place] [address], [place] [phone] [facility] [address] [place] [address], [place] * XR FOOT 3 VIEWS RIGHT [...] EXAM: XR FOOT 3 VIEWS RIGHT LOCATION: [facility] DATE: 12/09/2024 INDICATION: Foot Pain, Right COMPARISON: 07/01/2023. Procedure Note Truman Malagon MD - 12/09/2024 For Patients: As a result of the Cures Act, medical imagingexams and procedure reports are released immediately into your electronicmedical record. You may view this report before your referring provider.If you have questions, please contact your health care provider. EXAM: XR FOOT 3 VIEWS RIGHT LOCATION: [facility] DATE: 12/09/2024 INDICATION: Foot Pain, Right COMPARISON: 07/01/2023. IMPRESSION: Mild hallux valgus. Mild scattered midfoot arthrosis. No evidence of anacute displaced fracture. Distal Achilles tendon enthesopathy. Calcanealheel spur. us Damian Flaco Chavez [facility] Final Result * EXTRA TUBE BLUE (11/24/2024 10:07 PM CDT) Blood BLOOD SPECIMEN / Unknown Extra Tube / Unknown 11/24/2024 10:07 PM CDT 11/24/2024 10:25 PM CDT us Doctor Unknown LABORATORY Final Result [facility] SENDOUT INTERNAL ZIP [id number] [place] [id number] * CBC W PLT NO DIFF (11/24/2024 10:07 PM CDT) WHITE BLOOD COUNT 6.7 4.5 - 11.0 thou/cu mm 11/24/2024 10:29 PM CDT [facility] RED BLOOD COUNT 5.12 4.00 - 5.20 mil/cu mm 11/24/2024 10:29 PM CDT [facility] HEMOGLOBIN 14.1 12.0 - 16.0 g/dL 11/24/2024 10:29 PM CDT [facility] HEMATOCRIT 42.2 33.0 - 51.0 % 11/24/2024 10:29 PM CDT [facility] MCV 82 80 - 100 fL 11/24/2024 10:29 PM CDT [facility] MCH 27.5 26.0 - 34.0 pg 11/24/2024 10:29 PM CDT [facility] MCHC 33.4 32.0 - 36.0 g/dL 11/24/2024 10:29 PM CDT [facility] RDW 13.7 11.5 - 15.5 % 11/24/2024 10:29 PM CDT [facility] PLATELET COUNT 293 140 - 440 thou/cu mm 11/24/2024 10:29 PM CDT [facility] MPV 8.8 6.5 - 11.0 fL 11/24/2024 10:29 PM CDT [facility] NRBC 0.0 % 11/24/2024 10:29 PM CDT [facility] ABS NRBC 0.0 thou /cu mm 11/24/2024 10:29 PM CDT [facility] Blood BLOOD SPECIMEN / Unknown Non-Lab Venipuncture / Unknown 11/24/2024 10:07 PM CDT 11/24/2024 10:24 PM CDT Maikol WHITLOCK HEMATOLOGY Final Result [facility] SENDOUT [address] ZIP [id number] [place] [address] * MAGNESIUM (11/24/2024 10:07 PM CDT) MAGNESIUM 2.2 1.6 - 2.6 mg/dL 11/24/2024 10:49 PM CDT [facility] Blood BLOOD SPECIMEN / Unknown Non-Lab Venipuncture / Unknown 11/24/2024 10:07 PM CDT 11/24/2024 10:24 PM CDT Maikol WHITLOCK CHEMISTRY Final Result [facility] SENDOUT [id number] [place] [id number] * (ABNORMAL) BASIC METABOLIC PANEL (11/24/2024 10:07 PM CDT) Only the most recent of3 resultswithin the time period is included. SODIUM 140 136 - 145 mmol/L 11/24/2024 10:49 PM [facility] POTASSIUM 3.7 3.5 - 5.1 mmol/L 11/24/2024 10:49 PM [facility] CHLORIDE 103 98 - 107 mmol/L 11/24/2024 10:49 PM [facility] CO2,TOTAL 27 22 - 29 mmol/L 11/24/2024 10:49 PM [facility] ANION GAP 10 5 - 18 11/24/2024 10:49 PM [facility] GLUCOSE 113(H) 70 - 99 mg/dL 11/24/2024 10:49 PM [facility] CALCIUM 9.6 8.8 - 10.4 mg/dL 11/24/2024 10:49 PM [facility] Comment: Reference ranges for this test were updated on 12/22/2023 to reflect our healthy population more accurately. Reference range changes are not retroactively applied to results, but previous results using the same methodology can be interpreted in the context of the new reference range. BUN 12 6 - 20 mg/dL 11/24/2024 10:49 PM [facility] CREATININE 0.78 0.50 - 0.90 mg/dL 11/24/2024 10:49 PM [facility] BUN/CREAT RATIO 15 10 - 20 10:49 PM [facility] eGFR >90 >90 mL/min/1. 73m2 11/24/2024 10:49 PM [facility] Comment:As of 2021, eG FR is calculated by the CKD-EPI creatinine equation without race adjustment. eGFR can be influenced by muscle mass, exercise, and diet. The reported eGFR is an estimation only and is only applicable if the renal function is stable. Blood BLOOD SPECIMEN / Unknown Non-Lab Venipuncture / Unknown 11/24/2024 10:07 PM CDT 11/24/2024 10:24 PM CDT us Maikol WHITLOCK CHEMISTRY Final Result [facility] SENDOUT [place] [address] [id number] [address] [place] [address] * CBC WITH AUTO DIFFERENTIAL (11/18/2024 9:27 PM CDT) Only the most recent of2 resultswithin the time period is included. WHITE BLOOD COUNT 7.9 4.5 - 11.0 thou/cu mm 11/18/2024 9:35 PM CDT [facility] RED BLOOD COUNT 4.90 4.00 - 5.20 mil/cu mm 11/18/2024 9:35 PM CDT [facility] HEMOGLOBIN 13.5 12.0 - 16.0 g/dL 11/18/2024 9:35 PM CDT [facility] HEMATOCRIT 40.4 33.0 - 51.0 % 11/18/2024 9:35 PM CDT [facility] MCV 82 80 - 100 fL 11/18/2024 9:35 PM CDT [facility] [facility] MCH 27.6 26.0 - 34.0 pg 11/18/2024 9:35 PM CDT [facility] MCHC 33.4 32.0 - 36.0 g/dL 11/18/2024 9:35 PM CDT [facility] RDW 13.9 11.5 - 15.5 % 11/18/2024 9:35 PM CDT [facility] PLATELET COUNT 293 140 - 440 thou/cu mm 11/18/2024 9:35 PM CDT [facility] MPV 8.9 6.5 - 11.0 fL 11/18/2024 9:35 PM CDT [facility] NRBC 0.0 % 11/18/2024 9:35 PM CDT [facility] ABS NRBC 0.0 thou /cu mm 11/18/2024 9:35 PM CDT [facility] % NEUT 56.8 % 11/18/2024 9:35 PM CDT [facility] % LYMPH 29.5 % 11/18/2024 9:35 PM CDT [facility] % MONO 9.0 % 11/18/2024 9:35 PM CDT [facility] % EOS 3.4 % 11/18/2024 9:35 PM CDT [facility] % BASO 0.9 % 11/18/2024 9:35 PM CDT [facility] % IMMATURE GRAN (METAS,MYELOS,FL OS) 0.4 % 11/18/2024 9:35 PM CDT [facility] ABSOLUTE NEUTROPHILS 4.5 1.7 - 7.0 thou/cu mm 11/18/2024 9:35 PM CDT [facility] ABSOLUTE LYMPHOCYTES 2.3 0.9 - 2.9 thou/cu mm 11/18/2024 9:35 PM CDT [facility] ABSOLUTE MONOCYTES 0.7 <0.9 thou/cu mm 11/18/2024 9:35 PM CDT [facility] ABSOLUTE EOSINOPHILS 0.3 <0.5 thou/cu mm 11/18/2024 9:35 PM CDT [facility] ABSOLUTE BASOPHILS 0.1 <0.3 thou/cu mm 11/18/2024 9:35 PM CDT [facility] ABSOLUTE IMMATURE GRANULOCYTES(MET ,MYELOS,PROS) 0.0 <0.3 thou/cu mm 11/18/2024 9:35 PM CDT [facility] Blood BLOOD SPECIMEN / Unknown Butterfly / Unknown 11/18/2024 9:27 PM CDT 11/18/2024 9:31 PM CDT Aleida Brantley NP HEMATOLOGY Final Resu lt Performing Organization Address City/[facility]/ZIP Co de Phone Number [facility] [address] [place] [address], * CK TOTAL (11/18/2024 9:27 PM CDT) CK,TOTAL 85 26 - 192 IU/L 11/18/2024 9:52 PM CDT [facility] Blood BLOOD SPECIMEN / Unknown Butterfly / Unknown 11/18/2024 9:27 PM CDT 11/18/2024 9:31 PM CDT Aleida Brantley NP CHEMISTRY Final Resu lt Performing Organization Address City/[facility]/ZIP Co de Phone Number [facility] [address] [place] [address], * TROPONIN T (HS) ONE TIME (11/02/2024 11:45 PM CDT) [facility] Signature TROPONIN T HS 9 6-10 ng/L ng/L 11/03/2024 12:10 AM CDT [facility] Blood BLOOD SPECIMEN / Unknown Line/Port / Unknown 11/02/2024 11:45 PM CDT 11/02/2024 11:49 PM CDT Narrative [facility] - 11/03/2024 12:10 AM CDT hs-cTnT [...] population. Miriam Cruz DO CHEMISTRY Final Result [facility] [address] [place] [address], * CT CHEST PE STUDY (11/02/2024 10:30 PM CDT) Anatomical Region Laterality Modality CHEST, THORAX, HEART Computed To mography 11/02/2024 10:3 0 PM CDT Impressions 11/02/2024 10:55 PM CDT 1. No evidence of pulmonary embolism or other acute findings in the chest. 2. Small hiatal hernia. 3. Diffuse fatty infiltration of the liver. Narrative 11/02/2024 10:55 PM CDT For Patients: As a result of the Century Cures Act, medical imaging exams and procedure reports are released immediately into your electronic medical record. You may view this report before your referring provider. If you have questions, please contact your health care provider. EXAM: CT CHEST PE STUDY LOCATION: [facility] DATE: 11/02/2024 INDICATION: Chest pain COMPARISON: [...] provider. EXAM: CT CHEST PE STUDY LOCATION: [facility] DATE: 11/02/2024 INDICATION: Chest pain COMPARISON: [...] ACUTE W/2HR REFLEX (11/02/2024 9:39 PM CDT) TROPONIN T HS 7 6-10 ng/L ng/L 11/02/2024 10:02 PM CDT [facility] Blood BLOOD SPECIMEN / Unknown IV Start / Unknown 11/02/2024 9:39 PM CDT 11/02/2024 9:42 PM CDT Narrative [facility] - 11/02/2024 10:02 PM CDT hs-cTnT [...] Sal Aguayo MD CHEMISTRY Final Res ult Performing Organization Address [facility] Co de Phone Number [facility] [address] [place] [address], [place] [phone] * COVID-19 MOLECULAR (11/02/2024 9:30 PM CDT) [facility] COVID 19 [place] MOLECULAR Not detected Not detected 11/02/2024 9:55 PM CDT [facility] 11/02/2024 9:55 PM CDT [facility] Comment:Specimen submitted t o [facility] for testing. Other SPECIMEN FROM NASOPHARYNGEAL STRUCTURE / Unknown Non-Blood / Unknown 11/02/2024 9:30 PM CDT 11/02/2024 9:34 PM CDT us Sal Aguayo MD MICROBIOLOGY Final Res ult Performing Organization Address [facility] Co de Phone Number [facility] [address] [place] [address], [place] [phone] * INFLUENZA A/B PCR (11/02/2024 9:30 PM CDT) [facility] INFLUENZA A PCR NOT Detected 11/02/2024 9:55 PM CDT [facility] INFLUENZA B PCR NOT Detected 11/02/2024 9:55 PM CDT [facility] Other SPECIMEN FROM NASOPHARYNGEAL STRUCTURE / Unknown Non-Blood / Unknown 11/02/2024 9:30 PM CDT 11/02/2024 9:34 PM CDT Sal Aguayo MD MICROBIOLOGY Final Res ult [facility] [place] [address], [place] [phone] * EKG 12 LEAD (11/02/2024 9:04 PM CDT) Interpretation Sinus tachycardia Possible Left atrial enlargement Borderline ECG When compared with ECG of 08-Oct-2024 03:53, No significant change was found [facility] Ventricular Rate 105 BPM [facility] NOW Atrial Rate 105 BPM [facility] NOW P-R Interval 144 ms [facility] NOW QRS Duration 76 ms [facility] NOW QT 334 ms [facility] NOW QTc 441 ms BEYOND NOW P [place] 51 degrees BEYOND NOW R [place] 46 degrees BEYOND NOW T [place] 41 degrees [facility] NOW 11/02/2024 9:04 PM CDT 11/02/2024 11:07 PM CDT Narrative [facility] - 11/02/2024 11:07 PM CDT Test Indication: HEART PROBLEM Sal Aguayo MD EKG ORD Final Res ult Performing Organization Address City/[facility]/ZIP Co de Phone Number [facility] [place], [place] * XR CHEST 2 VIEWS PA [...] result of the Century Cures Act, medical imaging exams and procedure reports are released immediately into your electronic medical record. You may view this report before your referring provider. If you have questions, please contact your health care provider. EXAM: XR CHEST 2 VIEWS PA AND LATERAL LOCATION: [facility] DATE: 11/02/2024 INDICATION: Cough, Unspecified Type [...] CHEST 2 VIEWS PA AND LATERAL LOCATION: [facility] DATE: 11/02/2024 INDICATION: Cough, Unspecified Type COMPARISON: 05/13/2024 IMPRESSION: Heart is normal in size. Lungs are clear. Neurostimulator leads are notedoverlying the spine. us Arin [facility] Final Resu lt * COVID/FLU/RSV PANEL (NASAL) [[id number]] (11/02/2024 6:38 PM CDT) COVID 19 [facility] MOLECULAR Negative Negative 11/02/2024 11:15 PM CDT [facility] Comment:All PCR tests are jasso bject to false negative result due to variability in viral load and collection technique. A negative result does not rule out a SARS-CoV-2 infection. Clinical correlation required. INFLUENZA A PCR Negative 5 11:15 PM CDT [facility] INFLUENZA B PCR Negative 5 11:15 PM CDT [facility] Respiratory Syncytial Virus Negative 11/02/2024 11:15 PM CDT [facility] Swab SPECIMEN FROM NASOPHARYNGEAL STRUCTURE / Unknown Non-Blood / Unknown 11/02/2024 6:38 PM CDT 11/02/2024 7:05 PM CDT Arin [facility]BI[facility] Final Resu lt [facility] [address] [place] [address], [place] * (ABNORMAL) LIPID PANEL W REFLEX MEASURED LDL (04/27/2024 1:06 PM CDT) CHOLESTEROL, TOTAL 203(H) <200 mg/dL [facility] HDL CHOLESTEROL 54 > OR = 50 mg/dL [facility] TRIGLYCERIDES 114 <150 mg/dL [facility] LDL-CHOLESTEROL 127(H) mg/dL (calc) [facility] Comment: Reference range: <100 Desirable range <100 mg/dL for primary prevention; <70 mg/dL for patients with CHD or diabetic patients with > or = 2 CHD risk factors. LDL-C is now calculated using the Marco Antonio calculation, which is a validated novel method providing better accuracy than the Friedewald equation in the estimation of LDL-C. Aftab SS et al. YOSSI. 2013;310(19): 7330-9809 (http://education.Duogou/faq/FFP714) CHOL/HDLC RATIO 3.8 <5.0 (calc) [facility] NON HDL CHOLESTEROL 149(H) <130 mg/dL (calc) [facility] Comment: For patients with diabetes plus 1 major ASCVD risk factor, treating to a non-HDL-C goal of <100 mg/dL (LDL-C of <70 mg/dL) is considered a therapeutic option. Blood BLOOD SPECIMEN / Unknown 04/27/2024 1:06 PM CDT 04/27/2024 1:07 PM CDT Yarelis Henderson MD CHEMISTRY Final Resu lt [facility] [address] [place] [address], [place] [phone] [facility] [address] [place] [address] * ANTI HIV 1/2 [94166.0] (04/27/2024 1:06 PM CDT) HIV AG/AB, 4TH GEN NON-REACT ISABEL NON-REACT ISABEL [facility] Comment: HIV-1 antigen and HIV-1/HIV-2 antibodies were [...] purpose. For additional information please refer to http://education.Aqua-tools/faq/BMH152 (This link is being provided for informational/ educational purposes only.) The performance of this assay has not been clinically validated in patients less than 2 years old. Blood BLOOD SPECIMEN / Unknown 04/27/2024 1:06 PM CDT 04/27/2024 1:07 PM CDT Yarelis Henderson MD SEND OUTS Final Resu lt [facility] [address] [place] [address], [facility] [address] [place] [address] * XR MAMMO BILAT SCREENING (01/04/2024 11:10 AM HOOF AND SHOE INSPECTOR) Anatomical Region Laterality Modality BREASTS, Breast Left, Breast Right Bilateral Mammography Impressions 01/05/2024 9:52 AM HOOF AND SHOE INSPECTOR There is no radiographic evidence for malignancy. Recommend annual mammograms. MAMMOGRAM ASSESSMENT: ACR 1 Negative PATIENTS: You will also receive a letter with your examination results in an easy to read format. If you have questions about your results, please contact your referring provider. Narrative 01/05/2024 9:52 AM HOOF AND SHOE INSPECTOR For Patients: As a result of the Century Cures Act, medical imaging exams and procedure reports are released immediately into your electronic medical record. You may view this report before your referring provider. If you have questions, please contact your health care provider. XR MAMMO BILAT SCREENING [[id number]] CLINICAL HISTORY: This is an asymptomatic 48 y.o. patient. INDICATION FOR EXAM: Mammogram Screening. TECHNIQUE: CC & MLO views were obtained. This study was evaluated with the assistance of Computer-Aided Detection. COMPARISON FILM: Yes 07/28/22 [facility] 08/08/21 [facility] FINDINGS: There are scattered areas of fibroglandular density. There are no dominant masses, suspicious micro calcifications or areas of architectural distortion. us Yarelis Henderson MD MAMMO Final Resu lt * SCAN-COLONOSCOPY (01/14/2021 9:00 AM HOOF AND SHOE INSPECTOR) Narrative Procedure Note Romie Barnett MD - 01/14/2021 8:15 AM CST [facility] [address] [place] [address], [address], [place] [address] Patient Name: Lanie Barraza Gender: Female Exam Date: 01/14/2021 Visit Number: [id number] Age: 45 Years Date of : 1975 Attending MD: Romie Barnett MD Medical Record#: [id number] Procedure: Colonoscopy Indications: Previous adenomatous polyp(s) Referring MD: Marvin Beckett MD Primary MD: Yarelis Henderson MD Medications: Admitting Medications: 0.9% Normal Saline at TKO Intra Procedure Medications: Patient received monitored anesthesia [...] signed by: Logan [place] [address] Orders Instruction(s)/Education: Instruction/Education Timeframe Assessment Colon Cancer [...] Most Recently Relevant to Health Maintenance Insurance [facility] BLUE CROSS OF NON[facility] Advance Directives * Full Code (Latest Code Status on File) Date Activated Date Inactivated Comments 06/03/2024 1:41 AM 06/04/2024 4:46 PM Question Answer Comments Code Status Discussion: Reviewed Preferences Care Teams Mechanical Field Engineer Relationship Specialty Start Date End Date Yarelis Henderson MD PCP - General 03/13/08 Bere Loco MD Consulting Physician Cardiovascular Disease 05/04/14 Golden Saavedra PA Consulting Physician Physician Civil Celebrant 06/24/22 Markell Myrick MD [address] [id number] Consulting Physician Surgery - General 04/30/23 Ewa Brito RN [address] [id number] Cage/Vault Supervisor Registered Nurse 04/30/[address] [facility] [address] [place], [place] [address] Registered Dietitian 03/08/24 Ayanna Rebolledo, MEDICAL LAB SPECIALIST [address] [address] Sleep Medicine 03/09/24
--- OUTSIDE RECORDS SUMMARY | 2025-01-17 17:26 | XMS_ITS | Encounter Summary ---
Author Organization [facility] Address [address] [place] [address] Care Team Providers Care Securities Analyst Name Role Phone Yarelis Henderson MD Primary Care Provider Leo Lopez PA-C Unavailable [phone] Talisha Roth MD Unavailable [phone] Lonnie Cadet MD Unavailable + Palak Lazcano MD Unavailable [phone] Phoebe Mchugh MD Unavailable [phone] Anna Pritchett MD Unavailable [phone] Phoebe Mchugh MD Unavailable [phone] Anna Pritchett MD Unavailable [phone] Encounter Details Date Type Department Care Team (Late st Contact Info) Description 07/29/2011 Office Visit-P INTERFACE P DEPT Corie Fisher APRN DRUM SANDER SETTER [facility] [address] [place] [address] [place] [address] Social History Tobacco Use Types Packs/Day Years Used Date Smoking Tobacco: Former Alcohol Use Standard Drinks/Week Comments No 0 (1 standard drink = 0.6 oz pur e alcohol) Comments No Sex and Gender Information Value Date Recorded Sex Assigned at Not on file Legal Sex Female 4:44 AM [facility] Gender Identity Not on file Sexual Orientation Not on file documented as of this encounter Progress Notes * Corie Fisher NP - 07/29/2011 2:30 PM CDT Glass Ribbon Machine Operator: Phillip Corie Status: Final - Signature Encounter: 2011-07-29 14:30:00.000 [place] [facility] [place] Procedure: Confirmation of Transvaginal Ultrasound [...] Mean Yolk Sac Diameter 3.8 mm Pole [[place] Rump Length (CRL)]: 1. Length 17.8 mm [...] by:Corie Fisher N.P. Jul 29 2011 3:02PM [facility] documented in this encounter Plan of Treatment Upcoming Encounters Date Type Department Care Team (Late st Contact Info) Description 02/28/2025 1:00 PM [facility] Office Visit [facility] [place] [address] [place] [address] 3rd [place] [phone] Anna Pritchett MD [address] [facility] [id number], [place] [address] documented as of this encounter Visit Diagnoses Not on filedocumented in this encounter Additional Health Concerns Infection Onset Date Last Indicated Resolved Time Rule Out COVID-19 03/09/2022 03/09/2022 03/09/2022 5:29 PM [facility] Rule Out COVID-19 07/01/2022 07/01/2022 07/01/2022 7:40 PM CDT Rule Out COVID-19 03/06/2023 03/06/2023 03/06/2023 10:41 PM [facility] Rule Out COVID-19 10/01/2024 10/01/2024 10/02/2024 12:19 AM CDT documented as of this encounter Care Teams Securities Analyst Relationship Specialty [place] [address] [place] [address] PCP - General 07/24/10 Leo Lopez PA-C [address] [facility] [address] [place] [address] Assigned Neuroscience Provider 05/19/21 09/05/22 Talisha Roth MD [address] [facility] [address] [place], [place] [address] Assigned Surgical Provider 09/21/21 05/08/23 [place] [address] [place] [address] Assigned Pain Medication Provider 02/24/22 08/15/22 [place] [address] [place] [address] Pain Medicine 06/25/22 Phoebe Mchugh MD [address] [place] [address] Physical Medicine and Rehabilitation 09/10/22 Anna Pritchett MD [address] [place] [address] Assigned Neuroscience Provider 09/06/22 10/17/22 Phoebe Mchugh MD [address] [place] [address] Assigned Neuroscience Provider 10/18/22 03/11/23 Anna Pritchett MD [address] [place] [address] Assigned Neuroscience Provider 03/12/23 09/06/24 documented as of this encounter
--- OUTSIDE RECORDS SUMMARY | 2025-01-17 17:26 | XMS_ITS | Encounter Summary ---
Author Organization [place] Address [address] [place] [address] Care Team Providers Care Distribution Center Assistant Name Role Phone Yarelis Henderson MD Primary Care Provider Leo Lopez PA-C Unavailable [phone] Talisha Roth MD Unavailable [phone] Lonnie Cadet MD Unavailable + Palak Lazcano MD Unavailable [phone] Phoebe Mchugh MD Unavailable [phone] Anna Pritchett MD Unavailable [phone] Phoebe Mchugh MD Unavailable [phone] Anna Pritchett MD Unavailable [phone] Encounter Details Date Type Department Care Team (Late st Contact Info) Description 06/12/2011 Office Visit-P INTERFACE P DEPT Corie Fisher APRN WIRE STITCHER OPERATOR [facility] [address] [facility] [address] [place] [address] [place] [address] Social History Tobacco Use Types Packs/Day Years Used Date Smoking Tobacco: Former Alcohol Use Standard Drinks/Week Comments No 0 (1 standard drink = 0.6 oz pur e alcohol) Comments No Sex and Gender Information Value Date Recorded Sex Assigned at Not on file Legal Sex Female 4:44 AM PEWTER FINISHER Gender Identity Not on file Sexual Orientation Not on file documented as of this encounter Progress Notes * Corie Fisher NP - 06/12/2011 7:40 AM CDT Wiper Blender: Corie Fisher Status: Final Encounter: 2011-06-12 07:40:00.000 [place] [facility] [place] Reason For Visit LANIE BARRAZA [...] By: Corie Fisher N.P.; 06/12/2011 8:20 AM PEWTER FINISHER. documented in this encounter Plan of Treatment Upcoming Encounters Date Type Department Care Team (Late st Contact Info) Description 02/28/2025 1:00 PM PEWTER FINISHER Office Visit [facility] [address] [place] [address] Anna Pritchett MD [address] [place] [address] [id number] [place] [address] documented as of this encounter Visit Diagnoses Not on filedocumented in this encounter Additional Health Concerns Infection Onset Date Last Indicated Resolved Time Rule Out COVID-19 03/09/2022 03/09/2022 03/09/2022 5:29 PM PEWTER FINISHER Rule Out COVID-19 07/01/2022 07/01/2022 07/01/2022 7:40 PM CDT Rule Out COVID-19 03/06/2023 03/06/2023 03/06/2023 10:41 PM PEWTER FINISHER Rule Out COVID-19 10/01/2024 10/01/2024 10/02/2024 12:19 AM CDT documented as of this encounter Care Teams Distribution Center Assistant Relationship Specialty [place] [address] [place] [address] PCP - General 07/24/10 Leo Lopez PA-C [address] [facility] [address] [place] [address] Assigned Neuroscience Provider 05/19/21 09/05/22 Talisha Roth MD [address] [facility] [address] [place], [place] [address] Assigned Surgical Provider 09/21/21 05/08/23 [place] [address] [place] [address] Assigned Pain Medication Provider 02/24/22 08/15/22 [place] [address] [place] [address] Pain Medicine 06/25/22 Phoebe Mchugh MD [address] [facility] [address] [place], [place] [address] Physical Medicine and Rehabilitation 09/10/22 Anna Pritchett MD [address] [place], [place] [id number] [place] [address] Assigned Neuroscience Provider 09/06/22 10/17/22 Phoebe Mchugh MD [address] [facility] [address] [place] [address] Assigned Neuroscience Provider 10/18/22 03/11/23 Anna Pritchett MD [address] [facility] [place] [address] Assigned Neuroscience Provider 03/12/23 09/06/24 documented as of this encounter
--- OUTSIDE RECORDS SUMMARY | 2025-01-17 17:26 | XMS_ITS | Encounter Summary ---
Author Organization [place] Address [address] [place] [address] Care Team Providers Care Asphalt Plant Operator Name Role Phone Yarelis Henderson MD Primary Care Provider [phone] Leo Lopez PA-C Unavailable [phone] Talisha Roth MD Unavailable [phone] Lonnie Cadet MD Unavailable + Palak Lazcano MD Unavailable [phone] Phoebe Mchugh MD Unavailable [phone] Anna Pritchett MD Unavailable [phone] Pohebe Mchugh MD Unavailable [phone] Anna Pritchett MD Unavailable [phone] Encounter Details Date Type Department Care Team (Late st Contact Info) Description 06/10/2011 Office Visit-[facility] INTERFACE P DEPT Ayanna Leonard RN Social History Tobacco Use Types Packs/Day Years Used Date Smoking Tobacco: Former Alcohol Use Standard Drinks/Week Comments No 0 (1 standard drink = 0.6 oz pur e alcohol) Comments No Sex and Gender Information Value Date Recorded Sex Assigned at Not on file Legal Sex Female 4:44 AM UPHOLSTERER LIMOUSINE AND HEARSE Gender Identity Not on file Sexual Orientation Not on file documented as of this encounter Progress Notes * Ayanna Leonard RN - 06/10/2011 8:30 AM CDT Projection Engineer: Ayanna Leonard Status: Final Encounter: 2011-06-10 08:30:00.000 Type: [facility] Rooming Note Reason For Visit LANIE BARRAZA is a 36 year old female presents today for H&P with Corie Fisher NP for IVF. Pain Eval Current history of pain associated with this visit is denied. Active Problems Factor V Leiden Mutation. Personal Hx Behavioral history: No tobacco use. Home environment: No secondhand tobacco smoke in home. Vital Signs Recorded by [email or web address] on 10 Jun 2011 08:31 AM BP:117/81, [...] By: Ayanna Leonard RN; 06/10/2011 8:32 AM UPHOLSTERER LIMOUSINE AND HEARSE. documented in this encounter Plan of Treatment Upcoming Encounters Date Type Department Care Team (Late st Contact Info) Description 02/28/2025 1:00 PM UPHOLSTERER LIMOUSINE AND HEARSE Office Visit [facility] Neurosurgery Clinic [address] [place] [address] Anna Pritchett MD [address] [place] [address] [id number] [place], [place] 3[address]65 documented as of this encounter Visit Diagnoses Not on filedocumented in this encounter Additional Health Concerns Infection Onset Date Last Indicated Resolved Time Rule Out COVID-19 03/09/2022 03/09/2022 03/09/2022 5:29 PM UPHOLSTERER LIMOUSINE AND HEARSE Rule Out COVID-19 07/01/2022 07/01/2022 07/01/2022 7:40 PM CDT Rule Out COVID-19 03/06/2023 03/06/2023 03/06/2023 10:41 PM UPHOLSTERER LIMOUSINE AND HEARSE Rule Out COVID-19 10/01/2024 10/01/2024 10/02/2024 12:19 AM CDT documented as of this encounter Care Teams Asphalt Plant Operator Relationship Specialty [place] [address] [place] [address] PCP - General 07/24/10 Leo Lopez PA-C [address] [facility] [address] [place] [address] Assigned Neuroscience Provider 05/19/21 09/05/22 Talisha Roth MD [address] [facility] [address] [place], [place] [address] Assigned Surgical Provider 09/21/21 05/08/23 [place] [address] [id number] Assigned Pain Medication Provider 02/24/22 08/15/22 [place] [address] [place] [address] Pain Medicine 06/25/22 Phoebe Mchugh MD [address] [address] Physical Medicine and Rehabilitation 09/10/22 Anna Pritchtet MD [address] [place] [address] Assigned Neuroscience Provider 09/06/22 10/17/22 Phoebe Mchugh MD [address] [place] [address] Assigned Neuroscience Provider 10/18/22 03/11/23 Anna Pritchett MD [address] [place] [address] Assigned Neuroscience Provider 03/12/23 09/06/24 documented as of this encounter
--- OUTSIDE RECORDS SUMMARY | 2025-01-17 17:26 | XMS_ITS | Encounter Summary ---
Author Organization [place] Address [address] [place] [address] Care Team Providers Care Plastic Maker Name Role Phone Yarelis Henderson MD Primary Care Provider [phone] Leo Lopez PA-C Unavailable [phone] Talisha Roth MD Unavailable [phone] Lonnie Cadet MD Unavailable + Palak Lazcano MD Unavailable [phone] Phoebe Mchugh MD Unavailable [phone] Anna Pritchett MD Unavailable [phone] Phoebe Mchugh MD Unavailable [phone] Anna Pritchett MD Unavailable [phone] Encounter Details Date Type Department Care Team [...] file Legal Sex Female 4:44 AM MEDICAL ASSISTANT INTERNAL MEDICINE Gender Identity Not on file Sexual Orientation Not on file documented as of this encounter Progress Notes * Unknown, Provider - 06/10/2011 8:00 AM CDT Field Inspector: Masha Sams Status: Final Encounter: 2011-06-10 08:00:00.000 Type: [facility] Nurse Visit Reason For Visit LANIE BARRAZA is a 36 year old female presents today for IVF CD 7. See ovulation flow sheet for treatment and plan. Pt to stay on the same meds and RTC 06/12, reviewed with pt and system safety engineer. Dx 622.4. Active Problems Factor V Leiden Mutation. Allergies Dilaudid TABS. Current Meds MetFORMIN HCl 500 MG Tablet;TAKE 1 TABLET 3 TIMES DAILY WITH MEALS.; Rx AAA-MED RECONCILE;Per pt; RPT Vitamins TABS;; RPT. Pain Eval Current history of pain associated with this visit is denied. Signature Signed By: Masha Sams RN; 06/10/2011 8:18 AM MEDICAL ASSISTANT INTERNAL MEDICINE. documented in this encounter Plan of Treatment Upcoming Encounters Date Type Department Care Team (Late st Contact Info) Description 02/28/2025 1:00 PM MEDICAL ASSISTANT INTERNAL MEDICINE Office Visit [facility] Neurosurgery Clinic [address] [place] [address] Anna Pritchett MD [address] [place] [address] [id number] [place], [place] [address] documented as of this encounter Visit Diagnoses Not on filedocumented in this encounter Additional Health Concerns Infection Onset Date Last Indicated Resolved Time Rule Out COVID-19 03/09/2022 03/09/2022 03/09/2022 5:29 PM MEDICAL ASSISTANT INTERNAL MEDICINE Rule Out COVID-19 07/01/2022 07/01/2022 07/01/2022 7:40 PM CDT Rule Out COVID-19 03/06/2023 03/06/2023 03/06/2023 10:41 PM MEDICAL ASSISTANT INTERNAL MEDICINE Rule Out COVID-19 10/01/2024 10/01/2024 10/02/2024 12:19 AM CDT documented as of this encounter Care Teams Plastic Maker Relationship Specialty [place] [address] [place], [place] [id number] PCP - General 07/24/10 Leo Lopez PA-C [address] [place], [place] [address] Assigned Neuroscience Provider 05/19/21 09/05/22 Talisha Roth MD [address] [facility] [address] [place] [address] Assigned Surgical Provider 09/21/21 05/08/23 [place] [address] [place] [address] Assigned Pain Medication Provider 02/24/22 08/15/22 [place] [address] [place] [address] Pain Medicine 06/25/22 Phoebe Mchugh MD [address] [place] [address]40915 Physical Medicine and Rehabilitation 09/10/22 Anna Pritchett MD [address] [facility] [place] [address] Assigned Neuroscience Provider 09/06/22 10/17/22 Phoebe Mchugh MD [address] [place] [address] Assigned Neuroscience Provider 10/18/22 03/11/23 Anna Pritchett MD [address] [facility] [id number] [place] [address] Assigned Neuroscience Provider 03/12/23 09/06/24 documented as of this encounter
--- OUTSIDE RECORDS SUMMARY | 2025-01-17 17:26 | XMS_ITS | Encounter Summary ---
Author Organization [place] Address [address] [place] [address]. [place] [address] Care Team Providers Care Senior Portfolio Manager Name Role Phone Yarelis Henderson MD Primary Care Provider Leo Lopez PA-C Unavailable [phone] Talisha Roth MD Unavailable [phone] Lonnie Cadet MD Unavailable + Palak Lazcano MD Unavailable [phone] Phoebe Mchugh MD Unavailable [phone] Anna Pritchett MD Unavailable [phone] Phoebe Mchuhg MD Unavailable [phone] Anna Pritchett MD Unavailable [phone] Encounter Details Date Type Department Care Team (Late st Contact Info) Description 06/23/2022 [facility] [place] [facility] [address] [place] [address] [place] [address] [place] [address] Social History Tobacco Use Types Packs/Day Years Used Date Smoking Tobacco: Former Cigarettes Q uit: 01/19/2008 Smokeless Tobacco: Never Alcohol Use Standard Drinks/Week Comments No 0 (1 standard drink = 0.6 oz pur e alcohol) Comments No Sex and Gender Information Value Date Recorded Sex Assigned at Not on file Legal Sex Female 4:44 AM MICROBIOLOGY PROFESSOR Gender Identity Not on file Sexual [...] recommended, Dr Lazcano could order any imaging. [phone]. She is quite booked out so I would also recommend asking about being placed on the cancellation list. Thanks Amaya ELI, RN Plant Changer [facility] * Telephone Encounter - Amaya [...] could order any imaging. Amaya ELI, RN Plant Changer [facility] documented in this encounter Plan of Treatment Upcoming Encounters Date Type Department Care Team (Late st Contact Info) Description 02/28/2025 1:00 PM MICROBIOLOGY PROFESSOR Office Visit [facility] [address] 3rd [place] [phone] Anna Pritchett MD [address] [place] [address] [id number] [place], [place] [address] documented as of this encounter Visit Diagnoses Not on filedocumented in this encounter Additional Health Concerns Infection Onset Date Last Indicated Resolved Time Rule Out COVID-19 07/01/2022 07/01/2022 07/01/2022 7:40 PM CDT Rule Out COVID-19 03/06/2023 03/06/2023 03/06/2023 10:41 PM MICROBIOLOGY PROFESSOR Rule Out COVID-19 10/01/2024 10/01/2024 10/02/2024 12:19 AM CDT documented as of this encounter Care Teams Senior Portfolio Manager Relationship Specialty [place] [address] [place] [address] PCP - General 07/24/10 Leo Lopez PA-C [address] [facility] [address] [place] [address] Assigned Neuroscience Provider 05/19/21 09/05/22 Talisha Roth MD [address] [facility] [address] [place] [address] Assigned Surgical Provider 09/21/21 05/08/23 [place] [address] [place] [address] Assigned Pain Medication Provider 02/24/22 08/15/22 [place] [address] [place] [address] Pain Medicine 06/25/22 Phoebe Mchguh MD [address] [address] Physical Medicine and Rehabilitation 09/10/22 Anna Pritchett MD [address] [place] [address] Assigned Neuroscience Provider 09/06/22 10/17/22 Phoebe Mchugh MD [address] [address] Assigned Neuroscience Provider 10/18/22 03/11/23 Anna Pritchett MD [address] [address] Assigned Neuroscience Provider 03/12/23 09/06/24 documented as of this encounter
--- OUTSIDE RECORDS SUMMARY | 2025-01-17 17:26 | XMS_ITS | Encounter Summary ---
Author Organization [place] Address [address] [place] [address] Care Team Providers Care Croze Cutter Name Role Phone Yarelis Henderson MD Primary Care Provider Leo Lopez PA-C Unavailable [phone] Talisha Roth MD Unavailable [phone] Lonnie Cadet MD Unavailable + Palak Lazcano MD Unavailable Phoebe Mchugh MD Unavailable [phone] Anna Pritchett MD Unavailable [phone] Phoebe Mchugh MD Unavailable [phone] Anna Pritchett MD Unavailable [phone] Encounter Details Date Type Department Care Team (Late st Contact Info) Description 06/14/2011 Office Visit-P INTERFACE P DEPT Corie Fisher APRN SWITCH OPERATOR [facility] [address] [facility] [address] [place] [address] [place] [address] Social History Tobacco Use Types Packs/Day Years Used Date Smoking Tobacco: Former Alcohol Use Standard Drinks/Week Comments No 0 (1 standard drink = 0.6 oz pur e alcohol) Comments No Sex and Gender Information Value Date Recorded Sex Assigned at Not on file Legal Sex Female 4:44 AM CURRICULUM DEVELOPER Gender Identity Not on file Sexual Orientation Not on file documented as of this encounter Progress Notes * Corie Fisher NP - 06/14/2011 1:20 PM CDT Manager Estate: Corie Fisher Status: Final Encounter: 2011-06-14 13:20:00.000 Type: [facility] [place] Visit Reason For Visit LANIE BARRAZA [...] By: Corie Fisher N.P.; 06/14/2011 2:14 PM CURRICULUM DEVELOPER. documented in this encounter Plan of Treatment Upcoming Encounters Date Type Department Care Team (Late st Contact Info) Description 02/28/2025 1:00 PM CURRICULUM DEVELOPER Office Visit [facility] Neurosurgery Clinic [address] [place] [address] Anna Pritchett MD [address] [place] [address] [id number] [place], [place] [address] documented as of this encounter Visit Diagnoses Not on filedocumented in this encounter Additional Health Concerns Infection Onset Date Last Indicated Resolved Time Rule Out COVID-19 03/09/2022 03/09/2022 03/09/2022 5:29 PM CURRICULUM DEVELOPER Rule Out COVID-19 07/01/2022 07/01/2022 07/01/2022 7:40 PM CDT Rule Out COVID-19 03/06/2023 03/06/2023 03/06/2023 10:41 PM CURRICULUM DEVELOPER Rule Out COVID-19 10/01/2024 10/01/2024 10/02/2024 12:19 AM CDT documented as of this encounter Care Teams Croze Cutter Relationship Specialty [place] [address] [place] [address] PCP - General 07/24/10 Leo Lopez PA-C [address] [facility] [address] [place] [address] Assigned Neuroscience Provider 05/19/21 09/05/22 Talisha Roth MD [address] [facility] [address] [place], [place] [address] Assigned Surgical Provider 09/21/21 05/08/23 [place] [address] [place] [address] Assigned Pain Medication Provider 02/24/22 08/15/22 [place] [address] [place] [address] Pain Medicine 06/25/22 Phoebe Mchugh MD [address] [facility] [address] [place], [place] [address] Physical Medicine and Rehabilitation 09/10/22 Anna Pritchett MD 909 [id number] [place] [address] Assigned Neuroscience Provider 09/06/22 10/17/22 Phoebe Mchugh MD 420 [facility] [address] [place] [address] Assigned Neuroscience Provider 10/18/22 03/11/23 Anna Pritchett MD [address] [place] [address]CJ [place] [address] Assigned Neuroscience Provider 03/12/23 09/06/24 documented as of this encounter
--- OUTSIDE RECORDS SUMMARY | 2025-01-17 17:26 | XMS_ITS | Encounter Summary ---
Author Organization [place] Address Critical access hospital0 [facility] [place] [address] Care Team Providers Care Human Resources Talent Manager Name Role Phone Yarelis Henderson MD Primary Care Provider Leo Lopez PA-C Unavailable [phone] Talisha Roth MD Unavailable [phone] Lonnie Cadet MD Unavailable + Palak Lazcano MD Unavailable [phone] Phoebe Mchugh MD Unavailable [phone] Anna Pritchett MD Unavailable [phone] Phoebe Mchugh MD Unavailable [phone] Anna Pritchett MD Unavailable [phone] Encounter Details Date Type Department Care Team (Late st Contact Info) Description 08/22/2020 [facility] [address] [place] [address] 600 [place] [address] Aleida De La Torre Social History Tobacco Use Types Packs/Day Years Used Date Smoking Tobacco: Former Cigarettes Q uit: 01/19/2008 Smokeless Tobacco: Never Alcohol Use Standard Drinks/Week Comments No 0 (1 standard drink = 0.6 oz pur e alcohol) Comments No Sex and Gender Information Value Date Recorded Sex Assigned at Not on file Legal Sex Female 4:44 AM GEOGRAPHIC INFORMATION SCIENTIST Gender Identity Not on file Sexual Orientation [...] st Contact Info) Description 02/28/2025 1:00 PM GEOGRAPHIC INFORMATION SCIENTIST Office Visit [facility] Neurosurgery Clinic [address] 3rd [place] [address] Anna Pritchett MD [address] [place] [address] [id number] [place], [place] [address] documented as of this encounter Visit Diagnoses Not on filedocumented in this encounter Additional Health Concerns Infection Onset Date Last Indicated Resolved Time Rule Out COVID-19 03/09/2022 03/09/2022 03/09/2022 5:29 PM GEOGRAPHIC INFORMATION SCIENTIST Rule Out COVID-19 07/01/2022 07/01/2022 07/01/2022 7:40 PM CDT Rule Out COVID-19 03/06/2023 03/06/2023 03/06/2023 10:41 PM GEOGRAPHIC INFORMATION SCIENTIST Rule Out COVID-19 10/01/2024 10/01/2024 10/02/2024 12:19 AM CDT documented as of this encounter Care Teams Human Resources Talent Manager Relationship Specialty [place] [address] [place] [address] PCP - General 07/24/10 Leo Lopez PA-C [address] [place] [address] Assigned Neuroscience Provider 05/19/21 09/05/22 Talisha Roth MD [address] [facility] [address] [place] [address] Assigned Surgical Provider 09/21/21 05/08/23 [place] [address] [place] [address] Assigned Pain Medication Provider 02/24/22 08/15/22 [place] [address] [place] [address] Pain Medicine 06/25/22 Phoebe Mchugh MD [address] [place] [address] Physical Medicine and Rehabilitation 09/10/22 Anna Pritchett MD [address] [place] [address] Assigned Neuroscience Provider 09/06/22 10/17/22 Phoebe Mchugh MD [address] [place] [address] Assigned Neuroscience Provider 10/18/22 03/11/23 Anna Pritchett MD [address] [place] [address] Assigned Neuroscience Provider 03/12/23 09/06/24 documented as of this encounter
--- OUTSIDE RECORDS SUMMARY | 2025-01-17 17:26 | XMS_ITS | Encounter Summary ---
Author Organization [place] Address Critical access hospital0 [facility] [place] [address] Care Team Providers Care Food Production Worker Name Role Phone Yarelis Henderson MD Primary Care Provider [phone] Leo Lopez PA-C Unavailable [phone] Talisha Roth MD Unavailable [phone] Lonnie Cadet MD Unavailable + Palak Lazcano MD Unavailable [phone] Phoebe Mchugh MD Unavailable [phone] Anna Pritchett MD Unavailable [phone] Phoebe Mchugh MD Unavailable [phone] Anna Pritchett MD Unavailable [phone] Encounter Details Date Type Department Care Team (Late st Contact Info) Description 12/07/2020 [facility] Medical Advice [facility] Pain Management [address] [address] Radha Chance RN Social History Tobacco Use Types Packs/Day Years Used Date Smoking Tobacco: Former Cigarettes Q uit: 01/19/2008 Smokeless Tobacco: Never Alcohol Use Standard Drinks/Week Comments No 0 (1 standard drink = 0.6 oz pur e alcohol) Comments No Sex and Gender Information Value Date Recorded Sex Assigned at Not on file Legal Sex Female 4:44 AM DIRECTOR ENTERPRISE SALES Gender Identity Not on file Sexual Orientation [...] Contact Info) Description 02/28/2025 1:00 PM DIRECTOR ENTERPRISE SALES Office Visit [facility] Neurosurgery Clinic [address]rd [place] [address] Anna Pritchett MD [address] [place] [address] [id number] [place], [place] [address] documented as of this encounter Visit Diagnoses Not on filedocumented in this encounter Additional Health Concerns Infection Onset Date Last Indicated Resolved Time Rule Out COVID-19 03/09/2022 03/09/2022 03/09/2022 5:29 PM DIRECTOR ENTERPRISE SALES Rule Out COVID-19 07/01/2022 07/01/2022 07/01/2022 7:40 PM CDT Rule Out COVID-19 03/06/2023 03/06/2023 03/06/2023 10:41 PM DIRECTOR ENTERPRISE SALES Rule Out COVID-19 10/01/2024 10/01/2024 10/02/2024 12:19 AM CDT documented as of this encounter Care Teams Food Production Worker Relationship Specialty [place] [address] [place] [address] PCP - General 07/24/10 Leo Lopez PA-C [address] [place] [address] Assigned Neuroscience Provider 05/19/21 09/05/22 Talisha Roth MD [address] [facility] [address] [place] [address] Assigned Surgical Provider 09/21/21 05/08/23 [place] [address] [place] [address] Assigned Pain Medication Provider 02/24/22 08/15/22 [place] [address] [place] [address] Pain Medicine 06/25/22 Phoebe Mchugh MD [address] [place] [address] Physical Medicine and Rehabilitation 09/10/22 Anna Pritchett MD [address] [place] [address] Assigned Neuroscience Provider 09/06/22 10/17/22 Phoebe Mchugh MD [address] [place] [address] Assigned Neuroscience Provider 10/18/22 03/11/23 Anna Pritchett MD [address] [place] [address] Assigned Neuroscience Provider 03/12/23 09/06/24 documented as of this encounter
--- OUTSIDE RECORDS SUMMARY | 2025-01-17 17:26 | XMS_ITS | Encounter Summary ---
Author Organization [place] Address [address] [facility] [address] Care Team Providers Care Marine Equipment Design Engineer Name Role Phone Yarelis Henderson MD Primary Care Provider Leo Lopez PA-C Unavailable [phone] Talisha Roth MD Unavailable [phone] Lonnie Cadet MD Unavailable + Palak Lazcano MD Unavailable [phone] Phoebe Mchugh MD Unavailable [phone] Anna Pritchett MD Unavailable [phone] Phoebe Mchugh MD Unavailable [phone] Anna Pritchett MD Unavailable [phone] Encounter Details Date Type Department Care Team (Late st Contact Info) Description 07/01/2011 Office Visit-[facility] INTERFACE P DEPT Aster Acevedo NP XXX NO INFO FOUND XXX [address] [place] [address] Social History Tobacco Use Types Packs/Day Years Used Date Smoking Tobacco: Former Alcohol Use Standard Drinks/Week Comments No 0 (1 standard drink = 0.6 oz pur e alcohol) Comments No Sex and Gender Information Value Date Recorded Sex Assigned at Not on file Legal Sex Female 4:44 AM DATA CENTER ARCHITECT Gender Identity Not on file Sexual Orientation Not on file documented as of this encounter Progress Notes * Aster Acevedo NP - 07/01/2011 11:16 AM CDT Auto Finance Sales Rep: Aster Acevedo Status: Final - Signature Encounter: 2011-07-01 11:16:00.000 Type: [facility] [place] Recorded as Task Date: 07/01/2011 09:44 AM, Created By: Shell Uribe Task Name: Call Back Assigned To: Aster Acevedo Regarding Patient: LANIE BARRAZA, Status: Active Comment: Shell Uribe - 01 Jul 2011 9:44 AM TASK CREATED Caller: LOU, Mother; Other LOU IS CALLING TO DISCUSS SOME QUESTIONS SHE HAS. PLEASE CALL HER AT [phone] Aster Acevedo - 01 Jul 2011 1:49 PM TASK EDITED Telecon with Lou. Questions prviously answered by Erika. Reviewed plan for Endometrin with Lou. Electronically signed by:Aster Acevedo N.P. Jul 01 2011 1:49PM DATA CENTER ARCHITECT documented in this encounter Plan of Treatment Upcoming Encounters Date Type Department Care Team (Late st Contact Info) Description 02/28/2025 1:00 PM DATA CENTER ARCHITECT Office Visit [facility] [address] 3rd [place] [address] Anna Pritchett MD [address] [place] [address] [id number] [place], [place] [address] documented as of this encounter Visit Diagnoses Not on filedocumented in this encounter Additional Health Concerns Infection Onset Date Last Indicated Resolved Time Rule Out COVID-19 03/09/2022 03/09/2022 03/09/2022 5:29 PM DATA CENTER ARCHITECT Rule Out COVID-19 07/01/2022 07/01/2022 07/01/2022 7:40 PM CDT Rule Out COVID-19 03/06/2023 03/06/2023 03/06/2023 10:41 PM DATA CENTER ARCHITECT Rule Out COVID-19 10/01/2024 10/01/2024 10/02/2024 12:19 AM CDT documented as of this encounter Care Teams Marine Equipment Design Engineer Relationship Specialty [place] [address] [place] [address] PCP - General 07/24/10 Leo Lopez PA-C [address] [facility] [address] [place] [address] Assigned Neuroscience Provider 05/19/21 09/05/22 Talisha Roth MD [address] [facility] [address] [place], [place] [address] Assigned Surgical Provider 09/21/21 05/08/23 [place] [address] [place] [address] Assigned Pain Medication Provider 02/24/22 08/15/22 [place] [address] [place] [address] Pain Medicine 06/25/22 Phoebe Mchugh MD [address] [facility] 297 [place], [place] [address] Physical Medicine and Rehabilitation 09/10/22 Anna Pritchett MD [address] [facility], [place] [address] Assigned Neuroscience Provider 09/06/22 10/17/22 Phoebe Mchugh MD [address] [facility] 297 [place] [address] Assigned Neuroscience Provider 10/18/22 03/11/23 Anna Pritchett MD [address] [place] [address] [address] Assigned Neuroscience Provider 03/12/23 09/06/24 documented as of this encounter
--- OUTSIDE RECORDS SUMMARY | 2025-01-17 17:26 | XMS_ITS | Encounter Summary ---
Author Organization [place] Address [address] [place] [address] Care Team Providers Care Lymphedema Therapist Name Role Phone Yarelis Henderson MD Primary Care Provider Leo Lopez PA-C Unavailable [phone] Talisha Roth MD Unavailable [phone] Lonnie Cadet MD Unavailable + Palak Lazcano MD Unavailable [phone] Phoebe Mchugh MD Unavailable [phone] Anna Pritchett MD Unavailable [phone] Phoebe Mchugh MD Unavailable [phone] Anna Pritchett MD Unavailable [phone] Encounter Details Date Type Department Care Team (Late st Contact Info) Description 07/17/2011 Office Visit-P INTERFACE P DEPT Corie Fisher APRN CONSUMER LENDER [facility] [address] [facility] [address] [place] [address] Social History Tobacco Use Types Packs/Day Years Used Date Smoking Tobacco: Former Alcohol Use Standard Drinks/Week Comments No 0 (1 standard drink = 0.6 oz pur e alcohol) Comments No Sex and Gender Information Value Date Recorded Sex Assigned at Not on file Legal Sex Female 4:44 AM PMP CERTIFIED PROJECT MANAGER Gender Identity Not on file Sexual Orientation Not on file documented as of this encounter Progress Notes * Corie Fisher NP - 07/17/2011 3:00 PM CDT Automation And Controls Supervisor: Phillip Corie Status: Final - Signature Encounter: 2011-07-17 15:00:00.000 [place] [facility] [place]: Confirmation of Transvaginal Ultrasound The [...] Mean Yolk Sac Diameter 3.1 mm Pole [Honcut Rump Length (CRL)]: 1. Length 5.8 mm [...] by:Corie Fisher N.P. Jul 17 2011 3:22PM PMP CERTIFIED PROJECT MANAGER documented in this encounter Plan of Treatment Upcoming Encounters Date Type Department Care Team (Late st Contact Info) Description 02/28/2025 1:00 PM PMP CERTIFIED PROJECT MANAGER Office Visit [facility] [address] 3rd [place] [phone] Anna Pritchett MD [address] [place] [address] [id number] [place] [address] documented as of this encounter Visit Diagnoses Not on filedocumented in this encounter Additional Health Concerns Infection Onset Date Last Indicated Resolved Time Rule Out COVID-19 03/09/2022 03/09/2022 03/09/2022 5:29 PM PMP CERTIFIED PROJECT MANAGER Rule Out COVID-19 07/01/2022 07/01/2022 07/01/2022 7:40 PM CDT Rule Out COVID-19 03/06/2023 03/06/2023 03/06/2023 10:41 PM PMP CERTIFIED PROJECT MANAGER Rule Out COVID-19 10/01/2024 10/01/2024 10/02/2024 12:19 AM CDT documented as of this encounter Care Teams Lymphedema Therapist Relationship Specialty [place] [address] [place] [address] PCP - General 07/24/10 Leo Lopez PA-C [address] [facility] [address] [place] [address] Assigned Neuroscience Provider 05/19/21 09/05/22 Talisha Roth MD [address] [facility] [address] [place] [address] Assigned Surgical Provider 09/21/21 05/08/23 [place] [address] [place] [address] Assigned Pain Medication Provider 02/24/22 08/15/22 [place] [address] [place] [address] Pain Medicine 06/25/22 Phoebe Mchugh MD [address] [place] [address] Physical Medicine and Rehabilitation 09/10/22 Anna Pritchett MD [address] [place] [address] Assigned Neuroscience Provider 09/06/22 10/17/22 Phoebe Mchugh MD [address] [place] [address] Assigned Neuroscience Provider 10/18/22 03/11/23 Anna Pritchett MD [address] [place] [address] Assigned Neuroscience Provider 03/12/23 09/06/24 documented as of this encounter
--- OUTSIDE RECORDS SUMMARY | 2025-01-17 17:26 | XMS_ITS | Encounter Summary ---
Author Organization [place] Address [facility] [facility] [place] [address] Care Team Providers Care Cup Machine Operator Name Role Phone Yarelis Henderson MD Primary Care Provider Leo Lopez PA-C Unavailable [phone] Talisha Roth MD Unavailable [phone] Lonnie Cadet MD Unavailable + Palak Lazcano MD Unavailable [phone] Phoebe Mchugh MD Unavailable [phone] Anna Pritchett MD Unavailable [phone] Phoebe Mchugh MD Unavailable [phone] Anna Pritchett MD Unavailable [phone] Encounter Details Date Type Department Care Team (Late st Contact Info) Description 01/18/2021 [facility] Medical Advice [facility] Pain Management [address] [address] Radha Chance RN Social History Tobacco Use Types Packs/Day Years Used Date Smoking Tobacco: Former Cigarettes Q uit: 01/19/2008 Smokeless Tobacco: Never Alcohol Use Standard Drinks/Week Comments No 0 (1 standard drink = 0.6 oz pur e alcohol) Comments No Sex and Gender Information Value Date Recorded Sex Assigned at Not on file Legal Sex Female 4:44 AM PARLIAMENTARY COUNSEL Gender Identity Not on file Sexual Orientation Not on file documented as of this encounter Plan of Treatment Upcoming Encounters Date Type Department Care Team (Late st Contact Info) Description 02/28/2025 1:00 PM PARLIAMENTARY COUNSEL Office Visit [address]rd [place] [address] Anna Pritchett MD [address] [place] [address] [id number] [place], [place] [address] documented as of this encounter Visit Diagnoses Not on filedocumented in this encounter Additional Health Concerns Infection Onset Date Last Indicated Resolved Time Rule Out COVID-19 03/09/2022 03/09/2022 03/09/2022 5:29 PM PARLIAMENTARY COUNSEL Rule Out COVID-19 07/01/2022 07/01/2022 07/01/2022 7:40 PM CDT Rule Out COVID-19 03/06/2023 03/06/2023 03/06/2023 10:41 PM PARLIAMENTARY COUNSEL Rule Out COVID-19 10/01/2024 10/01/2024 10/02/2024 12:19 AM CDT documented as of this encounter Care Teams Cup Machine Operator Relationship Specialty [place] [address] [address] [place], [place] [phone] PCP - General 07/24/10 Leo Lopez PA-C [address] [place] [address] Assigned Neuroscience Provider 05/19/21 09/05/22 Talisha Roth MD [address] [facility] [address] [place], [place] [address] Assigned Surgical Provider 09/21/21 05/08/23 [place] [address] [place] [address] Assigned Pain Medication Provider 02/24/22 08/15/22 [place] [address] [place] [address] Pain Medicine 06/25/22 Phoebe Mchugh MD [address] [place] [address] Physical Medicine and Rehabilitation 09/10/22 Anna Pritchett MD [address] [place] [address] Assigned Neuroscience Provider 09/06/22 10/17/22 Phoebe Mchugh MD [address] [place] [address] Assigned Neuroscience Provider 10/18/22 03/11/23 Anna Pritchett MD [address] [place] [address] Assigned Neuroscience Provider 03/12/23 09/06/24 documented as of this encounter
--- OUTSIDE RECORDS SUMMARY | 2025-01-17 17:26 | XMS_ITS | Encounter Summary ---
Author Organization [place] Address [address] [place] [address] Care Team Providers Care Computer Typesetter Name Role Phone Yarelis Henderson MD Primary Care Provider [phone] Leo Lopez PA-C Unavailable [phone] Talisha Roth MD Unavailable [phone] Lonnie Cadet MD Unavailable + Palak Lazcano MD Unavailable [phone] Phoebe Mchugh MD Unavailable [phone] Anna Pritchett MD Unavailable [phone] Phoebe Mchugh MD Unavailable [phone] Anna Pritchett MD Unavailable [phone] Encounter Details Date Type Department Care Team (Late st Contact Info) Description 07/10/2011 Office Visit-P INTERFACE P DEPT Coire Fisher APRN SUPERVISOR INSPECTION DEPARTMENT [facility] [address] [facility] [address] [place] [address] Social History Tobacco Use Types Packs/Day Years Used Date Smoking Tobacco: Former Alcohol Use Standard Drinks/Week Comments No 0 (1 standard drink = 0.6 oz pur e alcohol) Comments No Sex and Gender Information Value Date Recorded Sex Assigned at Not on file Legal Sex Female 4:44 AM FACETOR Gender Identity Not on file Sexual Orientation Not on file documented as of this encounter Progress Notes * Coire Fisher NP - 07/10/2011 9:30 AM CDT Mechanical Design Engineer Products: Corie Fisher Status: Final Encounter: 2011-07-10 09:30:00.000 Type: [facility] [place] Visit Reason For Visit LANIE BARRAZA [...] By: Corie Fisher N.P.; 07/10/2011 9:49 AM FACETOR. documented in this encounter Plan of Treatment Upcoming Encounters Date Type Department Care Team (Late st Contact Info) Description 02/28/2025 1:00 PM FACETOR Office Visit [facility] [place] [address] [facility] 3rd [place] [phone] Anna Pritchett MD [address] [facility] [id number] [place] [address] documented as of this encounter Visit Diagnoses Not on filedocumented in this encounter Additional Health Concerns Infection Onset Date Last Indicated Resolved Time Rule Out COVID-19 03/09/2022 03/09/2022 03/09/2022 5:29 PM FACETOR Rule Out COVID-19 07/01/2022 07/01/2022 07/01/2022 7:40 PM CDT Rule Out COVID-19 03/06/2023 03/06/2023 03/06/2023 10:41 PM FACETOR Rule Out COVID-19 10/01/2024 10/01/2024 10/02/2024 12:19 AM CDT documented as of this encounter Care Teams Computer Typesetter Relationship Specialty [place] [address] [address] [place], [place] [id number] PCP - General 07/24/10 Leo Lopez PA-C [address] [facility] [address] [place], [place] [address] Assigned Neuroscience Provider 05/19/21 09/05/22 Talisha Roth MD [address] [facility] [address] [place], [place] [address] Assigned Surgical Provider 09/21/21 05/08/23 [place] [address] [place] [address] Assigned Pain Medication Provider 02/24/22 08/15/22 [place] [address] [place] [address] Pain Medicine 06/25/22 Phoebe Mchugh MD [address] [place] [address] Physical Medicine and Rehabilitation 09/10/22 Anna Pritchett MD [address] [place] [address] Assigned Neuroscience Provider 09/06/22 10/17/22 Phoebe Mchugh MD [address] [place] [address] Assigned Neuroscience Provider 10/18/22 03/11/23 Anna Pritchett MD [address] [place] [address] Assigned Neuroscience Provider 03/12/23 09/06/24 documented as of this encounter
--- OUTSIDE RECORDS SUMMARY | 2025-01-17 17:26 | XMS_ITS | Encounter Summary ---
Author Organization [place] Address [address] [place] [address] Care Team Providers Care Cattle Shipper Name Role Phone Yarelis Henderson MD Primary Care Provider [phone] Leo Lopez PA-C Unavailable [phone] Talisha Roth MD Unavailable [phone] Lonnie Cadet MD Unavailable + Palak Lazcano MD Unavailable [phone] Phoebe Mchugh MD Unavailable Anna Pritchett MD Unavailable [phone] Phoebe Mchugh MD Unavailable [phone] Anna Pritchett MD Unavailable [phone] Encounter Details Date Type Department Care Team (Late st Contact Info) Description 06/10/2011 Office Visit-P INTERFACE P DEPT Corie Fisher APRN COLLECTIONS ASSOCIATE [facility] [address] [facility] [address] [place] [place] [address] Social History Tobacco Use Types Packs/Day Years Used Date Smoking Tobacco: Former Alcohol Use Standard Drinks/Week Comments No 0 (1 standard drink = 0.6 oz pur e alcohol) Comments No Sex and Gender Information Value Date Recorded Sex Assigned at Not on file Legal Sex Female 4:44 AM CERTIFIED FIRST ASSISTANT Gender Identity Not on file Sexual Orientation Not on file documented as of this encounter Progress Notes * Corie Fisher, MARINE ENGINEERING TECHNICIANS - 06/10/2011 8:30 AM CDT Auto Clutch Rebuilder: Corie Fisher Status: Final Encounter: 2011-06-10 08:30:00.000 [...] Drug use: Not using drugs. 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 Marital: Currently . Family Hx Mother- breast [...] By: Corie Fisher N.P.; 06/10/2011 8:49 AM CERTIFIED FIRST ASSISTANT. documented in this encounter Plan of Treatment Upcoming Encounters Date Type Department Care Team (Late st Contact Info) Description 02/28/2025 1:00 PM CERTIFIED FIRST ASSISTANT Office Visit [address] [place] [phone] Anna Pritchett MD [address] [place] [address] [id number] [place] [address] documented as of this encounter Visit Diagnoses Not on filedocumented in this encounter Additional Health Concerns Infection Onset Date Last Indicated Resolved Time Rule Out COVID-19 03/09/2022 03/09/2022 03/09/2022 5:29 PM CERTIFIED FIRST ASSISTANT Rule Out COVID-19 07/01/2022 07/01/2022 07/01/2022 7:40 PM CDT Rule Out COVID-19 03/06/2023 03/06/2023 03/06/2023 10:41 PM CERTIFIED FIRST ASSISTANT Rule Out COVID-19 10/01/2024 10/01/2024 10/02/2024 12:19 AM CDT documented as of this encounter Care Teams Cattle Shipper Relationship Specialty [place] [address] [address] [place] [address] PCP - General 07/24/10 Leo Lopez PA-C [address] [facility] [address] [place] [address] Assigned Neuroscience Provider 05/19/21 09/05/22 Talisha Roth MD [address] [facility] [address] [place] [address] Assigned Surgical Provider 09/21/21 05/08/23 [place] [address] [place] [address] Assigned Pain Medication Provider 02/24/22 08/15/22 [place] [address] [place] [address] Pain Medicine 06/25/22 Phoebe Mchugh MD [address] [address] Physical Medicine and Rehabilitation 09/10/22 Anna Pritchett MD [address] [place] [address] Assigned Neuroscience Provider 09/06/22 10/17/22 Phoebe Mchugh MD [address] [address] Assigned Neuroscience Provider 10/18/22 03/11/23 Anna Pritchett MD [address] [place] [address] Assigned Neuroscience Provider 03/12/23 09/06/24 documented as of this encounter
--- OUTSIDE RECORDS SUMMARY | 2025-01-17 17:26 | XMS_ITS | Encounter Summary ---
Author Organization [place] Address [address] [place] [address] Care Team Providers Care Ornamental Iron Worker Apprentice Name Role Phone Yarelis Henderson MD Primary Care Provider Leo Lopez PA-C Unavailable [phone] Talisha Roth MD Unavailable [phone] Lonnie Cadet MD Unavailable + Palak Lazcano MD Unavailable [phone] Phoebe Mchugh MD Unavailable [phone] Anna Pritchett MD Unavailable [phone] Phoebe Mchugh MD Unavailable Anna Pritchett MD Unavailable [phone] Encounter Details Date Type Department Care Team (Late st Contact Info) Description 06/15/2011 Office Visit-P INTERFACE P DEPT Corie Fisher APRN KETTLE SKIMMER [facility] REPRODUCT[facility] MEDIC[facility] [address] [facility] [address] [place] [address] Social History Tobacco Use Types Packs/Day Years Used Date Smoking Tobacco: Former Alcohol Use Standard Drinks/Week Comments No 0 (1 standard drink = 0.6 oz pur e alcohol) Comments No Sex and Gender Information Value Date Recorded Sex Assigned at Not on file Legal Sex Female 4:44 AM ALUM PLANT SUPERVISOR Gender Identity Not on file Sexual Orientation Not on file documented as of this encounter Progress Notes * Corie Fisher NP - 06/15/2011 11:20 AM CDT Desk Representative: Corie Fisher Status: Final Encounter: 2011-06-15 11:20:00.000 Type: [facility] Nurse Visit Reason For Visit [...] By: Corie Fisher N.P.; 06/15/2011 11:48 AM ALUM PLANT SUPERVISOR. documented in this encounter Plan of Treatment Upcoming Encounters Date Type Department Care Team (Late st Contact Info) Description 02/28/2025 1:00 PM ALUM PLANT SUPERVISOR Office Visit [facility] [address] [place] [address] Anna Pritchett MD [address] [place] [address] [id number] [place], [place] [address] documented as of this encounter Visit Diagnoses Not on filedocumented in this encounter Additional Health Concerns Infection Onset Date Last Indicated Resolved Time Rule Out COVID-19 03/09/2022 03/09/2022 03/09/2022 5:29 PM ALUM PLANT SUPERVISOR Rule Out COVID-19 07/01/2022 07/01/2022 07/01/2022 7:40 PM CDT Rule Out COVID-19 03/06/2023 03/06/2023 03/06/2023 10:41 PM ALUM PLANT SUPERVISOR Rule Out COVID-19 10/01/2024 10/01/2024 10/02/2024 12:19 AM CDT documented as of this encounter Care Teams Ornamental Iron Worker Apprentice Relationship Specialty [place] [address] [place] [address] PCP - General 07/24/10 Leo Lopez PA-C [address] [facility] [address] [place] [address] Assigned Neuroscience Provider 05/19/21 09/05/22 Talisha Roth MD [address] [facility] [address] [place], [place] [address] Assigned Surgical Provider 09/21/21 05/08/23 [place] [address] [place] [address] Assigned Pain Medication Provider 02/24/22 08/15/22 [place] [address] [place] [address] Pain Medicine 06/25/22 Phoebe Mchugh MD [address] [facility] 297 [place], [place] [address] Physical Medicine and Rehabilitation 09/10/22 Anna Pritchett MD [address] [facility]121[place], [place] [address] Assigned Neuroscience Provider 09/06/22 10/17/22 Phoebe Mchugh MD [address] [facility] 297 [place] [address] Assigned Neuroscience Provider 10/18/22 03/11/23 Anna Pritchett MD [address] [place], [place] [address] [address] Assigned Neuroscience Provider 03/12/23 09/06/24 documented as of this encounter
--- OUTSIDE RECORDS SUMMARY | 2025-01-17 17:26 | XMS_ITS | Encounter Summary ---
Author Organization [place] Address [facility] [place] [address] Care Team Providers Care Manager Part Name Role Phone Yarelis Henderson MD Primary Care Provider Leo Lopez PA-C Unavailable [phone] Talisha Roth MD Unavailable [phone] Lonnie Cadet MD Unavailable + Palak Lazcano MD Unavailable [phone] Phoebe Mchugh MD Unavailable [phone] Anna Pritchett MD Unavailable [phone] Phoebe Mchugh MD Unavailable [phone] Anna Pritchett MD Unavailable [phone] Encounter Details Date Type Department Care Team (Late st Contact Info) Description 05/31/2021 [facility] Medical Advice [facility] [address] [place] [address] Miriam Mendosa, JENNIFER Social History Tobacco Use Types Packs/Day Years Used Date Smoking Tobacco: Former Cigarettes Q uit: 01/19/2008 Smokeless Tobacco: Never Alcohol Use Standard Drinks/Week Comments No 0 (1 standard drink = 0.6 oz pur e alcohol) Comments No Sex and Gender Information Value Date Recorded Sex Assigned at Not on file Legal Sex Female 4:44 AM COUNTY JUDGE Gender Identity Not on file Sexual Orientation [...] st Contact Info) Description 02/28/2025 1:00 PM COUNTY JUDGE Office Visit [facility] Neurosurgery Clinic [address] 3rd [place] [address] Anna Pritchett MD [address] [place] [address] [id number] [place], [place] [address] documented as of this encounter Visit Diagnoses Not on filedocumented in this encounter Additional Health Concerns Infection Onset Date Last Indicated Resolved Time Rule Out COVID-19 03/09/2022 03/09/2022 03/09/2022 5:29 PM COUNTY JUDGE Rule Out COVID-19 07/01/2022 07/01/2022 07/01/2022 7:40 PM CDT Rule Out COVID-19 03/06/2023 03/06/2023 03/06/2023 10:41 PM COUNTY JUDGE Rule Out COVID-19 10/01/2024 10/01/2024 10/02/2024 12:19 AM CDT documented as of this encounter Care Teams Manager Part Relationship Specialty [place] [address] [address] [address] PCP - General 07/24/10 Leo Lopez PA-C [address] [place] [address] Assigned Neuroscience Provider 05/19/21 09/05/22 Talisha Roth MD [address] [facility] [address] [place] [address] Assigned Surgical Provider 09/21/21 05/08/23 [place] [address] [place] [address] Assigned Pain Medication Provider 02/24/22 08/15/22 [place] [address] [place] [address] Pain Medicine 06/25/22 Phoebe Mchugh MD [address] [place] [address]98305 Physical Medicine and Rehabilitation 09/10/22 Anna Pritchett MD [address] [place] [address] Assigned Neuroscience Provider 09/06/22 10/17/22 Phoebe Mchugh MD [address] [place] [address] Assigned Neuroscience Provider 10/18/22 03/11/23 Anna Pritchett MD [address] [place] [address] Assigned Neuroscience Provider 03/12/23 09/06/24 documented as of this encounter
--- OUTSIDE RECORDS SUMMARY | 2025-01-17 17:26 | XMS_ITS | Encounter Summary ---
Author Organization [place] Address [facility] [place] [address] Care Team Providers Care Marble Worker Name Role Phone Yarelis Henderson MD Primary Care Provider [phone] Leo Lopez PA-C Unavailable [phone] Talisha Roth MD Unavailable [phone] Lonnie Cadet MD Unavailable + Palak Lazcano MD Unavailable [phone] Phoebe Mchugh MD Unavailable [phone] Anna Pritchett MD Unavailable [phone] Phoebe Mchugh MD Unavailable [phone] Anna Pritchett MD Unavailable [phone] Encounter Details Date Type Department Care Team (Late st Contact Info) Description 03/21/2021 [facility] [place] [facility] Pain Management [address] [address] Radha Chance RN Social History Tobacco Use Types Packs/Day Years Used Date Smoking Tobacco: Former Cigarettes Q uit: 01/19/2008 Smokeless Tobacco: Never Alcohol Use Standard Drinks/Week Comments No 0 (1 standard drink = 0.6 oz pur e alcohol) Comments No Sex and Gender Information Value Date Recorded Sex Assigned at Not on file Legal Sex Female 4:44 AM PATIENT TRANSPORT OFFICER Gender Identity Not on file Sexual Orientation Not on file COVID-19 Exposure Response Date Recorded In the last month, have you been in contact with someone who was confirmed or suspected to have Coronavirus / COVID-19? No / Unsure 03/20/2021 8:16 AM PATIENT TRANSPORT OFFICER documented as of this encounter Plan of Treatment Upcoming Encounters Date Type Department Care Team (Late st Contact Info) Description 02/28/2025 1:00 PM PATIENT TRANSPORT OFFICER Office Visit [facility] Neurosurgery Clinic [address] 3rd [place] [address] Anna Pritchett MD [address] [place] [address] [id number] [place], [place] [id number] documented as of this encounter Visit Diagnoses Not on filedocumented in this encounter Additional Health Concerns Infection Onset Date Last Indicated Resolved Time Rule Out COVID-19 03/09/2022 03/09/2022 03/09/2022 5:29 PM PATIENT TRANSPORT OFFICER Rule Out COVID-19 07/01/2022 07/01/2022 07/01/2022 7:40 PM CDT Rule Out COVID-19 03/06/2023 03/06/2023 03/06/2023 10:41 PM PATIENT TRANSPORT OFFICER Rule Out COVID-19 10/01/2024 10/01/2024 10/02/2024 12:19 AM CDT documented as of this encounter Care Teams Marble Worker Relationship Specialty [place] [address] [place] [address] PCP - General 07/24/10 Leo Lopez PA-C [address] [place] [address] Assigned Neuroscience Provider 05/19/21 09/05/22 Talisha Roth MD [address] [facility] [address] [place] [address] Assigned Surgical Provider 09/21/21 05/08/23 [place] [address] [place] [address] Assigned Pain Medication Provider 02/24/22 08/15/22 [place] [address] [place] [address] Pain Medicine 06/25/22 Phoebe Mchugh MD [address] [place] [address] Physical Medicine and Rehabilitation 09/10/22 Anna Pritchett MD [address] [place] [address] Assigned Neuroscience Provider 09/06/22 10/17/22 Phoebe Mchugh MD [address] [place] [address] Assigned Neuroscience Provider 10/18/22 03/11/23 Anna Pritchett MD [address] [place] [address] Assigned Neuroscience Provider 03/12/23 09/06/24 documented as of this encounter
--- OUTSIDE RECORDS SUMMARY | 2025-01-17 17:26 | XMS_ITS | Encounter Summary ---
Author Organization [place] Address [address] [place] [address] Care Team Providers Care Casino Beverage Server Name Role Phone Yarelis Henderson MD Primary Care Provider [phone] Leo Lopez PA-C Unavailable [phone] Talisha Roth MD Unavailable [phone] Lonnie Cadet MD Unavailable + Palak Lazcano MD Unavailable [phone] Phoebe Mchugh MD Unavailable [phone] Anna Pritchett MD Unavailable [phone] Phoebe Mchugh MD Unavailable [phone] Anna Pritchett MD Unavailable [phone] Encounter Details Date Type Department Care Team [...] on file Legal Sex Female 4:44 AM HUMAN RESOURCES SERVICES SPECIALIST Gender Identity Not on file Sexual Orientation Not on file documented as of this encounter Progress Notes * Unknown, Provider - 07/29/2011 2:30 PM CDT Cook Manager: Jorge Luis Patton Status: Final Encounter: 2011-07-29 14:30:00.000 Type: [facility] Nurse Visit Reason For Visit LANIE BARRAZA is a 36 year old female presents today accompanied by her brick tester for a RIPSAWYER ultrasound with Corie Fisher NP. Active Problems [...] Jorge Luis Patton LPN; 07/29/2011 3:30 PM HUMAN RESOURCES SERVICES SPECIALIST. documented in this encounter Plan of Treatment Upcoming Encounters Date Type Department Care Team (Late st Contact Info) Description 02/28/2025 1:00 PM HUMAN RESOURCES SERVICES SPECIALIST Office Visit [facility] Neurosurgery Clinic [address] [place] [address] Anna Pritchett MD [address] [place] [address] [id number] [place] [address] documented as of this encounter Visit Diagnoses Not on filedocumented in this encounter Additional Health Concerns Infection Onset Date Last Indicated Resolved Time Rule Out COVID-19 03/09/2022 03/09/2022 03/09/2022 5:29 PM HUMAN RESOURCES SERVICES SPECIALIST Rule Out COVID-19 07/01/2022 07/01/2022 07/01/2022 7:40 PM CDT Rule Out COVID-19 03/06/2023 03/06/2023 03/06/2023 10:41 PM HUMAN RESOURCES SERVICES SPECIALIST Rule Out COVID-19 10/01/2024 10/01/2024 10/02/2024 12:19 AM CDT documented as of this encounter Care Teams Casino Beverage Server Relationship Specialty [place] [address] [place] [address] PCP - General 07/24/10 Leo Lopez PA-C [address] [place] [address] Assigned Neuroscience Provider 05/19/21 09/05/22 Talisha Roth MD [address] [facility] [address] [place] [address] Assigned Surgical Provider 09/21/21 05/08/23 [place] [address] [place] [address] Assigned Pain Medication Provider 02/24/22 08/15/22 [place] [address] [place] [address] Pain Medicine 06/25/22 Phoebe Mchugh MD [address] [facility] [address] [place], [place] [address] Physical Medicine and Rehabilitation 09/10/22 Anna Pritchett MD [address] [facility] [id number] [place] [address] Assigned Neuroscience Provider 09/06/22 10/17/22 Phoebe Mchugh MD [address] [facility] [address] [place] [address] Assigned Neuroscience Provider 10/18/22 03/11/23 Anna Pritchett MD [address] [id number] [place] [address] Assigned Neuroscience Provider 03/12/23 09/06/24 documented as of this encounter
[2025-01-17 17:32] VITALS: BP 144/93; PULSE 85; RESP 18; TEMP 36.4; O2SAT 95; BMI 47.2
--- NOTE | 2025-01-17 18:51 | ED.NECK ---
HPI - Neck Pain/Injury General Chief Complaint: Neck Injury/Pain Stated Complaint: Neck pain/ Dizziness Time Seen by Provider: 01/17/25 17:38 History of Present Illness HPI Narrative: This 49-year-old female is hearing impaired and requires ASL translation. She has chronic neck pain and is due to get an injection in a couple weeks. She comes in because of this pain which is worsened now along with some vertigo type symptoms. She reports some nausea but does not have any vomiting. She does not report any new injury or strenuous activity to worsen her symptoms. She did have imaging done in the last week. She is on anticoagulants and cannot take and states. She has been taking Tylenol at home without much relief. Related Data Home Medications ?Medication ?Instructions ?Recorded ?Confirmed apixaban 5 mg tablet (Eliquis) 5 mg PO BID 01/06/25 01/06/25 buprenorphine HCl 75 mcg buccal 75 mcg buccal Q12H 01/06/25 01/06/25 film (Belbuca) duloxetine 60 mg capsule,delayed 60 mg PO QPM 01/06/25 01/06/25 release enoxaparin 40 mg/0.4 mL mg DAILY 01/06/25 subcutaneous syringe meclizine 25 mg tablet 25 mg PO 3XD PRN vertigo 01/06/25 01/06/25 methocarbamol 500 mg tablet 1,000 mg PO 3XD 01/06/25 01/06/25 metoprolol succinate 25 mg 25 mg PO DAILY 01/06/25 01/06/25 tablet,extended release 24 hr omeprazole 20 mg capsule,delayed 20 mg PO BID 01/06/25 01/06/25 release suzetrigine 50 mg tablet (Journavx) mg PO 01/06/25 Previous Rx's ?Medication ?Instructions ?Recorded hydrocodone 5 mg-acetaminophen 325 1 tab PO Q4-6H PRN pain #15 tabs 01/17/25 mg tablet meclizine 25 mg tablet 25 mg PO QID #20 tabs 01/17/25 ondansetron 4 mg disintegrating 4 mg PO Q6H #10 tabs 01/17/25 tablet Allergies Allergy/AdvReac Type Severity Reaction Status Date / Time hydromorphone (From Dilaudid) Allergy Severe Verified 01/06/25 19:08 morphine Allergy Severe Verified 01/06/25 19:08 Review of Systems Status of ROS: Reports: 10 or more systems reviewed and unremarkable except as noted in History and below Narrative: Constitutional: No fevers, no weight gain or loss. Eyes: No discharge. No vision changes. HENT: No congestion, no sore throat, no ear pain. Cardiovascular: No chest pain, no palpitations. Respiratory: No shortness of breath, no wheezes, no cough. Gastrointestinal: No abdominal pain, no vomiting, no diarrhea. Genitourinary: No dysuria, no hematuria. Musculoskeletal: Normal range of motion. Skin: No rashes, no pruritis. Neurological: No dizziness, weakness, sensory change, speech change. Endo/Heme/Allergies: No bruising or bleeding. No polydipsia. Pysch: no suicidality, no anxiety, no insomnia. All other systems reviewed and are negative. Exam Narrative: Exam Narrative: Constitutional: Well-developed, well-nourished, no acute distress. HEENT: Normocephalic, atraumatic. Neck: Normal range of motion. Nontender. Supple. Heart: Intact distal pulses. Lungs: No chest discomfort. No wheezes, rhonchi, or rales. Abdomen: Nontender. Back: Normal range of motion. Extremities: Normal range of motion. No injury. Skin: Intact. No rash. Warm. No erythema or pallor. Neurologic: No altered sensation. No weakness. Alert and oriented. Hearing impaired. Psychiatric: No suicidality. No anxiety or depression. No insomnia. Nursing notes and vitals signs are reviewed. Const: Vital Signs, click to edit/add: Vital Signs - 24 hr 01/17/25 17:32 Temperature 97.6 F Pulse Rate [Pulse Oximeter] 85 Respiratory Rate 18 Blood Pressure [Ri ght Upper Arm] 144/93 H Pulse Oximetry 95 Oxygen Delivery Me thod Room Air Course Vital Signs Vital signs: Initial Vital Signs Temperature 97.6 F 01/17/25 17:32 Temperature Source Temporal Artery Scan 01/17/25 17:32 Pulse Rate 85 01/17/25 17:32 Respiratory Rate 18 01/17/25 17:32 Blood Pressure 144/93 H 01/17/25 17:32 Blood Pressure Mean 110 H 01/17/25 17:32 Pulse Oximetry 95 01/17/25 17:32 Oxygen Delivery Method Room Air 01/17/25 17:32 Vital Signs Temperature 97.6 F 01/17/25 17:32 Pulse Rate 85 01/17/25 17:32 Respiratory Rate 18 01/17/25 17:32 Blood Pressure 144/93 H 01/17/25 17:32 Pulse Oximetry 95 01/17/25 17:32 Oxygen Delivery Method Room Air 01/17/25 17:32 Temperature 97.6 F 01/17/25 17:32 Pulse Rate 85 01/17/25 17:32 Respiratory Rate 18 01/17/25 17:32 Blood Pressure 144/93 H 01/17/25 17:32 Pulse Oximetry 95 01/17/25 17:32 Oxygen Delivery Method Room Air 01/17/25 17:32 MDM - Neck Pain/Injury MDM Narrative Medical decision making narrative: This patient has chronic neck pain and comes in with inadequate relief of her symptoms of pain and vertigo with taking Tylenol. She does not have any new injury to the requires imaging at this time. She arrives with normal vital signs. She does have follow-up care with plans for an injection in a couple weeks. The patient did receive an intramuscular injection of morphine 10 mg here. I also gave oral doses of Zofran and meclizine. She is okay to be discharged home. I did provide prescriptions for Harrison, Zofran, and meclizine. Discharge Plan Discharge Clinical Impression: Chronic neck pain, Vertigo Patient Disposition: Home w/ Parent or Adult Condition: Stable Additional Instructions: Take medication as prescribed and needed. Follow up with clinic as planned or return if worsening. Prescriptions: New hydrocodone-acetaminophen 5-325 mg tablet 1 tab PO Q4-6H PRN (Reason: pain) Qty: 15 0RF meclizine 25 mg tablet 25 mg PO QID Qty: 20 0RF ondansetron 4 mg tablet,disintegrating 4 mg PO Q6H Qty: 10 0RF No Action methocarbamol 500 mg tablet 1,000 mg PO 3XD meclizine 25 mg tablet 25 mg PO 3XD PRN (Reason: vertigo) omeprazole 20 mg capsule,delayed release(DR/EC) 20 mg PO BID metoprolol succinate 25 mg tablet extended release 24 hr 25 mg PO DAILY enoxaparin 40 mg/0.4 mL syringe DAILY duloxetine 60 mg capsule,delayed release(DR/EC) 60 mg PO QPM Eliquis 5 mg tablet 5 mg PO BID buprenorphine HCl [Belbuca] 75 mcg film 75 mcg buccal Q12H Journavx 50 mg tablet PO Patient Comments: TAKE 2 TABLETS BY MOUTH FOR 1ST DOSE, THEN 1 TABLET EVERY 12 HOURS AFTER Follow Up/Referrals: Provider,Not a Local [Primary Care Provider, Family Practice] Stand Alone Forms: [employer] Info Instructions
[2025-01-17] MEDS: ONDANSETRON ODT 4 MG TAB PO (19:03)
[2025-01-17] MEDS: MECLIZINE HCL 25 MG TABLET PO (19:03)
== END 2025-01-17 19:24 | disposition home or self-care (01) ==
LOC: ED 19:04
PROVIDERS: Emergency Provider Emergency Medicine Emergency Medical Services
DX: M54.2 Cervicalgia (principal); G89.29 Other chronic pain; R42 Dizziness and giddiness; Z79.01 Long term (current) use of anticoagulants
CPT/HCPCS: 96372; 99284; A9270; J2270

== ENCOUNTER 2025-01-27 13:57 | Emergency (ER) | payer BC, SELFPAY ==
[2025-01-27 14:04] VITALS: BP 151/90; PULSE 92; RESP 20; TEMP 36.6; O2SAT 98
--- NOTE | 2025-01-27 14:38 | ED_ITS ---
HPI - General Adult General Date Seen: 01/27/25 Chief complaint: Unspecified Complaint, Adult Stated complaint: Dizzy neck pain Time Seen by Provider: 01/27/25 14:28 History of Present Illness HPI narrative: 49-year-old female presenting to the ER this afternoon by EMS with complaint of dizziness that began this afternoon she is also having neck pain which was pre- existing. Per medical record she was seen here in the ER 10 days ago on 01/17. 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 Per that note she has chronic neck pain and gets steroid injections. She had developed worsening neck pain and vertigo symptoms. She received IM morphine as well as Zofran and meclizine. She felt better was discharged home. Per records through [facility] link.. She has a past medical history of chronic pain with a controlled substance agreement. It looks like she is on methocarbamol, tizanidine. 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 She has a history of factor 5 Leiden mutation. History of chronic low back pain and sciatica. 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 She does have chronic neck pain and has been having a flare pain over the past few weeks. She is waiting for her upcoming steroid injection into her neck. She had no she has chronic neck pain due to a pinched nerve. Although she would benefit from surgery, she is not a surgical candidate due to her history of blood clots and current blood thinner use. Hemangioma chronic back pain with hydrocodone 1 tablet every 4-6 hours prescribed by her doctor and also every 3 months steroid injections. She had been seen here 10 days ago for an we are neck pain and dizziness but has not ended dizzy since then. 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 She had a big uptake in her neck pain and also got quite dizzy, sweaty, and unsteady. She describes the dizziness is if she is going to pass out and also like she has been a. She was sweaty. She has never had this sort of dizziness or neck pain at work before so her boss called 911 and she was brought here by ambulance. Now that she is here in the ER she still having neck pain, mostly in the right lateral posterior neck. No numbness or weakness down her arms or legs. She still feels little bit dizzy and unsteady like the room is spinning. She also has a mild headache. She has been consistent in taking her Eliquis lately. She did not really have any chest pain, or other shortness of breath today at work. No recent fever. However, she was sweaty or work during the episode. She does take hydrocodone chronically for her pain. She says she is not an addict. She typically takes 1 tablet (probably 5 mg? ) Every 4-6 hours. This is prescribed by her regular doctor. Related Data Home Medications ?Medication ?Instructions ?Recorded ?Confirmed apixaban 5 mg tablet (Eliquis) 5 mg PO BID 01/06/25 buprenorphine HCl 75 mcg buccal 75 mcg buccal Q12H 01/27/25 film (Belbuca) duloxetine 60 mg capsule,delayed 60 mg PO QPM 01/06/25 01/27/25 release meclizine 25 mg tablet 25 mg PO 3XD PRN vertigo 01/27/25 methocarbamol 500 mg tablet 1,000 mg PO 3XD 01/06/25 1 03/30/24 metoprolol succinate 25 mg 25 mg PO DAILY 01/06/2502/09 tablet,extended release 24 hr omeprazole 20 mg capsule,delayed 20 mg PO BID 01/06/25 01/27/25 release suzetrigine 50 mg tablet (Journavx) mg PO 01/06/25 oxycodone 5 mg tablet 5 mg PO QID PRN 01/27/2502/09 Previous Rx's ?Medication ?Instructions ?Recorded hydrocodone 5 mg-acetaminophen 325 1 tab PO Q4-6H PRN pain #15 tabs 01/17/25 mg tablet meclizine 25 mg tablet 25 mg PO QID #20 tabs ondansetron 4 mg disintegrating 4 mg PO Q6H #10 tabs 1 03/20/24 tablet oxycodone-acetaminophen 5 mg-325 1 tab PO Q6H PRN pain #10 tabs 01/27/25 mg tablet (Percocet) Allergies Allergy/AdvReac Type Severity Reaction Status Date / Time hydromorphone (From Dilaudid) Allergy Severe Verified 01/27/25 16:00 morphine Allergy Severe Verified 01/27/25 16:00 [facility] Social History Smoking Status: Former smoker What tobacco products do you use: cigarettes Smoking quit date/years: <= 15 years ago How often do you have a drink containing alcohol: never AUDIT-C Alcohol total score: 0 Non-prescribed substance use: denies use Exam Narrative: Exam Narrative: Constitutional: Appears well-developed and well-nourished. Alert. Conversant through her rf design engineer. Able to answer questions and follow com mands appropriately. Her T shirt is wet from when she was sweating earlier. HENT: Head: Atraumatic. Nose: Nose normal. Mouth/Throat: Oral mucosa is clear and moist. no trismus. Pharynx normal. Tonsi ls symmetric. No tonsillar enlargement, erythema, or exudate. Eyes: Subtle horizontal nystagmus. Difficult to identify a ?fast? or ?slow? phase. Conjunctivae normal. EOM normal. Pupils equal, round, and reactive to light. No scleral icterus. Neck: Normal range of motion. Neck supple. No tracheal deviation present. She does have posterior tenderness over the right cervical paraspinous muscles. No warmth. No bruising. No rash. Range of motion is beyond 45? in both directions laterally but she does have pain in the back of her neck with rotation. No trouble flexion extension. No anterior tenderness. Cardiovascular: Normal rate, regular rhythm. No gallop. No friction rub. No murmur heard. Symmetric radial artery pulses . No JVD Pulmonary/Chest: Effort normal. No stridor. No respiratory distress. No wheezes. No rales. No rhonchi . No tenderness. Abdominal: Soft. No distension. No mass. No tenderness. No rebound. No guarding. Musculoskeletal: RUE: Normal range of motion. No tenderness. No deformity LUE: Normal range of motion. No tenderness. No deformity RLE: Normal range of motion. No edema. No tenderness. No deformity LLE: Normal range of motion. No edema. No tenderness. No deformity Neurological: Alert and oriented to person, place, and time. Normal strength. CN II-VII intact. No sensory deficit. GCS eye subscore is 4. GCS verbal subscore is 5. GCS motor subscore is 6. Normal coordination Mental status normal. Attention normal. Alert and oriented x3. GCS 15. Memory normal. Speech fluent. Cognition normal. Cranial Nerves intact II-XII except I did not formally test gag or visual acuity. EOMI. Palate elevates symmetrically and tongue protrudes in the midline. Strength: 5/5 trapezius on the right and left 5/5 deltoid on the right and left 5/5 biceps on the right and left 5/5 triceps on the right and left 5/5 linen controller on the right and left 5/5 thumb opposition on the right and le ft 5/5 finger abduction on the right and le ft 5/5 hip flexors (L3) on the right and le ft 5/5 quadriceps (L4) on the right and lef t 5/5 tibialis anterior on the right and l eft 5/5 EHL (L5) on the right and left 5/5 gastrocnemius (S1) on the right and left 5/5 hamstring on the right and left Sensation intact to light touch in both upper extremities (C4-T1) Sensation intact to light touch in Both lower extremities (L4-S1). Finger to nose and coordination normal. Skin: Skin is warm and dry. No rash noted. No pallor. Normal capillary refill. Psychiatric: Normal mood. Normal affect. Const: Vital Signs, click to edit/add: Vital Signs - 24 hr 01/27/25 14:04 01/27/25 17:06 Temperature 97.9 F Pulse Rate [Pulse Oximeter] 92 78 Respiratory Rate 20 19 Blood Pressure [Ri ght Forearm] 151/90 H 143/97 H Pulse Oximetry 98 99 Oxygen Delivery Me thod Room Air Room Air Course Vital Signs Vital signs: Initial Vital Signs Temperature 97.9 F 01/27/25 14:04 Temperature Source Temporal Artery Scan 01/27/25 14:04 Pulse Rate 92 01/27/25 14:04 Respiratory Rate 20 01/27/25 14:04 Blood Pressure 151/90 H 01/27/25 14:04 Blood Pressure Mean 110 H 01/27/25 14:04 Pulse Oximetry 98 01/27/25 14:04 Oxygen Delivery Method Room Air 01/27/25 14:04 Vital Signs Temperature 97.9 F 01/27/25 14:04 Pulse Rate 92 01/27/25 14:04 Respiratory Rate 20 01/27/25 14:04 Blood Pressure 151/90 H 01/27/25 14:04 Pulse Oximetry 98 01/27/25 14:04 Oxygen Delivery Method Room Air 01/27/25 14:04 Temperature 97.9 F 01/27/25 14:04 Pulse Rate 78 01/27/25 17:06 Respiratory Rate 19 01/27/25 17:06 Blood Pressure 143/97 H 01/27/25 17:06 Pulse Oximetry 99 01/27/25 17:06 Oxygen Delivery Method Room Air 01/27/25 17:06 Medications Administered Medications: Discontinued Medications Generic Name Dose Route Start Last Admin Trade Name Freq PRN Reason Stop Dose Admin Diphenhydramine HCl 25 mg 01/27/25 17:17 01/27/25 17:45 Diphenhydramine 50 Mg/Ml Inj IVP 01/27/25 17:18 25 mg ONCE ONE Administration Fentanyl 50 mcg 01/27/25 15:00 01/27/25 15:43 Fentanyl 100 Mcg/2 Ml Inj IVP 50 mcg Q5M PRN Administration Hydromorphone HCl 1 mg 01/27/25 17:17 01/27/25 17:46 Hydromorphone 0.5 Mg/0.5 Ml Inj IVP 01/27/25 17:18 1 mg ONCE ONE Administration Sodium Chloride 1,000 mls @ 1,000 mls/hr 01/27/25 15:00 01/27/25 19:04 0.9 % Sodium Chloride 1000 Ml IV 01/27/25 15:59 Infused .Q1H RHEA Infusion Meclizine HCl 25 mg 01/27/25 15:00 01/27/25 15:32 Meclizine Hcl 25 Mg Tablet PO 01/27/25 15:01 25 mg ONCE ONE Administration Ondansetron HCl 4 mg 01/27/25 15:00 01/27/25 15:41 Ondansetron 2 Mg/Ml Inj IVP 01/27/25 15:01 4 mg ONCE ONE Administration Medical Decision Making [facility] Narrative Medical decision making narrative: 49-year-old female with an unfortunate history of some chronic neck pain apparently due to cervical disc disease. She is managed on chronic hydrocodone for pain and also gets steroid injections in her neck every 3 months. She is apparently not a good surgical candidate, because she has a history of blood clots and is chronically on Eliquis. She presents to the ER today by EMS from her job where she had an exacerbation of neck pain that made her dizzy with vertigo and also quite sweaty. She is complaining of ongoing neck pain here in the ER but does not have any pain or numbness radiating down her arms to clearly indicate acute spinal cord injury or an acute cervical radiculopathy. Because of the associated vertigo, which is not a typical symptom that goes with her neck pain would consider alternative pathology such as vertebral artery dissection. We did obtain a head CT and CT angiogram of her head neck that are normal. She does have predominantly neck pain and also little bit of headache. No other ongoing stroke symptoms. At this point I do not think she needs to be admitted for MRI. With her sweatiness we did consider an atypical presentation of angina, although she did not have any chest pain at any time. EKG is nonischemic and initial and 2 hour delta high sensitivity troponin are normal. She has a history of PE but is not hypoxic or short of breath today. She has been therapeutic with her Eliquis lately. At this point I do not think she needs CT PA or further workup for that. Patient did not have much improvement with fentanyl but did get better after Dilaudid and Benadryl. She is expressing through the rf design engineer that she is very frustrated about her chronic pain. It sounds like she has been referred by her primary to a spine clinic and then to [facility] spine but no one will give her pain meds. She says she came to the ER couple weeks ago and we gave her hydrocodone but that is not helping. She would like some oxycodone. It looks like that she may have some chronic pain and it is unclear whether not her doctor is had her on his buprenorphine the past. She is angry and upset about her poorly controlled pain. I agreed to give her a short-term prescription for oxycodone that she can use manage her pain over the weekend. I also called through to the [facility] message line and left a message for the patient's primary care provider that she was here in the ER for an exacerbation of her neck pain and also has been here couple of times lately. This is clearly a pattern of uncontrolled pain. Needs to be addressed in the primary care office. If she truly has trouble with opiate misuse, perhaps her PCP can help, but alternative plans for long-term pain management. I asked her primary to call her on Thursday to arrange a close outpatient follow-up visit. I gave her a prescription for for Percocet tablets through [facility] and 10 Percocet tablets sent to her pharmacy. I discussed with the patient that we cannot keep giving refills of opiate pain killers through the ER. The patient's she is comfortable discharging home with her. Lab Data Labs: Lab Results 01/27/25 01/27/25 01/27/25 Range/Units 15:01 15:49 17:23 WBC 6.06 (4.50-11.00) K/uL RBC 5.23 H (4.00-5.20) m/uL Hgb 14.3 (12.0-16.0) gm/dL Hct 42.9 (33.0-51.0) % MCV 82 (80-100) fL MCH 27 (26-34) pg MCHC 33 (32-36) gm/dL RDW Coeff of Sam 13.2 (11.5-15.5) % Plt Count 298 (140-440) K/uL Neut % (Auto) 57.1 (42.0-72.0) % Lymph % (Auto) 32.8 (20-44) % Pickett % (Auto) 7.4 (0.0-11.0) % Eos % (Auto) 1.8 (0.0-7.0) % Baso % (Auto) 0.7 (0.0-3.0) % Neut # (Auto) 3.46 (1.7-7.0) K/uL Lymph # (Auto) 1.99 (0.90-2.90) K/uL Pickett # (Auto) 0.40 (0.00-0.90) K/UL Eos # (Auto) 0.11 (0.00-0.50) K/uL Baso # (Auto) 0.04 (0.00-0.30) K/uL Abs Immat Gran (auto) 0.01 (0.00-0.30) K/uL Imm/Tot Granulo (auto) 0.2 % Sodium 139 (135-149) mmol/L Potassium 3.9 (3.6-5.1) mmol/L Chloride 100 (96-114) mmol/L Carbon Dioxide 28 (20-32) mmol/L Anion Gap 11 (7-15) mEq/L BUN 16 (7-30) mg/dL Creatinine 0.9 (0.5-1.5) mg/dL Estimated GFR 77 ml/min Glucose 100 (60-115) mg/dL Calcium 9.8 (8.4-10.6) mg/dL POC Troponin I High Sensi 2.9 5.6 (2.9-13.0) pg/mL Imaging Data CT angiogram head and neck: Attestation: I have reviewed the pertinent imaging results. Radiologist's impression: Preliminary Report: No proximal large vessel occlusion or cervical arterial stenosis. Read by:?Giuseppe Garcia MD @01/27/2025 4:25:[address] scan - head: Attestation: I have reviewed the pertinent imaging results. Radiologist's impression: Impression: No acute intracranial hemorrhage or mass effect. ECG Data Attestation: I personally reviewed and interpreted this ECG as follows: Interpretation: Normal sinus rhythm Rate 76 AL interval 166 Normal QRS axis No ST segment elevation or depression. T-waves are normal. Continued your interpretation suggest anterior infarct, however I do not think this is accurate. There are no Q-waves or ST segment elevation anteriorly QT 386, QTC 434 Discharge Plan Discharge Clinical Impression: Chronic neck pain, Vertigo Patient Disposition: Home, Self-Care Condition: Stable Instructions: Vertigo (DC), Acute Neck Pain (ED) Additional Instructions: Please come back to the ER anytime if you need help, especially if you have worsenin dizziness, headache, fever, chest pain, or trouble breathing. Use the Percocet (oxycodone) as needed. be careful, because oxyocone can be addictive and can cause dizziness, constipation, and unsteadiness. I have sent med Flayr to Dr. [facility] clinic. They will contact you on Thursday morning to set up an ER follow-up visit. If you do not hear from them by noon on Thursday, please call Dr. Henderson's clinic Prescriptions: New oxycodone-acetaminophen [Percocet] 5-325 mg tablet 1 tab PO Q6H PRN (Reason: pain) Qty: 10 0RF No Action methocarbamol 500 mg tablet 1,000 mg PO 3XD meclizine 25 mg tablet 25 mg PO 3XD PRN (Reason: vertigo) omeprazole 20 mg capsule,delayed release(DR/EC) 20 mg PO BID metoprolol succinate 25 mg tablet extended release 24 hr 25 mg PO DAILY duloxetine 60 mg capsule,delayed release(DR/EC) 60 mg PO QPM Eliquis 5 mg tablet 5 mg PO BID buprenorphine HCl [Belbuca] 75 mcg film 75 mcg buccal Q12H Journavx 50 mg tablet PO Patient Comments: TAKE 2 TABLETS BY MOUTH FOR 1ST DOSE, THEN 1 TABLET EVERY 12 HOURS AFTER hydrocodone-acetaminophen 5-325 mg tablet 1 tab PO Q4-6H PRN (Reason: pain) Qty: 15 0RF meclizine 25 mg tablet 25 mg PO QID Qty: 20 0RF ondansetron 4 mg tablet,disintegrating 4 mg PO Q6H Qty: 10 0RF oxycodone 5 mg tablet 5 mg PO QID PRN Follow Up/Referrals: Provider,Not a Local [Primary Care Provider, Family Practice] Stand Alone Forms: [facility] Info Instructions
--- NOTE | 2025-01-27 15:00 | CRLHL7_ITS ---
For Patients: As a result of the Century Cures Act, medical imaging exams and procedure reports are released immediately into your electronic medical record. You may view this report before your referring provider. If you have questions, please contact your health care provider. Indication: Vertigo. Nausea. Technique: Noncontrast CT images of the brain. Comparison: None. Findings: The ventricles and sulci are within normal limits for patient age. No mass effect or midline shift. Woodard-white differentiation is maintained. No acute intracranial hemorrhage or pathologic extra-axial fluid collection. Globes are symmetric. Calvarium is intact. Visualized paranasal sinuses and mastoid air cells are clear. Impression: No acute intracranial hemorrhage or mass effect. Please note that all CT scans at this facility use dose modulation, iterative reconstruction, and/or weight-based dosing when appropriate to reduce radiation dose to as low as reasonably achievable. Dictated by Giuseppe Garcia MD @ 01/27/2025 4:23:03 PM (Electronically Signed)
--- NOTE | 2025-01-27 15:01 | CRLHL7_ITS ---
For Patients: As a result of the Century Cures Act, medical imaging exams and procedure reports are released immediately into your electronic medical record. You may view this report before your referring provider. If you have questions, please contact your health care provider. INDICATION: Neck pain, vertigo, nausea. TECHNIQUE: CTA head using intravenous contrast with bolus tracking, 3D angiographic rendering using maximum intensity projection (MIP) and images permanently archived. CTA neck using intravenous contrast with bolus tracking, 3D angiographic rendering using maximum intensity projection (MIP) and images permanently archived. FINDINGS: CTA head: There is normal opacification of the intracranial vasculature. There is no large vessel occlusion or significant intracranial stenosis. No aneurysm is identified. CTA neck: There is no significant carotid artery stenosis or dissection. There is no significant vertebral artery stenosis or dissection. Degenerative changes are noted in the cervical spine. IMPRESSION: No acute intracranial abnormality at CTA. No significant carotid or vertebral artery stenosis or dissection. Please note that all CT scans at this facility use dose modulation, iterative reconstruction, and/or weight-based dosing when appropriate to reduce radiation dose to as low as reasonably achievable. Dictated by Leighton Pina MD @ 01/28/2025 10:59:34 AM (Electronically Signed)
[2025-01-27] MEDS: MECLIZINE HCL 25 MG TABLET PO (15:32)
[2025-01-27] MEDS: ONDANSETRON 2 MG/ML inj 4 MG IVP (15:41)
[2025-01-27 16:08] LABS: Hematocrit* 42.9 % (33.0-51.0); Hemoglobin* 14.3 gm/dL (12.0-16.0); Immature Granulocytes Abs Auto 0.01 K/uL (0.00-0.30); Immature Granulocytes Pct Auto 0.2 %; Lymphocytes Absolute Auto 1.99 K/uL (0.90-2.90); Mean Corpuscular HGB Conc 33 gm/dL (32-36); Mean Corpuscular Hemoglobin 27 pg (26-34); Mean Corpuscular Volume 82 fL (80-100); RDW Coefficient of Variation % 13.2 % (11.5-15.5); Red Blood Count* 5.23 m/uL (4.00-5.20); White Blood Count* 6.06 K/uL (4.50-11.00)
[2025-01-27 16:22] LABS: Slide Review Reflex No
[2025-01-27 16:23] LABS: Chloride* 100 mmol/L (96-114); Potassium* 3.9 mmol/L (3.6-5.1); Sodium* 139 mmol/L (135-149)
[2025-01-27 16:26] LABS: Blood Urea Nitrogen* 16 mg/dL (7-30); Creatinine* 0.9 mg/dL (0.5-1.5); Estimated Glomerular Filt Rate 77 ml/min
[2025-01-27 16:27] LABS: Anion Gap 11 mEq/L (7-15); Calcium* 9.8 mg/dL (8.4-10.6); Carbon Dioxide* 28 mmol/L (20-32); Glucose* 100 mg/dL (60-115)
[2025-01-27 17:06] VITALS: BP 143/97; PULSE 78; RESP 19; O2SAT 99
--- NOTE | 2025-01-30 19:07 | ED.NURSE ---
Pt called via director learning and development service. Pt was wanting a note that said she can return to work after her ER visit the other day. Advised pt that her discharge contains a section titled Activity Restrictions and no restrictions were advised here for the pt, therefore she should be able to provide this to her employer as verification that she can return to work. Advised pt to call back for further assistance if her employer did not accept this information.
--- NOTE | 2025-01-30 20:44 | ED.NURSE ---
Chart opened to view DC notes. Pt is requesting a note from MD to go back to work. Pt up set she did not hear from primary today for a possible follow up. Pt is upset she did not get a note to return to work from MD during last visit. 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
== END 2025-01-27 17:50 | disposition home or self-care (01) ==
PROVIDERS: Emergency Provider Emergency Medicine
DX: M54.2 Cervicalgia (principal); R42 Dizziness and giddiness
CPT/HCPCS: 36415; 70450; 70496; 70498; 80048; 84484; 85025; 93005; 96374; 96375; 99284; 99285; A9270; J1171; J1200; J2405; J3010; J7030; Q9967